=== PATIENT | male | born 1955 | race Hispanic/Latino ===

== ENCOUNTER 2019-01-27 13:01 | Emergency (ER) | payer OTHER ==
[2019-01-27] MEDS ORDERED: NYSTATIN 100MU/GM CREAM 15GM TOP ONE (13:34)
[2019-01-27] MEDS ORDERED: FENTANYL CITR 100 MCG/2 ML ONE (13:36)
[2019-01-27] MEDS ORDERED: NA CHLORIDE 0.9% 1,000 ML ONE (13:37)
[2019-01-27 13:59] LABS: Absolute Lymphocytes (CBC) 1.4 K/uL (0.7-4.9); Basophils % 0.9 % (0-1.3); Hematocrit 44.7 % (39.6-49.0); Lymphocytes % 11.4 % (15.3-44.8); MPV 7.1 fL (7.6-11.3); RBC Red Blood Cell Count 5.63 M/uL (4.33-5.43)
[2019-01-27 14:28] LABS: Bilirubin Direct 0.2 mg/dL (0-0.2); Bilirubin Total 0.6 mg/dL (0.2-1.0); Potassium 4.1 mmol/L (3.5-5.1)
--- NOTE | 2019-01-27 15:22 | RAD REPORT ---
EXAM DESCRIPTION: CT - Abdomen Pelvis W Contrast - 01/27/2019 2:53 pm CLINICAL HISTORY: Abdominal pain COMPARISON: 2017 TECHNIQUE: Computed axial tomography of the abdomen pelvis was obtained. 100 cc Isovue-300 was admin istered intravenously. Oral contrast was not requested which limits evaluation of bowel. All CT scans are performed using dose optimization technique as appropriate and may include automated exposure control or mA/KV adjustment according to patient size. FINDINGS: A cirrhotic liver Borderline splenomegaly Gallstones without gallbladder wall thickening Pancreas, adrenal and kidneys appear unremarkable. There is no evidence of diverticulitis. Normal appendix Small inguinal hernias contain fat Prostate gland is moderately enlarged. Air is present within the bladder. Stranding is present within the adjacent. Mild right basilar atelectasis IMPRESSION: Cholelithiasis without evidence cholecystitis Air within the bladder could be secondary to recent instrumentation or infection. Stranding is presen t within the adjacent fat which be the sequela of inflammation
[2019-01-27 15:28] LABS: Urine Bacteria >50 /HPF (NONE SEEN); Urine Culture Reflex Order REFLEXED
[2019-01-27] MEDS ORDERED: CEFTRIAXONE/SWI 1gm 1 GM/10 ML SYR ONE (15:51)
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
[2019-01-27] MEDS ORDERED: levoFLOXacin 750 MG TAB ONE (15:52)
[2019-01-27 16:44] VITALS: TEMP 98.1
[2019-01-27 16:48] VITALS: BP 133/71; O2SAT 99
== END 2019-01-27 16:15 | disposition home or self-care (01) ==
LOC: ER 13:01
DX: N39.0 Urinary tract infection, site not specified (principal); B35.6 Tinea cruris
CPT/HCPCS: 96361; 87088; 85025; 87086; 80048; 36415; 80076; 81015; 83690; 74177; 51700; 96375; 96374; 99285; Q9967; J3010; J0696; J7030; 87077; 87186

== ENCOUNTER 2019-05-17 01:24 | Inpatient (IN) | payer OTHER ==
--- OUTSIDE RECORDS SUMMARY | 2019-05-17 01:30 | XMS REPORT ---
:1955 [facility] Address [address] [place] [address] [address] [place] [address] Care Team Providers Name Role Phone [employer]HE[employer] Unavailable Unavailable Problems This patient has no known problems. Allergies, Adverse Reactions, Alerts This patient has no known allergies or adverse reactions. Medications This patient has no known medications. Results Test Description Test Time Test Comments Text Results Atomic Results Result Comments BLOOD CULTURE 2016-08-15 18:00:00 Test Item Value Reference Range Comments CULTURE (BEAKER) (test gbgb=1372) No growth in 5 days BLOOD [id number] 12:04:00 Test Item Value Reference Range Comments CULTURE (BEAKER) (test evcd=7643) No growth in 5 days POCT-GLUCOSE [id number] 11:45:00 Test Item Value Reference Range Comments POC-GLUCOSE METER (BEAKER) 97 mg/dL 70-[address] [facility] [address] [facility] (test gcqt=9036) [facility] [address] CBC W/PLT COUNT & AUTO [id number] 06:46:00 Test Item Value Reference Range Comments WHITE BLOOD CELL COUNT (BEAKER) (test yzqm=648) 7.7 K/ L 4.0-10.0 RED BLOOD CELL COUNT (BEAKER) (test cwmz=466) 3.60 M/ L 4.20-5.80 HEMOGLOBIN (BEAKER) (test idht=835) 11.2 GM/DL 13.0-16.8 HEMATOCRIT (BEAKER) (test zlem=800) 33.7 % 40.0-50.0 MEAN CORPUSCULAR VOLUME (BEAKER) (test xjfh=081) 93.5 fL 82.0-98.0 MEAN CORPUSCULAR HEMOGLOBIN (BEAKER) (test 31.0 pg 27.0-33.0 xskw=172) MEAN CORPUSCULAR HEMOGLOBIN CONC (BEAKER) (test 33.1 GM/DL 32.0-36.0 zxhi=478) RED CELL DISTRIBUTION WIDTH (BEAKER) (test 15.1 % 10.3-14.2 cbev=570) PLATELET COUNT (BEAKER) (test bmwj=610) 309 K/CU MM 150-430 MEAN PLATELET VOLUME (BEAKER) (test ihek=196) 6.3 fL 6.5-10.5 NUCLEATED RED BLOOD CELLS (BEAKER) (test 0 /100 WBC 0-0 ziow=504) NEUTROPHILS RELATIVE PERCENT (BEAKER) (test 49 % bwun=919) LYMPHOCYTES RELATIVE PERCENT (BEAKER) (test 33 % yuct=030) MONOCYTES RELATIVE PERCENT (BEAKER) (test 13 % tyxt=081) EOSINOPHILS RELATIVE PERCENT (BEAKER) (test 5 % biaz=658) BASOPHILS RELATIVE PERCENT (BEAKER) (test 1 % ejho=327) NEUTROPHILS ABSOLUTE COUNT (BEAKER) (test 3.76 K/ L 1.80-8.00 xicu=389) LYMPHOCYTES ABSOLUTE COUNT (BEAKER) (test 2.52 K/ L 1.48-4.50 xnzy=494) MONOCYTES ABSOLUTE COUNT (BEAKER) (test 0.98 K/ L 0.00-1.30 aqjv=545) EOSINOPHILS ABSOLUTE COUNT (BEAKER) (test 0.35 K/ L 0.00-0.50 liaa=167) BASOPHILS ABSOLUTE COUNT (BEAKER) (test 0.07 K/ L 0.00-0.20 egys=353) 0.00BASI METABOLIC [id number] 06:27:00 Test Item Value Reference Range Comments SODIUM (BEAKER) (test 137 meq/L 136-145 nchk=882) POTASSIUM (BEAKER) (test 4.2 meq/L 3.5-5.1 Specimen slightly ozmd=004) hemolyzed CHLORIDE (BEAKER) (test 108 meq/L 98-107 easd=932) CO2 (BEAKER) (test 24 meq/L 22-29 kcer=697) BLOOD UREA NITROGEN 10 mg/dL 7-21 (BEAKER) (test xrhe=892) CREATININE (BEAKER) (test 0.55 mg/dL 0.57-1.25 Specimen slightly giyt=935) hemolyzed GLUCOSE RANDOM (BEAKER) 106 mg/dL 70-105 (test qgmz=064) CALCIUM (BEAKER) (test 8.0 mg/dL 8.4-10.2 xreb=753) EGFR (BEAKER) (test 152 mL/min/1.73 sq m ESTIMATED GFR IS NOT ilau=0524) ACCURATE CREATININE CLEARANCE IN PREDICTING GLOMERULAR FILTRATION RATE. ESTIMATED GFR IS NOT APPLICABLE FOR DIALYSIS PATIENTS. POCT-GLUCOSE [id number] 05:53:00 Test Item Value Reference Range Comments POC-GLUCOSE METER (BEAKER) 124 mg/dL 70-110 TESTED AT [address] (test oooz=0441) [place] [id number] POCT-GLUCOSE [id number] 23:56:00 Test Item Value Reference Range Comments POC-GLUCOSE METER (BEAKER) 118 mg/dL 70-110 TESTED AT [address] (test gjjc=1006) [place] [address] POCT-GLUCOSE [id number] 16:36:00 Test Item Value Reference Range Comments POC-GLUCOSE METER (BEAKER) 159 mg/dL 70-110 TESTED AT [address] (test pnzk=9786) [place] [id number] POCT-GLUCOSE [id number] 11:49:00 Test Item Value Reference Range Comments POC-GLUCOSE METER (BEAKER) 141 mg/dL 70-110 TESTED AT [address] (test dqep=9007) [place] [id number] BASIC METABOLIC [id number] 06:11:00 Test Item Value Reference Range Comments SODIUM (BEAKER) (test 137 meq/L 136-145 wdxf=441) POTASSIUM (BEAKER) (test 4.0 meq/L 3.5-5.1 vqcg=824) CHLORIDE (BEAKER) (test 108 meq/L 98-107 gmhf=515) CO2 (BEAKER) (test 22 meq/L 22-29 oipc=119) BLOOD UREA NITROGEN 10 mg/dL 7-21 (BEAKER) (test upti=636) CREATININE (BEAKER) (test 0.52 mg/dL 0.57-1.25 qdzu=437) GLUCOSE RANDOM (BEAKER) 94 mg/dL 70-105 (test nebn=160) CALCIUM (BEAKER) (test 8.0 mg/dL 8.4-10.2 orjx=541) EGFR (BEAKER) (test 162 mL/min/1.73 sq m ESTIMATED GFR IS NOT cywu=4961) ACCURATE CREATININE CLEARANCE IN PREDICTING GLOMERULAR FILTRATION RATE. ESTIMATED GFR IS NOT APPLICABLE FOR DIALYSIS PATIENTS. CBC W/PLT COUNT & AUTO [id number] 06:00:00 Test Item Value Reference Range Comments WHITE BLOOD CELL COUNT (BEAKER) (test rqnl=153) 7.0 K/ L 4.0-10.0 RED BLOOD CELL COUNT (BEAKER) (test qbtl=282) 3.41 M/ L 4.20-5.80 HEMOGLOBIN (BEAKER) (test kipz=460) 10.8 GM/DL 13.0-16.8 HEMATOCRIT (BEAKER) (test ylnd=991) 31.6 % 40.0-50.0 MEAN CORPUSCULAR VOLUME (BEAKER) (test tzrm=392) 92.7 fL 82.0-98.0 MEAN CORPUSCULAR HEMOGLOBIN (BEAKER) (test 31.6 pg 27.0-33.0 bzpq=445) MEAN CORPUSCULAR HEMOGLOBIN CONC (BEAKER) (test 34.1 GM/DL 32.0-36.0 ckjs=015) RED CELL DISTRIBUTION WIDTH (BEAKER) (test 14.5 % 10.3-14.2 uabk=555) PLATELET COUNT (BEAKER) (test lmsx=940) 251 K/CU MM 150-430 MEAN PLATELET VOLUME (BEAKER) (test jhve=867) 6.5 fL 6.5-10.5 NUCLEATED RED BLOOD CELLS (BEAKER) (test 0 /100 WBC 0-0 nowl=984) NEUTROPHILS RELATIVE PERCENT (BEAKER) (test 52 % ebqp=676) LYMPHOCYTES RELATIVE PERCENT (BEAKER) (test 33 % bkjg=149) MONOCYTES RELATIVE PERCENT (BEAKER) (test 12 % qvxs=872) EOSINOPHILS RELATIVE PERCENT (BEAKER) (test 2 % gjcn=739) BASOPHILS RELATIVE PERCENT (BEAKER) (test 1 % cejf=293) NEUTROPHILS ABSOLUTE COUNT (BEAKER) (test 3.63 K/ L 1.80-8.00 ttlv=354) LYMPHOCYTES ABSOLUTE COUNT (BEAKER) (test 2.31 K/ L 1.48-4.50 gqbd=965) MONOCYTES ABSOLUTE COUNT (BEAKER) (test 0.84 K/ L 0.00-1.30 xube=405) EOSINOPHILS ABSOLUTE COUNT (BEAKER) (test 0.14 K/ L 0.00-0.50 wvyh=540) BASOPHILS ABSOLUTE COUNT (BEAKER) (test 0.05 K/ L 0.00-0.20 wxsp=319) 0.00POCT-GLUCOSE [id number] 05:49:00 Test Item Value Reference Range Comments POC-GLUCOSE METER (BEAKER) 101 mg/dL 70-110 TESTED AT [address] (test xnmx=3117) [place] [address] BASIC METABOLIC [id number] 01:36:00 Test Item Value Reference Range Comments SODIUM (BEAKER) (test 133 meq/L 136-145 pnls=293) POTASSIUM (BEAKER) (test 4.2 meq/L 3.5-5.1 hccp=195) CHLORIDE (BEAKER) (test 104 meq/L 98-107 dfwr=925) CO2 (BEAKER) (test 22 meq/L 22-29 jsor=129) BLOOD UREA NITROGEN 11 mg/dL 7-21 (BEAKER) (test hkxy=138) CREATININE (BEAKER) (test 0.57 mg/dL 0.57-1.25 cnfo=465) GLUCOSE RANDOM (BEAKER) 128 mg/dL 70-105 (test wjjb=966) CALCIUM (BEAKER) (test 7.9 mg/dL 8.4-10.2 gdpm=561) EGFR (BEAKER) (test 146 mL/min/1.73 sq m ESTIMATED GFR IS NOT zbda=0353) ACCURATE CREATININE CLEARANCE IN PREDICTING GLOMERULAR FILTRATION RATE. ESTIMATED GFR IS NOT APPLICABLE FOR DIALYSIS PATIENTS. POCT-GLUCOSE [id number] 23:39:00 Test Item Value Reference Range Comments POC-GLUCOSE METER (BEAKER) 151 mg/dL 70-110 TESTED AT [address] (test rltg=6652) [place] [address] VANCOMYCIN LEVEL, [id number] 22:30:00 Test Item Value Reference Range Comments VANCOMYCIN TROUGH (BEAKER) (test opcu=387) 17.5 ug/mL 10.0-20.0 Draw 30 min prior to scheduled dose, HOLD if level > 20 mcg/mL, inform .POCT-GLUCOSE [id number] 21:06:00 Test Item Value Reference Range Comments POC-GLUCOSE METER (BEAKER) 140 mg/dL 70-110 TESTED AT [address] (test xsan=2213) [place] [id number] BASIC METABOLIC [id number] 19:21:00 Test Item Value Reference Range Comments SODIUM (BEAKER) (test 135 meq/L 136-145 qwfw=525) POTASSIUM (BEAKER) (test 4.5 meq/L 3.5-5.1 kspn=607) CHLORIDE (BEAKER) (test 106 meq/L 98-107 snqx=004) CO2 (BEAKER) (test 25 meq/L 22-29 cavf=762) BLOOD UREA NITROGEN 9 mg/dL 7-21 (BEAKER) (test mjak=377) CREATININE (BEAKER) (test 0.55 mg/dL 0.57-1.25 scfd=183) GLUCOSE RANDOM (BEAKER) 150 mg/dL 70-105 (test piym=765) CALCIUM (BEAKER) (test 7.9 mg/dL 8.4-10.2 itec=378) EGFR (BEAKER) (test 152 mL/min/1.73 sq m ESTIMATED GFR IS NOT cuem=1666) ACCURATE CREATININE CLEARANCE IN PREDICTING GLOMERULAR FILTRATION RATE. ESTIMATED GFR IS NOT APPLICABLE FOR DIALYSIS PATIENTS. POCT-GLUCOSE [id number] 17:13:00 Test Item Value Reference Range Comments POC-GLUCOSE METER (BEAKER) 122 mg/dL 70-110 TESTED AT [address] (test gbol=8604) [place] [address] POCT-GLUCOSE [id number] 13:05:00 Test Item Value Reference Range Comments POC-GLUCOSE METER (BEAKER) 108 mg/dL 70-110 TESTED AT [address] (test wtze=0307) [place] [address] [id number] 11:24:00 Test Item Value Reference Range Comments RPR SCREEN (BEAKER) (test lnrc=654) Nonreactive Nonreactive CBC W/PLT COUNT & AUTO [id number] 07:21:00 Test Item Value Reference Range Comments WHITE BLOOD CELL COUNT (BEAKER) (test iche=750) 7.4 K/ L 4.0-10.0 RED BLOOD CELL COUNT (BEAKER) (test rjjl=295) 3.59 M/ L 4.20-5.80 HEMOGLOBIN (BEAKER) (test uvya=571) 10.5 GM/DL 13.0-16.8 HEMATOCRIT (BEAKER) (test ywzt=757) 33.1 % 40.0-50.0 MEAN CORPUSCULAR VOLUME (BEAKER) (test tvju=852) 92.2 fL 82.0-98.0 MEAN CORPUSCULAR HEMOGLOBIN (BEAKER) (test 29.1 pg 27.0-33.0 tgsl=789) MEAN CORPUSCULAR HEMOGLOBIN CONC (BEAKER) (test 31.5 GM/DL 32.0-36.0 akvj=344) RED CELL DISTRIBUTION WIDTH (BEAKER) (test 13.6 % 10.3-14.2 iiaz=020) PLATELET COUNT (BEAKER) (test dblm=479) 219 K/CU MM 150-430 MEAN PLATELET VOLUME (BEAKER) (test ieos=017) 6.6 fL 6.5-10.5 NUCLEATED RED BLOOD CELLS (BEAKER) (test 0 /100 WBC 0-0 iczh=837) NEUTROPHILS RELATIVE PERCENT (BEAKER) (test 63 % bfeg=779) LYMPHOCYTES RELATIVE PERCENT (BEAKER) (test 24 % xevt=354) MONOCYTES RELATIVE PERCENT (BEAKER) (test 12 % fuab=789) EOSINOPHILS RELATIVE PERCENT (BEAKER) (test 1 % lljo=689) BASOPHILS RELATIVE PERCENT (BEAKER) (test 0 % turb=711) NEUTROPHILS ABSOLUTE COUNT (BEAKER) (test 4.64 K/ L 1.80-8.00 lgvh=259) LYMPHOCYTES ABSOLUTE COUNT (BEAKER) (test 1.78 K/ L 1.48-4.50 vyhl=259) MONOCYTES ABSOLUTE COUNT (BEAKER) (test 0.89 K/ L 0.00-1.30 wwbj=360) EOSINOPHILS ABSOLUTE COUNT (BEAKER) (test 0.09 K/ L 0.00-0.50 jbww=332) BASOPHILS ABSOLUTE COUNT (BEAKER) (test 0.03 K/ L 0.00-0.20 tjcd=074) 0.00BASI METABOLIC [id number] 07:06:00 Test Item Value Reference Range Comments SODIUM (BEAKER) (test 136 meq/L 136-145 fczw=708) POTASSIUM (BEAKER) (test 4.1 meq/L 3.5-5.1 stst=531) CHLORIDE (BEAKER) (test 106 meq/L 98-107 yviq=286) CO2 (BEAKER) (test 24 meq/L 22-29 drgx=332) BLOOD UREA NITROGEN 7 mg/dL 7-21 (BEAKER) (test viyq=652) CREATININE (BEAKER) (test 0.56 mg/dL 0.57-1.25 iebl=140) GLUCOSE RANDOM (BEAKER) 104 mg/dL 70-105 (test afch=359) CALCIUM (BEAKER) (test 7.9 mg/dL 8.4-10.2 cnmm=371) EGFR (BEAKER) (test 149 mL/min/1.73 sq m ESTIMATED GFR IS NOT wqxd=7746) ACCURATE CREATININE CLEARANCE IN PREDICTING GLOMERULAR FILTRATION RATE. ESTIMATED GFR IS NOT APPLICABLE FOR DIALYSIS PATIENTS. POCT-GLUCOSE [id number] 05:50:00 Test Item Value Reference Range Comments POC-GLUCOSE METER (BEAKER) 124 mg/dL 70-[address] [facility] [address] [facility] (test warx=8508) [facility] [address] SPUTUM CULTURE + GRAM [id number] 00:49:00 Test Item Value Reference Range Comments CULTURE (BEAKER) (test STAPHYLOCOCCUS AUREUS 4+ Staphylococcus oogd=0129) aureus Clindamycin (test code=10) Erythromycin (test code=4) Linezolid (test code=40) Oxacillin (test code=14) Rifampin (test code=43) Tetracycline (test code=2) Trimethoprim + Sulfamethoxazole (test code=47) Vancomycin (test code=13) GRAM STAIN RESULT 2+ WBCs (BEAKER) (test ipli=5640) GRAM STAIN RESULT 10-15 epithelial cells (BEAKER) (test wfgj=231542) GRAM STAIN RESULT <1+ gram positive rods (BEAKER) (test oppw=840584) GRAM STAIN RESULT 2+ yeast (BEAKER) (test vdxf=563508) GRAM STAIN RESULT 1+ gram positive cocci (BEAKER) (test in pairs zrnz=755512) 4+ Normal respiratory ken[place] presentBASIC METABOLIC [id number] 00:36:00 Test Item Value Reference Range Comments SODIUM (BEAKER) (test 135 meq/L 136-145 sxzu=784) POTASSIUM (BEAKER) (test 4.0 meq/L 3.5-5.1 wtlv=062) CHLORIDE (BEAKER) (test 105 meq/L 98-107 vfwi=777) CO2 (BEAKER) (test 24 meq/L 22-29 iruv=573) BLOOD UREA NITROGEN 7 mg/dL 7-21 (BEAKER) (test mjpq=204) CREATININE (BEAKER) (test 0.58 mg/dL 0.57-1.25 iasj=800) GLUCOSE RANDOM (BEAKER) 112 mg/dL 70-105 (test vllb=738) CALCIUM (BEAKER) (test 7.7 mg/dL 8.4-10.2 qqqm=521) EGFR (BEAKER) (test 143 mL/min/1.73 sq m ESTIMATED GFR IS NOT kwzk=1038) ACCURATE CREATININE CLEARANCE IN PREDICTING GLOMERULAR FILTRATION RATE. ESTIMATED GFR IS NOT APPLICABLE FOR DIALYSIS PATIENTS. POCT-GLUCOSE [id number] 23:29:00 Test Item Value Reference Range Comments POC-GLUCOSE METER (BEAKER) 93 mg/dL 70-110 TESTED AT [address] (test bzpk=6648) [place] [address] BASIC METABOLIC [id number] 18:08:00 Test Item Value Reference Range Comments SODIUM (BEAKER) (test 133 meq/L 136-145 uild=675) POTASSIUM (BEAKER) (test 3.8 meq/L 3.5-5.1 jqhp=560) CHLORIDE (BEAKER) (test 104 meq/L 98-107 kstd=492) CO2 (BEAKER) (test 23 meq/L 22-29 xekk=279) BLOOD UREA NITROGEN 8 mg/dL 7-21 (BEAKER) (test wuwo=560) CREATININE (BEAKER) (test 0.53 mg/dL 0.57-1.25 kkwp=838) GLUCOSE RANDOM (BEAKER) 101 mg/dL 70-105 (test fjrl=960) CALCIUM (BEAKER) (test 7.7 mg/dL 8.4-10.2 ngqc=683) EGFR (BEAKER) (test 159 mL/min/1.73 sq m ESTIMATED GFR IS NOT kvjz=4884) ACCURATE CREATININE CLEARANCE IN PREDICTING GLOMERULAR FILTRATION RATE. ESTIMATED GFR IS NOT APPLICABLE FOR DIALYSIS PATIENTS. POCT-GLUCOSE [id number] 17:45:00 Test Item Value Reference Range Comments POC-GLUCOSE METER (BEAKER) 101 mg/dL 70-110 TESTED AT [address] (test mkro=6473) [place] [address] BASIC METABOLIC [id number] 14:10:00 Test Item Value Reference Range Comments SODIUM (BEAKER) (test 130 meq/L 136-145 ytyr=939) POTASSIUM (BEAKER) (test 3.7 meq/L 3.5-5.1 xngi=720) CHLORIDE (BEAKER) (test 101 meq/L 98-107 otdt=086) CO2 (BEAKER) (test 23 meq/L 22-29 nkzp=287) BLOOD UREA NITROGEN 9 mg/dL 7-21 (BEAKER) (test gpdt=378) CREATININE (BEAKER) (test 0.55 mg/dL 0.57-1.25 fwni=868) GLUCOSE RANDOM (BEAKER) 115 mg/dL 70-105 (test posq=155) CALCIUM (BEAKER) (test 7.7 mg/dL 8.4-10.2 eaby=155) EGFR (BEAKER) (test 152 mL/min/1.73 sq m ESTIMATED GFR IS NOT fnvb=3364) ACCURATE CREATININE CLEARANCE IN PREDICTING GLOMERULAR FILTRATION RATE. ESTIMATED GFR IS NOT APPLICABLE FOR DIALYSIS PATIENTS. POCT-GLUCOSE [id number] 12:16:00 Test Item Value Reference Range Comments POC-GLUCOSE METER (BEAKER) 105 mg/dL 70-[address] [facility] [address] [facility] (test qqyl=2394) [place] [address] URINE [id number] 10:22:00 Test Item Value Reference Range Comments CULTURE (BEAKER) (test gijp=6091) No growth URINE [id number] 09:54:00 Test Item Value Reference Range Comments CULTURE (BEAKER) (test yceo=3227) No growth BASIC METABOLIC [id number] 05:53:00 Test Item Value Reference Range Comments SODIUM (BEAKER) (test 128 meq/L 136-145 yaqz=974) POTASSIUM (BEAKER) (test 3.8 meq/L 3.5-5.1 nogs=182) CHLORIDE (BEAKER) (test 100 meq/L 98-107 sxko=226) CO2 (BEAKER) (test 21 meq/L 22-29 dnha=422) BLOOD UREA NITROGEN 10 mg/dL 7-21 (BEAKER) (test rnxu=077) CREATININE (BEAKER) (test 0.55 mg/dL 0.57-1.25 zfbk=108) GLUCOSE RANDOM (BEAKER) 115 mg/dL 70-105 (test aord=351) CALCIUM (BEAKER) (test 7.9 mg/dL 8.4-10.2 ilcb=985) EGFR (BEAKER) (test 152 mL/min/1.73 sq m ESTIMATED GFR IS NOT cxio=2003) ACCURATE CREATININE CLEARANCE IN PREDICTING GLOMERULAR FILTRATION RATE. ESTIMATED GFR IS NOT APPLICABLE FOR DIALYSIS PATIENTS. CBC W/PLT COUNT & AUTO [id number] 05:36:00 Test Item Value Reference Range Comments WHITE BLOOD CELL COUNT (BEAKER) (test dxmv=580) 8.6 K/ L 4.0-10.0 RED BLOOD CELL COUNT (BEAKER) (test gfic=279) 3.48 M/ L 4.20-5.80 HEMOGLOBIN (BEAKER) (test ripy=486) 10.8 GM/DL 13.0-16.8 HEMATOCRIT (BEAKER) (test vhsg=474) 32.6 % 40.0-50.0 MEAN CORPUSCULAR VOLUME (BEAKER) (test tnmp=709) 93.5 fL 82.0-98.0 MEAN CORPUSCULAR HEMOGLOBIN (BEAKER) (test 30.9 pg 27.0-33.0 nghc=174) MEAN CORPUSCULAR HEMOGLOBIN CONC (BEAKER) (test 33.0 GM/DL 32.0-36.0 moqy=430) RED CELL DISTRIBUTION WIDTH (BEAKER) (test 14.9 % 10.3-14.2 nvev=112) PLATELET COUNT (BEAKER) (test dncd=160) 202 K/CU MM 150-430 MEAN PLATELET VOLUME (BEAKER) (test sjom=458) 6.8 fL 6.5-10.5 NUCLEATED RED BLOOD CELLS (BEAKER) (test 0 /100 WBC 0-0 zyaw=036) NEUTROPHILS RELATIVE PERCENT (BEAKER) (test 60 % mxkn=122) LYMPHOCYTES RELATIVE PERCENT (BEAKER) (test 27 % nfha=074) MONOCYTES RELATIVE PERCENT (BEAKER) (test 12 % imlw=793) EOSINOPHILS RELATIVE PERCENT (BEAKER) (test 1 % kjji=480) BASOPHILS RELATIVE PERCENT (BEAKER) (test 1 % uihp=340) NEUTROPHILS ABSOLUTE COUNT (BEAKER) (test 5.17 K/ L 1.80-8.00 vflo=632) LYMPHOCYTES ABSOLUTE COUNT (BEAKER) (test 2.31 K/ L 1.48-4.50 dpwm=797) MONOCYTES ABSOLUTE COUNT (BEAKER) (test 1.04 K/ L 0.00-1.30 nype=791) EOSINOPHILS ABSOLUTE COUNT (BEAKER) (test 0.04 K/ L 0.00-0.50 ysok=117) BASOPHILS ABSOLUTE COUNT (BEAKER) (test 0.07 K/ L 0.00-0.20 ywjc=323) 0.00VANCOMYCIN LEVEL, [id number] 21:59:00 Test Item Value Reference Range Comments VANCOMYCIN TROUGH (BEAKER) (test hidv=360) 21.6 ug/mL 10.0-20.0 Draw 30 min prior to scheduled dose, HOLD if level > 20 mcg/mL, inform MD.POCT-GLUCOSE [id number] 21:39:00 Test Item Value Reference Range Comments POC-GLUCOSE METER (BEAKER) 113 mg/dL 70-[address] [facility] [address] [place] [address] (test zrxc=9701) [facility] [address] BASIC METABOLIC [id number] 19:04:00 Test Item Value Reference Range Comments SODIUM (BEAKER) (test 128 meq/L 136-145 mkqw=291) POTASSIUM (BEAKER) (test 3.7 meq/L 3.5-5.1 xqre=411) CHLORIDE (BEAKER) (test 99 meq/L 98-107 acub=490) CO2 (BEAKER) (test 22 meq/L 22-29 srdi=293) BLOOD UREA NITROGEN 13 mg/dL 7-21 (BEAKER) (test cyel=002) CREATININE (BEAKER) (test 0.58 mg/dL 0.57-1.25 xjyt=206) GLUCOSE RANDOM (BEAKER) 128 mg/dL 70-105 (test qlul=999) CALCIUM (BEAKER) (test 7.7 mg/dL 8.4-10.2 ruud=596) EGFR (BEAKER) (test 143 mL/min/1.73 sq m ESTIMATED GFR IS NOT eeyp=3735) ACCURATE CREATININE CLEARANCE IN PREDICTING GLOMERULAR FILTRATION RATE. ESTIMATED GFR IS NOT APPLICABLE FOR DIALYSIS PATIENTS. BASIC METABOLIC [id number] 14:34:00 Test Item Value Reference Range Comments SODIUM (BEAKER) (test 132 meq/L 136-145 tfvs=768) POTASSIUM (BEAKER) (test 4.1 meq/L 3.5-5.1 Specimen slightly njzj=988) hemolyzed CHLORIDE (BEAKER) (test 101 meq/L 98-107 dypo=877) CO2 (BEAKER) (test 20 meq/L 22-29 zgpn=372) BLOOD UREA NITROGEN 14 mg/dL 7-21 (BEAKER) (test tazg=480) CREATININE (BEAKER) (test 0.60 mg/dL 0.57-1.25 Specimen slightly qcur=709) hemolyzed GLUCOSE RANDOM (BEAKER) 114 mg/dL 70-105 (test jibt=561) CALCIUM (BEAKER) (test 7.3 mg/dL 8.4-10.2 yrxw=399) EGFR (BEAKER) (test 137 mL/min/1.73 sq m ESTIMATED GFR IS NOT zihk=0521) ACCURATE CREATININE CLEARANCE IN PREDICTING GLOMERULAR FILTRATION RATE. ESTIMATED GFR IS NOT APPLICABLE FOR DIALYSIS PATIENTS. SODIUM, RANDOM [id number] 14:27:00 Test Item Value Reference Range Comments SODIUM URINE (BEAKER) (test udfn=833) 75 meq/L Reference Range: No NormalsHEPATIC FUNCTION [id number] 07:18:00 Test Item Value Reference Range Comments TOTAL PROTEIN (BEAKER) (test tswe=263) 6.5 gm/dL 6.0-8.3 ALBUMIN (BEAKER) (test xcbj=2711) 2.7 g/dL 3.5-5.0 BILIRUBIN TOTAL (BEAKER) (test xktp=495) 0.8 mg/dL 0.2-1.2 BILIRUBIN DIRECT (BEAKER) (test wmhf=846) 0.4 mg/dL 0.1-0.5 ALKALINE PHOSPHATASE (BEAKER) (test lphy=475) 102 U/L 40-150 AST (SGOT) (BEAKER) (test sqrm=823) 53 U/L 5-34 ALT (SGPT) (BEAKER) (test nbgf=308) 25 U/L 6-55 [id number] 07:18:00 Test Item Value Reference Range Comments MAGNESIUM (BEAKER) (test jhuw=326) 1.8 mg/dL 1.6-2.6 [id number] 07:18:00 Test Item Value Reference Range Comments PHOSPHORUS (BEAKER) (test feut=204) 3.0 mg/dL 2.3-4.7 OSMOLALITY, [id number] 05:41:00 Test Item Value Reference Range Comments OSMOLALITY URINE (BEAKER) (test awhw=864) 541 mOsm/kg 40-1400 OSMOLALITY, [id number] 05:40:00 Test Item Value Reference Range Comments OSMOLALITY, SERUM (BEAKER) (test kynq=067) 280 mOsm/kg 275-295 BASIC METABOLIC [id number] 05:02:00 Test Item Value Reference Range Comments SODIUM (BEAKER) (test 129 meq/L 136-145 eizp=520) POTASSIUM (BEAKER) (test 4.0 meq/L 3.5-5.1 vsox=462) CHLORIDE (BEAKER) (test 99 meq/L 98-107 jnuo=015) CO2 (BEAKER) (test 21 meq/L 22-29 rvqh=762) BLOOD UREA NITROGEN 17 mg/dL 7-21 (BEAKER) (test bzou=553) CREATININE (BEAKER) (test 0.66 mg/dL 0.57-1.25 apns=063) GLUCOSE RANDOM (BEAKER) 146 mg/dL 70-105 (test smqo=780) CALCIUM (BEAKER) (test 7.9 mg/dL 8.4-10.2 megs=881) EGFR (BEAKER) (test 123 mL/min/1.73 sq m ESTIMATED GFR IS NOT nsah=1122) ACCURATE CREATININE CLEARANCE IN PREDICTING GLOMERULAR FILTRATION RATE. ESTIMATED GFR IS NOT APPLICABLE FOR DIALYSIS PATIENTS. CBC W/PLT COUNT & AUTO [id number] 04:48:00 Test Item Value Reference Range Comments WHITE BLOOD CELL COUNT (BEAKER) (test eknx=760) 7.9 K/ L 4.0-10.0 RED BLOOD CELL COUNT (BEAKER) (test csja=069) 3.46 M/ L 4.20-5.80 HEMOGLOBIN (BEAKER) (test ewik=122) 10.6 GM/DL 13.0-16.8 HEMATOCRIT (BEAKER) (test bxri=241) 31.7 % 40.0-50.0 MEAN CORPUSCULAR VOLUME (BEAKER) (test vmpl=189) 91.6 fL 82.0-98.0 MEAN CORPUSCULAR HEMOGLOBIN (BEAKER) (test 30.5 pg 27.0-33.0 tmog=978) MEAN CORPUSCULAR HEMOGLOBIN CONC (BEAKER) (test 33.3 GM/DL 32.0-36.0 yzus=738) RED CELL DISTRIBUTION WIDTH (BEAKER) (test 14.5 % 10.3-14.2 tpex=200) PLATELET COUNT (BEAKER) (test nacp=952) 204 K/CU MM 150-430 MEAN PLATELET VOLUME (BEAKER) (test eglp=132) 6.7 fL 6.5-10.5 NUCLEATED RED BLOOD CELLS (BEAKER) (test 0 /100 WBC 0-0 mehk=778) NEUTROPHILS RELATIVE PERCENT (BEAKER) (test 72 % vtru=162) LYMPHOCYTES RELATIVE PERCENT (BEAKER) (test 17 % sfrk=873) MONOCYTES RELATIVE PERCENT (BEAKER) (test 10 % wrbp=029) EOSINOPHILS RELATIVE PERCENT (BEAKER) (test 0 % zhzn=394) BASOPHILS RELATIVE PERCENT (BEAKER) (test 1 % lbai=899) NEUTROPHILS ABSOLUTE COUNT (BEAKER) (test 5.67 K/ L 1.80-8.00 fajh=616) LYMPHOCYTES ABSOLUTE COUNT (BEAKER) (test 1.34 K/ L 1.48-4.50 ryqp=287) MONOCYTES ABSOLUTE COUNT (BEAKER) (test 0.82 K/ L 0.00-1.30 idig=513) EOSINOPHILS ABSOLUTE COUNT (BEAKER) (test 0.01 K/ L 0.00-0.50 kkmy=963) BASOPHILS ABSOLUTE COUNT (BEAKER) (test 0.05 K/ L 0.00-0.20 emsd=842) 0.00SODIUM, RANDOM [id number] 02:48:00 Test Item Value Reference Range Comments SODIUM URINE (BEAKER) (test wmfq=653) 24 meq/L Reference Range: No NormalsBASIC METABOLIC [id number] 01:37:00 Test Item Value Reference Range Comments SODIUM (BEAKER) (test 127 meq/L 136-145 hpci=977) POTASSIUM (BEAKER) (test 4.2 meq/L 3.5-5.1 vrot=063) CHLORIDE (BEAKER) (test 98 meq/L 98-107 zbxr=303) CO2 (BEAKER) (test 20 meq/L 22-29 swos=727) BLOOD UREA NITROGEN 17 mg/dL 7-21 (BEAKER) (test wdfg=421) CREATININE (BEAKER) (test 0.67 mg/dL 0.57-1.25 looq=479) GLUCOSE RANDOM (BEAKER) 144 mg/dL 70-105 (test tsbc=134) CALCIUM (BEAKER) (test 8.1 mg/dL 8.4-10.2 gzyg=881) EGFR (BEAKER) (test 121 mL/min/1.73 sq m ESTIMATED GFR IS NOT xtxp=9018) ACCURATE CREATININE CLEARANCE IN PREDICTING GLOMERULAR FILTRATION RATE. ESTIMATED GFR IS NOT APPLICABLE FOR DIALYSIS PATIENTS. BASIC METABOLIC [id number] 21:54:00 Test Item Value Reference Range Comments SODIUM (BEAKER) (test 121 meq/L 136-145 mlhp=116) POTASSIUM (BEAKER) (test 3.8 meq/L 3.5-5.1 niam=275) CHLORIDE (BEAKER) (test 93 meq/L 98-107 ljvm=710) CO2 (BEAKER) (test 20 meq/L 22-29 rciu=757) BLOOD UREA NITROGEN 17 mg/dL 7-21 (BEAKER) (test cnaa=859) CREATININE (BEAKER) (test 0.65 mg/dL 0.57-1.25 xfbo=894) GLUCOSE RANDOM (BEAKER) 158 mg/dL 70-105 (test snlm=751) CALCIUM (BEAKER) (test 8.1 mg/dL 8.4-10.2 utgk=150) EGFR (BEAKER) (test 125 mL/min/1.73 sq m ESTIMATED GFR IS NOT jahu=4236) ACCURATE CREATININE CLEARANCE IN PREDICTING GLOMERULAR FILTRATION RATE. ESTIMATED GFR IS NOT APPLICABLE FOR DIALYSIS PATIENTS. SODIUM, RANDOM [id number] 17:45:00 Test Item Value Reference Range Comments SODIUM URINE (BEAKER) (test ipcv=806) < meq/L Reference Range: No NormalsOSMOLALITY, [id number] 17:41:00 Test Item Value Reference Range Comments OSMOLALITY URINE (BEAKER) (test uoty=123) 466 mOsm/kg 40-1400 OSMOLALITY, [id number] 17:34:00 Test Item Value Reference Range Comments OSMOLALITY, SERUM (BEAKER) (test jlua=144) 273 mOsm/kg 275-295 BASIC METABOLIC [id number] 17:34:00 Test Item Value Reference Range Comments SODIUM (BEAKER) (test 126 meq/L 136-145 nrkg=509) POTASSIUM (BEAKER) (test 4.2 meq/L 3.5-5.1 efwn=851) CHLORIDE (BEAKER) (test 97 meq/L 98-107 wsga=898) CO2 (BEAKER) (test 20 meq/L 22-29 ijob=086) BLOOD UREA NITROGEN 17 mg/dL 7-21 (BEAKER) (test oqnq=982) CREATININE (BEAKER) (test 0.62 mg/dL 0.57-1.25 awdz=989) GLUCOSE RANDOM (BEAKER) 145 mg/dL 70-105 (test kfin=079) CALCIUM (BEAKER) (test 8.1 mg/dL 8.4-10.2 cdes=216) EGFR (BEAKER) (test 132 mL/min/1.73 sq m ESTIMATED GFR IS NOT ybwi=7919) ACCURATE CREATININE CLEARANCE IN PREDICTING GLOMERULAR FILTRATION RATE. ESTIMATED GFR IS NOT APPLICABLE FOR DIALYSIS PATIENTS. LACTIC ACID, VENOUS, WHOLE [id number] 17:30:00 Test Item Value Reference Range Comments LACTATE BLOOD VENOUS (2) (BEAKER) (test 1.9 mmol/L 0.5-2.2 ooyg=1856) Effective 08/31/2015: Units/Reference Range ChangeNew: 0.5-2.2 mmol/L Previous: 5 -20 mg/dLCan draw with next BMPBLOOD GAS, [id number] 17:18:00 Test Item Value Reference Range Comments PH ARTERIAL (BEAKER) (test mdai=913) 7.52 7.35-7.45 PCO2 ARTERIAL (BEAKER) (test zfcz=356) 30 mmHg 35-45 PO2 ARTERIAL (BEAKER) (test iwwt=599) 87 mmHg 80-90 O2 SATURATION ARTERIAL (BEAKER) (test zgta=441) 97.6 % 96.0-97.0 HCO3 ARTERIAL (BEAKER) (test xxwh=375) 24 mmol/L 21-29 BASE EXCESS ARTERIAL (BEAKER) (test iyod=252) 1.2 mmol/L -2.0-3.0 PATIENT TEMPERATURE (BEAKER) (test uhqh=2306) 36.7 C FIO2 (BEAKER) (test bwcz=4211) 21.0 % INFLUENZA A H1N1 [id number] 14:16:00 Test Item Value Reference Range Comments INFLUENZA A RNA (BEAKER) (test Not Detected Not Detected, Inconclusive slgu=3646) NOVEL H1N1 RNA (BEAKER) (test Not Detected Not Detected, Inconclusive ngyh=5336) These assays were performed by real-time RT-PCR (sub arc operator-PCR) utilizing fluorogenic hydrolysis probe technology for the detection of human Influenza A viruses and the differential detection of novel H1N1 Influenza virus in respiratory specimens. The test is composed of (1) an RNA extraction from patient specimen, and (2) sub arc operator-PCR amplification and detection with human Influenza A and novel Z9T3-[id number] primers and probes. A well-conserved region of the Influenza A matrix gene is targeted in one set of reactions to identify both seasonal Influenza A and novel H1N1 Influenza virus in the specimen. In addition, a specific region of the hemagglutinin gene is targeted to differentiate the novel H1N1 virusfrom the seasonal human influenza. An internal control is used to confirm PCR amplification. Genetic variation and other factors can affect the accuracy of nucleic acid testing; therefore, the resultsshould be interpreted in light of clinical data. This test was developed and its performance characteristics determined by the [facility] Pathology Department, Section of Molecular Pathology. It has not been cleared or approved by the U.S. Food and Drug Administration (FDA). SinceFDA approval is not required for clinical use of the test, validation was done as required by The Clinical Laboratory Amendments of 1988.BASIC METABOLIC [id number] 13 :14:00 Test Item Value Reference Range Comments SODIUM (BEAKER) (test 127 meq/L 136-145 phbs=956) POTASSIUM (BEAKER) (test 4.6 meq/L 3.5-5.1 rykk=365) CHLORIDE (BEAKER) (test 98 meq/L 98-107 cylk=490) CO2 (BEAKER) (test 21 meq/L 22-29 qwxx=908) BLOOD UREA NITROGEN 16 mg/dL 7-21 (BEAKER) (test htfo=707) CREATININE (BEAKER) (test 0.64 mg/dL 0.57-1.25 ftkl=488) GLUCOSE RANDOM (BEAKER) 146 mg/dL 70-105 (test wszw=335) CALCIUM (BEAKER) (test 8.3 mg/dL 8.4-10.2 lrhs=394) EGFR (BEAKER) (test 128 mL/min/1.73 sq m ESTIMATED GFR IS NOT cstf=9994) ACCURATE CREATININE CLEARANCE IN PREDICTING GLOMERULAR FILTRATION RATE. ESTIMATED GFR IS NOT APPLICABLE FOR DIALYSIS PATIENTS. HEPATITIS B [id number] 10:49:00 Test Item Value Reference Range Comments HEPATITIS B CORE TOTAL ANTIBODY (BEAKER) (test Nonreactive Nonreactive jhxi=305) HEPATITIS B SURFACE ANTIBODY (BEAKER) (test < mIU/mL <8.0 lgnd=181) HEPATITIS B SURFACE ANTIGEN (2) (BEAKER) (test Nonreactive Nonreactive vyxy=2898) HEPATITIS A [id number] 10:49:00 Test Item Value Reference Range Comments HEPATITIS A IGM ANTIBODY (BEAKER) (test Nonreactive Nonreactive jbbi=594) HEPATITIS A IGG ANTIBODY (BEAKER) (test Reactive Nonreactive eetu=5884) HEPATITIS C [id number] 10:41:00 Test Item Value Reference Range Comments HEPATITIS C ANTIBODY (BEAKER) (test qvro=499) Nonreactive Nonreactive B-TYPE NATRIURETIC FACTOR (BNP)[id number] 10:20:00 Test Item Value Reference Range Comments B-TYPE NATRIURETIC PEPTIDE (BEAKER) (test 642 pg/mL 0-100 rxyt=292) BASIC METABOLIC [id number] 10:19:00 Test Item Value Reference Range Comments SODIUM (BEAKER) (test 126 meq/L 136-145 ojfw=693) POTASSIUM (BEAKER) (test 4.7 meq/L 3.5-5.1 tlhk=263) CHLORIDE (BEAKER) (test 97 meq/L 98-107 yfaz=626) CO2 (BEAKER) (test 20 meq/L 22-29 bezp=674) BLOOD UREA NITROGEN 16 mg/dL 7-21 (BEAKER) (test cwwk=306) CREATININE (BEAKER) (test 0.63 mg/dL 0.57-1.25 nqky=232) GLUCOSE RANDOM (BEAKER) 149 mg/dL 70-105 (test epzv=322) CALCIUM (BEAKER) (test 8.3 mg/dL 8.4-10.2 cgtk=910) EGFR (BEAKER) (test 130 mL/min/1.73 sq m ESTIMATED GFR IS NOT npcj=3700) ACCURATE CREATININE CLEARANCE IN PREDICTING GLOMERULAR FILTRATION RATE. ESTIMATED GFR IS NOT APPLICABLE FOR DIALYSIS PATIENTS. BASIC METABOLIC [id number] 10:18:00 Test Item Value Reference Range Comments SODIUM (BEAKER) (test 126 meq/L 136-145 uusg=264) POTASSIUM (BEAKER) (test 4.6 meq/L 3.5-5.1 gvur=954) CHLORIDE (BEAKER) (test 97 meq/L 98-107 cdqk=079) CO2 (BEAKER) (test 20 meq/L 22-29 itrg=658) BLOOD UREA NITROGEN 16 mg/dL 7-21 (BEAKER) (test lgop=517) CREATININE (BEAKER) (test 0.63 mg/dL 0.57-1.25 oxst=886) GLUCOSE RANDOM (BEAKER) 149 mg/dL 70-105 (test zycx=451) CALCIUM (BEAKER) (test 8.3 mg/dL 8.4-10.2 zika=024) EGFR (BEAKER) (test 130 mL/min/1.73 sq m ESTIMATED GFR IS NOT uzko=4524) ACCURATE CREATININE CLEARANCE IN PREDICTING GLOMERULAR FILTRATION RATE. ESTIMATED GFR IS NOT APPLICABLE FOR DIALYSIS PATIENTS. STREP PNEUMONIAE [id number] 08:23:00 Test Item Value Reference Range Comments STREP PNEUMONIAE ANTIGEN Presumptive negative for Presumptive negative for (BEAKER) (test pneumococcal pneumonia - pneumococcal pneumonia - gksg=1023) see comment see commen Presumptive negative for pneumococcal pneumonia, suggesting no current or recent pneumococcal infection. Infection due to S. pneumoniae cannot be ruled out since the antigen present in the sample may be below the detection limit of the test.LEGIONELLA ANTIGEN, [id number] 08:23:00 Test Item Value Reference Range Comments L. PNEUMOPHILA SEROGP 1 Negative - see Negative for L. UR AG (BEAKER) (test comment pneumophila serogroup 1 swoa=6525) antigen, suggesting no recent or current infection with this serogroup. Legionellosis cannot be ruled out since other serogroups and species may cause disease. OSMOLALITY, [id number] 08:10:00 Test Item Value Reference Range Comments OSMOLALITY URINE (BEAKER) (test qgib=048) 150 mOsm/kg 40-1400 [id number] 07:23:00 Test Item Value Reference Range Comments THYROID STIMULATING HORMONE (BEAKER) (test 1.71 uIU/mL 0.35-4.94 cyhh=442) VITAMIN [id number] 07:23:00 Test Item Value Reference Range Comments VITAMIN B12 (BEAKER) (test autm=828) 1162 pg/mL 213-816 OSMOLALITY, [id number] 06:33:00 Test Item Value Reference Range Comments OSMOLALITY, SERUM (BEAKER) (test nqfr=638) 286 mOsm/kg 275-295 CBC W/PLT COUNT & AUTO [id number] 06:17:00 Test Item Value Reference Range Comments WHITE BLOOD CELL COUNT (BEAKER) (test dgbs=116) 3.5 K/ L 4.0-10.0 RED BLOOD CELL COUNT (BEAKER) (test yzii=408) 3.88 M/ L 4.20-5.80 HEMOGLOBIN (BEAKER) (test mgck=311) 11.7 GM/DL 13.0-16.8 HEMATOCRIT (BEAKER) (test husa=191) 35.4 % 40.0-50.0 MEAN CORPUSCULAR VOLUME (BEAKER) (test bmvl=072) 91.5 fL 82.0-98.0 MEAN CORPUSCULAR HEMOGLOBIN (BEAKER) (test 30.1 pg 27.0-33.0 muzl=535) MEAN CORPUSCULAR HEMOGLOBIN CONC (BEAKER) (test 32.9 GM/DL 32.0-36.0 qjew=991) RED CELL DISTRIBUTION WIDTH (BEAKER) (test 14.4 % 10.3-14.2 epvh=545) PLATELET COUNT (BEAKER) (test crcm=375) 198 K/CU MM 150-430 MEAN PLATELET VOLUME (BEAKER) (test fsbn=581) 7.0 fL 6.5-10.5 NUCLEATED RED BLOOD CELLS (BEAKER) (test 0 /100 WBC 0-0 sbia=236) NEUTROPHILS RELATIVE PERCENT (BEAKER) (test 72 % ffqx=520) LYMPHOCYTES RELATIVE PERCENT (BEAKER) (test 25 % xpuf=085) MONOCYTES RELATIVE PERCENT (BEAKER) (test 2 % swdz=239) EOSINOPHILS RELATIVE PERCENT (BEAKER) (test 0 % snsd=367) BASOPHILS RELATIVE PERCENT (BEAKER) (test 1 % lzfo=301) NEUTROPHILS ABSOLUTE COUNT (BEAKER) (test 2.50 K/ L 1.80-8.00 krbq=115) LYMPHOCYTES ABSOLUTE COUNT (BEAKER) (test 0.86 K/ L 1.48-4.50 ndem=062) MONOCYTES ABSOLUTE COUNT (BEAKER) (test 0.08 K/ L 0.00-1.30 bmfu=809) EOSINOPHILS ABSOLUTE COUNT (BEAKER) (test 0.01 K/ L 0.00-0.50 ygxu=641) BASOPHILS ABSOLUTE COUNT (BEAKER) (test 0.03 K/ L 0.00-0.20 povm=001) 0.00HIV-1 ANTIGEN WITH HIV-1/2 [id number] 05:50:00 Test Item Value Reference Range Comments HIV-1 ANTIGEN WITH HIV 1\T\2 ANTIBODY (2) Nonreactive Nonreactive (BEAKER) (test vzpk=2374) [id number] 05:50:00 Test Item Value Reference Range Comments CORTISOL, TOTAL (BEAKER) (test bnfc=4768) 3.4 ug/dL 3.7-19.4 SODIUM, RANDOM [id number] 05:42:00 Test Item Value Reference Range Comments SODIUM URINE (BEAKER) (test zhec=543) < meq/L Reference Range: No NormalsBASIC METABOLIC [id number] 05:34:00 Test Item Value Reference Range Comments SODIUM (BEAKER) (test 123 meq/L 136-145 ayxl=454) POTASSIUM (BEAKER) (test 4.7 meq/L 3.5-5.1 pfcs=488) CHLORIDE (BEAKER) (test 95 meq/L 98-107 muls=529) CO2 (BEAKER) (test 19 meq/L 22-29 ohdn=955) BLOOD UREA NITROGEN 17 mg/dL 7-21 (BEAKER) (test kstx=687) CREATININE (BEAKER) (test 0.63 mg/dL 0.57-1.25 tada=008) GLUCOSE RANDOM (BEAKER) 158 mg/dL 70-105 (test rcah=792) CALCIUM (BEAKER) (test 8.4 mg/dL 8.4-10.2 lqrd=555) EGFR (BEAKER) (test 130 mL/min/1.73 sq m ESTIMATED GFR IS NOT dzlm=6941) ACCURATE CREATININE CLEARANCE IN PREDICTING GLOMERULAR FILTRATION RATE. ESTIMATED GFR IS NOT APPLICABLE FOR DIALYSIS PATIENTS. BASIC METABOLIC [id number] 05:29:00 Test Item Value Reference Range Comments SODIUM (BEAKER) (test 124 meq/L 136-145 vqte=558) POTASSIUM (BEAKER) (test 4.7 meq/L 3.5-5.1 hniy=142) CHLORIDE (BEAKER) (test 95 meq/L 98-107 itwl=957) CO2 (BEAKER) (test 19 meq/L 22-29 qrgt=149) BLOOD UREA NITROGEN 17 mg/dL 7-21 (BEAKER) (test gtuo=427) CREATININE (BEAKER) (test 0.62 mg/dL 0.57-1.25 ydcy=173) GLUCOSE RANDOM (BEAKER) 160 mg/dL 70-105 (test jcbw=320) CALCIUM (BEAKER) (test 8.4 mg/dL 8.4-10.2 ysrj=931) EGFR (BEAKER) (test 132 mL/min/1.73 sq m ESTIMATED GFR IS NOT fxas=3679) ACCURATE CREATININE CLEARANCE IN PREDICTING GLOMERULAR FILTRATION RATE. ESTIMATED GFR IS NOT APPLICABLE FOR DIALYSIS PATIENTS. LACTIC ACID, VENOUS, WHOLE [id number] 05:25:00 Test Item Value Reference Range Comments LACTATE BLOOD VENOUS (2) (BEAKER) (test 2.6 mmol/L 0.5-2.2 rtwa=3145) Effective 08/31/2015: Units/Reference Range ChangeNew: 0.5-2.2 mmol/L Previous: 5 -20 mg/dLPROTHROMBIN [id number] 05:25:00 Test Item Value Reference Range Comments PROTIME (BEAKER) (test lujo=105) 17.0 seconds 11.7-14.7 INR (BEAKER) (test wwtb=808) 1.4 <=5.9 RECOMMENDED COUMADIN/WARFARIN INR THERAPY RANGESSTANDARD DOSE: 2.0 - 3.0 Includes: PROPHYLAXIS forvenous thrombosis, systemic embolization; TREATMENT for venous thrombosis and/or pulmonary embolus.HIGH RISK: Target INR is 2.5-3.5 for patients with mechanical heart valves.[id number] 05:23:00 Test Item Value Reference Range Comments AMMONIA (BEAKER) (test quzp=271) 27 mol/L 18-72 BASIC METABOLIC [id number] 02:34:00 Test Item Value Reference Range Comments SODIUM (BEAKER) (test 121 meq/L 136-145 vkcy=060) POTASSIUM (BEAKER) (test 5.0 meq/L 3.5-5.1 ytfo=653) CHLORIDE (BEAKER) (test 94 meq/L 98-107 ysxt=606) CO2 (BEAKER) (test 18 meq/L 22-29 ypai=508) BLOOD UREA NITROGEN 17 mg/dL 7-21 (BEAKER) (test vugj=962) CREATININE (BEAKER) (test 0.64 mg/dL 0.57-1.25 uqdp=413) GLUCOSE RANDOM (BEAKER) 163 mg/dL 70-105 (test rhdm=779) CALCIUM (BEAKER) (test 8.3 mg/dL 8.4-10.2 bpxp=496) EGFR (BEAKER) (test 128 mL/min/1.73 sq m ESTIMATED GFR IS NOT xyge=2961) ACCURATE CREATININE CLEARANCE IN PREDICTING GLOMERULAR FILTRATION RATE. ESTIMATED GFR IS NOT APPLICABLE FOR DIALYSIS PATIENTS. BASIC METABOLIC [id number] 00:17:00 Test Item Value Reference Range Comments SODIUM (BEAKER) (test 120 meq/L 136-145 xrln=615) POTASSIUM (BEAKER) (test 5.4 meq/L 3.5-5.1 Specimen slightly geic=098) hemolyzed CHLORIDE (BEAKER) (test 93 meq/L 98-107 tqwm=726) CO2 (BEAKER) (test 19 meq/L 22-29 wezt=067) BLOOD UREA NITROGEN 18 mg/dL 7-21 (BEAKER) (test wcgl=071) CREATININE (BEAKER) (test 0.63 mg/dL 0.57-1.25 Specimen slightly mvhn=811) hemolyzed GLUCOSE RANDOM (BEAKER) 160 mg/dL 70-105 (test najg=138) CALCIUM (BEAKER) (test 8.2 mg/dL 8.4-10.2 ybsi=730) EGFR (BEAKER) (test 130 mL/min/1.73 sq m ESTIMATED GFR IS NOT rnml=6582) ACCURATE CREATININE CLEARANCE IN PREDICTING GLOMERULAR FILTRATION RATE. ESTIMATED GFR IS NOT APPLICABLE FOR DIALYSIS PATIENTS. RAPID INFLUENZA A&B [id number] 23:44:00 Test Item Value Reference Range Comments RAPID INFLUENZA A AG (BEAKER) (test Negative Negative, Inconclusive citx=1390) RAPID INFLUENZA B AG (BEAKER) (test Negative Negative, Inconclusive zhix=9962) URIC [id number] 21:52:00 Test Item Value Reference Range Comments URIC ACID (BEAKER) (test nvqr=071) 4.1 mg/dL 2.6-7.2 Add onCOMPREHENSIVE METABOLIC [id number] 21:12:00 Test Item Value Reference Range Comments TOTAL PROTEIN (BEAKER) 6.6 gm/dL 6.0-8.3 (test njoh=086) ALBUMIN (BEAKER) (test 2.6 g/dL 3.5-5.0 bpxq=3257) ALKALINE PHOSPHATASE 141 U/L 40-150 (BEAKER) (test nimf=631) BILIRUBIN TOTAL (BEAKER) 0.7 mg/dL 0.2-1.2 (test iaug=596) SODIUM (BEAKER) (test 117 meq/L 136-145 juis=100) POTASSIUM (BEAKER) (test 5.3 meq/L 3.5-5.1 wzib=038) CHLORIDE (BEAKER) (test 91 meq/L 98-107 iyaz=966) CO2 (BEAKER) (test 17 meq/L 22-29 nmxt=470) BLOOD UREA NITROGEN 19 mg/dL 7-21 (BEAKER) (test jbrm=596) CREATININE (BEAKER) (test 0.67 mg/dL 0.57-1.25 gepi=670) GLUCOSE RANDOM (BEAKER) 164 mg/dL 70-105 (test wtyw=518) CALCIUM (BEAKER) (test 8.0 mg/dL 8.4-10.2 lfhz=610) AST (SGOT) (BEAKER) (test 48 U/L 5-34 lgnz=409) ALT (SGPT) (BEAKER) (test 21 U/L 6-55 hnih=440) EGFR (BEAKER) (test 121 mL/min/1.73 sq ESTIMATED GFR IS NOT okch=8646) m ACCURATE CREATININE CLEARANCE IN PREDICTING GLOMERULAR FILTRATION RATE. ESTIMATED GFR IS NOT APPLICABLE FOR DIALYSIS PATIENTS. OSMOLALITY, [id number] 21:10:00 Test Item Value Reference Range Comments OSMOLALITY, SERUM (BEAKER) (test gyku=977) 263 mOsm/kg 275-295 SODIUM, RANDOM [id number] 21:06:00 Test Item Value Reference Range Comments SODIUM URINE (BEAKER) (test mfnr=925) < meq/L Reference Range: No NormalsCHLORIDE, RANDOM [id number] 21:06:00 Test Item Value Reference Range Comments CHLORIDE URINE (BEAKER) (test wtpr=899) < meq/L Reference Range: No NormalsLACTIC ACID, VENOUS, WHOLE [id number] 21:05:00 Test Item Value Reference Range Comments LACTATE BLOOD VENOUS (2) (BEAKER) (test 4.6 mmol/L 0.5-2.2 aipv=7578) Effective 08/31/2015: Units/Reference Range ChangeNew: 0.5-2.2 mmol/L Previous: 5 -20 mg/dLURINALYSIS W/ REFLEX URINE [id number] 21:00:00 Test Item Value Reference Range Comments COLOR (BEAKER) (test tgcq=650) Light Yellow CLARITY (BEAKER) (test pmrg=148) Clear SPECIFIC GRAVITY UA (BEAKER) (test dbbl=356) 1.006 1.001-1.035 PH UA (BEAKER) (test xbjh=473) 5.0 5.0-8.0 PROTEIN UA (BEAKER) (test udjc=671) Negative Negative GLUCOSE UA (BEAKER) (test jzng=495) Negative Negative KETONES UA (BEAKER) (test fgom=494) Negative Negative BILIRUBIN UA (BEAKER) (test wdvu=479) Negative Negative BLOOD UA (BEAKER) (test zide=621) Moderate Negative NITRITE UA (BEAKER) (test rssa=965) Negative Negative LEUKOCYTE ESTERASE UA (BEAKER) (test lxnd=480) Small Negative UROBILINOGEN UA (BEAKER) (test gwmr=984) 0.2 mg/dL 0.2-1.0 RBC UA (BEAKER) (test ibjm=200) 4 /HPF WBC UA (BEAKER) (test buha=218) 4 /HPF BACTERIA (BEAKER) (test ootw=672) Rare MUCUS (BEAKER) (test icru=6774) Rare SQUAMOUS EPITHELIAL (BEAKER) (test euui=794) < /HPF SOURCE(BEAKER) (test finz=6789) OSMOLALITY, [id number] 20:59:00 Test Item Value Reference Range Comments OSMOLALITY URINE (BEAKER) (test xjuk=942) 222 mOsm/kg 40-1400 CBC W/PLT COUNT & AUTO [id number] 20:58:00 Test Item Value Reference Range Comments WHITE BLOOD CELL COUNT (BEAKER) (test ulsw=255) 2.6 K/ L 4.0-10.0 RED BLOOD CELL COUNT (BEAKER) (test qyxr=445) 3.62 M/ L 4.20-5.80 HEMOGLOBIN (BEAKER) (test elei=078) 11.3 GM/DL 13.0-16.8 HEMATOCRIT (BEAKER) (test eeos=477) 33.0 % 40.0-50.0 MEAN CORPUSCULAR VOLUME (BEAKER) (test zioq=869) 91.3 fL 82.0-98.0 MEAN CORPUSCULAR HEMOGLOBIN (BEAKER) (test 31.3 pg 27.0-33.0 tjix=050) MEAN CORPUSCULAR HEMOGLOBIN CONC (BEAKER) (test 34.2 GM/DL 32.0-36.0 ltsc=988) RED CELL DISTRIBUTION WIDTH (BEAKER) (test 14.4 % 10.3-14.2 ukqm=411) PLATELET COUNT (BEAKER) (test fotw=243) 163 K/CU MM 150-430 MEAN PLATELET VOLUME (BEAKER) (test rieb=791) 6.8 fL 6.5-10.5 NUCLEATED RED BLOOD CELLS (BEAKER) (test 0 /100 WBC 0-0 tjxc=756) NEUTROPHILS RELATIVE PERCENT (BEAKER) (test 83 % fdju=661) LYMPHOCYTES RELATIVE PERCENT (BEAKER) (test 14 % mubp=554) MONOCYTES RELATIVE PERCENT (BEAKER) (test 2 % lnvr=555) EOSINOPHILS RELATIVE PERCENT (BEAKER) (test 0 % crgp=710) BASOPHILS RELATIVE PERCENT (BEAKER) (test 0 % qbcm=006) NEUTROPHILS ABSOLUTE COUNT (BEAKER) (test 2.16 K/ L 1.80-8.00 yjsu=267) LYMPHOCYTES ABSOLUTE COUNT (BEAKER) (test 0.36 K/ L 1.48-4.50 lkzj=763) MONOCYTES ABSOLUTE COUNT (BEAKER) (test 0.06 K/ L 0.00-1.30 ekrg=908) EOSINOPHILS ABSOLUTE COUNT (BEAKER) (test 0.00 K/ L 0.00-0.50 tssp=924) BASOPHILS ABSOLUTE COUNT (BEAKER) (test 0.01 K/ L 0.00-0.20 zkds=723) 0.00
[2019-05-17 01:56] LABS: Absolute Lymphocytes (CBC) 1.3 K/uL (0.7-4.9); Basophils % 0.6 % (0-1.3); Hematocrit 44.9 % (39.6-49.0); Lymphocytes % 7.9 % (15.3-44.8); MPV 7.3 fL (7.6-11.3); RBC Red Blood Cell Count 5.63 M/uL (4.33-5.43)
[2019-05-17] MEDS ORDERED: NA CHLORIDE 0.9% 1,000 ML ONE (02:05)
[2019-05-17] MEDS ORDERED: CEFTRIAXONE/SWI 1gm 1 GM/10 ML SYR ONE (02:05)
[2019-05-17] MEDS ORDERED: FAMOTIDINE 20 MG/2 ML VIAL IV ONE (02:05)
[2019-05-17] MEDS ORDERED: FENTANYL CITR 100 MCG/2 ML ONE (02:05)
[2019-05-17] MEDS ORDERED: NA CHLORIDE 0.9% 500 ML ONE (02:05)
[2019-05-17] MEDS ORDERED: ONDANSETRON 4 MG/2 ML VIAL ONE ×2 (02:05→08:45)
[2019-05-17 02:16] LABS: ALT/SGPT 14 U/L (12-78); AST/SGOT 13 U/L (15-37); Albumin 3.6 g/dL (3.4-5.0); Alkaline Phosphatase 115 U/L (45-117); BUN Blood Urea Nitrogen 23 mg/dL (7-18); Bicarbonate 22 mmol/L (21-32); Bilirubin Direct 0.1 mg/dL (0-0.2); Bilirubin Total 0.5 mg/dL (0.2-1.0); Glucose Level 126 mg/dL (74-106); Lipase 84 U/L (73-393); Magnesium 1.7 mg/dL (1.8-2.4); Sodium Level 139 mmol/L (136-145); Troponin (Emerg Dept Use Only) < 0.02 ng/mL (0.0-0.045)
[2019-05-17] MEDS ORDERED: LIDOCAINE VISCOUS 2% SOLN 15 ML UDC ONE (02:27)
[2019-05-17 02:29] LABS: Protime INR 1.11
[2019-05-17 03:10] LABS: Blood Morphology Comment NOT SEEN (NOT SEEN); Platelet Estimate ADEQ
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
[2019-05-17] MEDS ORDERED: MORPHINE 2 MG/ML SYR IV PRN (04:17)
[2019-05-17] MEDS ORDERED: ONDANSETRON 4 MG/2 ML VIAL IV PRN (04:17)
[2019-05-17] MEDS ORDERED: MAGNESIUM SULFATE 1 gm IVPB 1 GM/100 ML BAG IV ONE (04:24)
[2019-05-17] MEDS: NA CHLORIDE 0.9% 1,000 ML IV SCH ×2 (04:31→15:48)
[2019-05-17 05:20] VITALS: BMI 36.2
[2019-05-17 06:19] LABS: Urine Blood 3+ (NEG); Urine Glucose NEGATIVE (NEG); Urine Protein 2+ (NEG); Urine pH 8.5 (5.0-7.0)
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
[2019-05-17] MEDS ORDERED: MORPHINE 2 MG/ML SYR ONE (08:45)
[2019-05-17] MEDS ORDERED: CIPROFLOXACIN 400mg IV 400 MG/200 ML BAG IV ONE (08:45)
--- NOTE | 2019-05-17 08:56 | RAD REPORT ---
EXAM DESCRIPTION: RAD - Chest Single View - 05/17/2019 3:33 am CLINICAL HISTORY: Abdominal pain, abdominal distention COMPARISON: CT abdomen and pelvis May 17 preceding this chest film, portable chest November 2016 TECHNIQUE: AP portable chest image was obtained 0330 hours . FINDINGS: Left lung field is clear. Hazy opacification is present over the right lung base in part d ue to overlying body habitus affects, portable technique and rotation artifact. Lung base images from the CT study show right atelectasis without significant or measurable pleural fluid. Heart size is upper normal. Vasculature within normal limits. No pneumothorax or large pleural effus ion. No acute bony abnormality seen. No acute aortic findings suspected. IMPRESSION: Right base opacification most likely the affects of atelectasis and imaging artifacts. Preceding CT study showed right base atelectasis without pleural effusion. Left lung field is clear. Enlarged mediastinal silhouette due to rotation artifact. No substantial change from 2017 chest film.
[2019-05-17] MEDS: CIPROFLOXACIN 400mg IV 400 MG/200 ML BAG IV SCH ×2 (09:00→21:21)
[2019-05-17 11:30] LABS: BUN Blood Urea Nitrogen 14 mg/dL (7-18); Bicarbonate 28 mmol/L (21-32); Glucose Level 131 mg/dL (74-106); Magnesium 2.1 mg/dL (1.8-2.4); Phosphorus 3.6 mg/dL (2.5-4.9); Potassium 4.4 mmol/L (3.5-5.1); Sodium Level 141 mmol/L (136-145)
--- NOTE | 2019-05-17 12:24 | P.PN ---
Subjective Date of Service: 05/17/19 Primary Care Provider: Urology-Dr. Story Chief Complaint: Leukocytosis; UTI; acute renal insufficiency; proteinuria Subjective: Improving, Doing well Physical Examination - Vital Signs Temperature: 99.9 F Blood Pressure: 159/83 Pulse: 77 Respirations: 15 Pulse Ox (%): 97 - Physical Exam General: Alert, In no apparent distress, Cooperative HEENT: Atraumatic Neck: Supple Respiratory: Clear to auscultation bilaterally, Normal air movement Cardiovascular: Normal pulses, Regular rate/rhythm Gastrointestinal: Normal bowel sounds, Soft and benign, Non-distended Neurological: Normal speech, Normal strength at 5/5 x4 extr, Normal tone, Normal affect - Studies Laboratory Data (last 24 hrs) 05/17/19 02:05: PT 13.1 H, INR 1.11 05/17/19 01:57: Magnesium Cancelled 05/17/19 01:40: Creatinine 1.41 H 05/17/19 01:40: WBC 16.0 H, Hgb 14.9, Hct 44.9, Plt Count 308 05/17/19 01:40: Sodium 139, Potassium 4.0, BUN 23 H, Creatinine 1.41 H, Glucose 126 H, Magnesium 1.7 L, Total Bilirubin 0.5, AST 13 L, ALT 14, Alkaline Phosphatase 115, Lipase 84 Medications List Reviewed: Yes Assessment & Plan Discharge Plan: Home Plan to discharge in: 48 Hours Physician Review Additional Text: Impression: Recurrent UTI complicated with chronic Bell catheter Acute renal injury likely related to above Alcohol abuse with history of alcoholic peripheral neuropathy Anemia of chronic disease Hypertension PEG tube placement in the past Wernicke-Korsakoff syndrome Plan: Recurrent UTI complicated with chronic Bell catheter: Continue IV antibiotic therapy and medications. Will monitor closely. Obtain knee urine culture. Patient sees Urology. He was to have his dialysis catheter replaced due this coming Saturday. Will discuss with urology. Anticipate discharge in the next 24-48 hr pending urine culture. Acute renal injury likely related to above: Continue to monitor closely. Improvement noted. Alcohol abuse with history of alcoholic peripheral neuropathy: Continue with medication. Anemia of chronic disease: Will monitor closely. Hypertension: Continue medication PEG tube placement in the past: Verify home feeds. Wernicke-Korsakoff syndrome: This is chronic. Will continue to address closely. Obtain more information from family. On Keppra. Continue with medication, Thiamine and Folic. Time Spent Managing Pts Care (In Minutes): 55
[2019-05-17] MEDS: METOPROLOL TAR 25 MG TAB PO SCH ×2 (13:00→21:22)
[2019-05-17] MEDS: THIAMINE HCL 100 MG TABLET PO SCH (13:00)
[2019-05-17] MEDS: FOLIC ACID 1 MG TABLET PO SCH (13:00)
--- NOTE | 2019-05-17 13:59 | EKG ---
Test Date: 2019-05-17 Test Time: 02:05:48 Marble Polisher: LEIDY MEASUREMENT RESULTS: Intervals: Rate: 101 ID: [id number] QRSD: 84 QT: 366 QTc: 474 [place]: P: 65 ID: [id number] QRS: 13 T: 57 INTERPRETIVE STATEMENTS: Sinus tachycardia Low voltage QRS Borderline ECG Compared to ECG 08/09/2016 12:30:10 Sinus rhythm no longer present Ventricular premature complex(es) no longer present Myocardial infarct finding no longer present Electronically Signed On 05-17-19 13:58:53 BEHAVIORAL GENETICIST by Marek Borjas
[2019-05-17] MEDS: SERTRALINE HCL 50 MG TAB PO SCH (14:00)
[2019-05-17] MEDS ORDERED: METOPROLOL TAR 25 MG TAB ONE (14:50)
[2019-05-17] MEDS ORDERED: FOLIC ACID 1 MG TABLET ONE (14:50)
[2019-05-17] MEDS ORDERED: THIAMINE HCL 100 MG TABLET ONE (14:50)
[2019-05-17] MEDS: ENOXAPARIN 40 MG/0.4 ML SQ SCH (16:28)
[2019-05-17] MEDS: ACETAMINOPHEN 500 MG TAB PO PRN ×2 (16:45→21:22)
[2019-05-17] MEDS: LEVETIRACETAM 500 MG PO SCH (21:00)
[2019-05-18] MEDS: NA CHLORIDE 0.9% 1,000 ML IV SCH ×4 (00:05→11:31)
[2019-05-18 05:56] LABS: Magnesium 2.1 mg/dL (1.8-2.4); Potassium 4.4 mmol/L (3.5-5.1)
[2019-05-18 06:00] LABS: Absolute Lymphocytes (CBC) 2.2 K/uL (0.7-4.9); Basophils % 0.9 % (0-1.3); Lymphocytes % 21.4 % (15.3-44.8); MPV 7.4 fL (7.6-11.3); RBC Red Blood Cell Count 5.06 M/uL (4.33-5.43)
[2019-05-18] MEDS: LEVETIRACETAM 500 MG PO SCH ×2 (09:00→21:00)
[2019-05-18] MEDS: METOPROLOL TAR 25 MG TAB PO SCH ×2 (09:25→21:02)
[2019-05-18] MEDS: FOLIC ACID 1 MG TABLET PO SCH (09:25)
[2019-05-18] MEDS: SERTRALINE HCL 50 MG TAB PO SCH (09:25)
[2019-05-18] MEDS: CIPROFLOXACIN 400mg IV 400 MG/200 ML BAG IV SCH ×2 (09:26→21:02)
[2019-05-18] MEDS: THIAMINE HCL 100 MG TABLET PO SCH (09:27)
--- NOTE | 2019-05-18 11:10 | P.PN ---
Subjective Date of Service: 05/18/19 Primary Care Provider: Urology-Dr. Story Chief Complaint: Leukocytosis; UTI; acute renal insufficiency; proteinuria Subjective: Improving, Doing well Physical Examination - Vital Signs Temperature: 97.8 F Blood Pressure: 134/91 Pulse: 65 Respirations: 20 Pulse Ox (%): 96 - Physical Exam General: Alert, In no apparent distress, Oriented x3, Cooperative HEENT: Atraumatic Neck: Supple Respiratory: Clear to auscultation bilaterally, Normal air movement Cardiovascular: Normal pulses, Regular rate/rhythm Gastrointestinal: Normal bowel sounds, Soft and benign, Non-distended Musculoskeletal: No erythema, No tenderness, No warmth Integumentary: No tenderness/swelling, No erythema, No warmth, No cyanosis Neurological: Normal speech, Normal strength at 5/5 x4 extr, Normal tone - Studies Medications List Reviewed: Yes Assessment & Plan Discharge Plan: Home Plan to discharge in: 24 Hours Physician Review Additional Text: Impression: Recurrent UTI complicated with chronic Bell catheter Acute renal injury likely related to above Alcohol abuse with history of alcoholic peripheral neuropathy Anemia of chronic disease Hypertension PEG tube placement in the past Wernicke-Korsakoff syndrome Plan: Recurrent UTI complicated with chronic Bell catheter: Continue IV antibiotic therapy and medications. Await urine culture results. Patient does see urology as an outpatient. Anticipate discharge in the next 24 hr pending urine culture with clinical improvement. Will ambulate with physical therapy. Acute renal injury likely related to above: Continue to monitor closely. Improvement noted. Alcohol abuse with history of alcoholic peripheral neuropathy: Continue with medication. Anemia of chronic disease: Will monitor closely. Hypertension: Continue medication PEG tube placement in the past: Verify home feeds. Wernicke-Korsakoff syndrome: This is chronic. Will continue to address closely. Obtain more information from family. On Keppra. Continue with medication, Thiamine and Folic. Time Spent Managing Pts Care (In Minutes): 55
--- NOTE | 2019-05-18 13:55 | RAD REPORT ---
EXAM DESCRIPTION: CT - Stone Protocol - 05/17/2019 3:34 am CLINICAL HISTORY: The patient is 63 years old and is Male; ABD PAIN TECHNIQUE: Axial computed tomography images of the abdomen and pelvis without intravenous contrast. Sagittal and coronal reformatted images were created and reviewed. This CT exam was performed usi ng one or more of the following dose reduction techniques: automated exposure control, adjustment o f the mA and/or kV according to patient size, and/or use of iterative reconstruction technique. COMPARISON: No relevant prior studies available. FINDINGS: LUNG BASES: Right basilar atelectasis is present. ABDOMEN: LIVER: There is a diffuse decrease in hepatic parenchymal density, consistent with fatty infiltr ation. GALLBLADDER AND BILE DUCTS: The gallbladder is filled with gallstones. There is no ductal dilata tion. PANCREAS: Fatty infiltration of the pancreas is present. No ductal dilation. SPLEEN: Unremarkable. ADRENALS: Unremarkable. No mass. KIDNEYS AND URETERS: No obstructing stones. No hydronephrosis. No perinephric fluid. STOMACH AND BOWEL: The stomach is decompressed. The small bowel is relatively normal in caliber. Minimal stool is present throughout the colon. There is no mucosal thickening or evidence of bowel o bstruction. PELVIS: APPENDIX: The appendix is normal in caliber without surrounding inflammation. BLADDER: The bladder is decompressed with a Bell catheter in place. Mild diffuse bladder wall thickening with surrounding inflammatory stranding is present. No stones. REPRODUCTIVE: Unremarkable as visualized. ABDOMEN and PELVIS: INTRAPERITONEAL SPACE: Unremarkable. No free air. No significant fluid collection. BONES/JOINTS: Multilevel degenerative change of the spine is present. SOFT TISSUES: There are small bilateral fat containing inguinal hernias. VASCULATURE: Atherosclerosis of the vasculature is present. The vessels are normal in caliber. No abdominal aortic aneurysm. LYMPH NODES: Unremarkable. No enlarged lymph nodes. IMPRESSION: 1. Bladder wall thickening with surrounding inflammatory stranding. While a degree of the findings may be secondary to incomplete distention, cystitis is within the differential. 2. Cholelithiasis. Electronically signed by: Cynthia Hollingsworth MD 05/17/2019 4:33 AM [employer] Due to temporary technical issues with the PACS/Fluency reporting system, reports are being signed by the in house radiologist as a courtesy to ensure prompt reporting. The interpreting radiologist is f edenilsonly responsible for the content of the report.
[2019-05-18] MEDS: ENOXAPARIN 40 MG/0.4 ML SQ SCH (17:15)
[2019-05-19 02:00] VITALS: O2SAT 97
[2019-05-19 05:15] VITALS: TEMP 97.6
[2019-05-19 06:27] LABS: Absolute Lymphocytes (CBC) 2.5 K/uL (0.7-4.9); Hematocrit 39.9 % (39.6-49.0); Lymphocytes % 26.2 % (15.3-44.8); MPV 7.4 fL (7.6-11.3); RBC Red Blood Cell Count 4.94 M/uL (4.33-5.43)
--- NOTE | 2019-05-19 08:56 | P.DS ---
Admission Date: 05/17/19 Discharge Date: 05/19/19 Primary Care Provider: Urology-Dr. Story Disposition: ROUTINE DISCHARGE Reason for Admission: Leukocytosis; UTI; acute renal insufficiency; proteinuria Consultations: none Procedures: CT Scan: COMPARISON: No relevant prior studies available. FINDINGS: LUNG BASES: Right basilar atelectasis is present. ABDOMEN: LIVER: There is a diffuse decrease in hepatic parenchymal density, consistent with fatty infiltration. GALLBLADDER AND BILE DUCTS: The gallbladder is filled with gallstones. There is no ductal dilatation. PANCREAS: Fatty infiltration of the pancreas is present. No ductal dilation. SPLEEN: Unremarkable. ADRENALS: Unremarkable. No mass. KIDNEYS AND URETERS: No obstructing stones. No hydronephrosis. No perinephric fluid. STOMACH AND BOWEL: The stomach is decompressed. The small bowel is relatively normal in caliber. Minimal stool is present throughout the colon. There is no mucosal thickening or evidence of bowel obstruction. PELVIS: APPENDIX: The appendix is normal in caliber without surrounding inflammation. BLADDER: The bladder is decompressed with a Bell catheter in place. Mild diffuse bladder wall thickening with surrounding inflammatory stranding is present. No stones. REPRODUCTIVE: Unremarkable as visualized. ABDOMEN and PELVIS: INTRAPERITONEAL SPACE: Unremarkable. No free air. No significant fluid collection. BONES/JOINTS: Multilevel degenerative change of the spine is present. SOFT TISSUES: There are small bilateral fat containing inguinal hernias. VASCULATURE: Atherosclerosis of the vasculature is present. The vessels are normal in caliber. No abdominal aortic aneurysm. LYMPH NODES: Unremarkable. No enlarged lymph nodes. IMPRESSION: 1. Bladder wall thickening with surrounding inflammatory stranding. While a degree of the findings may be secondary to incomplete distention, cystitis is within the differential. 2. Cholelithiasis. Medical problem list: Recurrent UTI complicated with chronic Bell catheter, urine culture positive for Proteus Acute renal injury likely related to above Alcohol abuse with history of alcoholic peripheral neuropathy Anemia of chronic disease Hypertension Wernicke-Korsakoff syndrome Brief History of Present Illness: 63-year-old male presented to the emergency room with dysuria and abdominal pain. Patient with history of recurrent infections and chronic Bell catheter. Patient is seen by urology. Patient was admitted for recurrent UTI. Hospital Course: Patient presented with abdominal pain and dysuria. This was related to recurrent UTI complicated with chronic Bell catheter. Patient was started on IV antibiotic therapy with improvement. Urine culture positive for Proteus. At discharge patient has significantly improved. Patient stable for discharge at this time. At discharge patient will continue with chronic Bell catheter. At discharge he will continue with Cefuroxime 250 mg 1 pill twice daily for 7 days. Recommend follow up with urology within the next week to follow up this hospitalization. Patient has an appointment with Urology tomorrow for replacement of chronic Bell catheter. Bell catheter has been changed every month. Patient had acute renal injury likely from dehydration. Patient received IV fluids. This has resolved. Renal function now to baseline. Patient with history of hypertension. Patient takes metoprolol. At discharge blood pressure still slightly elevated. Lisinopril added. At discharge she will continue with metoprolol 25 mg 1 pill twice daily along with new medication lisinopril 5 mg daily. Recommend to maintain blood pressures less 150/80. Further adjustment can be done by his PCP. Patient with history of alcohol abuse, Wernicke-Korsakoff syndrome, and alcoholic peripheral neuropathy. Patient has been sober for several months. He has gained strength and mobility since his last hospitalization. He lives with his sister. At discharge he will continue with his current medications- folic acid 1 mg 1 pill daily, thiamine 100 mg 1 pill daily, and Keppra 500 mg 1 pill twice daily. Further adjustment can be done by neurology as an outpatient. Fall precautions in place. Vital Signs/Physical Exam: Temp Pulse Resp BP Pulse Ox 97.6 F 65 16 168/73 H 94 05/19/19 04:00 05/19/19 04:00 05/19/19 04:00 05/19/19 04:00 05/19/19 04:00 General: Alert, In no apparent distress, Oriented x3, Cooperative HEENT: Atraumatic Neck: Supple Respiratory: Clear to auscultation bilaterally, Normal air movement Cardiovascular: Normal pulses, Regular rate/rhythm Gastrointestinal: Normal bowel sounds, Soft and benign, Non-distended, No tenderness, No masses, No rebound, No guarding Musculoskeletal: No erythema, No tenderness, No warmth Integumentary: No tenderness/swelling, No erythema, No warmth, No cyanosis Neurological: Normal speech, Normal strength at 5/5 x4 extr, Normal tone, Normal affect Laboratory Data at Discharge: WBC 9.6 K/uL (4.3-10.9) 05/19/19 05:41 Hgb 13.6 g/dL (13.6-17.9) 05/19/19 05:41 Hct 39.9 % (39.6-49.0) 05/19/19 05:41 Plt Count 260 K/uL (152-406) 05/19/19 05:41 PT 13.1 SECONDS (9.5-12.5) H 05/17/19 02:05 INR 1.11 05/17/19 02:05 Sodium 140 mmol/L (136-145) 05/19/19 05:41 Potassium 4.0 mmol/L (3.5-5.1) 05/19/19 05:41 BUN 12 mg/dL (7-18) 05/19/19 05:41 Creatinine 0.91 mg/dL (0.55-1.3) 05/19/19 05:41 Glucose 83 mg/dL (74-106) 05/19/19 05:41 Phosphorus 3.6 mg/dL (2.5-4.9) 05/17/19 11:00 Magnesium 2.0 mg/dL (1.8-2.4) 05/19/19 05:41 Total Bilirubin 0.5 mg/dL (0.2-1.0) 05/17/19 01:40 AST 13 U/L (15-37) L 05/17/19 01:40 ALT 14 U/L (12-78) 05/17/19 01:40 Alkaline Phosphatase 115 U/L (45-117) 05/17/19 01:40 Lipase 84 U/L (73-393) 05/17/19 01:40 Home Medications: Levetiracetam [Roweepra Xr] 500 mg PO BID 05/17/19 Metoprolol Tartrate 1 tab PO BID 05/17/19 Sertraline [Zoloft*] 50 mg PO DAILY 05/17/19 Cefuroxime [Ceftin*] 250 mg PO BID #14 tab 05/19/19 Folic Acid 1 mg PO DAILY #90 tablet 05/19/19 Lisinopril [Zestril] 5 mg PO DAILY #30 tablet 05/19/19 Thiamine HCl [Vitamin B-1*] 100 mg PO DAILY #90 tablet 05/19/19 New Medications: Cefuroxime [Ceftin*] 250 mg PO BID #14 tab Folic Acid 1 mg PO DAILY #90 tablet Lisinopril [Zestril] 5 mg PO DAILY #30 tablet Thiamine HCl [Vitamin B-1*] 100 mg PO DAILY #90 tablet Patient Discharge Instructions: 1. Recommend follow up with his PCP in 1 week to follow up this hospitalization. 2. Patient presented with abdominal pain and dysuria. This was related to recurrent UTI complicated with chronic Bell catheter. Patient was started on IV antibiotic therapy with improvement. Urine culture positive for Proteus. At discharge patient has significantly improved. Patient stable for discharge at this time. At discharge patient will continue with chronic Bell catheter. At discharge he will continue with Cefuroxime 250 mg 1 pill twice daily for 7 days. Recommend follow up with urology within the next week to follow up this hospitalization. Patient has an appointment with Urology tomorrow for replacement of chronic Bell catheter. Bell catheter has been changed every month. 3. Patient had acute renal injury likely from dehydration. Patient received IV fluids. This has resolved. Renal function now to baseline. 4. Patient with history of hypertension. Patient takes metoprolol. At discharge blood pressure still slightly elevated. Lisinopril added. At discharge she will continue with metoprolol 25 mg 1 pill twice daily along with new medication lisinopril 5 mg daily. Recommend to maintain blood pressures less 150/80. Further adjustment can be done by his PCP. 5. Patient with history of alcohol abuse, Wernicke- Korsakoff syndrome, and alcoholic peripheral neuropathy. Patient has been sober for several months. He has gained strength and mobility since his last hospitalization. He lives with his sister. At discharge he will continue with his current medications-folic acid 1 mg 1 pill daily, thiamine 100 mg 1 pill daily, and Keppra 500 mg 1 pill twice daily. Further adjustment can be done by neurology as an outpatient. Fall precautions in place. Diet: AHA Activity: Ad danae Time spent managing pt's care (in minutes): 55
[2019-05-19] MEDS: LEVETIRACETAM 500 MG PO SCH (09:00)
[2019-05-19] MEDS ORDERED: CEFUROXIME 250 MG TAB PO SCH (09:00)
[2019-05-19] MEDS: SERTRALINE HCL 50 MG TAB PO SCH (09:24)
[2019-05-19] MEDS: THIAMINE HCL 100 MG TABLET PO SCH (09:24)
[2019-05-19] MEDS: METOPROLOL TAR 25 MG TAB PO SCH (09:24)
[2019-05-19] MEDS: NA CHLORIDE 0.9% 1,000 ML IV SCH (09:24)
[2019-05-19 09:25] VITALS: BP 132/72
[2019-05-19] MEDS: FOLIC ACID 1 MG TABLET PO SCH (09:25)
[2019-05-19] MEDS ORDERED: CEFUROXIME 250 MG TAB PO ONE (12:00)
== END 2019-05-19 13:14 | disposition home or self-care (01) | DRG 690 ==
LOC: ER 01:24 → ERHOLD 04:17 → 2ND 15:00
PROVIDERS: ADMIT Family Medicine; ATTEND Hospitalist
DX: N39.0 Urinary tract infection, site not specified (principal); N17.9 Acute kidney failure, unspecified; B96.4 Proteus (mirabilis) (morganii) as the cause of diseases classified elsewhere; I10 Essential (primary) hypertension; F10.10 Alcohol abuse, uncomplicated; D64.9 Anemia, unspecified; F04 Amnestic disorder due to known physiological condition; E86.0 Dehydration; Z96.0 Presence of urogenital implants; Z93.1 Gastrostomy status; E66.9 Obesity, unspecified; Z68.36 Body mass index [BMI] 36.0-36.9, adult
CPT/HCPCS: 36415; 71045; 74176; 76377; 80048; 80076; 81003; 83690; 83735; 83880; 84100; 84484; 85025; 85610; 87077; 87086; 87088; 87186; 93005; 96365; 96367; 96375; 97112; 97116; 97161; 97530; 99285; J0696; J0744; J1650; J2270; J2405; J3010; J3475; J7030; J7040

== ENCOUNTER 2020-12-13 15:46 | Emergency (ER) | payer OTHER ==
--- OUTSIDE RECORDS SUMMARY | 2020-12-13 15:51 | XMS REPORT | Continuity of Care Document ---
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 Comments RPR SCREEN (BEAKER) (test code = Nonreactive Nonreactive 420) CBC W/PLT COUNT & AUTO [id number] 07:21:00 Test Item Value Reference Range Interpretation Comments WHITE BLOOD CELL COUNT (BEAKER) 7.4 K/ L 4.0-10.0 (test code = 775) RED BLOOD CELL COUNT (BEAKER) 3.59 M/ L 4.20-5.80 L (test code = 761) HEMOGLOBIN (BEAKER) (test code = 10.5 GM/DL 13.0-16.8 L 410) HEMATOCRIT (BEAKER) (test code = 33.1 % 40.0-50.0 L 411) MEAN CORPUSCULAR VOLUME (BEAKER) 92.2 fL 82.0-98.0 (test code = 753) MEAN CORPUSCULAR HEMOGLOBIN 29.1 pg 27.0-33.0 (BEAKER) (test code = 751) MEAN CORPUSCULAR HEMOGLOBIN CONC 31.5 GM/DL 32.0-36.0 L (BEAKER) (test code = 752) RED CELL DISTRIBUTION WIDTH 13.6 % 10.3-14.2 (BEAKER) (test code = 412) PLATELET COUNT (BEAKER) (test 219 K/CU MM 150-430 code = 756) MEAN PLATELET VOLUME (BEAKER) 6.6 fL 6.5-10.5 (test code = 754) NUCLEATED RED BLOOD CELLS 0 /100 WBC 0-0 (BEAKER) (test code = 413) NEUTROPHILS RELATIVE PERCENT 63 % (BEAKER) (test code = 429) LYMPHOCYTES RELATIVE PERCENT 24 % (BEAKER) (test code = 430) MONOCYTES RELATIVE PERCENT 12 % (BEAKER) (test code = 431) EOSINOPHILS RELATIVE PERCENT 1 % (BEAKER) (test code = 432) BASOPHILS RELATIVE PERCENT 0 % (BEAKER) (test code = 437) NEUTROPHILS ABSOLUTE COUNT 4.64 K/ L 1.80-8.00 (BEAKER) (test code = 670) LYMPHOCYTES ABSOLUTE COUNT 1.78 K/ L 1.48-4.50 (BEAKER) (test code = 414) MONOCYTES ABSOLUTE COUNT (BEAKER) 0.89 K/ L 0.00-1.30 (test code = 415) EOSINOPHILS ABSOLUTE COUNT 0.09 K/ L 0.00-0.50 (BEAKER) (test code = 416) BASOPHILS ABSOLUTE COUNT (BEAKER) 0.03 K/ L 0.00-0.20 (test code = 417) 0.00BASIC METABOLIC [id number] 07:06:00 Test Item Value Reference Range Interpretation Comments SODIUM (BEAKER) 136 meq/L 136-145 (test code = 381) POTASSIUM (BEAKER) 4.1 meq/L 3.5-5.1 (test code = 379) CHLORIDE (BEAKER) 106 meq/L 98-107 (test code = 382) CO2 (BEAKER) (test 24 meq/L 22-29 code = 355) BLOOD UREA NITROGEN 7 mg/dL 7-21 (BEAKER) (test code = 354) CREATININE (BEAKER) 0.56 mg/dL 0.57-1.25 L (test code = 358) GLUCOSE RANDOM 104 mg/dL 70-105 (BEAKER) (test code = 652) CALCIUM (BEAKER) 7.9 mg/dL 8.4-10.2 L (test code = 697) EGFR (BEAKER) (test 149 mL/min/1.73 ESTIM ATED GFR IS code = 1092) sq m NOT ACCURATE CREATININE CLEARANCE IN PREDICTING GLOMERULAR FILTRATION RATE . ESTIMATED GFR I S NOT APPLICABLE FOR DIALYSIS PATIEN TS. POCT-GLUCOSE [id number] 05:50:00 Test Item Value Reference Range Interpretation Comments POC-GLUCOSE METER 124 mg/dL 70-[address] [facility] [address] (BEAKER) (test code = [place] 15[address]) [address] SPUTUM CULTURE + GRAM [id number] 00:49:00 Test Item Value Reference Interpretation Comments Range CULTURE (BEAKER) STAPHYLOCOCCUS A 4+ Staphy lococcus (test code = 1095) AUREUS aureus Clindamycin (test S code = 10) Erythromycin (test S code = 4) Linezolid (test code S = 40) Oxacillin (test code S = 14) Rifampin (test code = S 43) Tetracycline (test S code = 2) Trimethoprim + S Sulfamethoxazole (test code = 47) Vancomycin (test code S = 13) GRAM STAIN RESULT 2+ WBCs (BEAKER) (test code = 1123) GRAM STAIN RESULT 10-15 epithelial (BEAKER) (test code = cells 689427) GRAM STAIN RESULT <1+ gram positive (BEAKER) (test code = rods 650777) GRAM STAIN RESULT 2+ yeast (BEAKER) (test code = 924806) GRAM STAIN RESULT 1+ gram positive (BEAKER) (test code = cocci in pairs 368577) 4+ Normal respiratory [place] presentBASIC METABOLIC [id number] 00:36:00 Test Item Value Reference Range Interpretation Comments SODIUM (BEAKER) 135 meq/L 136-145 L (test code = 381) POTASSIUM (BEAKER) 4.0 meq/L 3.5-5.1 (test code = 379) CHLORIDE (BEAKER) 105 meq/L 98-107 (test code = 382) CO2 (BEAKER) (test 24 meq/L 22-29 code = 355) BLOOD UREA NITROGEN 7 mg/dL 7-21 (BEAKER) (test code = 354) CREATININE (BEAKER) 0.58 mg/dL 0.57-1.25 (test code = 358) GLUCOSE RANDOM 112 mg/dL 70-105 H (BEAKER) (test code = 652) CALCIUM (BEAKER) 7.7 mg/dL 8.4-10.2 L (test code = 697) EGFR (BEAKER) (test 143 mL/min/1.73 ESTIM ATED GFR IS code = 1092) sq m NOT ACCURATE CREATININE CLEARANCE IN PREDICTING GLOMERULAR FILTRATION RATE . ESTIMATED GFR I S NOT APPLICABLE FOR DIALYSIS PATIEN TS. POCT-GLUCOSE [id number] 23:29:00 Test Item Value Reference Range Interpretation Comments POC-GLUCOSE METER 93 mg/dL 70-[address] [facility] [address] (BEAKER) (test code = [place] [address]) BASIC METABOLIC [id number] 18:08:00 Test Item Value Reference Range Interpretation Comments SODIUM (BEAKER) 133 meq/L 136-145 L (test code = 381) POTASSIUM (BEAKER) 3.8 meq/L 3.5-5.1 (test code = 379) CHLORIDE (BEAKER) 104 meq/L 98-107 (test code = 382) CO2 (BEAKER) (test 23 meq/L 22-29 code = 355) BLOOD UREA NITROGEN 8 mg/dL 7-21 (BEAKER) (test code = 354) CREATININE (BEAKER) 0.53 mg/dL 0.57-1.25 L (test code = 358) GLUCOSE RANDOM 101 mg/dL 70-105 (BEAKER) (test code = 652) CALCIUM (BEAKER) 7.7 mg/dL 8.4-10.2 L (test code = 697) EGFR (BEAKER) (test 159 mL/min/1.73 ESTIM ATED GFR IS code = 1092) sq m NOT ACCURATE CREATININE CLEARANCE IN PREDICTING GLOMERULAR FILTRATION RATE . ESTIMATED GFR I S NOT APPLICABLE FOR DIALYSIS PATIEN TS. POCT-GLUCOSE [id number] 17:45:00 Test Item Value Reference Range Interpretation Comments POC-GLUCOSE METER 101 mg/dL 70-[address] [facility] 67[address] (BEAKER) (test [facility] = [facility] [address] BASIC METABOLIC [id number] 14:10:00 Test Item Value Reference Range Interpretation Comments SODIUM (BEAKER) 130 meq/L 136-145 L (test code = 381) POTASSIUM (BEAKER) 3.7 meq/L 3.5-5.1 (test code = 379) CHLORIDE (BEAKER) 101 meq/L 98-107 (test code = 382) CO2 (BEAKER) (test 23 meq/L 22-29 code = 355) BLOOD UREA NITROGEN 9 mg/dL 7-21 (BEAKER) (test code = 354) CREATININE (BEAKER) 0.55 mg/dL 0.57-1.25 L (test code = 358) GLUCOSE RANDOM 115 mg/dL 70-105 H (BEAKER) (test code = 652) CALCIUM (BEAKER) 7.7 mg/dL 8.4-10.2 L (test code = 697) EGFR (BEAKER) (test 152 mL/min/1.73 ESTIM ATED GFR IS code = 1092) sq m NOT ACCURATE CREATININE CLEARANCE IN PREDICTING GLOMERULAR FILTRATION RATE . ESTIMATED GFR I S NOT APPLICABLE FOR DIALYSIS PATIEN TS. POCT-GLUCOSE [id number] 12:16:00 Test Item Value Reference Range Interpretation Comments POC-GLUCOSE METER 105 mg/dL 70-[address] [facility] 67[address] (BEAKER) (test code = [place] 1538) [address] URINE [id number] 10:22:00 Test Item Value Reference Range Interpretation Comments CULTURE (BEAKER) (test code = 1095) No growth URINE [id number] 09:54:00 Test Item Value Reference Range Interpretation Comments CULTURE (BEAKER) (test code = 1095) No growth BASIC METABOLIC [id number] 05:53:00 Test Item Value Reference Range Interpretation Comments SODIUM (BEAKER) 128 meq/L 136-145 L (test code = 381) POTASSIUM (BEAKER) 3.8 meq/L 3.5-5.1 (test code = 379) CHLORIDE (BEAKER) 100 meq/L 98-107 (test code = 382) CO2 (BEAKER) (test 21 meq/L 22-29 L code = 355) BLOOD UREA NITROGEN 10 mg/dL 7-21 (BEAKER) (test code = 354) CREATININE (BEAKER) 0.55 mg/dL 0.57-1.25 L (test code = 358) GLUCOSE RANDOM 115 mg/dL 70-105 H (BEAKER) (test code = 652) CALCIUM (BEAKER) 7.9 mg/dL 8.4-10.2 L (test code = 697) EGFR (BEAKER) (test 152 mL/min/1.73 ESTIM ATED GFR IS code = 1092) sq m NOT ACCURATE CREATININE CLEARANCE IN PREDICTING GLOMERULAR FILTRATION RATE . ESTIMATED GFR I S NOT APPLICABLE FOR DIALYSIS PATIEN TS. CBC W/PLT COUNT & AUTO [id number] 05:36:00 Test Item Value Reference Range Interpretation Comments WHITE BLOOD CELL COUNT (BEAKER) 8.6 K/ L 4.0-10.0 (test code = 775) RED BLOOD CELL COUNT (BEAKER) 3.48 M/ L 4.20-5.80 L (test code = 761) HEMOGLOBIN (BEAKER) (test code = 10.8 GM/DL 13.0-16.8 L 410) HEMATOCRIT (BEAKER) (test code = 32.6 % 40.0-50.0 L 411) MEAN CORPUSCULAR VOLUME (BEAKER) 93.5 fL 82.0-98.0 (test code = 753) MEAN CORPUSCULAR HEMOGLOBIN 30.9 pg 27.0-33.0 (BEAKER) (test code = 751) MEAN CORPUSCULAR HEMOGLOBIN CONC 33.0 GM/DL 32.0-36.0 (BEAKER) (test code = 752) RED CELL DISTRIBUTION WIDTH 14.9 % 10.3-14.2 H (BEAKER) (test code = 412) PLATELET COUNT (BEAKER) (test 202 K/CU MM 150-430 code = 756) MEAN PLATELET VOLUME (BEAKER) 6.8 fL 6.5-10.5 (test code = 754) NUCLEATED RED BLOOD CELLS 0 /100 WBC 0-0 (BEAKER) (test code = 413) NEUTROPHILS RELATIVE PERCENT 60 % (BEAKER) (test code = 429) LYMPHOCYTES RELATIVE PERCENT 27 % (BEAKER) (test code = 430) MONOCYTES RELATIVE PERCENT 12 % (BEAKER) (test code = 431) EOSINOPHILS RELATIVE PERCENT 1 % (BEAKER) (test code = 432) BASOPHILS RELATIVE PERCENT 1 % (BEAKER) (test code = 437) NEUTROPHILS ABSOLUTE COUNT 5.17 K/ L 1.80-8.00 (BEAKER) (test code = 670) LYMPHOCYTES ABSOLUTE COUNT 2.31 K/ L 1.48-4.50 (BEAKER) (test code = 414) MONOCYTES ABSOLUTE COUNT (BEAKER) 1.04 K/ L 0.00-1.30 (test code = 415) EOSINOPHILS ABSOLUTE COUNT 0.04 K/ L 0.00-0.50 (BEAKER) (test code = 416) BASOPHILS ABSOLUTE COUNT (BEAKER) 0.07 K/ L 0.00-0.20 (test code = 417) 0.00VANCOMYCIN LEVEL, [id number] 21:59:00 Test Item Value Reference Range Interpretation Comments VANCOMYCIN TROUGH (BEAKER) (test 21.6 ug/mL 10.0-20.0 H code = 522) Draw 30 min prior to scheduled dose, HOLD if level > 20 mcg/mL, inform . POCT-GLUCOSE [id number] 21:39:00 Test Item Value Reference Range Interpretation Comments POC-GLUCOSE METER 113 mg/dL 70-[address] [facility] 67[address] (BEAKER) (test code = [place] 1538) [address] BASIC METABOLIC [id number] 19:04:00 Test Item Value Reference Range Interpretation Comments SODIUM (BEAKER) 128 meq/L 136-145 L (test code = 381) POTASSIUM (BEAKER) 3.7 meq/L 3.5-5.1 (test code = 379) CHLORIDE (BEAKER) 99 meq/L 98-107 (test code = 382) CO2 (BEAKER) (test 22 meq/L 22-29 code = 355) BLOOD UREA NITROGEN 13 mg/dL 7-21 (BEAKER) (test code = 354) CREATININE (BEAKER) 0.58 mg/dL 0.57-1.25 (test code = 358) GLUCOSE RANDOM 128 mg/dL 70-105 H (BEAKER) (test code = 652) CALCIUM (BEAKER) 7.7 mg/dL 8.4-10.2 L (test code = 697) EGFR (BEAKER) (test 143 mL/min/1.73 ESTIM ATED GFR IS code = 1092) sq m NOT ACCURATE CREATININE CLEARANCE IN PREDICTING GLOMERULAR FILTRATION RATE . ESTIMATED GFR I S NOT APPLICABLE FOR DIALYSIS PATIEN TS. BASIC METABOLIC [id number] 14:34:00 Test Item Value Reference Range Interpretation Comments SODIUM (BEAKER) 132 meq/L 136-145 L (test code = 381) POTASSIUM (BEAKER) 4.1 meq/L 3.5-5.1 Specimen slightly (test code = 379) hemolyzed CHLORIDE (BEAKER) 101 meq/L 98-107 (test code = 382) CO2 (BEAKER) (test 20 meq/L 22-29 L code = 355) BLOOD UREA NITROGEN 14 mg/dL 7-21 (BEAKER) (test code = 354) CREATININE (BEAKER) 0.60 mg/dL 0.57-1.25 Specimen slightly (test code = 358) hemolyzed GLUCOSE RANDOM 114 mg/dL 70-105 H (BEAKER) (test code = 652) CALCIUM (BEAKER) 7.3 mg/dL 8.4-10.2 L (test code = 697) EGFR (BEAKER) (test 137 mL/min/1.73 ESTIM ATED GFR IS code = 1092) sq m NOT ACCURATE CREATININE CLEARANCE IN PREDICTING GLOMERULAR FILTRATION RATE . ESTIMATED GFR I S NOT APPLICABLE FOR DIALYSIS PATIEN TS. SODIUM, RANDOM [id number] 14:27:00 Test Item Value Reference Range Interpretation Comments SODIUM URINE (BEAKER) (test code = 75 meq/L 243) Reference Range: No NormalsHEPATIC FUNCTION [id number] 07:18:00 Test Item Value Reference Range Interpretation Comments TOTAL PROTEIN (BEAKER) (test code = 6.5 gm/dL 6.0-8.3 770) ALBUMIN (BEAKER) (test code = 1145) 2.7 g/dL 3.5-5.0 L BILIRUBIN TOTAL (BEAKER) (test code 0.8 mg/dL 0.2-1.2 = 377) BILIRUBIN DIRECT (BEAKER) (test 0.4 mg/dL 0.1-0.5 code = 706) ALKALINE PHOSPHATASE (BEAKER) (test 102 U/L 40-150 code = 346) AST (SGOT) (BEAKER) (test code = 53 U/L 5-34 H 353) ALT (SGPT) (BEAKER) (test code = 25 U/L 6-55 347) [id number] 07:18:00 Test Item Value Reference Range Interpretation Comments MAGNESIUM (BEAKER) (test code = 1.8 mg/dL 1.6-2.6 627) [id number] 07:18:00 Test Item Value Reference Range Interpretation Comments PHOSPHORUS (BEAKER) (test code = 3.0 mg/dL 2.3-4.7 604) OSMOLALITY, [id number] 05:41:00 Test Item Value Reference Range Interpretation Comments OSMOLALITY URINE (BEAKER) (test 541 mOsm/kg 40-1400 code = 614) OSMOLALITY, [id number] 05:40:00 Test Item Value Reference Range Interpretation Comments OSMOLALITY, SERUM (BEAKER) (test 280 mOsm/kg 275-295 code = 615) BASIC METABOLIC [id number] 05:02:00 Test Item Value Reference Range Interpretation Comments SODIUM (BEAKER) 129 meq/L 136-145 L (test code = 381) POTASSIUM (BEAKER) 4.0 meq/L 3.5-5.1 (test code = 379) CHLORIDE (BEAKER) 99 meq/L 98-107 (test code = 382) CO2 (BEAKER) (test 21 meq/L 22-29 L code = 355) BLOOD UREA NITROGEN 17 mg/dL 7-21 (BEAKER) (test code = 354) CREATININE (BEAKER) 0.66 mg/dL 0.57-1.25 (test code = 358) GLUCOSE RANDOM 146 mg/dL 70-105 H (BEAKER) (test code = 652) CALCIUM (BEAKER) 7.9 mg/dL 8.4-10.2 L (test code = 697) EGFR (BEAKER) (test 123 mL/min/1.73 ESTIM ATED GFR IS code = 1092) sq m NOT ACCURATE CREATININE CLEARANCE IN PREDICTING GLOMERULAR FILTRATION RATE . ESTIMATED GFR I S NOT APPLICABLE FOR DIALYSIS PATIEN TS. CBC W/PLT COUNT & AUTO [id number] 04:48:00 Test Item Value Reference Range Interpretation Comments WHITE BLOOD CELL COUNT (BEAKER) 7.9 K/ L 4.0-10.0 (test code = 775) RED BLOOD CELL COUNT (BEAKER) 3.46 M/ L 4.20-5.80 L (test code = 761) HEMOGLOBIN (BEAKER) (test code = 10.6 GM/DL 13.0-16.8 L 410) HEMATOCRIT (BEAKER) (test code = 31.7 % 40.0-50.0 L 411) MEAN CORPUSCULAR VOLUME (BEAKER) 91.6 fL 82.0-98.0 (test code = 753) MEAN CORPUSCULAR HEMOGLOBIN 30.5 pg 27.0-33.0 (BEAKER) (test code = 751) MEAN CORPUSCULAR HEMOGLOBIN CONC 33.3 GM/DL 32.0-36.0 (BEAKER) (test code = 752) RED CELL DISTRIBUTION WIDTH 14.5 % 10.3-14.2 H (BEAKER) (test code = 412) PLATELET COUNT (BEAKER) (test 204 K/CU MM 150-430 code = 756) MEAN PLATELET VOLUME (BEAKER) 6.7 fL 6.5-10.5 (test code = 754) NUCLEATED RED BLOOD CELLS 0 /100 WBC 0-0 (BEAKER) (test code = 413) NEUTROPHILS RELATIVE PERCENT 72 % (BEAKER) (test code = 429) LYMPHOCYTES RELATIVE PERCENT 17 % (BEAKER) (test code = 430) MONOCYTES RELATIVE PERCENT 10 % (BEAKER) (test code = 431) EOSINOPHILS RELATIVE PERCENT 0 % (BEAKER) (test code = 432) BASOPHILS RELATIVE PERCENT 1 % (BEAKER) (test code = 437) NEUTROPHILS ABSOLUTE COUNT 5.67 K/ L 1.80-8.00 (BEAKER) (test code = 670) LYMPHOCYTES ABSOLUTE COUNT 1.34 K/ L 1.48-4.50 L (BEAKER) (test code = 414) MONOCYTES ABSOLUTE COUNT (BEAKER) 0.82 K/ L 0.00-1.30 (test code = 415) EOSINOPHILS ABSOLUTE COUNT 0.01 K/ L 0.00-0.50 (BEAKER) (test code = 416) BASOPHILS ABSOLUTE COUNT (BEAKER) 0.05 K/ L 0.00-0.20 (test code = 417) 0.00SODIUM, RANDOM [id number] 02:48:00 Test Item Value Reference Range Interpretation Comments SODIUM URINE (BEAKER) (test code = 24 meq/L 243) Reference Range: No NormalsBASIC METABOLIC [id number] 01:37:00 Test Item Value Reference Range Interpretation Comments SODIUM (BEAKER) 127 meq/L 136-145 L (test code = 381) POTASSIUM (BEAKER) 4.2 meq/L 3.5-5.1 (test code = 379) CHLORIDE (BEAKER) 98 meq/L 98-107 (test code = 382) CO2 (BEAKER) (test 20 meq/L 22-29 L code = 355) BLOOD UREA NITROGEN 17 mg/dL 7-21 (BEAKER) (test code = 354) CREATININE (BEAKER) 0.67 mg/dL 0.57-1.25 (test code = 358) GLUCOSE RANDOM 144 mg/dL 70-105 H (BEAKER) (test code = 652) CALCIUM (BEAKER) 8.1 mg/dL 8.4-10.2 L (test code = 697) EGFR (BEAKER) (test 121 mL/min/1.73 ESTIM ATED GFR IS code = 1092) sq m NOT ACCURATE CREATININE CLEARANCE IN PREDICTING GLOMERULAR FILTRATION RATE . ESTIMATED GFR I S NOT APPLICABLE FOR DIALYSIS PATIEN TS. BASIC METABOLIC [id number] 21:54:00 Test Item Value Reference Range Interpretation Comments SODIUM (BEAKER) 121 meq/L 136-145 L (test code = 381) POTASSIUM (BEAKER) 3.8 meq/L 3.5-5.1 (test code = 379) CHLORIDE (BEAKER) 93 meq/L 98-107 L (test code = 382) CO2 (BEAKER) (test 20 meq/L 22-29 L code = 355) BLOOD UREA NITROGEN 17 mg/dL 7-21 (BEAKER) (test code = 354) CREATININE (BEAKER) 0.65 mg/dL 0.57-1.25 (test code = 358) GLUCOSE RANDOM 158 mg/dL 70-105 H (BEAKER) (test code = 652) CALCIUM (BEAKER) 8.1 mg/dL 8.4-10.2 L (test code = 697) EGFR (BEAKER) (test 125 mL/min/1.73 ESTIM ATED GFR IS code = 1092) sq m NOT ACCURATE CREATININE CLEARANCE IN PREDICTING GLOMERULAR FILTRATION RATE . ESTIMATED GFR I S NOT APPLICABLE FOR DIALYSIS PATIEN TS. SODIUM, RANDOM [id number] 17:45:00 Test Item Value Reference Range Interpretation Comments SODIUM URINE (BEAKER) (test code = < meq/L 243) Reference Range: No NormalsOSMOLALITY, [id number] 17:41:00 Test Item Value Reference Range Interpretation Comments OSMOLALITY URINE (BEAKER) (test 466 mOsm/kg 40-1400 code = 614) OSMOLALITY, [id number] 17:34:00 Test Item Value Reference Range Interpretation Comments OSMOLALITY, SERUM (BEAKER) (test 273 mOsm/kg 275-295 L code = 615) BASIC METABOLIC [id number] 17:34:00 Test Item Value Reference Range Interpretation Comments SODIUM (BEAKER) 126 meq/L 136-145 L (test code = 381) POTASSIUM (BEAKER) 4.2 meq/L 3.5-5.1 (test code = 379) CHLORIDE (BEAKER) 97 meq/L 98-107 L (test code = 382) CO2 (BEAKER) (test 20 meq/L 22-29 L code = 355) BLOOD UREA NITROGEN 17 mg/dL 7-21 (BEAKER) (test code = 354) CREATININE (BEAKER) 0.62 mg/dL 0.57-1.25 (test code = 358) GLUCOSE RANDOM 145 mg/dL 70-105 H (BEAKER) (test code = 652) CALCIUM (BEAKER) 8.1 mg/dL 8.4-10.2 L (test code = 697) EGFR (BEAKER) (test 132 mL/min/1.73 ESTIM ATED GFR IS code = 1092) sq m NOT ACCURATE CREATININE CLEARANCE IN PREDICTING GLOMERULAR FILTRATION RATE . ESTIMATED GFR I S NOT APPLICABLE FOR DIALYSIS PATIEN TS. LACTIC ACID, VENOUS, WHOLE [id number] 17:30:00 Test Item Value Reference Range Interpretation Comments LACTATE BLOOD VENOUS (2) (BEAKER) 1.9 mmol/L 0.5-2.2 (test code = 2872) Effective 08/31/2015: Units/Reference Range ChangeNew: 0.5-2.2 mmol/L Previous: 5-20 mg/dLCan draw with next BMPBLOOD GAS, [id number] 17:18:00 Test Item Value Reference Range Interpretation Comments PH ARTERIAL (BEAKER) (test code = 7.52 7.35-7.45 H 383) PCO2 ARTERIAL (BEAKER) (test code 30 mmHg 35-45 L = 384) PO2 ARTERIAL (BEAKER) (test code = 87 mmHg 80-90 385) O2 SATURATION ARTERIAL (BEAKER) 97.6 % 96.0-97.0 H (test code = 386) HCO3 ARTERIAL (BEAKER) (test code 24 mmol/L 21-29 = 388) BASE EXCESS ARTERIAL (BEAKER) 1.2 mmol/L -2.0-3.0 (test code = 387) PATIENT TEMPERATURE (BEAKER) (test 36.7 C code = 1818) FIO2 (BEAKER) (test code = 1819) 21.0 % INFLUENZA A H1N1 [id number] 14:16:00 Test Item Value Reference Range Interpretation Comments INFLUENZA A RNA Not Detected Not Detected, (BEAKER) (test code = Inconclusive 1545) NOVEL H1N1 RNA (BEAKER) Not Detected Not Detected, (test code = 1546) Inconclusive These assays were performed by real-time RT-PCR (weather forcaster-PCR) utilizing fluorogenic hydrolysis probe technology for the detection of human Influenza A viruses and the differential detection of novel H1N1 Influenza virus in respiratory specimens. The test is composed of (1) an RNA extraction from patient specimen, and (2) weather forcaster-PCR amplification and detection with human Influenza A and novel [id number] primers and probes. A well-conserved region of [...] This test was developed and its performance characte ristics determined by the [facility] Department, Section of Molecular Pathology. It has not been cleared or approved by the U.S. Food and Drug Administration (FDA). SinceFDA approval is not required for clinical use of the test, validation was done as required by The [employer] Amendments of 1988.BASIC METABOLIC [id number] 13:14:00 Test Item Value Reference Range Interpretation Comments SODIUM (BEAKER) 127 meq/L 136-145 L (test code = 381) POTASSIUM (BEAKER) 4.6 meq/L 3.5-5.1 (test code = 379) CHLORIDE (BEAKER) 98 meq/L 98-107 (test code = 382) CO2 (BEAKER) (test 21 meq/L 22-29 L code = 355) BLOOD UREA NITROGEN 16 mg/dL 7-21 (BEAKER) (test code = 354) CREATININE (BEAKER) 0.64 mg/dL 0.57-1.25 (test code = 358) GLUCOSE RANDOM 146 mg/dL 70-105 H (BEAKER) (test code = 652) CALCIUM (BEAKER) 8.3 mg/dL 8.4-10.2 L (test code = 697) EGFR (BEAKER) (test 128 mL/min/1.73 ESTIM ATED GFR IS code = 1092) sq m NOT ACCURATE CREATININE CLEARANCE IN PREDICTING GLOMERULAR FILTRATION RATE . ESTIMATED GFR I S NOT APPLICABLE FOR DIALYSIS ZHANE TS. HEPATITIS B [id number] 10:49:00 Test Item Value Reference Range Interpretation Comments HEPATITIS B CORE TOTAL ANTIBODY Nonreactive Nonreactive (BEAKER) (test code = 497) HEPATITIS B SURFACE ANTIBODY < mIU/mL <8.0 (BEAKER) (test code = 647) HEPATITIS B SURFACE ANTIGEN (2) Nonreactive Nonreactive (BEAKER) (test code = 2585) HEPATITIS A [id number] 10:49:00 Test Item Value Reference Range Interpretation Comments HEPATITIS A IGM ANTIBODY (BEAKER) Nonreactive Nonreactive (test code = 498) HEPATITIS A IGG ANTIBODY (BEAKER) Reactive Nonreactive A (test code = 2797) HEPATITIS C [id number] 10:41:00 Test Item Value Reference Range Interpretation Comments HEPATITIS C ANTIBODY (BEAKER) Nonreactive Nonreactive (test code = 367) B-TYPE NATRIURETIC FACTOR (BNP)[id number] 10:20:00 Test Item Value Reference Range Interpretation Comments B-TYPE NATRIURETIC PEPTIDE (BEAKER) 642 pg/mL 0-100 H (test code = 700) BASIC METABOLIC [id number] 10:19:00 Test Item Value Reference Range Interpretation Comments SODIUM (BEAKER) 126 meq/L 136-145 L (test code = 381) POTASSIUM (BEAKER) 4.7 meq/L 3.5-5.1 (test code = 379) CHLORIDE (BEAKER) 97 meq/L 98-107 L (test code = 382) CO2 (BEAKER) (test 20 meq/L 22-29 L code = 355) BLOOD UREA NITROGEN 16 mg/dL 7-21 (BEAKER) (test code = 354) CREATININE (BEAKER) 0.63 mg/dL 0.57-1.25 (test code = 358) GLUCOSE RANDOM 149 mg/dL 70-105 H (BEAKER) (test code = 652) CALCIUM (BEAKER) 8.3 mg/dL 8.4-10.2 L (test code = 697) EGFR (BEAKER) (test 130 mL/min/1.73 ESTIM ATED GFR IS code = 1092) sq m NOT ACCURATE CREATININE CLEARANCE IN PREDICTING GLOMERULAR FILTRATION RATE . ESTIMATED GFR I S NOT APPLICABLE FOR DIALYSIS PATIEN TS. BASIC METABOLIC [id number] 10:18:00 Test Item Value Reference Range Interpretation Comments SODIUM (BEAKER) 126 meq/L 136-145 L (test code = 381) POTASSIUM (BEAKER) 4.6 meq/L 3.5-5.1 (test code = 379) CHLORIDE (BEAKER) 97 meq/L 98-107 L (test code = 382) CO2 (BEAKER) (test 20 meq/L 22-29 L code = 355) BLOOD UREA NITROGEN 16 mg/dL 7-21 (BEAKER) (test code = 354) CREATININE (BEAKER) 0.63 mg/dL 0.57-1.25 (test code = 358) GLUCOSE RANDOM 149 mg/dL 70-105 H (BEAKER) (test code = 652) CALCIUM (BEAKER) 8.3 mg/dL 8.4-10.2 L (test code = 697) EGFR (BEAKER) (test 130 mL/min/1.73 ESTIM ATED GFR IS code = 1092) sq m NOT ACCURATE CREATININE CLEARANCE IN PREDICTING GLOMERULAR FILTRATION RATE . ESTIMATED GFR I S NOT APPLICABLE FOR DIALYSIS PATIEN TS. STREP PNEUMONIAE [id number] 08:23:00 Test Item Value Reference Range Interpretation Comments STREP PNEUMONIAE Presumptive negative Presumptive negative ANTIGEN (BEAKER) for pneumococcal for pneumococcal (test code = 1615) pneumonia - see pneumonia - see comment commen Presumptive negative for pneumococcal pneumonia, suggesting no current or recent pneumococcal infection. Infection due to S. pneumoniae cannot be ruled out since the antigen present in the sample may be below the detection limit of the test.LEGIONELLA ANTIGEN, [id number] 08:23:00 Test Item Value Reference Range Interpretation Comments L. PNEUMOPHILA Negative - see Negative fo r L. SEROGP 1 UR AG comment pneumophila (BEAKER) (test code serogrou p 1 antigen, = 1156) suggesting no r ecent or current infe ction with this serog roup. Legionellosis c annot be ruled out si nce other serogroup s and species may cau se disease. OSMOLALITY, [id number] 08:10:00 Test Item Value Reference Range Interpretation Comments OSMOLALITY URINE (BEAKER) (test 150 mOsm/kg 40-1400 code = 614) [id number] 07:23:00 Test Item Value Reference Range Interpretation Comments THYROID STIMULATING HORMONE 1.71 uIU/mL 0.35-4.94 (BEAKER) (test code = 772) VITAMIN [id number] 07:23:00 Test Item Value Reference Range Interpretation Comments VITAMIN B12 (BEAKER) (test code = 1162 pg/mL 213-816 H 774) OSMOLALITY, [id number] 06:33:00 Test Item Value Reference Range Interpretation Comments OSMOLALITY, SERUM (BEAKER) (test 286 mOsm/kg 275-295 code = 615) CBC W/PLT COUNT & AUTO [id number] 06:17:00 Test Item Value Reference Range Interpretation Comments WHITE BLOOD CELL COUNT (BEAKER) 3.5 K/ L 4.0-10.0 L (test code = 775) RED BLOOD CELL COUNT (BEAKER) 3.88 M/ L 4.20-5.80 L (test code = 761) HEMOGLOBIN (BEAKER) (test code = 11.7 GM/DL 13.0-16.8 L 410) HEMATOCRIT (BEAKER) (test code = 35.4 % 40.0-50.0 L 411) MEAN CORPUSCULAR VOLUME (BEAKER) 91.5 fL 82.0-98.0 (test code = 753) MEAN CORPUSCULAR HEMOGLOBIN 30.1 pg 27.0-33.0 (BEAKER) (test code = 751) MEAN CORPUSCULAR HEMOGLOBIN CONC 32.9 GM/DL 32.0-36.0 (BEAKER) (test code = 752) RED CELL DISTRIBUTION WIDTH 14.4 % 10.3-14.2 H (BEAKER) (test code = 412) PLATELET COUNT (BEAKER) (test 198 K/CU MM 150-430 code = 756) MEAN PLATELET VOLUME (BEAKER) 7.0 fL 6.5-10.5 (test code = 754) NUCLEATED RED BLOOD CELLS 0 /100 WBC 0-0 (BEAKER) (test code = 413) NEUTROPHILS RELATIVE PERCENT 72 % (BEAKER) (test code = 429) LYMPHOCYTES RELATIVE PERCENT 25 % (BEAKER) (test code = 430) MONOCYTES RELATIVE PERCENT 2 % (BEAKER) (test code = 431) EOSINOPHILS RELATIVE PERCENT 0 % (BEAKER) (test code = 432) BASOPHILS RELATIVE PERCENT 1 % (BEAKER) (test code = 437) NEUTROPHILS ABSOLUTE COUNT 2.50 K/ L 1.80-8.00 (BEAKER) (test code = 670) LYMPHOCYTES ABSOLUTE COUNT 0.86 K/ L 1.48-4.50 L (BEAKER) (test code = 414) MONOCYTES ABSOLUTE COUNT (BEAKER) 0.08 K/ L 0.00-1.30 (test code = 415) EOSINOPHILS ABSOLUTE COUNT 0.01 K/ L 0.00-0.50 (BEAKER) (test code = 416) BASOPHILS ABSOLUTE COUNT (BEAKER) 0.03 K/ L 0.00-0.20 (test code = 417) 0.00HIV-1 ANTIGEN WITH HIV-1/2 [id number] 05:50:00 Test Item Value Reference Range Interpretation Comments HIV-1 ANTIGEN WITH HIV 1\\T\\2 Nonreactive Nonreactive ANTIBODY (2) (BEAKER) (test code = 2586) [id number] 05:50:00 Test Item Value Reference Range Interpretation Comments CORTISOL, TOTAL (BEAKER) (test code 3.4 ug/dL 3.7-19.4 L = 2755) SODIUM, RANDOM [id number] 05:42:00 Test Item Value Reference Range Interpretation Comments SODIUM URINE (BEAKER) (test code = < meq/L 243) Reference Range: No NormalsBASIC METABOLIC [id number] 05:34:00 Test Item Value Reference Range Interpretation Comments SODIUM (BEAKER) 123 meq/L 136-145 L (test code = 381) POTASSIUM (BEAKER) 4.7 meq/L 3.5-5.1 (test code = 379) CHLORIDE (BEAKER) 95 meq/L 98-107 L (test code = 382) CO2 (BEAKER) (test 19 meq/L 22-29 L code = 355) BLOOD UREA NITROGEN 17 mg/dL 7-21 (BEAKER) (test code = 354) CREATININE (BEAKER) 0.63 mg/dL 0.57-1.25 (test code = 358) GLUCOSE RANDOM 158 mg/dL 70-105 H (BEAKER) (test code = 652) CALCIUM (BEAKER) 8.4 mg/dL 8.4-10.2 (test code = 697) EGFR (BEAKER) (test 130 mL/min/1.73 ESTIM ATED GFR IS code = 1092) sq m NOT ACCURATE CREATININE CLEARANCE IN PREDICTING GLOMERULAR FILTRATION RATE . ESTIMATED GFR I S NOT APPLICABLE FOR DIALYSIS PATIEN TS. BASIC METABOLIC [id number] 05:29:00 Test Item Value Reference Range Interpretation Comments SODIUM (BEAKER) 124 meq/L 136-145 L (test code = 381) POTASSIUM (BEAKER) 4.7 meq/L 3.5-5.1 (test code = 379) CHLORIDE (BEAKER) 95 meq/L 98-107 L (test code = 382) CO2 (BEAKER) (test 19 meq/L 22-29 L code = 355) BLOOD UREA NITROGEN 17 mg/dL 7-21 (BEAKER) (test code = 354) CREATININE (BEAKER) 0.62 mg/dL 0.57-1.25 (test code = 358) GLUCOSE RANDOM 160 mg/dL 70-105 H (BEAKER) (test code = 652) CALCIUM (BEAKER) 8.4 mg/dL 8.4-10.2 (test code = 697) EGFR (BEAKER) (test 132 mL/min/1.73 ESTIM ATED GFR IS code = 1092) sq m NOT ACCURATE CREATININE CLEARANCE IN PREDICTING GLOMERULAR FILTRATION RATE . ESTIMATED GFR I S NOT APPLICABLE FOR DIALYSIS PATIEN TS. LACTIC ACID, VENOUS, WHOLE [id number] 05:25:00 Test Item Value Reference Range Interpretation Comments LACTATE BLOOD VENOUS (2) (BEAKER) 2.6 mmol/L 0.5-2.2 H (test code = 2872) Effective 08/31/2015: Units/Reference Range ChangeNew: 0.5-2.2 mmol/L Previous: 5-20 mg/dLPROTHROMBIN [id number] 05:25:00 Test Item Value Reference Range Interpretation Comments PROTIME (BEAKER) (test code = 17.0 seconds 11.7-14.7 H 759) INR (BEAKER) (test code = 370) 1.4 <=5.9 RECOMMENDED COUMADIN/WARFARIN INR THERAPY RANGESSTANDARD DOSE: 2.0 - 3.0 Includes: PROPHYLAXIS forvenous thrombosis, systemic embolization; TREATMENT for venous thrombosis and/or pulmonary embolus.HIGH RISK: Target INR is 2.5-3.5 for patients with mechanical heart valves.[id number] 05:23:00 Test Item Value Reference Range Interpretation Comments AMMONIA (BEAKER) (test code = 348) 27 mol/L 18-72 BASIC METABOLIC [id number] 02:34:00 Test Item Value Reference Range Interpretation Comments SODIUM (BEAKER) 121 meq/L 136-145 L (test code = 381) POTASSIUM (BEAKER) 5.0 meq/L 3.5-5.1 (test code = 379) CHLORIDE (BEAKER) 94 meq/L 98-107 L (test code = 382) CO2 (BEAKER) (test 18 meq/L 22-29 L code = 355) BLOOD UREA NITROGEN 17 mg/dL 7-21 (BEAKER) (test code = 354) CREATININE (BEAKER) 0.64 mg/dL 0.57-1.25 (test code = 358) GLUCOSE RANDOM 163 mg/dL 70-105 H (BEAKER) (test code = 652) CALCIUM (BEAKER) 8.3 mg/dL 8.4-10.2 L (test code = 697) EGFR (BEAKER) (test 128 mL/min/1.73 ESTIM ATED GFR IS code = 1092) sq m NOT ACCURATE CREATININE CLEARANCE IN PREDICTING GLOMERULAR FILTRATION RATE . ESTIMATED GFR I S NOT APPLICABLE FOR DIALYSIS PATIEN TS. BASIC METABOLIC [id number] 00:17:00 Test Item Value Reference Range Interpretation Comments SODIUM (BEAKER) 120 meq/L 136-145 LL (test code = 381) POTASSIUM (BEAKER) 5.4 meq/L 3.5-5.1 H Specimen slightly (test code = 379) hemolyzed CHLORIDE (BEAKER) 93 meq/L 98-107 L (test code = 382) CO2 (BEAKER) (test 19 meq/L 22-29 L code = 355) BLOOD UREA NITROGEN 18 mg/dL 7-21 (BEAKER) (test code = 354) CREATININE (BEAKER) 0.63 mg/dL 0.57-1.25 Specimen slightly (test code = 358) hemolyzed GLUCOSE RANDOM 160 mg/dL 70-105 H (BEAKER) (test code = 652) CALCIUM (BEAKER) 8.2 mg/dL 8.4-10.2 L (test code = 697) EGFR (BEAKER) (test 130 mL/min/1.73 ESTIM ATED GFR IS code = 1092) sq m NOT ACCURATE CREATININE CLEARANCE IN PREDICTING GLOMERULAR FILTRATION RATE . ESTIMATED GFR I S NOT APPLICABLE FOR DIALYSIS PATIEN TS. RAPID INFLUENZA A&B [id number] 23:44:00 Test Item Value Reference Range Interpretation Comments RAPID INFLUENZA A AG (BEAKER) Negative Negative, Inconclusive (test code = 1622) RAPID INFLUENZA B AG (BEAKER) Negative Negative, Inconclusive (test code = 1623) URIC [id number] 21:52:00 Test Item Value Reference Range Interpretation Comments URIC ACID (BEAKER) (test code = 4.1 mg/dL 2.6-7.2 773) Add onCOMPREHENSIVE METABOLIC [id number] 21:12:00 Test Item Value Reference Range Interpretation Comments TOTAL PROTEIN 6.6 gm/dL 6.0-8.3 (BEAKER) (test code = 770) ALBUMIN (BEAKER) 2.6 g/dL 3.5-5.0 L (test code = 1145) ALKALINE PHOSPHATASE 141 U/L 40-150 (BEAKER) (test code = 346) BILIRUBIN TOTAL 0.7 mg/dL 0.2-1.2 (BEAKER) (test code = 377) SODIUM (BEAKER) (test 117 meq/L 136-145 LL code = 381) POTASSIUM (BEAKER) 5.3 meq/L 3.5-5.1 H (test code = 379) CHLORIDE (BEAKER) 91 meq/L 98-107 L (test code = 382) CO2 (BEAKER) (test 17 meq/L 22-29 L code = 355) BLOOD UREA NITROGEN 19 mg/dL 7-21 (BEAKER) (test code = 354) CREATININE (BEAKER) 0.67 mg/dL 0.57-1.25 (test code = 358) GLUCOSE RANDOM 164 mg/dL 70-105 H (BEAKER) (test code = 652) CALCIUM (BEAKER) 8.0 mg/dL 8.4-10.2 L (test code = 697) AST (SGOT) (BEAKER) 48 U/L 5-34 H (test code = 353) ALT (SGPT) (BEAKER) 21 U/L 6-55 (test code = 347) EGFR (BEAKER) (test 121 ESTIMATE D GFR IS code = 1092) mL/min/1.73 sq NOT ACCURA TE m CREATININE CLEARANCE IN PREDICTING GLOMERULAR FILTRATION RATE . ESTIMATED GFR I S NOT APPLICABLE FOR DIALYSIS PATIEN TS. OSMOLALITY, [id number] 21:10:00 Test Item Value Reference Range Interpretation Comments OSMOLALITY, SERUM (BEAKER) (test 263 mOsm/kg 275-295 L code = 615) SODIUM, RANDOM [id number] 21:06:00 Test Item Value Reference Range Interpretation Comments SODIUM URINE (BEAKER) (test code = < meq/L 243) Reference Range: No NormalsCHLORIDE, RANDOM [id number] 21:06:00 Test Item Value Reference Range Interpretation Comments CHLORIDE URINE (BEAKER) (test code = < meq/L 682) Reference Range: No NormalsLACTIC ACID, VENOUS, WHOLE [id number] 21:05:00 Test Item Value Reference Range Interpretation Comments LACTATE BLOOD VENOUS (2) (BEAKER) 4.6 mmol/L 0.5-2.2 H (test code = 2872) Effective 08/31/2015: Units/Reference Range ChangeNew: 0.5-2.2 mmol/L Previous: 5-20 mg/dLURINALYSIS W/ REFLEX URINE [id number] 21:00:00 Test Item Value Reference Range Interpretation Comments COLOR (BEAKER) (test code = 470) Light Yellow CLARITY (BEAKER) (test code = Clear 469) SPECIFIC GRAVITY UA (BEAKER) 1.006 1.001-1.035 (test code = 468) PH UA (BEAKER) (test code = 467) 5.0 5.0-8.0 PROTEIN UA (BEAKER) (test code = Negative Negative 464) GLUCOSE UA (BEAKER) (test code = Negative Negative 365) KETONES UA (BEAKER) (test code = Negative Negative 371) BILIRUBIN UA (BEAKER) (test code Negative Negative = 462) BLOOD UA (BEAKER) (test code = Moderate Negative A 461) NITRITE UA (BEAKER) (test code = Negative Negative 465) LEUKOCYTE ESTERASE UA (BEAKER) Small Negative A (test code = 466) UROBILINOGEN UA (BEAKER) (test 0.2 mg/dL 0.2-1.0 code = 463) RBC UA (BEAKER) (test code = 4 /HPF 519) WBC UA (BEAKER) (test code = 4 /HPF 520) BACTERIA (BEAKER) (test code = Rare 517) MUCUS (BEAKER) (test code = Rare 1574) SQUAMOUS EPITHELIAL (BEAKER) < /HPF (test code = 516) SOURCE(BEAKER) (test code = 2795) OSMOLALITY, [id number] 20:59:00 Test Item Value Reference Range Interpretation Comments OSMOLALITY URINE (BEAKER) (test 222 mOsm/kg 40-1400 code = 614) CBC W/PLT COUNT & AUTO [id number] 20:58:00 Test Item Value Reference Range Interpretation Comments WHITE BLOOD CELL COUNT (BEAKER) 2.6 K/ L 4.0-10.0 L (test code = 775) RED BLOOD CELL COUNT (BEAKER) 3.62 M/ L 4.20-5.80 L (test code = 761) HEMOGLOBIN (BEAKER) (test code = 11.3 GM/DL 13.0-16.8 L 410) HEMATOCRIT (BEAKER) (test code = 33.0 % 40.0-50.0 L 411) MEAN CORPUSCULAR VOLUME (BEAKER) 91.3 fL 82.0-98.0 (test code = 753) MEAN CORPUSCULAR HEMOGLOBIN 31.3 pg 27.0-33.0 (BEAKER) (test code = 751) MEAN CORPUSCULAR HEMOGLOBIN CONC 34.2 GM/DL 32.0-36.0 (BEAKER) (test code = 752) RED CELL DISTRIBUTION WIDTH 14.4 % 10.3-14.2 H (BEAKER) (test code = 412) PLATELET COUNT (BEAKER) (test 163 K/CU MM 150-430 code = 756) MEAN PLATELET VOLUME (BEAKER) 6.8 fL 6.5-10.5 (test code = 754) NUCLEATED RED BLOOD CELLS 0 /100 WBC 0-0 (BEAKER) (test code = 413) NEUTROPHILS RELATIVE PERCENT 83 % (BEAKER) (test code = 429) LYMPHOCYTES RELATIVE PERCENT 14 % (BEAKER) (test code = 430) MONOCYTES RELATIVE PERCENT 2 % (BEAKER) (test code = 431) EOSINOPHILS RELATIVE PERCENT 0 % (BEAKER) (test code = 432) BASOPHILS RELATIVE PERCENT 0 % (BEAKER) (test code = 437) NEUTROPHILS ABSOLUTE COUNT 2.16 K/ L 1.80-8.00 (BEAKER) (test code = 670) LYMPHOCYTES ABSOLUTE COUNT 0.36 K/ L 1.48-4.50 L (BEAKER) (test code = 414) MONOCYTES ABSOLUTE COUNT (BEAKER) 0.06 K/ L 0.00-1.30 (test code = 415) EOSINOPHILS ABSOLUTE COUNT 0.00 K/ L 0.00-0.50 (BEAKER) (test code = 416) BASOPHILS ABSOLUTE COUNT (BEAKER) 0.01 K/ L 0.00-0.20 (test code = 417) 0.00CHEM [id number] 09:10:002.3[facility]annCHEM [id number] 09:10:001.5[facility] YqqcltnCIHVAAWCOFXN4937-81-11 09:10:0011.0[facility] VNFODVKVDQZR3633-15-85 09:10:0081[facility] IkuqqqpHMLZHVGKHLPK9368-15-90 09:10:00 138[facility] LekwoghROLOWDAGKWVT9863-21-75 09:10:0016[facility]annELECTROLYTES 2015-03-05 09:10:004.0[facility] UcbycnsMPSYNRUIKVRP8133-77-63 09:10:0025[facility] VbwvtihCQUVDFZOKQMK5091-26-00 09:10:22655Ujlgpxua AxzxbfoRXKHWSRPKRCK8354-69-06 09:10:008.8[facility] PbovingXMPWEQWJISCN1045-97-45 09:10:0085[facility] FAGHUFBNVRNN3056-49-67 09:10:000.98[facility] ItyyqtwNZBOLGHYIQ9249-50-97 09:10:00 0.1[facility] TftbsuoLMCZQYLRCD0259-01-18 09:10:000.8[facility]annHEMATOLOGY 2015-03-05 09:10:000.0[facility] FktokfrGCYOMGUWEN4778-26-76 09:10:001+ *ABN*(03/05/15 3:10 AM)[facility] TtkjvnqUCRCVCYLSR3631-23-39 09:10:001.6[facility] NfhirxiWQSITIQDML2926-31-86 09:10:000.5[facility] EfxoowhDFUREHQIAW2349-74-64 09:10:0010.9[facility] TrtdruwRLNBDBUYWD5579-49-08 09:10:002.2[facility] [place] RQIOKKUAYP8183-97-40 09:10:004.5[facility] RdjelluDVUSHMKMMJ5546-11-44 09:10:00 58.5[facility] ThgmkndEIHQJCCJRU2052-22-95 09:10:0028.5[facility]annHEMATOLOGY 2015-03-05 09:10:0015.9[facility] PopmovySFWNYQIUDV8533-45-93 09:10:005.05[facility] AvtbopfKTPHCUBGDR9728-96-75 09:10:007.6[facility] ZsducrjQFXMGVMNXD0773-08-91 09:10:0048.6[facility] PuexmxgVRWQNGOTUL0422-04-07 09:10:0032.7[facility] VGZKWJZSOV3104-02-39 09:10:00 Test Item Value Reference Range Interpretation Comments MCH (test code = MCH) 31.5 pg 27.0-31.0 [facility] ZklfpwtDGDIYJAFUF2335-19-00 09:10:0096.3[facility]annHEMATOLOGY 2015-03-05 09:10:0015.9[facility] IaskelwRMKLDMSYGW4918-01-28 09:10:72730Hmscmnki EtcgatoPMCFLOTRQT6282-90-42 09:10:007.2[facility]annDRUG XPDCBQ0797-26-09 04:25:00Negative *NA*(03/04/15 10:25 PM)[facility]annDR[facility] EUZVOV0965-69-14 04:25:00Positive *ABN*(03/04/15 10:25 PM)[facility]annDR[facility] SROAXH3475-38-25 04:25:00See Note (03/04/15 10:25 PM)[facility]annDR[facility] MSEGXS7354-29-04 04:25:00Negative *NA*(03/04/15 10:25 PM)[facility]DR[facility] QGUMYD8458-31-16 04:25:00Negative *NA*(03/04/15 10:25 PM)[facility] JCENPJ0791-04-36 04:25:00Negative *NA*(03/04/15 10:25 PM)[facility]DR[facility] XCSMLU4610-80-24 04:25:00Negative *NA*(03/04/15 10:25 PM)[facility]annDR[facility] GDLIHD0714-72-88 04:25:00Negative *NA*(03/04/15 10:25 PM)[facility] [id number] 04:25:00 Test Item Value Reference Range Interpretation Comments UA Spec Grav (test code = UA Spec 1.015 1 Grav) [facility] [id number] 04:25:00 Test Item Value Reference Range Interpretation Comments UA pH (test code = UA pH) 5.0 1 5.0-8.0 [facility] [id number] 04:25:00Clear (03/04/15 10:25 PM) [facility] WTRKI8301-43-21 04:25:00Negative (03/04/15 10:25 PM) [facility] CSNOQ2415-31-63 04:25:00Negative *NA*(03/04/15 10:25 PM)[facility] ZFMHS1872-50-86 04:25:00Trace *ABN*(03/04/15 10:25 PM)[facility] GTPDL0346-09-11 04:25:00Yellow *NA*(03/04/15 10:25 PM)[facility] SRXRX6402-29-31 04:25:002[facility] MRMXJ3616-60-52 04:25:001[facility] VRLXW9938-62-02 04:25:00Small *ABN*(03/04/15 10:25 PM)[facility] WCNNH8944-59-92 04:25:000.2 [facility] XNBOK1287-65-53 04:25:00Negative (03/04/15 10:25 PM) [facility] LOZKS3410-79-07 04:25:00Negative (03/04/15 10:25 PM) [facility] DNSUY2402-77-21 04:25:00Negative (03/04/15 10:25 PM) [facility]annCARDIAC BRHJGDN7729-17-92 04:11:00<0.02[facility] [place] CARDIAC WLANHYH6945-36-18 04:11:0034[facility]annCARDIAC FFORHQA2778-83-44 23:11:0031[facility]annCARDIAC REETKBV0543-36-01 23:11:00<0.02[facility]annCARDIAC NILULNI9791-97-39 16:03:00<0.02[facility]annCARDIAC ENZYMES 2015-03-04 16:03:00<0.5[facility]annCARDIAC LLUZINU9938-10-73 16:03:0049 [facility]annCARDIAC FYYZQOZ1067-62-20 16:03:00<1.0[facility]annCHEM CSPOF0963-45-69 16:03:0081[facility]annCHEM YDKTH6253-35-02 16:03:0094 [facility]annCHEM FBIUS0452-20-81 16:03:0012.8[facility]annCHEM PANEL 2015-03-04 16:03:0012[facility]annCHEM PDFDQ0597-55-14 16:03:001.02[facility]annCHEM LROVA6347-34-37 16:03:0025[facility]annCHEM KCFYV5416-74-48 16:03:36863Tvenqzrz HermannCHEM WDMNQ7575-93-42 16:03:009.5[facility]annCHEM CIYQV5550-26-07 16:03:70877Ydhkqekq HermannCHEM USCYR5121-66-97 16:03:004.8 [facility] OmirplbEWKRXSGKAB2448-52-46 16:03:000.92[facility]annHEMATOLOGY 2015-03-04 16:03:00 Test Item Value Reference Range Interpretation Comments PT (test code = PT) 12.7 s 12.0-14.7 [facility] ZsvxjxvMYYOKVOQVP8895-26-20 16:03:00 Test Item Value Reference Range Interpretation Comments PTT (test code = PTT) 29.9 s 22.9-35.8 [facility] VmoxxdoKTJRTUMGKL9718-79-88 16:03:0095.1[facility]annHEMATOLOGY 2015-03-04 16:03:0015.9[facility] UipsxrtNJYVXFPCZY3137-68-65 16:03:00 Test Item Value Reference Range Interpretation Comments MCH (test code = MCH) 31.8 pg 27.0-31.0 [facility] YmtmkcbKRPOLWQOYP7606-14-19 16:03:30529Djrshxro HermannHEMATOLOGY 2015-03-04 16:03:006.9[facility] ZkvisdvIJOGCRXLUO4452-87-36 16:03:0033.5[facility] PwcrcchZJUKHJVLDL7248-73-24 16:03:0050.8[facility] MbrlnovUYONVHIDJR6189-04-65 16:03:0017.0[facility] IzdrjpxRSJGEGHWER2783-24-93 16:03:005.34[facility] WGBQDXYCAF4154-63-08 16:03:0012.0[facility] LfaslipFULKZCIYRW8694-99-19 16:03:00 18.4[facility] GjvrrqgNTWTUWXTRU6517-57-85 16:03:001+ *ABN*(03/04/15 10:03 AM) [facility] DbzwqglWHKXOIFNWX6189-70-36 16:03:000.9[facility]annHEMATOLOGY 2015-03-04 16:03:002.2[facility] KyymcllFMTHFQAOCM5118-08-20 16:03:000.1[facility] AqywnnhQZGDDXOIDY7341-84-38 16:03:000.5[facility] AruumbsPHZTTLDRYC2408-10-66 16:03:007.8[facility] TtrspojMDWVHZIZMU0437-77-66 16:03:008.8[facility] GWKVYPCLWP3917-56-63 16:03:000.4[facility] VrvqbsnKHXOZPUBEY8130-03-61 16:03:00 Normal (03/04/15 10:03 AM)[facility] PgtqeahHBHHODSKKR0697-51-99 16:03:0072.9 [facility] YkgizqbEJORVNTFNM9992-97-46 16:03:00Normal (03/04/15 10:03 AM)[facility] DjpcbmaBLXQXT3900-86-39 16:00:0031[facility] VwylpzzMCODKB0312-21-15 16:00:003.86 [facility] CqkujieERLYHT7497-87-04 16:00:54691Zmopkezy BcynxomONQMRS1193-30-27 16:00:94814Oumcfahw JltwtldFHDFIO8489-14-22 16:00:25538Slggmrlu HermannLIPIDS 2015-03-04 16:00:0063[facility] HermannSPECIAL CGXBKCSMV9129-78-45 16:00:005.6 [facility] HermannTHYROID WLYVW5646-28-94 16:00:001.840[facility] [place]
[2020-12-13] MEDS ORDERED: LIDOCAINE VISCOUS 2% SOLN 15 ML UDC ONE ×2 (16:51→18:01)
[2020-12-13 17:59] LABS: Absolute Lymphocytes (CBC) 2.2 K/uL (0.7-4.9); Basophils % 0.9 % (0-1.3); Hematocrit 43.8 % (39.6-49.0); MPV 7.1 fL (7.6-11.3); RBC Red Blood Cell Count 5.29 M/uL (4.33-5.43)
[2020-12-13 18:16] LABS: Albumin 3.3 g/dL (3.4-5.0); Bilirubin Direct 0.1 mg/dL (0-0.2); Bilirubin Total 0.4 mg/dL (0.2-1.0); Potassium 4.4 mmol/L (3.5-5.1); Protein, Total 7.5 g/dL (6.4-8.2)
[2020-12-13] MEDS ORDERED: HYDROMORPHONE HCL 1 MG/ML INJ ONE (18:38)
[2020-12-13] MEDS ORDERED: ONDANSETRON 4 MG/2 ML VIAL ONE (18:38)
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
[2020-12-13] MEDS ORDERED: CEFTRIAXONE/SWI 1gm 1 GM/10 ML SYR ONE (21:28)
[2020-12-13 22:23] VITALS: TEMP 97.9
[2020-12-13 22:27] VITALS: BP 178/50; O2SAT 95
[2020-12-13 22:55] LABS: Urine Appearance CLOUDY (Clear); Urine Bilirubin NEGATIVE (Negative); Urine Blood 3+ (Negative); Urine Color RED (Yellow); Urine Glucose NEGATIVE (Negative); Urine Microscopic Reflex ORDER UMIC; Urine Protein 1+ (Negative); Urine Urobilinogen 0.2 mg/dL (0.2-1.0)
[2020-12-13 23:36] LABS: Urine Bacteria <20 /HPF (NONE SEEN); Urine RBC >50 /HPF (NONE SEEN); Urine Urothelial Cells <5 /HPF (NONE SEEN)
[2020-12-14] MEDS ORDERED: LIDOCAINE JELLY 2% 5 ML SYRINGE TOP ONE (00:29)
--- NOTE | 2020-12-14 01:31 | CON ---
Reason For Consultation: Inability to place or to replace a chronic indwelling Bell catheter. History Of Present Illness: Mr. Barker presented to the emergency department after the nurses at his facility who routinely changes catheter were unable to successfully exchange his catheter today. As a result, they brought him to the Emergency Department, where multiple attempts were made to plac e a catheter without success and such, Urology consultation was obtained. I spoke to the patient who was generally a poor historian and that he was unable to provide any significant description as to w hat his medical history was in terms of why he was unable to void. He suggested potentially having h ad a stroke or TIA in the past, which may be contributory. He also notes that he walks using a walke r, but has had issues with falling. The remainder of his medical history was elusive at this time. Physical Examination: The patient was lying supine on a procedure table in no acute distress, but there was wet fluid around his genitalia where he was experiencing ov erflow incontinence. The phallus was markedly retracted into his infrapubic fat pad due to his morbi d obesity. I initially attempted to place a urethral Bell catheter as follows. Attempted placement of an 18-Cymraes coude-tipped urethral Bell catheter procedure note: I prepped his genitalia and draped in standard fashion using Betadine and applied a lidocaine Uro-Jet for local anesthesia. I then attempted to pass an 18-Cymraes coude tip Bell catheter when I met a p oint of dense resistance in the mid proximal urethra/perineal urethral region. Because the feel of t he obstruction was consistent with that of stricture disease, I then proceeded to request the cystosc ope to attempt flexible cystoscopy and catheter placement over a wire. Unfortunately, the cystoscope was not immediately available; so I attempted placement of filiforms ca theters with followers. While this was successful initially passing through the dense point of stric ture felt, the follower would not pass all the way into his bladder as the filiforms coiled in the pr oximal urethra beyond the initial stricture that was dilated. As a result, I proceeded to flexible c ystoscopy now that the flexible cystoscope became available. Flexible cystoscopy and urethral dilation with placement of a Whiteside-tip Bell catheter over a wire. With his genitalia already prepped and draped, I have provided another lidocaine Uro-Jet for local an esthesia and then utilized the 16-Cymraes flexible cystoscope in normal saline irrigation to traverse the urethra to the point of obstruction where the cystoscope would pass no further. There was eviden ce of patency of the lumen beyond the point of obstruction of the cystoscope, likely down to around 1 4-Cymraes. Thus, I passed a wire via the cystoscope putatively in his bladder and over the wire, used a set of sequential dilators to dilate the urethra to 24-Cymraes. I then performed cystoscopy over t he wire and was able to successfully into the bladder. I then replaced the wire and coiled it within the bladder before passing a 16-Cymraes Councill-tip catheter into his bladder with ease. There was return of mostly clear but somewhat blood-tinged urine. The balloon was inflated with 10 cc of steri le water and connected to a StatLock. There was some bleeding from the meatus from all of the dilati on and gauze was placed around it after irrigating the area and cleaning him up. The catheter was th en connected to gravity drainage via floor bag, and the procedure was completed. Assessment And Recommendations: This is a -xucw-dew gentleman with uncertain past medical history, possible cerebrovascular accident, with resultant urinary retention requiring a chronic indw elling catheter that had been managed by Dr. Story over the course of years with prior management of what sounds like stricture disease. I recommend Bactrim antimicrobial prophylaxis while urine culture is in process. The Bactrim should be given in the emergency department and then the patient may be discharged with an additional 3 days of a course until we have the results of the culture. Subsequently, the patient needs to be seen in followup in Urology Clinic within 30 days prior to the next catheter exchange, which should not be p erformed by nurses at the outside facility as they will result in issues again and need for emergency department visit. He likely will require a cystoscopy and DVIU. Please note, over 1 hour was spent in this consultation in the emergency department due to the procedural manipulation required in marin tion to the assessment. ADAN/MODL Voice ID: [id number] Report ID: [id number]
== END 2020-12-13 22:13 | disposition home or self-care (01) ==
LOC: ER 15:46
DX: R31.9 Hematuria, unspecified (principal); E66.9 Obesity, unspecified
CPT/HCPCS: 96365; 87088; 85025; 87086; 80048; 36415; 80076; 87077; 87186; 96375; 99284; J1170; J0696; J2405; 81003; 81015

== ENCOUNTER 2021-03-14 08:59 | Day surgery (SDC) | payer OTHER ==
[2021-03-10 15:23] LABS: Absolute Lymphocytes (CBC) 2.5 K/uL (0.7-4.9); Basophils % 1.1 % (0-1.3); Hematocrit 43.3 % (39.6-49.0); Lymphocytes % 22.1 % (15.3-44.8); MPV 7.1 fL (7.6-11.3); RBC Red Blood Cell Count 5.53 M/uL (4.33-5.43)
[2021-03-10 15:28] LABS: Protime INR 1.07
[2021-03-10 15:36] LABS: Potassium 4.1 mmol/L (3.5-5.1)
--- NOTE | 2021-03-10 15:42 | RAD REPORT ---
EXAM DESCRIPTION: RAD - Chest Pa And Lat (2 Views) - 03/10/2021 3:29 pm CLINICAL HISTORY: pre COMPARISON: Chest Pa And Lat (2 Views) dated 12/15/2019; Chest Single View dated 05/17/2019; Chest Sin gle View dated 12/02/2016; Chest Single View dated 12/01/2016 FINDINGS: Lines: None. Lungs: Irregular opacity overlying the right lower may be pleural based on the lateral view. The left lung is clear. Pleural: No significant pleural effusions or pneumothorax. Cardiac: The heart size is within normal limits. Bones: No acute fractures. Plate and screw fixation of the left proximal humerus. Other: IMPRESSION: Irregular right lower lobe opacity which is not well characterized. Consider CT for furt her characterization. Alternatively, could consider 6 week follow-up chest radiograph . This is unlik deena an acute process.
[2021-03-14] MEDS: Ringers Lactate 1,000 ML IV ONE ×2 (09:45→11:06)
[2021-03-14] MEDS ORDERED: Gentamicin Inj 280 MG in NA CHLORIDE 0.9% 100 ML IVPB ONE (10:00)
[2021-03-14] MEDS ORDERED: AMPICILLIN SODIUM 2 GM in NA CHLORIDE 0.9% 100 ML IVPB ONE (10:00)
[2021-03-14] MEDS ORDERED: LIDOCAINE 1% MPF 5 ML VIAL ONE (10:55)
[2021-03-14] MEDS ORDERED: MIDAZOLAM HCL 2 MG/2 ML INJ ONE (10:55)
[2021-03-14] MEDS ORDERED: FENTANYL CITR 100 MCG/2 ML ONE (10:55)
[2021-03-14] MEDS ORDERED: propofoL 200 MG/20 ML VIAL IV ONE ×3 (10:56→12:03)
[2021-03-14] MEDS ORDERED: TRIAMCINOLONE ACETON 40 MG/ML VIAL ONE (11:18)
[2021-03-14] MEDS ORDERED: TRIAMCINOLONE ACETON 40 MG/ML VIAL IM ONE (12:00)
[2021-03-14] MEDS ORDERED: ONDANSETRON 4 MG/2 ML VIAL ONE (12:03)
[2021-03-14] MEDS ORDERED: KETOROLAC 30 MG/ML INJ ONE (12:26)
[2021-03-14] MEDS: MORPHINE 4 MG/ML SYR ONE ×4 (12:33→13:00)
[2021-03-14] MEDS: LABETALOL 20 MG/4ML SYRINGE IV ONE ×2 (12:57→13:10)
[2021-03-14] MEDS ORDERED: MORPHINE 4 MG/ML SYR ONE (13:06)
[2021-03-14] MEDS ORDERED: PHENAZOPYRIDINE 100MG TAB PO ONE ×2 (13:22→14:23)
[2021-03-14] MEDS ORDERED: CODEINE 30MG/APAP 300MG TAB PO PRN (13:22)
[2021-03-14] MEDS ORDERED: CODEINE 30MG/APAP 300MG TAB ONE (14:23)
--- NOTE | 2021-03-14 17:01 | OP ---
Date of Procedure: 03/14/2021 Surgeon: MATILDE PORTER Preoperative Diagnoses: 1. Urethral stricture disease, recurrent. 2. Traumatic hypospadias. 3. Neurogenic bladder. Postoperative Diagnoses: 1. Urethral stricture disease, recurrent. 2. Traumatic hypospadias. 3. Neurogenic bladder. Principle Procedures: 1. Direct vision internal urethrotomy. 2. Injection of intralesional Kenalog 80 mg. 3. Placement of a suprapubic catheter. 4. Complex placement of a urethral Bell catheter over a wire. Indication For Procedure: Mr. Barker initially presented via the emergency department with a urethral Bell catheter that had become dislodged. They were unable to replace the catheter and due to significant urethral stricture disease, placement of a catheter blindly also was prohibitive. As a result, I had to perform cystoscopic dilation of his urethra over a wire in order to place a catheter over a wire into his bladder. 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 Story. Given his recurrent urethral stricture disease, which Dr. Story had managed on at least a couple of prior occasions, and he developed subcoronal traumatic hypospadias along with the inability to void without the catheter, my recommendation was an operative suprapubic catheter placement in addition to DVIU in an effort to open the urethra and stabilize it in the open configuration for subsequent repeat urodynamic testing to assess for any recovery of voiding function though unlikely. Procedure In Detail: The patient was consented in the preoperative holding area before being transferred to the operative suite where general anesthesia was induced. He was given ampicillin 2 g and gentamicin 280 mg IV antimicrobial prophylaxis and pneumo boots were provided for DVT prophylaxis. He had been prescribed ciprofloxacin oral prophylaxis to start several days prior to the procedure given the catheter culture taken a few weeks earlier. He was then placed in the lithotomy position, padded and secured to the table appropriately and the suprapubic region was shaved. His genitalia were washed using Hibiclens and then prepped using Betadine including the suprapubic region up to the infraumbilical region. The case was then begun using a 22-Indian rigid cystoscope to traverse the urethra, but it was unable to pass beyond a point within the mid pendulous urethra due to the presence of a stricture that was likely about 18-Indian in diameter. As a result, I switched and placed the direct vision internal urethrotome into his urethra using the obturator and then used the 0-degree lens along with a cold knife to come along and incise the stricture at the 5 and 7 o'clock position. Once I was able to pass this, I then encountered another region of stricture more proximally within the urethra distal to the bulb. This was similarly incised at the 5 and 7 o'clock position until bleeding vessels were encountered. I then proceeded beyond that and encountered 1 additional area of stricture just within the bulb proper. I similarly incised this at 5 and 7 o'clock and then I was able to navigate beyond the sphincter via the prostatic urethra and into the bladder. The bladder was then surveyed in its entirety and there were no concerning mucosal lesions, foreign bodies or stones throughout. The bladder was relatively teardrop in appearance consistent with its neurogenic state. There was some small area of catheter trauma posterolaterally, but it was benign appearing. As a result, I then filled his bladder and distended it to at least 20 cm of water pressure before placing the patient in the steep Trendelenburg position. I then identified a point in the suprapubic region consistent with his abdominal crease and made an incision approximately 1 cm in length. I then passed the 14-Indian suprapubic catheter via the incision and through the subcutaneous tissues and into the bladder using the cystoscope and direct vision to guide the needle entry into the bladder. Once within the bladder, I performed a coil using the [place]-Loop technology associated with the suprapubic catheter and the catheter did drain appropriately. I then backed the cystoscope into the urethra proper and utilized an endoscopic injector needle along with 80 mg of Kenalog diluted in a total of 6 cc of saline, and I injected each area of incised urethra with the Kenalog mixture. Once this was completed, I then attempted to pass a 20- Indian urethral Bell catheter into his bladder, but it coiled within a false passage within the prostatic urethra to the right. As a result, I replaced the cystoscope and placed a Bentson guidewire into his bladder placing a Lawrence tip 20-Indian catheter over the Bentson guidewire into the bladder with ease. A 20 cc of sterile water was placed in the balloon, and the catheter was placed to bag drainage. The suprapubic catheter was similarly placed to leg bag drainage. I then irrigated the Bell catheter and the urine did immediately propagate out the suprapubic catheter with ease indicating continuity of the drainage. We then took the patient out of the lithotomy position, transferred him to a stretcher after he was awakened from general anesthesia, and then transferred him to the recovery room in good condition. Complications: None. Discharge Disposition: He should continue the ciprofloxacin antimicrobial prophylaxis started preoperatively until completion of the course of about 10 days of therapy. We will then plan removal of the urethral Bell catheter in 7- 10 days and give him a dose of ciprofloxacin antimicrobial prophylaxis at the time of that catheter removal. Subsequently, the suprapubic catheter would be planned for exchange and up-sizing 6 weeks from the date of surgery or between 6-8 weeks from the date of surgery. ADAN/MING Voice ID: [id number] Report ID: [id number]
[2021-03-14 17:26] VITALS: TEMP 97.6; O2SAT 98
[2021-03-14 17:51] VITALS: BP 165/71
== END 2021-03-14 16:00 | disposition home or self-care (01) ==
LOC: OR 08:59
PROVIDERS: ATTEND Urology
PROC: 0T9B30Z Drainage of Bladder with Drainage Device, Percutaneous Approach (ICD-10-PCS; 2021-03-14)
PROC: 0T9B70Z Drainage of Bladder with Drainage Device, Via Natural or Artificial Opening (ICD-10-PCS; 2021-03-14)
PROC: 0T7D8ZZ Dilation of Urethra, Via Natural or Artificial Opening Endoscopic (ICD-10-PCS; principal; 2021-03-14 11:00)
PROC: 3E0K83Z Introduction of Anti-inflammatory into Genitourinary Tract, Via Natural or Artificial Opening Endoscopic (ICD-10-PCS; 2021-03-14 11:00)
DX: N35.919 Unspecified urethral stricture, male, unspecified site (principal); R33.9 Retention of urine, unspecified; Q54.8 Other hypospadias; N31.9 Neuromuscular dysfunction of bladder, unspecified; Z20.822 Contact with and (suspected) exposure to COVID-19
CPT/HCPCS: 52276; 51102; 51702; 87088; 85025; 87086; 80048; 36415; 85610; 87077; 87186; 71046; 52283; U0003; J2704 ×2; J3301; J1580; J2250; J3010; J7120; J2405; J0290

== ENCOUNTER 2021-06-08 12:16 | Observation (INO) | payer OTHER ==
--- OUTSIDE RECORDS SUMMARY | 2021-06-08 12:21 | XMS REPORT | Continuity of Care Document ---
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 mg/dL 70-[address] [facility] 6720 (BEAKER) (test code = [place] 1538) [address] BASIC METABOLIC [id number] 06:11:00 Test Item Value Reference Range Interpretation [...] PATIEN TS. CBC W/PLT COUNT & AUTO [id number] 06:00:00 Test Item Value Reference Range Interpretation [...] L 0.00-0.20 (test code = 417) 0.00POCT-GLUCOSE [id number] 05:49:00 Test Item Value Reference Range Interpretation Comments POC-GLUCOSE METER 101 mg/dL 70-[address] [facility] 6720 (BEAKER) (test code = [place] 1538) [address] BASIC METABOLIC [id number] 01:36:00 Test Item Value Reference Range Interpretation [...] NOT APPLICABLE FOR DIALYSIS PATIEN TS. POCT-GLUCOSE [id number] 23:39:00 Test Item Value Reference Range Interpretation Comments POC-GLUCOSE METER 151 mg/dL 70-[address] [facility] 6720 ([facility]) (test code = [facility] [place] [facility] 1538) [address] VANCOMYCIN LEVEL, [id number] 22:30:00 Test Item Value Reference Range Interpretation Comments VANCOMYCIN TROUGH (BEAKER) (test 17.5 ug/mL 10.0-20.0 code = 522) Draw 30 min prior to scheduled dose, HOLD if level > 20 mcg/mL, inform MD. POCT-GLUCOSE [id number] 21:06:00 Test Item Value Reference Range Interpretation Comments POC-GLUCOSE METER 140 mg/dL 70-[address] [facility] 6720 ([facility]) (test code = [facility] 1538) [address] BASIC METABOLIC [id number] 19:21:00 Test Item Value Reference Range Interpretation [...] NOT APPLICABLE FOR DIALYSIS PATIEN TS. POCT-GLUCOSE [id number] 17:13:00 Test Item Value Reference Range Interpretation Comments POC-GLUCOSE METER 122 mg/dL 70-[address] [facility] 67 ([facility]) (test code = [place] 1538) [address] POCT-GLUCOSE [id number] 13:05:00 Test Item Value Reference Range Interpretation Comments POC-GLUCOSE METER 108 mg/dL 70-[address] [facility] 6720 ([facility]) (test code = [place] 1538) [address] [id number] 11:24:00 Test Item Value Reference Range Interpretation Comments RPR SCREEN (BEAKER) (test code = Nonreactive Nonreactive 420) CBC W/PLT COUNT & AUTO [id number] 07:21:00 Test Item Value Reference Range Interpretation [...] 0.00-0.20 (test code = 417) 0.00BASIC METABOLIC [id number] 07:06:00 Test Item Value Reference Range Interpretation [...] NOT APPLICABLE FOR DIALYSIS PATIEN TS. POCT-GLUCOSE [id number] 05:50:00 Test Item Value Reference Range Interpretation Comments POC-GLUCOSE METER 124 mg/dL 70-[address] [facility] 6720 (BEAKER) (test code = [place] 1538) [address] SPUTUM CULTURE + GRAM [id number] 00:49:00 Test Item Value Reference Interpretation Comments [...] 10-15 epithelial (BEAKER) (test code = cells 762751) GRAM STAIN RESULT <1+ gram positive (BEAKER) (test code = rods 371560) GRAM STAIN RESULT 2+ yeast (BEAKER) (test code = 862800) GRAM STAIN RESULT 1+ gram positive (BEAKER) (test code = cocci in pairs 917340) 4+ Normal respiratory ken[place] presentBASIC METABOLIC [id number] 00:36:00 Test Item Value Reference Range Interpretation [...] NOT APPLICABLE FOR DIALYSIS PATIEN TS. POCT-GLUCOSE [id number] 23:29:00 Test Item Value Reference Range Interpretation Comments POC-GLUCOSE METER 93 mg/dL 70-[address] [facility] 6720 (BEAKER) (test code = [place] [facility] [address] 1538) BASIC METABOLIC [id number] 18:08:00 Test Item Value Reference Range Interpretation [...] NOT APPLICABLE FOR DIALYSIS PATIEN TS. POCT-GLUCOSE [id number] 17:45:00 Test Item Value Reference Range Interpretation Comments POC-GLUCOSE METER 101 mg/dL 70-[address] [facility] 6720 (BEAKER) (test code = [place] [facility] 1538) [address] BASIC METABOLIC [id number] 14:10:00 Test Item Value Reference Range Interpretation [...] NOT APPLICABLE FOR DIALYSIS PATIEN TS. POCT-GLUCOSE [id number] 12:16:00 Test Item Value Reference Range Interpretation Comments POC-GLUCOSE METER 105 mg/dL 70-[address] [facility] 6720 (BEAKER) (test code = [place] 1538) [address] URINE [id number] 10:22:00 Test Item Value Reference Range Interpretation Comments CULTURE (BEAKER) (test code = 1095) No growth URINE [id number] 09:54:00 Test Item Value Reference Range Interpretation Comments CULTURE (BEAKER) (test code = 1095) No growth BASIC METABOLIC [id number] 05:53:00 Test Item Value Reference Range Interpretation [...] PATIEN TS. CBC W/PLT COUNT & AUTO [id number] 05:36:00 Test Item Value Reference Range Interpretation [...] 0.00-0.20 (test code = 417) 0.00VANCOMYCIN LEVEL, [id number] 21:59:00 Test Item Value Reference Range Interpretation Comments VANCOMYCIN TROUGH (BEAKER) (test 21.6 ug/mL 10.0-20.0 H code = 522) Draw 30 min prior to scheduled dose, HOLD if level > 20 mcg/mL, aashish PETERSON POCT-GLUCOSE [id number] 21:39:00 Test Item Value Reference Range Interpretation Comments POC-GLUCOSE METER 113 mg/dL 70-[address] [facility] 6720 (BEAKER) (test code = [place] 1533) [address] BASIC METABOLIC [id number] 19:04:00 Test Item Value Reference Range Interpretation [...] APPLICABLE FOR DIALYSIS PATIEN TS. BASIC METABOLIC [id number] 14:34:00 Test Item Value Reference Range Interpretation [...] APPLICABLE FOR DIALYSIS PATIEN TS. SODIUM, RANDOM [id number] 14:27:00 Test Item Value Reference Range Interpretation Comments SODIUM URINE (BEAKER) (test code = 75 meq/L 243) Reference Range: No NormalsHEPATIC FUNCTION [id number] 07:18:00 Test Item Value Reference Range Interpretation [...] (test code = 25 U/L 6-55 347) [id number] 07:18:00 Test Item Value Reference Range Interpretation Comments MAGNESIUM (BEAKER) (test code = 1.8 mg/dL 1.6-2.6 627) [id number] 07:18:00 Test Item Value Reference Range Interpretation Comments PHOSPHORUS (BEAKER) (test code = 3.0 mg/dL 2.3-4.7 604) OSMOLALITY, [id number] 05:41:00 Test Item Value Reference Range Interpretation Comments OSMOLALITY URINE (BEAKER) (test 541 mOsm/kg 40-1400 code = 614) OSMOLALITY, [id number] 05:40:00 Test Item Value Reference Range Interpretation Comments OSMOLALITY, SERUM (BEAKER) (test 280 mOsm/kg 275-295 code = 615) BASIC METABOLIC [id number] 05:02:00 Test Item Value Reference Range Interpretation [...] PATIEN TS. CBC W/PLT COUNT & AUTO [id number] 04:48:00 Test Item Value Reference Range Interpretation [...] 0.00-0.20 (test code = 417) 0.00SODIUM, RANDOM [id number] 02:48:00 Test Item Value Reference Range Interpretation Comments SODIUM URINE (BEAKER) (test code = 24 meq/L 243) Reference Range: No NormalsBASIC METABOLIC [id number] 01:37:00 Test Item Value Reference Range Interpretation [...] APPLICABLE FOR DIALYSIS PATIEN TS. BASIC METABOLIC [id number] 21:54:00 Test Item Value Reference Range Interpretation [...] GFR I S NOT APPLICABLE FOR DIALYSIS PATISHERITA TS. SODIUM, RANDOM [id number] 17:45:00 Test Item Value Reference Range Interpretation Comments SODIUM URINE (BEAKER) (test code = < meq/L 243) Reference Range: No NormalsOSMOLALITY, [id number] 17:41:00 Test Item Value Reference Range Interpretation Comments OSMOLALITY URINE (BEAKER) (test 466 mOsm/kg 40-1400 code = 614) OSMOLALITY, [id number] 17:34:00 Test Item Value Reference Range Interpretation Comments OSMOLALITY, SERUM (BEAKER) (test 273 mOsm/kg 275-295 L code = 615) BASIC METABOLIC [id number] 17:34:00 Test Item Value Reference Range Interpretation [...] DIALYSIS PATIEN TS. LACTIC ACID, VENOUS, WHOLE [id number] 17:30:00 Test Item Value Reference Range Interpretation Comments LACTATE BLOOD VENOUS (2) (BEAKER) 1.9 mmol/L 0.5-2.2 (test code = 2872) Effective 08/31/2015: Units/Reference Range ChangeNew: 0.5-2.2 mmol/L Previous: 5-20 mg/dLCan draw with next BMPBLOOD GAS, [id number] 17:18:00 Test Item Value Reference Range Interpretation [...] = 1819) 21.0 % INFLUENZA A H1N1 [id number] 14:16:00 Test Item Value Reference Range Interpretation Comments INFLUENZA A RNA Not Detected Not Detected, (BEAKER) (test code = Inconclusive 1545) NOVEL H1N1 RNA (BEAKER) Not Detected Not Detected, (test code = 1546) Inconclusive These assays were performed by real-time RT-PCR (history instructor-PCR) utilizing fluorogenic hydrolysis probe technology for the detection of human Influenza A viruses and the differential detection of novel H1N1 Influenza virus in respiratory specimens. The test is composed of (1) an RNA extraction from patient specimen, and (2) history instructor-PCR amplification and detection with human Influenza A and novel C3H5-ausxmapl primers and probes. A well-conserved region of [...] its performance characte ristics determined by the [facility] Department, Section of Molecular Pathology. It has not been cleared or approved by the U.S. Food and Drug Administration (FDA). SinceFDA approval is not required for clinical use of the test, validation was done as required by The Clinical Laboratory Amendments of 1988.BASIC METABOLIC [id number] 13:14:00 Test Item Value Reference Range Interpretation [...] S NOT APPLICABLE FOR DIALYSIS PATIEN TS. HEPATITIS B [id number] 10:49:00 Test Item Value Reference Range Interpretation Comments HEPATITIS B CORE TOTAL ANTIBODY Nonreactive Nonreactive (BEAKER) (test code = 497) HEPATITIS B SURFACE ANTIBODY < mIU/mL <8.0 (BEAKER) (test code = 647) HEPATITIS B SURFACE ANTIGEN (2) Nonreactive Nonreactive (BEAKER) (test code = 2585) HEPATITIS A [id number] 10:49:00 Test Item Value Reference Range Interpretation Comments HEPATITIS A IGM ANTIBODY (BEAKER) Nonreactive Nonreactive (test code = 498) HEPATITIS A IGG ANTIBODY (BEAKER) Reactive Nonreactive A (test code = 2797) HEPATITIS C [id number] 10:41:00 Test Item Value Reference Range Interpretation Comments HEPATITIS C ANTIBODY (BEAKER) Nonreactive Nonreactive (test code = 367) B-TYPE NATRIURETIC FACTOR (BNP)2016-08-10 10:20:00 Test Item Value Reference Range Interpretation Comments B-TYPE NATRIURETIC PEPTIDE (BEAKER) 642 pg/mL 0-100 H (test code = 700) BASIC METABOLIC [id number] 10:19:00 Test Item Value Reference Range Interpretation [...] APPLICABLE FOR DIALYSIS PATIEN TS. BASIC METABOLIC [id number] 10:18:00 Test Item Value Reference Range Interpretation [...] APPLICABLE FOR DIALYSIS PATIEN TS. STREP PNEUMONIAE [id number] 08:23:00 Test Item Value Reference Range Interpretation [...] be below the detection limit of the test. LEGIONELLA ANTIGEN, [id number] 08:23:00 Test Item Value Reference Range Interpretation Comments L. PNEUMOPHILA Negative - see Negative fo r L. SEROGP 1 UR AG comment pneumophila (BEAKER) (test code serogrou p 1 antigen, = 1156) suggesting no r ecent or current infe ction with this serog roup. Legionellosis c annot be ruled out si nce other serogroup s and species may cau se disease. OSMOLALITY, [id number] 08:10:00 Test Item Value Reference Range Interpretation Comments OSMOLALITY URINE (BEAKER) (test 150 mOsm/kg 40-1400 code = 614) [id number] 07:23:00 Test Item Value Reference Range Interpretation Comments THYROID STIMULATING HORMONE 1.71 uIU/mL 0.35-4.94 (BEAKER) (test code = 772) VITAMIN [id number] 07:23:00 Test Item Value Reference Range Interpretation Comments VITAMIN B12 (BEAKER) (test code = 1162 pg/mL 213-816 H 774) OSMOLALITY, [id number] 06:33:00 Test Item Value Reference Range Interpretation Comments OSMOLALITY, SERUM (BEAKER) (test 286 mOsm/kg 275-295 code = 615) CBC W/PLT COUNT & AUTO [id number] 06:17:00 Test Item Value Reference Range Interpretation [...] code = 417) 0.00HIV-1 ANTIGEN WITH HIV-1/2 [id number] 05:50:00 Test Item Value Reference Range Interpretation Comments HIV-1 ANTIGEN WITH HIV 1\\T\\2 Nonreactive Nonreactive ANTIBODY (2) (BEAKER) (test code = 2586) [id number] 05:50:00 Test Item Value Reference Range Interpretation Comments CORTISOL, TOTAL (BEAKER) (test code 3.4 ug/dL 3.7-19.4 L = 2755) SODIUM, RANDOM [id number] 05:42:00 Test Item Value Reference Range Interpretation Comments SODIUM URINE (BEAKER) (test code = < meq/L 243) Reference Range: No NormalsBASIC METABOLIC [id number] 05:34:00 Test Item Value Reference Range Interpretation [...] APPLICABLE FOR DIALYSIS PATIEN TS. BASIC METABOLIC [id number] 05:29:00 Test Item Value Reference Range Interpretation [...] DIALYSIS PATIEN TS. LACTIC ACID, VENOUS, WHOLE [id number] 05:25:00 Test Item Value Reference Range Interpretation Comments LACTATE BLOOD VENOUS (2) (BEAKER) 2.6 mmol/L 0.5-2.2 H (test code = 2872) Effective 08/31/2015: Units/Reference Range ChangeNew: 0.5-2.2 mmol/L Previous: 5-20 mg/dLPROTHROMBIN TIME/[id number] 05:25:00 Test Item Value Reference Range Interpretation Comments PROTIME (BEAKER) (test code = 17.0 seconds 11.7-14.7 H 759) INR (BEAKER) (test code = 370) 1.4 <=5.9 RECOMMENDED COUMADIN/WARFARIN INR THERAPY RANGESSTANDARD DOSE: 2.0 - 3.0 Includes: PROPHYLAXIS forvenous thrombosis, systemic embolization; TREATMENT for venous thrombosis and/or pulmonary embolus.HIGH RISK: Target INR is 2.5-3.5 for patients with mechanical heart valves.[id number] 05:23:00 Test Item Value Reference Range Interpretation Comments AMMONIA (BEAKER) (test code = 348) 27 mol/L 18-72 BASIC METABOLIC [id number] 02:34:00 Test Item Value Reference Range Interpretation [...] APPLICABLE FOR DIALYSIS PATIEN TS. BASIC METABOLIC [id number] 00:17:00 Test Item Value Reference Range Interpretation [...] FOR DIALYSIS PATIEN TS. RAPID INFLUENZA A&B [id number] 23:44:00 Test Item Value Reference Range Interpretation Comments RAPID INFLUENZA A AG (BEAKER) Negative Negative, Inconclusive (test code = 1622) RAPID INFLUENZA B AG (BEAKER) Negative Negative, Inconclusive (test code = 1623) URIC [id number] 21:52:00 Test Item Value Reference Range Interpretation Comments URIC ACID (BEAKER) (test code = 4.1 mg/dL 2.6-7.2 773) Add onCOMPREHENSIVE METABOLIC [id number] 21:12:00 Test Item Value Reference Range Interpretation [...] NOT APPLICABLE FOR DIALYSIS PATIEN TS. OSMOLALITY, [id number] 21:10:00 Test Item Value Reference Range Interpretation Comments OSMOLALITY, SERUM (BEAKER) (test 263 mOsm/kg 275-295 L code = 615) SODIUM, RANDOM [id number] 21:06:00 Test Item Value Reference Range Interpretation Comments SODIUM URINE (BEAKER) (test code = < meq/L 243) Reference Range: No NormalsCHLORIDE, RANDOM [id number] 21:06:00 Test Item Value Reference Range Interpretation Comments CHLORIDE URINE (BEAKER) (test code = < meq/L 682) Reference Range: No NormalsLACTIC ACID, VENOUS, WHOLE [id number] 21:05:00 Test Item Value Reference Range Interpretation Comments LACTATE BLOOD VENOUS (2) (BEAKER) 4.6 mmol/L 0.5-2.2 H (test code = 2872) Effective 08/31/2015: Units/Reference Range ChangeNew: 0.5-2.2 mmol/L Previous: 5-20 mg/dLURINALYSIS W/ REFLEX URINE [id number] 21:00:00 Test Item Value Reference Range Interpretation [...] code = 516) SOURCE(BEAKER) (test code = 9867) OSMOLALITY, [id number] 20:59:00 Test Item Value Reference Range Interpretation Comments OSMOLALITY URINE (BEAKER) (test 222 mOsm/kg 40-1400 code = 614) CBC W/PLT COUNT & AUTO [id number] 20:58:00 Test Item Value Reference Range Interpretation [...] K/ L 0.00-0.20 (test code = 417) [id number] 09:10:00 Test Item Value Reference Range Interpretation Comments MPV (test code = MPV) 7.2 7.4-10.4 [facility] [id number] 09:10:00 Test Item Value Reference Range Interpretation Comments Phosphorus (test code = Phosphorus) 2.3 2.5-4.5 [facility] [id number] 09:10:00 Test Item Value Reference Range Interpretation Comments Magnesium Lvl (test code = Magnesium 1.5 1.8-2.4 Lvl) [facility] Ho[id number] 09:10:00 Test Item Value Reference Range Interpretation Comments AGAP (test code = AGAP) 11.0 10.0-20.0 [facility] Hos[id number] 09:10:00 Test Item Value Reference Range Interpretation Comments Glucose Lvl (test code = Glucose Lvl) 81 70-99 [facility] HospitalIbsnimkGQTWKWASSAVV2626-69-69 09:10:00 Test Item Value Reference Range Interpretation Comments Sodium Lvl (test code = Sodium Lvl) 138 135-145 [facility] HospitalMooxhgnRUGTTMXRTJVO2242-53-45 09:10:00 Test Item Value Reference Range Interpretation Comments BUN (test code = BUN) 16 7-22 [facility] HospitalFqblijgTFSYOIKEGVRX4367-49-29 09:10:00 Test Item Value Reference Range Interpretation Comments Potassium Lvl (test code = Potassium 4.0 3.5-5.1 Lvl) [facility] HospitalWbzgfcbSHMHQMVUQVAY2937-06-29 09:10:00 Test Item Value Reference Range Interpretation Comments CO2 (test code = CO2) 25 24-32 [facility] Ho[id number] 09:10:00 Test Item Value Reference Range Interpretation Comments Chloride Lvl (test code = Chloride Lvl) 106 95-109 [facility] Hospi[id number] 09:10:00 Test Item Value Reference Range Interpretation Comments Calcium Lvl (test code = Calcium Lvl) 8.8 8.5-10.5 [facility] HospitalMvhjzryEUWMYZNURQWB0996-11-97 09:10:00 Test Item Value Reference Range Interpretation Comments eGFR (test code = eGFR) 85 [facility] HospitalTysupujFKDJEIGNWBDB7629-65-48 09:10:00 Test Item Value Reference Range Interpretation Comments Creatinine Lvl (test code = Creatinine 0.98 0.50-1.40 Lvl) [id number] 09:10:00 Test Item Value Reference Range Interpretation Comments Eosinophils # (test code 0.1 See_Comment [A utomated message] The = Eosinophils #) system whic h generated this result tra nsmitted reference range : <=0.5. The reference r mic was not used to int erpret this result as normal/abnormal . [facility] Hospit[id number] 09:10:00 Test Item Value Reference Range Interpretation Comments Monocytes # (test code 0.8 See_Comment [Aut omated message] The = Monocytes #) system which generated this result tra nsmitted reference range : <=0.8. The reference r mic was not used to int erpret this result as normal/abnormal . [facility] HospitalCidvjrxVTSJGQUOBL4388-11-88 09:10:00 Test Item Value Reference Range Interpretation Comments Basophils # (test code 0.0 See_Comment [Aut omated message] The = Basophils #) system which generated this result tra nsmitted reference range : <=0.2. The reference r mic was not used to int erpret this result as normal/abnormal . [facility] H[id number] 09:10:00 Test Item Value Reference Range Interpretation Comments Macrocyte (test code = 1+ *ABN*(03/05/15 Macrocyte) 3:10 AM) [facility] H[id number] 09:10:00 Test Item Value Reference Range Interpretation Comments Eosinophils (test code = 1.6 See_Comment [A utomated message] The Eosinophils) system which ge nerated this result tra nsmitted reference range : <=4.0. The reference r mic was not used to int erpret this result as normal/abnormal . [facility] HospitalJmgdmlqTNNMELLVQG5737-53-22 09:10:00 Test Item Value Reference Range Interpretation Comments Basophils (test code = 0.5 See_Comment [Aut omated message] The Basophils) system which ge nerated this result tra nsmitted reference range : <=1.0. The reference r mic was not used to int erpret this result as normal/abnormal . [facility] HospitalKnzsqgmJQGOZJOJFV0310-82-97 09:10:00 Test Item Value Reference Range Interpretation Comments Monocytes (test code = Monocytes) 10.9 2.0-12.0 [facility] HospitalIzvkaezVEHBLXRSRY7226-85-85 09:10:00 Test Item Value Reference Range Interpretation Comments Lymphocytes # (test code = Lymphocytes 2.2 1.0-5.5 #) [facility] HospitalWqbnhiyHOFDWTNJDS8085-97-76 09:10:00 Test Item Value Reference Range Interpretation Comments Segs-Bands # (test code = Segs-Bands #) 4.5 1.5-8.1 [facility] HospitalUtwufgwUZBCXUYPKA5121-37-28 09:10:00 Test Item Value Reference Range Interpretation Comments Segs (test code = Segs) 58.5 45.0-75.0 [facility] HospitalHxmasgdVRQPYNJVML3401-90-04 09:10:00 Test Item Value Reference Range Interpretation Comments Lymphocytes (test code = Lymphocytes) 28.5 20.0-40.0 [facility] HospitalAxpwzmoLXRUGATQLU6398-60-49 09:10:00 Test Item Value Reference Range Interpretation Comments Hgb (test code = Hgb) 15.9 14.0-18.0 [facility] HospitalRxvjrynCQRPBKCTPT4958-07-65 09:10:00 Test Item Value Reference Range Interpretation Comments RBC (test code = RBC) 5.05 4.70-6.10 [facility] HospitalKxqhghtLYCLXQUKXW9479-07-92 09:10:00 Test Item Value Reference Range Interpretation Comments WBC (test code = WBC) 7.6 3.7-10.4 [facility] HospitalUwzewxzUYGOQDTGTO2137-28-83 09:10:00 Test Item Value Reference Range Interpretation Comments Hct (test code = Hct) 48.6 42.0-54.0 [facility] HospitalBlwkcboUWTUDPXTJI2963-93-62 09:10:00 Test Item Value Reference Range Interpretation Comments MCHC (test code = MCHC) 32.7 32.0-36.0 [facility] HospitalAevftkgVQYNAJNNJT9497-98-71 09:10:00 Test Item Value Reference Range Interpretation Comments MCH (test code = MCH) 31.5 pg 27.0-31.0 [facility] HospitalBntduyyMAUKLLEGHO6457-02-92 09:10:00 Test Item Value Reference Range Interpretation Comments MCV (test code = MCV) 96.3 80.0-94.0 [id number] 09:10:00 Test Item Value Reference Range Interpretation Comments RDW (test code = RDW) 15.9 11.5-14.5 [facility] [id number] 09:10:00 Test Item Value Reference Range Interpretation Comments Platelet (test code = Platelet) 293 133-450 [facility] [id number] 04:25:00 Test Item Value Reference Range Interpretation Comments U Phencyc Scr (test Negative *NA*(03/04/15 code = U Phencyc Scr) 10:25 PM) [facility] [id number] 04:25:00 Test Item Value Reference Range Interpretation Comments U Opiate Scr (test Positive *ABN*(03/04/15 code = U Opiate Scr) 10:25 PM) [facility] [id number] 04:25:00 Test Item Value Reference Range Interpretation Comments UDS Note (test code = See Note (03/04/15 10:25 UDS Note) PM) [facility] [id number] 04:25:00 Test Item Value Reference Range Interpretation Comments U Cannab Scr (test Negative *NA*(03/04/15 code = U Cannab Scr) 10:25 PM) [facility] [id number] 04:25:00 Test Item Value Reference Range Interpretation Comments U Cocaine Scr (test Negative *NA*(03/04/15 code = U Cocaine Scr) 10:25 PM) [facility] [id number] 04:25:00 Test Item Value Reference Range Interpretation Comments U Amph Scr (test code Negative *NA*(03/04/15 = U Amph Scr) 10:25 PM) [facility] [id number] 04:25:00 Test Item Value Reference Range Interpretation Comments U Denisse Scr (test code Negative *NA*(03/04/15 = U Denisse Scr) 10:25 PM) [facility] [id number] 04:25:00 Test Item Value Reference Range Interpretation Comments U Benzodia Scr (test Negative *NA*(03/04/15 code = U Benzodia Scr) 10:25 PM) [facility] AND [id number] 04:25:00 Test Item Value Reference Range Interpretation Comments UA Spec Grav (test code = UA Spec 1.015 1 Grav) [facility] AND [id number] 04:25:00 Test Item Value Reference Range Interpretation Comments UA pH (test code = UA pH) 5.0 1 5.0-8.0 [facility] AND [id number] 04:25:00 Test Item Value Reference Range Interpretation Comments UA Turbidity (test code = Clear (03/04/15 10:25 UA Turbidity) PM) [facility] AND [id number] 04:25:00 Test Item Value Reference Range Interpretation Comments UA Glucose (test code Negative (03/04/15 10:25 = UA Glucose) PM) [facility] AND [id number] 04:25:00 Test Item Value Reference Range Interpretation Comments UA Ketones (test code Negative *NA*(03/04/15 = UA Ketones) 10:25 PM) [facility] AND [id number] 04:25:00 Test Item Value Reference Range Interpretation Comments UA Protein (test code = Trace *ABN*(03/04/15 UA Protein) 10:25 PM) [facility] AND [id number] 04:25:00 Test Item Value Reference Range Interpretation Comments UA Color (test code = Yellow *NA*(03/04/15 UA Color) 10:25 PM) [facility] AND [id number] 04:25:00 Test Item Value Reference Range Interpretation Comments UA RBC (test code = 2 See_Comment [Automa candy message] The UA RBC) system which ge nerated this result transmit candy reference range : <=2. The reference range was not used to interpr et this result as ines l/abnormal. [facility] AND [id number] 04:25:00 Test Item Value Reference Range Interpretation Comments UA Mucus (test code = UA Mucus) Few /LPF [facility] AND [id number] 04:25:00 Test Item Value Reference Range Interpretation Comments UA WBC (test code = 1 See_Comment [Automa candy message] The UA WBC) system which ge nerated this result transmit candy reference range : <=5. The reference range was not used to interpr et this result as ines l/abnormal. [facility] [id number] 04:25:00 Test Item Value Reference Range Interpretation Comments UA Sq Epi (test code = UA Sq Epi) Few /LPF [facility] [id number] 04:25:00 Test Item Value Reference Range Interpretation Comments UA Bili (test code = Small *ABN*(03/04/15 UA Bili) 10:25 PM) [facility] [id number] 04:25:00 Test Item Value Reference Range Interpretation Comments UA Urobilinogen (test code = UA 0.2 0.1-1.0 Urobilinogen) [facility] [id number] 04:25:00 Test Item Value Reference Range Interpretation Comments UA Blood (test code = Negative (03/04/15 10:25 UA Blood) PM) [facility] [id number] 04:25:00 Test Item Value Reference Range Interpretation Comments UA Nitrite (test code Negative (03/04/15 10:25 = UA Nitrite) PM) [facility] [id number] 04:25:00 Test Item Value Reference Range Interpretation Comments UA Leuk Est (test Negative (03/04/15 10:25 code = UA Leuk Est) PM) [facility] [id number] 04:11:00 Test Item Value Reference Range Interpretation Comments Troponin-I (test code no gt See_Comment [Auto mated message] The = Troponin-I) system which g enerated this result transmit candy reference range : <=0.40. The reference r mic was not used to interpr et this result as ines l/abnormal. [facility] [id number] 04:11:00 Test Item Value Reference Range Interpretation Comments Total CK (test code = Total CK) 34 191 [facility] [id number] 23:11:00 Test Item Value Reference Range Interpretation Comments Total CK (test code = Total CK) 31 191 [facility] [id number] 23:11:00 Test Item Value Reference Range Interpretation Comments Troponin-I (test code no gt See_Comment [Auto mated message] The = Troponin-I) system which g enerated this result transmit candy reference range : <=0.40. The reference r mic was not used to interpr et this result as ines l/abnormal. [facility] 16:03:00 Test Item Value Reference Range Interpretation Comments Troponin-I (test code no gt See_Comment [Auto mated message] The = Troponin-I) system which g enerated this result transmit candy reference range : <=0.40. The reference r mic was not used to interpr et this result as ines l/abnormal. [facility][x+1] [id number] 16:03:00 Test Item Value Reference Range Interpretation Comments CK MB (test code = CK MB) no gt 0.5-3.6 [facility] HospitalSynderoDEAC[facility] [id number] 16:03:00 Test Item Value Reference Range Interpretation Comments Total CK (test code = Total CK) 49 12-191 [facility] HospitalViralNinjas [id number] 16:03:00 Test Item Value Reference Range Interpretation Comments CK MB Index (test no gt See_Comment [Automate d message] The code = CK MB Index) system w [facility] generated this result transmit candy reference range : <=2.5. The reference range was not used to interpr et this result as ines l/abnormal. [facility]id[facility] [id number] 16:03:00 Test Item Value Reference Range Interpretation Comments eGFR (test code = eGFR) 81 [facility] [id number] 16:03:00 Test Item Value Reference Range Interpretation Comments Glucose Lvl (test code = Glucose Lvl) 94 70-99 [facility] [id number] 16:03:00 Test Item Value Reference Range Interpretation Comments AGAP (test code = AGAP) 12.8 10.0-20.0 [facility] [id number] 16:03:00 Test Item Value Reference Range Interpretation Comments BUN (test code = BUN) 12 7-22 [facility] [id number] 16:03:00 Test Item Value Reference Range Interpretation Comments Creatinine Lvl (test code = Creatinine 1.02 0.50-1.40 Lvl) [facility] [id number] 16:03:00 Test Item Value Reference Range Interpretation Comments CO2 (test code = CO2) 25 24-32 [facility]2015-11-06 16:03:00 Test Item Value Reference Range Interpretation Comments Chloride Lvl (test code = Chloride Lvl) 105 95-109 [facility]2015-11-06 16:03:00 Test Item Value Reference Range Interpretation Comments Calcium Lvl (test code = Calcium Lvl) 9.5 8.5-10.5 [facility]2015-11-06 16:03:00 Test Item Value Reference Range Interpretation Comments Sodium Lvl (test code = Sodium Lvl) 138 135-145 [facility]2015-11-06 16:03:00 Test Item Value Reference Range Interpretation Comments Potassium Lvl (test code = Potassium 4.8 3.5-5.1 Lvl) [id number] 16:03:00 Test Item Value Reference Range Interpretation Comments INR (test code = INR) 0.92 0.85-1.17 [facility] [id number] 16:03:00 Test Item Value Reference Range Interpretation Comments PT (test code = PT) 12.7 s 12.0-14.7 [facility] [id number] 16:03:00 Test Item Value Reference Range Interpretation Comments PTT (test code = PTT) 29.9 s 22.9-35.8 [facility] H[id number] 16:03:00 Test Item Value Reference Range Interpretation Comments MCV (test code = MCV) 95.1 80.0-94.0 [facility] [id number] 16:03:00 Test Item Value Reference Range Interpretation Comments RDW (test code = RDW) 15.9 11.5-14.5 [facility] H[id number] 16:03:00 Test Item Value Reference Range Interpretation Comments MCH (test code = MCH) 31.8 pg 27.0-31.0 [facility] Hos[id number] 16:03:00 Test Item Value Reference Range Interpretation Comments Platelet (test code = Platelet) 326 133-450 [facility] [id number] 16:03:00 Test Item Value Reference Range Interpretation Comments MPV (test code = MPV) 6.9 7.4-10.4 [facility] H[id number] 16:03:00 Test Item Value Reference Range Interpretation Comments MCHC (test code = MCHC) 33.5 32.0-36.0 [facility] H[id number] 16:03:00 Test Item Value Reference Range Interpretation Comments Hct (test code = Hct) 50.8 42.0-54.0 [facility] [id number] 16:03:00 Test Item Value Reference Range Interpretation Comments Hgb (test code = Hgb) 17.0 14.0-18.0 [facility] H[id number] 16:03:00 Test Item Value Reference Range Interpretation Comments RBC (test code = RBC) 5.34 4.70-6.10 [facility] H[id number] 16:03:00 Test Item Value Reference Range Interpretation Comments WBC (test code = WBC) 12.0 3.7-10.4 [facility] [id number] 16:03:00 Test Item Value Reference Range Interpretation Comments Lymphocytes (test code = Lymphocytes) 18.4 20.0-40.0 [facility] H[id number] 16:03:00 Test Item Value Reference Range Interpretation Comments Macrocyte (test code = 1+ *ABN*(03/04/15 Macrocyte) 10:03 AM) [facility] H[id number] 16:03:00 Test Item Value Reference Range Interpretation Comments Monocytes # (test code 0.9 See_Comment [Aut omated message] The = Monocytes #) system which generated this result tra nsmitted reference range : <=0.8. The reference r mic was not used to int erpret this result as normal/abnormal . [facility] HospitalJitnrxmLVULDFEPIL6596-72-79 16:03:00 Test Item Value Reference Range Interpretation Comments Lymphocytes # (test code = Lymphocytes 2.2 1.0-5.5 #) [facility] H[id number] 16:03:00 Test Item Value Reference Range Interpretation Comments Eosinophils # (test code 0.1 See_Comment [A utomated message] The = Eosinophils #) system whic h generated this result tra nsmitted reference range : <=0.5. The reference r mic was not used to int erpret this result as normal/abnormal . [facility] H[id number] 16:03:00 Test Item Value Reference Range Interpretation Comments Eosinophils (test code = 0.5 See_Comment [A utomated message] The Eosinophils) system which ge nerated this result tra nsmitted reference range : <=4.0. The reference r mic was not used to int erpret this result as normal/abnormal . [facility] Ho[id number] 16:03:00 Test Item Value Reference Range Interpretation Comments Monocytes (test code = Monocytes) 7.8 2.0-12.0 [facility] H[id number] 16:03:00 Test Item Value Reference Range Interpretation Comments Segs-Bands # (test code = Segs-Bands #) 8.8 1.5-8.1 [facility] H[id number] 16:03:00 Test Item Value Reference Range Interpretation Comments Basophils (test code = 0.4 See_Comment [Aut omated message] The Basophils) system which ge nerated this result tra nsmitted reference range : <=1.0. The reference r mic was not used to int erpret this result as normal/abnormal . [facility] H[id number] 16:03:00 Test Item Value Reference Range Interpretation Comments RBC Morph (test code = Normal (03/04/15 10:03 RBC Morph) AM) [facility] H[id number] 16:03:00 Test Item Value Reference Range Interpretation Comments Segs (test code = Segs) 72.9 45.0-75.0 [facility] HospitalQbobgexJPRSECBUWN1292-58-41 16:03:00 Test Item Value Reference Range Interpretation Comments Plt Morph (test code = Normal (03/04/15 10:03 Plt Morph) AM) [facility] [id number] 16:00:00 Test Item Value Reference Range Interpretation Comments VLDL (test code = VLDL) 31 [facility] CenterKlmvhbxEUQJMV0939-62-00 16:00:00 Test Item Value Reference Range Interpretation Comments CHD Risk (test code = CHD Risk) 3.86 4.00-7.30 [facility] CenterMklcprpYGWEFM5495-48-91 16:00:00 Test Item Value Reference Range Interpretation Comments LDL (Calculated) (test code = LDL 149 (Calculated)) [place] [id number] 16:00:00 Test Item Value Reference Range Interpretation Comments Trig (test code = Trig) 155 [facility] HospitalTihkqsdAVRKBO0706-28-68 16:00:00 Test Item Value Reference Range Interpretation Comments Chol (test code = Chol) 243 [facility] HospitalEmqtkykOSMLMK9079-06-38 16:00:00 Test Item Value Reference Range Interpretation Comments HDL (test code = HDL) 63 [facility] [id number] 16:00:00 Test Item Value Reference Range Interpretation Comments Hgb A1C (test code = Hgb A1C) 5.6 [facility] HospitalTHYROID [id number] 16:00:00 Test Item Value Reference Range Interpretation Comments TSH (test code = TSH) 1.840 0.360-3.740 [facility]
[2021-06-08] MEDS ORDERED: ONDANSETRON 4 MG/2 ML VIAL ONE (13:16)
[2021-06-08] MEDS ORDERED: MORPHINE 4 MG/ML SYR ONE ×2 (13:16→14:03)
[2021-06-08 13:52] LABS: Hematocrit 44.6 % (39.6-49.0); RBC Red Blood Cell Count 5.61 M/uL (4.33-5.43)
[2021-06-08 13:53] LABS: Absolute Lymphocytes (CBC) 1.9 K/uL (0.7-4.9); Lymphocytes % 9.9 % (15.3-44.8); MPV 7.6 fL (7.6-11.3)
--- NOTE | 2021-06-08 13:57 | RAD REPORT ---
EXAM DESCRIPTION: RAD - Chest Single View - 06/08/2021 1:49 pm CLINICAL HISTORY: ABDOMINAL DISTENTION COMPARISON: Chest Pa And Lat (2 Views) dated 03/10/2021; Chest Pa And Lat (2 Views) dated 12/15/2019; Chest Single View dated 05/17/2019; Chest Single View dated 12/02/2016 FINDINGS: Lines: None. Lungs: Re- demonstrated irregular right lower lobe opacity. The left lung is clear. Pleural: No significant pleural effusions or pneumothorax. Cardiac: Mild cardiomegaly. Bones: No acute fractures. Plate screw fixation of the left humerus. Other: IMPRESSION: No acute cardiopulmonary disease. Irregular right lower basilar opacity remains indeterm inate. Chest CT should be considered for further characterization.
[2021-06-08 13:59] LABS: Albumin 3.4 g/dL (3.4-5.0); Bilirubin Direct 0.2 mg/dL (0-0.2); Bilirubin Total 0.8 mg/dL (0.2-1.0); Protein, Total 8.3 g/dL (6.4-8.2)
[2021-06-08] MEDS ORDERED: HYDROMORPHONE HCL 1 MG/ML INJ ONE (14:13)
--- NOTE | 2021-06-08 14:34 | RAD REPORT ---
EXAM DESCRIPTION: CTChest Abd Pelvis Wo Con - 06/08/2021 2:24 pm CLINICAL HISTORY: ABDOMINAL DISTENTION COMPARISON: No comparisons TECHNIQUE: CT of the chest, abdomen, and pelvis was performed. All CT scans are performed using dose optimization technique as appropriate and may include automated exposure control or mA/KV adjustment according to patient size. FINDINGS: Thorax: Chest Wall: No abnormal mass Lungs: Right lower lobe subpleural thickening consistent with scarring/round atelectasis. No suspicio us pulmonary nodules are identified. No acute process. Pleura: No effusions or pneumothorax. María/Mediastinum: No lymphadenopathy. Aorta/Pulmonary Arteries: Unremarkable Heart: Normal size. Multivessel coronary artery disease. Abdomen/Pelvis: Liver: Cirrhotic liver morphology. Biliary: Cholelithiasis. Stomach: No significant focal abnormality. Duodenum: No significant focal abnormality. Pancreas: No significant abnormality. Spleen: No significant abnormality. Adrenal: No suspicious lesions. Kidney/ureter: Mild hydronephrosis likely secondary to bladder distention. No renal calculi. Retroperitoneum: No retroperitoneal adenopathy. Vascular: No aneurysm. Atherosclerosis. Bowel: No significant focal abnormality. Peritoneum: No ascites or free air. Fat containing inguinal hernias. Bladder: Distended bladder with suprapubic catheter. Reproductive: Prostatomegaly. Suprapubic catheter is deployed within the prostatic urethra. Bones: No acute fracture. Hardware in the left proximal humerus. Other: n/a IMPRESSION: 1. Suprapubic catheter with balloon deployed within the prostatic urethra. Recommend rep ositioning. 2. No acute findings within the chest. Scarring/round atelectasis in the right lower lobe. No follow- up is required.
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
[2021-06-08] MEDS ORDERED: NA CHLORIDE 0.9% 100 ML IV ONE ×2 (16:11→17:50)
[2021-06-08] MEDS ORDERED: HYDRALAZINE HCL 20 MG/ML VIAL ONE ×2 (16:11→17:40)
[2021-06-08] MEDS ORDERED: CEFTRIAXONE 1000 MG/VIAL ONE (16:11)
[2021-06-08] MEDS ORDERED: NA CHLORIDE 0.9% 1,000 ML ONE (16:11)
[2021-06-08] MEDS ORDERED: ONDANSETRON 4 MG/2 ML VIAL IV PRN (16:15)
[2021-06-08] MEDS ORDERED: MORPHINE 2 MG/ML SYR IV PRN (16:15)
[2021-06-08] MEDS ORDERED: ACETAMINOPHEN 500 MG TAB PO PRN (16:15)
[2021-06-08] MEDS: CEFEPIME 2 GM in NA CHLORIDE 0.9% 100 ML IV SCH (17:00)
[2021-06-08 17:37] LABS: Urine Bacteria 20-50 /HPF (NONE SEEN); Urine Mucus 2+ /HPF (NONE SEEN)
[2021-06-08] MEDS ORDERED: CEFEPIME 1 GM/VIAL ONE (17:50)
[2021-06-08 19:23] VITALS: O2SAT 96
[2021-06-08 20:01] VITALS: BMI 36.9
[2021-06-08] MEDS: NA CHLORIDE 0.9% 1,000 ML IV SCH (21:16)
[2021-06-09] MEDS: NA CHLORIDE 0.9% 1,000 ML IV SCH (05:34)
[2021-06-09 06:27] LABS: Absolute Lymphocytes (CBC) 2.5 K/uL (0.7-4.9); Hematocrit 39.4 % (39.6-49.0); Lymphocytes % 19.7 % (15.3-44.8); MPV 7.7 fL (7.6-11.3); RBC Red Blood Cell Count 4.93 M/uL (4.33-5.43)
[2021-06-09 06:46] LABS: Albumin 2.6 g/dL (3.4-5.0); Bilirubin Total 0.5 mg/dL (0.2-1.0); Protein, Total 6.5 g/dL (6.4-8.2)
[2021-06-09] MEDS: CEFEPIME 2 GM in NA CHLORIDE 0.9% 100 ML IV SCH (08:58)
[2021-06-09 12:33] VITALS: TEMP 97.3
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
[2021-06-09 17:12] VITALS: BP 168/78
--- NOTE | 2021-06-12 06:00 | P.DS ---
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 Patient had suprapubic catheter placed. Imaging studies revealed that the suprapubic catheter was in the prostatic urethra. This was pulled back by emergency room physician. Urine output increased. Patient will be admitted for further treatment. Continue with antibiotics and IV fluids. Hospital Course: Patient is clinically doing well. Patient clinical symptoms continued to improve. Patient is voiding and pain is resolved. Patient follow with Urology in 1 week. Vital Signs/Physical Exam: Temp Pulse Resp BP Pulse Ox 97.3 F 101 H 18 168/78 H 98 06/09/21 16:00 06/09/21 16:00 06/09/21 16:00 06/09/21 16:00 06/09/21 16:00 General: Alert, In no apparent distress, Oriented x3 Laboratory Data at Discharge: WBC 12.50 K/uL (4.3-10.9) H D 06/09/21 06:01 Hgb 12.6 g/dL (13.6-17.9) L 06/09/21 06:01 Hct 39.4 % (39.6-49.0) L 06/09/21 06:01 Plt Count 290 K/uL (152-406) 06/09/21 06:01 Sodium 140 mmol/L (136-145) 06/09/21 06:01 Potassium 4.0 mmol/L (3.5-5.1) 06/09/21 06:01 BUN 27 mg/dL (7-18) H 06/09/21 06:01 Creatinine 1.70 mg/dL (0.55-1.3) H 06/09/21 06:01 Glucose 85 mg/dL (74-106) 06/09/21 06:01 Total Bilirubin 0.5 mg/dL (0.2-1.0) 06/09/21 06:01 AST 22 U/L (15-37) 06/09/21 06:01 ALT 12 U/L (12-78) 06/09/21 06:01 Alkaline Phosphatase 85 U/L (45-117) 06/09/21 06:01 Lipase 20 U/L (73-393) L 06/08/21 13:24 Home Medications: Metoprolol Tartrate 1 tab PO BID 05/17/19 Sertraline [Zoloft*] 50 mg PO DAILY 05/17/19 Thiamine HCl [Vitamin B-1*] 100 mg PO DAILY #90 tablet 05/19/19 levETIRAcetam [Keppra*] 500 mg PO BID 05/19/19 Aspirin [Aspirin EC 81 MG] 81 mg PO DAILY 03/10/21 Atorvastatin Calcium [Lipitor*] 20 mg PO BEDTIME 03/10/21 Clopidogrel Bisulfate [Plavix*] 75 mg PO DAILY 03/10/21 Cyanocobalamin [Vitamin B-12*] 1,000 mcg PO DAILY 03/10/21 Multivit-Min/FA/Lycopen/Lutein [Centrum Silver Tablet] 1 each PO DAILY 03/10/21 Cefdinir [Omnicef] 300 mg PO BID #14 capsule 06/09/21 New Medications: Cefdinir [Omnicef] 300 mg PO BID #14 capsule Physician Discharge Instructions: -DC IV and DC home -Follow-up with PCP in 1 to 2 weeks -Follow-up with Urology in 1 to 2 weeks -Please call Dr. Cunningham at [phone] if any questions regarding hospital stay -Please call nursing station at [phone] if any nursing or medication questions -Return to the emergency room if symptoms worsen Diet: Renal Activity: Fall precautions Followup: Burton Barnes DO [Primary Care Provider] - (Call to schedule appointment) Time spent managing pt's care (in minutes): 35
[2021-06-13 10:14] LABS: Urine Blood 3+ (Negative); Urine Glucose Negative (Negative); Urine Protein 2+ (Negative); Urine Specific Gravity 1.025 (1.005-1.030)
== END 2021-06-09 16:21 | disposition home or self-care (01) ==
LOC: ER 12:16 → ERHOLD 16:15 → 2ND 18:28
PROVIDERS: ADMIT Hospitalist; ATTEND Hospitalist
DX: T83.098A Other mechanical complication of other urinary catheter, initial encounter (principal); F04 Amnestic disorder due to known physiological condition; I10 Essential (primary) hypertension; Z95.5 Presence of coronary angioplasty implant and graft; R33.9 Retention of urine, unspecified; Z20.822 Contact with and (suspected) exposure to COVID-19
CPT/HCPCS: 36415; 71045; 71250; 74176; 80048; 80053; 80076; 81003; 81015; 83605; 83690; 84145; 85025; 87040; 87086; 87088; 96365; 96375; 99285; G0378; J0360; J0692; J1170; J2405; J7030; U0003

== ENCOUNTER 2021-09-17 22:27 | Inpatient (IN) | payer OTHER ==
--- OUTSIDE RECORDS SUMMARY | 2021-09-17 22:33 | XMS REPORT | Continuity of Care Document ---
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 06:00:00 Test Item Value Reference Range Interpretation [...] L 0.00-0.20 (test code = 417) 0.00POCT-GLUCOSE [id number] 05:49:00 Test Item Value Reference Range Interpretation Comments POC-GLUCOSE METER 101 mg/dL 70-110 TESTED AT [facility] 6720 (BEAKER) (test code = [facility] 1538) [address] BASIC METABOLIC [id number] 01:36:00 Test Item Value Reference Range Interpretation [...] NOT APPLICABLE FOR DIALYSIS PATIEN TS. POCT-GLUCOSE [id number] 23:39:00 Test Item Value Reference Range Interpretation Comments POC-GLUCOSE METER 151 mg/dL 70-110 H TESTED AT [place] [address] ([facility]) (test code = [facility] 1538) [address] VANCOMYCIN LEVEL, [id number] 22:30:00 Test Item Value Reference Range Interpretation Comments VANCOMYCIN TROUGH (BEAKER) (test 17.5 ug/mL 10.0-20.0 code = 522) Draw 30 min prior to scheduled dose, HOLD if level > 20 mcg/mL, inform MD. POCT-GLUCOSE [id number] 21:06:00 Test Item Value Reference Range Interpretation Comments POC-GLUCOSE METER 140 mg/dL 70-110 H TESTED AT [place] [address] ([facility]) (test code = [facility] 1538) [address] BASIC METABOLIC [id number] 19:21:00 Test Item Value Reference Range Interpretation [...] NOT APPLICABLE FOR DIALYSIS PATIEN TS. POCT-GLUCOSE [id number] 17:13:00 Test Item Value Reference Range Interpretation Comments POC-GLUCOSE METER 122 mg/dL 70-110 H TESTED AT [place] [address] ([facility]) (test code = [facility] 1538) [address] POCT-GLUCOSE [id number] 13:05:00 Test Item Value Reference Range Interpretation Comments POC-GLUCOSE METER 108 mg/dL 70-110 TESTED AT [facility] 67[address] (BEAKER) (test code = [place] 1538) [address] [id number] 11:24:00 Test Item Value Reference Range Interpretation Comments RPR SCREEN (BEAKER) (test code = Nonreactive Nonreactive 420) CBC W/PLT COUNT & AUTO [id number] 07:21:00 Test Item Value Reference Range Interpretation [...] 0.00-0.20 (test code = 417) 0.00BASIC METABOLIC [id number] 07:06:00 Test Item Value Reference Range Interpretation [...] NOT APPLICABLE FOR DIALYSIS PATIEN TS. POCT-GLUCOSE [id number] 05:50:00 Test Item Value Reference Range Interpretation Comments POC-GLUCOSE METER 124 mg/dL 70-110 H TESTED AT [facility] 67[address] ([facility]) (test code = [place] 1538) [address] SPUTUM CULTURE + GRAM [id number] 00:49:00 Test Item Value Reference Interpretation Comments [...] 10-15 epithelial (BEAKER) (test code = cells 487711) GRAM STAIN RESULT <1+ gram positive (BEAKER) (test code = rods 976644) GRAM STAIN RESULT 2+ yeast (BEAKER) (test code = 485130) GRAM STAIN RESULT 1+ gram positive (BEAKER) (test code = cocci in pairs 249436) 4+ Normal respiratory ken[place] presentBASIC METABOLIC [id number] 00:36:00 Test Item Value Reference Range Interpretation [...] NOT APPLICABLE FOR DIALYSIS PATIEN TS. POCT-GLUCOSE [id number] 23:29:00 Test Item Value Reference Range Interpretation Comments POC-GLUCOSE METER 93 mg/dL 70-110 TESTED AT [facility] 67[address] (BEAKER) (test code = [place] [address] 1538) BASIC METABOLIC [id number] 18:08:00 Test Item Value Reference Range Interpretation [...] NOT APPLICABLE FOR DIALYSIS PATIEN TS. POCT-GLUCOSE [id number] 17:45:00 Test Item Value Reference Range Interpretation Comments POC-GLUCOSE METER 101 mg/dL 70-110 TESTED AT [facility] 6720 (BEAKER) (test code = [place] [facility] 1538) [address] BASIC METABOLIC [id number] 14:10:00 Test Item Value Reference Range Interpretation [...] NOT APPLICABLE FOR DIALYSIS PATIEN TS. POCT-GLUCOSE [id number] 12:16:00 Test Item Value Reference Range Interpretation Comments POC-GLUCOSE METER 105 mg/dL 70-110 TESTED AT [facility] [address] (BEAKER) (test code = [place] 1538) [address] URINE [id number] 10:22:00 Test Item Value Reference Range Interpretation Comments CULTURE (BEAKER) (test code = 1095) No growth URINE [id number] 09:54:00 Test Item Value Reference Range Interpretation Comments CULTURE (BEAKER) (test code = 1095) No growth BASIC METABOLIC [id number] 05:53:00 Test Item Value Reference Range Interpretation [...] PATIEN TS. CBC W/PLT COUNT & AUTO [id number] 05:36:00 Test Item Value Reference Range Interpretation [...] 0.00-0.20 (test code = 417) 0.00VANCOMYCIN LEVEL, [id number] 21:59:00 Test Item Value Reference Range Interpretation Comments VANCOMYCIN TROUGH (BEAKER) (test 21.6 ug/mL 10.0-20.0 H code = 522) Draw 30 min prior to scheduled dose, HOLD if level > 20 mcg/mL, inform . POCT-GLUCOSE [id number] 21:39:00 Test Item Value Reference Range Interpretation Comments POC-GLUCOSE METER 113 mg/dL 70-110 H TESTED AT [facility] 67[address] (BEAKER) (test code = [place] 1538) [address] BASIC METABOLIC [id number] 19:04:00 Test Item Value Reference Range Interpretation [...] APPLICABLE FOR DIALYSIS PATIEN TS. BASIC METABOLIC [id number] 14:34:00 Test Item Value Reference Range Interpretation [...] APPLICABLE FOR DIALYSIS PATIEN TS. SODIUM, RANDOM [id number] 14:27:00 Test Item Value Reference Range Interpretation Comments SODIUM URINE (BEAKER) (test code = 75 meq/L 243) Reference Range: No NormalsHEPATIC FUNCTION [id number] 07:18:00 Test Item Value Reference Range Interpretation [...] (test code = 25 U/L 6-55 347) [id number] 07:18:00 Test Item Value Reference Range Interpretation Comments MAGNESIUM (BEAKER) (test code = 1.8 mg/dL 1.6-2.6 627) [id number] 07:18:00 Test Item Value Reference Range Interpretation Comments PHOSPHORUS (BEAKER) (test code = 3.0 mg/dL 2.3-4.7 604) OSMOLALITY, [id number] 05:41:00 Test Item Value Reference Range Interpretation Comments OSMOLALITY URINE (BEAKER) (test 541 mOsm/kg 40-1400 code = 614) OSMOLALITY, [id number] 05:40:00 Test Item Value Reference Range Interpretation Comments OSMOLALITY, SERUM (BEAKER) (test 280 mOsm/kg 275-295 code = 615) BASIC METABOLIC [id number] 05:02:00 Test Item Value Reference Range Interpretation [...] PATIEN TS. CBC W/PLT COUNT & AUTO [id number] 04:48:00 Test Item Value Reference Range Interpretation [...] 0.00-0.20 (test code = 417) 0.00SODIUM, RANDOM [id number] 02:48:00 Test Item Value Reference Range Interpretation Comments SODIUM URINE (BEAKER) (test code = 24 meq/L 243) Reference Range: No NormalsBASIC METABOLIC [id number] 01:37:00 Test Item Value Reference Range Interpretation [...] APPLICABLE FOR DIALYSIS PATIEN TS. BASIC METABOLIC [id number] 21:54:00 Test Item Value Reference Range Interpretation [...] APPLICABLE FOR DIALYSIS PATIEN TS. SODIUM, RANDOM [id number] 17:45:00 Test Item Value Reference Range Interpretation Comments SODIUM URINE (BEAKER) (test code = < meq/L 243) Reference Range: No NormalsOSMOLALITY, [id number] 17:41:00 Test Item Value Reference Range Interpretation Comments OSMOLALITY URINE (BEAKER) (test 466 mOsm/kg 40-1400 code = 614) OSMOLALITY, [id number] 17:34:00 Test Item Value Reference Range Interpretation Comments OSMOLALITY, SERUM (BEAKER) (test 273 mOsm/kg 275-295 L code = 615) BASIC METABOLIC [id number] 17:34:00 Test Item Value Reference Range Interpretation [...] DIALYSIS PATIEN TS. LACTIC ACID, VENOUS, WHOLE [id number] 17:30:00 Test Item Value Reference Range Interpretation Comments LACTATE BLOOD VENOUS (2) (BEAKER) 1.9 mmol/L 0.5-2.2 (test code = 2872) Effective 08/31/2015: Units/Reference Range ChangeNew: 0.5-2.2 mmol/L Previous: 5-20 mg/dLCan draw with next BMPBLOOD GAS, [id number] 17:18:00 Test Item Value Reference Range Interpretation [...] = 1819) 21.0 % INFLUENZA A H1N1 [id number] 14:16:00 Test Item Value Reference Range Interpretation Comments INFLUENZA A RNA Not Detected Not Detected, (BEAKER) (test code = Inconclusive 1545) NOVEL H1N1 RNA (BEAKER) Not Detected Not Detected, (test code = 1546) Inconclusive These assays were performed by real-time RT-PCR (mop worker-PCR) utilizing fluorogenic hydrolysis probe technology for the detection of human Influenza A viruses and the differential detection of novel H1N1 Influenza virus in respiratory specimens. The test is composed of (1) an RNA extraction from patient specimen, and (2) mop worker-PCR amplification and detection with human Influenza A and novel S4J0-tktiyask primers and probes. A well-conserved region of [...] its performance characte ristics determined by the [facility] Pathology Department, Section of Molecular Pathology. It has not been cleared or approved by the U.S. Food and Drug Administration (FDA). SinceFDA approval is not required for clinical use of the test, validation was done as required by The Clinical Laboratory Amendments of 1988.BASIC METABOLIC [id number] 13:14:00 Test Item Value Reference Range Interpretation [...] APPLICABLE FOR DIALYSIS PATIEN TS. HEPATITIS B [id number] 10:49:00 Test Item Value Reference Range Interpretation Comments HEPATITIS B CORE TOTAL ANTIBODY Nonreactive Nonreactive (BEAKER) (test code = 497) HEPATITIS B SURFACE ANTIBODY < mIU/mL <8.0 (BEAKER) (test code = 647) HEPATITIS B SURFACE ANTIGEN (2) Nonreactive Nonreactive (BEAKER) (test code = 2585) HEPATITIS A [id number] 10:49:00 Test Item Value Reference Range Interpretation Comments HEPATITIS A IGM ANTIBODY (BEAKER) Nonreactive Nonreactive (test code = 498) HEPATITIS A IGG ANTIBODY (BEAKER) Reactive Nonreactive A (test code = 2797) HEPATITIS C [id number] 10:41:00 Test Item Value Reference Range Interpretation Comments HEPATITIS C ANTIBODY (BEAKER) Nonreactive Nonreactive (test code = 367) B-TYPE NATRIURETIC FACTOR (BNP)2016-08-10 10:20:00 Test Item Value Reference Range Interpretation Comments B-TYPE NATRIURETIC PEPTIDE (BEAKER) 642 pg/mL 0-100 H (test code = 700) BASIC METABOLIC [id number] 10:19:00 Test Item Value Reference Range Interpretation [...] APPLICABLE FOR DIALYSIS PATIEN TS. BASIC METABOLIC [id number] 10:18:00 Test Item Value Reference Range Interpretation [...] APPLICABLE FOR DIALYSIS PATIEN TS. STREP PNEUMONIAE [id number] 08:23:00 Test Item Value Reference Range Interpretation [...] detection limit of the test. LEGIONELLA ANTIGEN, [id number] 08:23:00 Test Item Value Reference Range Interpretation Comments L. PNEUMOPHILA Negative - see Negative fo r L. SEROGP 1 UR AG comment pneumophila (BEAKER) (test code serogrou p 1 antigen, = 1156) suggesting no r ecent or current infe ction with this serog roup. Legionellosis c annot be ruled out si nce other serogroup s and species may cau se disease. OSMOLALITY, [id number] 08:10:00 Test Item Value Reference Range Interpretation Comments OSMOLALITY URINE (BEAKER) (test 150 mOsm/kg 40-1400 code = 614) [id number] 07:23:00 Test Item Value Reference Range Interpretation Comments THYROID STIMULATING HORMONE 1.71 uIU/mL 0.35-4.94 (BEAKER) (test code = 772) VITAMIN [id number] 07:23:00 Test Item Value Reference Range Interpretation Comments VITAMIN B12 (BEAKER) (test code = 1162 pg/mL 213-816 H 774) OSMOLALITY, [id number] 06:33:00 Test Item Value Reference Range Interpretation Comments OSMOLALITY, SERUM (BEAKER) (test 286 mOsm/kg 275-295 code = 615) CBC W/PLT COUNT & AUTO [id number] 06:17:00 Test Item Value Reference Range Interpretation [...] code = 417) 0.00HIV-1 ANTIGEN WITH HIV-1/2 [id number] 05:50:00 Test Item Value Reference Range Interpretation Comments HIV-1 ANTIGEN WITH HIV 1\\T\\2 Nonreactive Nonreactive ANTIBODY (2) (BEAKER) (test code = 2586) [id number] 05:50:00 Test Item Value Reference Range Interpretation Comments CORTISOL, TOTAL (BEAKER) (test code 3.4 ug/dL 3.7-19.4 L = 2755) SODIUM, RANDOM [id number] 05:42:00 Test Item Value Reference Range Interpretation Comments SODIUM URINE (BEAKER) (test code = < meq/L 243) Reference Range: No NormalsBASIC METABOLIC [id number] 05:34:00 Test Item Value Reference Range Interpretation [...] APPLICABLE FOR DIALYSIS PATIEN TS. BASIC METABOLIC [id number] 05:29:00 Test Item Value Reference Range Interpretation [...] DIALYSIS PATIEN TS. LACTIC ACID, VENOUS, WHOLE [id number] 05:25:00 Test Item Value Reference Range Interpretation Comments LACTATE BLOOD VENOUS (2) (BEAKER) 2.6 mmol/L 0.5-2.2 H (test code = 2872) Effective 08/31/2015: Units/Reference Range ChangeNew: 0.5-2.2 mmol/L Previous: 5-20 mg/dLPROTHROMBIN TIME/[id number] 05:25:00 Test Item Value Reference Range Interpretation Comments PROTIME (BEAKER) (test code = 17.0 seconds 11.7-14.7 H 759) INR (BEAKER) (test code = 370) 1.4 <=5.9 RECOMMENDED COUMADIN/WARFARIN INR THERAPY RANGESSTANDARD DOSE: 2.0 - 3.0 Includes: PROPHYLAXIS forvenous thrombosis, systemic embolization; TREATMENT for venous thrombosis and/or pulmonary embolus.HIGH RISK: Target INR is 2.5-3.5 for patients with mechanical heart valves.[id number] 05:23:00 Test Item Value Reference Range Interpretation Comments AMMONIA (BEAKER) (test code = 348) 27 mol/L 18-72 BASIC METABOLIC [id number] 02:34:00 Test Item Value Reference Range Interpretation [...] APPLICABLE FOR DIALYSIS PATIEN TS. BASIC METABOLIC [id number] 00:17:00 Test Item Value Reference Range Interpretation [...] FOR DIALYSIS PATIEN TS. RAPID INFLUENZA A&B [id number] 23:44:00 Test Item Value Reference Range Interpretation Comments RAPID INFLUENZA A AG (BEAKER) Negative Negative, Inconclusive (test code = 1622) RAPID INFLUENZA B AG (BEAKER) Negative Negative, Inconclusive (test code = 1623) URIC [id number] 21:52:00 Test Item Value Reference Range Interpretation Comments URIC ACID (BEAKER) (test code = 4.1 mg/dL 2.6-7.2 773) Add onCOMPREHENSIVE METABOLIC [id number] 21:12:00 Test Item Value Reference Range Interpretation [...] NOT APPLICABLE FOR DIALYSIS PATIEN TS. OSMOLALITY, [id number] 21:10:00 Test Item Value Reference Range Interpretation Comments OSMOLALITY, SERUM (BEAKER) (test 263 mOsm/kg 275-295 L code = 615) SODIUM, RANDOM [id number] 21:06:00 Test Item Value Reference Range Interpretation Comments SODIUM URINE (BEAKER) (test code = < meq/L 243) Reference Range: No NormalsCHLORIDE, RANDOM [id number] 21:06:00 Test Item Value Reference Range Interpretation Comments CHLORIDE URINE (BEAKER) (test code = < meq/L 682) Reference Range: No NormalsLACTIC ACID, VENOUS, WHOLE [id number] 21:05:00 Test Item Value Reference Range Interpretation Comments LACTATE BLOOD VENOUS (2) (BEAKER) 4.6 mmol/L 0.5-2.2 H (test code = 2872) Effective 08/31/2015: Units/Reference Range ChangeNew: 0.5-2.2 mmol/L Previous: 5-20 mg/dLURINALYSIS W/ REFLEX URINE [id number] 21:00:00 Test Item Value Reference Range Interpretation [...] code = 516) SOURCE(BEAKER) (test code = 7445) OSMOLALITY, [id number] 20:59:00 Test Item Value Reference Range Interpretation Comments OSMOLALITY URINE (BEAKER) (test 222 mOsm/kg 40-1400 code = 614) CBC W/PLT COUNT & AUTO [id number] 20:58:00 Test Item Value Reference Range Interpretation [...] K/ L 0.00-0.20 (test code = 417) [id number] 09:10:00 Test Item Value Reference Range Interpretation Comments MPV (test code = MPV) 7.2 7.4-10.4 [facility] [id number] 09:10:00 Test Item Value Reference Range Interpretation Comments Phosphorus (test code = Phosphorus) 2.3 2.5-4.5 [facility] [id number] 09:10:00 Test Item Value Reference Range Interpretation Comments Magnesium Lvl (test code = Magnesium 1.5 1.8-2.4 Lvl) [facility]QichadbBKTBBZWGYDMM9026-15-79 09:10:00 Test Item Value Reference Range Interpretation Comments AGAP (test code = AGAP) 11.0 10.0-20.0 [facility] Hospital[id number] 09:10:00 Test Item Value Reference Range Interpretation Comments Glucose Lvl (test code = Glucose Lvl) 81 70-99 [facility] HospitalZrfqqrjWOVOVVMCJFAA0851-61-38 09:10:00 Test Item Value Reference Range Interpretation Comments Sodium Lvl (test code = Sodium Lvl) 138 135-145 [facility] HospitalMorxzwgPEKOJZCZMYWV5287-71-92 09:10:00 Test Item Value Reference Range Interpretation Comments BUN (test code = BUN) 16 7-22 [facility] HospitalUpydeepZHOYLDEANLXE7829-03-71 09:10:00 Test Item Value Reference Range Interpretation Comments Potassium Lvl (test code = Potassium 4.0 3.5-5.1 Lvl) [facility] HospitalOweezdvSZOSOKASAGLY8680-05-55 09:10:00 Test Item Value Reference Range Interpretation Comments CO2 (test code = CO2) 25 24-32 [facility] Hospital[id number] 09:10:00 Test Item Value Reference Range Interpretation Comments Chloride Lvl (test code = Chloride Lvl) 106 95-109 [facility] HospitalBmwcviaRRRJXUGVTVGK6085-68-22 09:10:00 Test Item Value Reference Range Interpretation Comments Calcium Lvl (test code = Calcium Lvl) 8.8 8.5-10.5 [facility] HospitalYjsaonuKHVCFREUHSGW9387-06-27 09:10:00 Test Item Value Reference Range Interpretation Comments eGFR (test code = eGFR) 85 [facility]gdoohxBLGBJFARQEKE0809-57-42 09:10:00 Test Item Value Reference Range Interpretation Comments Creatinine Lvl (test code = Creatinine 0.98 0.50-1.40 Lvl) [facility]enRphdsymLUUTSBLYYO6036-52-85 09:10:00 Test Item Value Reference Range Interpretation Comments Eosinophils # (test code 0.1 See_Comment [A utomated message] The = Eosinophils #) system whic h generated this result tra nsmitted reference range : <=0.5. The reference r mic was not used to int erpret this result as normal/abnormal . [facility]enXcmwobbUTLCLDRRMY1802-41-81 09:10:00 Test Item Value Reference Range Interpretation Comments Monocytes # (test code 0.8 See_Comment [Aut omated message] The = Monocytes #) system which generated this result tra nsmitted reference range : <=0.8. The reference r mic was not used to int erpret this result as normal/abnormal . [facility]enYjvjqszSIIOVBLMBK5409-03-41 09:10:00 Test Item Value Reference Range Interpretation Comments Basophils # (test code 0.0 See_Comment [Aut omated message] The = Basophils #) system which generated this result tra nsmitted reference range : <=0.2. The reference r mic was not used to int erpret this result as normal/abnormal . [facility]enGdeoaoxDVCKMMSCBH6175-95-22 09:10:00 Test Item Value Reference Range Interpretation Comments Macrocyte (test code = 1+ *ABN*(03/05/15 Macrocyte) 3:10 AM) [id number] 09:10:00 Test Item Value Reference Range Interpretation Comments Eosinophils (test code = 1.6 See_Comment [A utomated message] The Eosinophils) system which ge nerated this result tra nsmitted reference range : <=4.0. The reference r mic was not used to int erpret this result as normal/abnormal . [facility]enHhdchooNLJCDUAAKD8356-50-18 09:10:00 Test Item Value Reference Range Interpretation Comments Basophils (test code = 0.5 See_Comment [Aut omated message] The Basophils) system which ge nerated this result tra nsmitted reference range : <=1.0. The reference r mic was not used to int erpret this result as normal/abnormal . [facility]enRmltcteOUPTQJAJQG6698-37-60 09:10:00 Test Item Value Reference Range Interpretation Comments Monocytes (test code = Monocytes) 10.9 2.0-12.0 [facility]enVezzuzgUQVLKKDGWR0274-91-88 09:10:00 Test Item Value Reference Range Interpretation Comments Lymphocytes # (test code = Lymphocytes 2.2 1.0-5.5 #) [facility]enPmmzxauCFFPHSTGRT7440-98-98 09:10:00 Test Item Value Reference Range Interpretation Comments Segs-Bands # (test code = Segs-Bands #) 4.5 1.5-8.1 [facility]enOlheqzkPUMLFDTAQJ4878-44-44 09:10:00 Test Item Value Reference Range Interpretation Comments Segs (test code = Segs) 58.5 45.0-75.0 [facility]enGkwvpngFMJJQSIGVR0879-79-79 09:10:00 Test Item Value Reference Range Interpretation Comments Lymphocytes (test code = Lymphocytes) 28.5 20.0-40.0 [facility]lingenQlaggixWHSIJACDTB7620-60-38 09:10:00 Test Item Value Reference Range Interpretation Comments Hgb (test code = Hgb) 15.9 14.0-18.0 [facility]enKrdemqaKTXOPCWPFD8065-71-57 09:10:00 Test Item Value Reference Range Interpretation Comments RBC (test code = RBC) 5.05 4.70-6.10 [facility]enTrxuxutZEZOKLGMIJ7727-17-87 09:10:00 Test Item Value Reference Range Interpretation Comments WBC (test code = WBC) 7.6 3.7-10.4 [facility]lingenFlxjxhmMNBISKCTAB0069-88-88 09:10:00 Test Item Value Reference Range Interpretation Comments Hct (test code = Hct) 48.6 42.0-54.0 [facility]enXwwtjpzQJNYCEEXLZ1473-93-80 09:10:00 Test Item Value Reference Range Interpretation Comments MCHC (test code = MCHC) 32.7 32.0-36.0 [facility]enMyerzrdYTQQVFXEIR7741-05-09 09:10:00 Test Item Value Reference Range Interpretation Comments MCH (test code = MCH) 31.5 pg 27.0-31.0 [facility]lingenXmcylsiNIZCIFHPBD9211-98-46 09:10:00 Test Item Value Reference Range Interpretation Comments MCV (test code = MCV) 96.3 80.0-94.0 [facility] RbdpdpzAKRTZXEHSA8815-47-80 09:10:00 Test Item Value Reference Range Interpretation Comments RDW (test code = RDW) 15.9 11.5-14.5 [facility] HvxhtgmLXYOGNJFJY1807-77-90 09:10:00 Test Item Value Reference Range Interpretation Comments Platelet (test code = Platelet) 293 133-450 [facility] ZBFFUW6054-06-35 04:25:00 Test Item Value Reference Range Interpretation Comments U Phencyc Scr (test Negative *NA*(03/04/15 code = U Phencyc Scr) 10:25 PM) [facility] [id number] 04:25:00 Test Item Value Reference Range Interpretation Comments U Opiate Scr (test Positive *ABN*(03/04/15 code = U Opiate Scr) 10:25 PM) [facility] [id number] 04:25:00 Test Item Value Reference Range Interpretation Comments UDS Note (test code = See Note (03/04/15 10:25 UDS Note) PM) [facility] [id number] 04:25:00 Test Item Value Reference Range Interpretation Comments U Cannab Scr (test Negative *NA*(03/04/15 code = U Cannab Scr) 10:25 PM) [facility] [id number] 04:25:00 Test Item Value Reference Range Interpretation Comments U Cocaine Scr (test Negative *NA*(03/04/15 code = U Cocaine Scr) 10:25 PM) [facility] [id number] 04:25:00 Test Item Value Reference Range Interpretation Comments U Amph Scr (test code Negative *NA*(03/04/15 = U Amph Scr) 10:25 PM) [facility] [id number] 04:25:00 Test Item Value Reference Range Interpretation Comments U Denisse Scr (test code Negative *NA*(03/04/15 = U Denisse Scr) 10:25 PM) [facility] [id number] 04:25:00 Test Item Value Reference Range Interpretation Comments U Benzodia Scr (test Negative *NA*(03/04/15 code = U Benzodia Scr) 10:25 PM) [facility] [id number] 04:25:00 Test Item Value Reference Range Interpretation Comments UA Spec Grav (test code = UA Spec 1.015 1 Grav) [facility] AND [id number] 04:25:00 Test Item Value Reference Range Interpretation Comments UA pH (test code = UA pH) 5.0 1 5.0-8.0 [facility] AND [id number] 04:25:00 Test Item Value Reference Range Interpretation Comments UA Turbidity (test code = Clear (03/04/15 10:25 UA Turbidity) PM) [facility] AND [id number] 04:25:00 Test Item Value Reference Range Interpretation Comments UA Glucose (test code Negative (03/04/15 10:25 = UA Glucose) PM) [facility] AND [id number] 04:25:00 Test Item Value Reference Range Interpretation Comments UA Ketones (test code Negative *NA*(03/04/15 = UA Ketones) 10:25 PM) [facility] AND [id number] 04:25:00 Test Item Value Reference Range Interpretation Comments UA Protein (test code = Trace *ABN*(03/04/15 UA Protein) 10:25 PM) [facility] AND [id number] 04:25:00 Test Item Value Reference Range Interpretation Comments UA Color (test code = Yellow *NA*(03/04/15 UA Color) 10:25 PM) [facility] AND [id number] 04:25:00 Test Item Value Reference Range Interpretation Comments UA RBC (test code = 2 See_Comment [Automa candy message] The UA RBC) system which ge nerated this result transmit candy reference range : <=2. The reference range was not used to interpr et this result as ines l/abnormal. [facility] AND [id number] 04:25:00 Test Item Value Reference Range Interpretation Comments UA Mucus (test code = UA Mucus) Few /LPF [facility] AND [id number] 04:25:00 Test Item Value Reference Range Interpretation Comments UA WBC (test code = 1 See_Comment [Automa candy message] The UA WBC) system which ge nerated this result transmit candy reference range : <=5. The reference range was not used to interpr et this result as ines l/abnormal. [facility] [id number] 04:25:00 Test Item Value Reference Range Interpretation Comments UA Sq Epi (test code = UA Sq Epi) Few /LPF [facility] [id number] 04:25:00 Test Item Value Reference Range Interpretation Comments UA Bili (test code = Small *ABN*(03/04/15 UA Bili) 10:25 PM) [facility] [id number] 04:25:00 Test Item Value Reference Range Interpretation Comments UA Urobilinogen (test code = UA 0.2 0.1-1.0 Urobilinogen) [facility] [id number] 04:25:00 Test Item Value Reference Range Interpretation Comments UA Blood (test code = Negative (03/04/15 10:25 UA Blood) PM) [facility] [id number] 04:25:00 Test Item Value Reference Range Interpretation Comments UA Nitrite (test code Negative (03/04/15 10:25 = UA Nitrite) PM) [facility] [id number] 04:25:00 Test Item Value Reference Range Interpretation Comments UA Leuk Est (test Negative (03/04/15 10:25 code = UA Leuk Est) PM) [facility] [id number] 04:11:00 Test Item Value Reference Range Interpretation Comments Troponin-I (test code no gt See_Comment [Auto mated message] The = Troponin-I) system which g enerated this result transmit candy reference range : <=0.40. The reference r mic was not used to interpr et this result as ines l/abnormal. [facility] [id number] 04:11:00 Test Item Value Reference Range Interpretation Comments Total CK (test code = Total CK) 34 -191 [facility] [id number] 23:11:00 Test Item Value Reference Range Interpretation Comments Total CK (test code = Total CK) 31 191 [facility] [id number] 23:11:00 Test Item Value Reference Range Interpretation Comments Troponin-I (test code no gt See_Comment [Auto mated message] The = Troponin-I) system which g enerated this result transmit candy reference range : <=0.40. The reference r mic was not used to interpr et this result as ines l/abnormal. [facility] [employer] [id number] 16:03:00 Test Item Value Reference Range Interpretation Comments Troponin-I (test code no gt See_Comment [Auto mated message] The = Troponin-I) system which g enerated this result transmit candy reference range : <=0.40. The reference r mic was not used to interpr et this result as ines l/abnormal. [facility]manAGI BiopharmaceuticalsAC [id number] 16:03:00 Test Item Value Reference Range Interpretation Comments CK MB (test code = CK MB) no gt 0.5-3.6 [facility] [id number] 16:03:00 Test Item Value Reference Range Interpretation Comments Total CK (test code = Total CK) 49 12-191 [facility] [id number] 16:03:00 Test Item Value Reference Range Interpretation Comments CK MB Index (test no gt See_Comment [Automate d message] The code = CK MB Index) system w [facility] generated this result transmit candy reference range : <=2.5. The reference range was not used to interpr et this result as ines l/abnormal. [facility] [employer]2015-11-06 16:03:00 Test Item Value Reference Range Interpretation Comments eGFR (test code = eGFR) 81 [facility] [id number] 16:03:00 Test Item Value Reference Range Interpretation Comments Glucose Lvl (test code = Glucose Lvl) 94 70-99 [facility] [employer]2015-11-06 16:03:00 Test Item Value Reference Range Interpretation Comments AGAP (test code = AGAP) 12.8 10.0-20.0 [facility] [employer] [id number] 16:03:00 Test Item Value Reference Range Interpretation Comments BUN (test code = BUN) 12 7-22 [facility] [employer] [id number] 16:03:00 Test Item Value Reference Range Interpretation Comments Creatinine Lvl (test code = Creatinine 1.02 0.50-1.40 Lvl) [facility] [employer]2015-11-06 16:03:00 Test Item Value Reference Range Interpretation Comments CO2 (test code = CO2) 25 24-32 [facility]2015-11-06 16:03:00 Test Item Value Reference Range Interpretation Comments Chloride Lvl (test code = Chloride Lvl) 105 95-109 [facility]2015-11-06 16:03:00 Test Item Value Reference Range Interpretation Comments Calcium Lvl (test code = Calcium Lvl) 9.5 8.5-10.5 [facility]2015-11-06 16:03:00 Test Item Value Reference Range Interpretation Comments Sodium Lvl (test code = Sodium Lvl) 138 135-145 [facility]2015-11-06 16:03:00 Test Item Value Reference Range Interpretation Comments Potassium Lvl (test code = Potassium 4.8 3.5-5.1 Lvl) [id number] 16:03:00 Test Item Value Reference Range Interpretation Comments INR (test code = INR) 0.92 0.85-1.17 [id number] 16:03:00 Test Item Value Reference Range Interpretation Comments PT (test code = PT) 12.7 s 12.0-14.7 [id number] 16:03:00 Test Item Value Reference Range Interpretation Comments PTT (test code = PTT) 29.9 s 22.9-35.8 [facility]enSezesgpWFPQDBKKTY8514-37-02 16:03:00 Test Item Value Reference Range Interpretation Comments MCV (test code = MCV) 95.1 80.0-94.0 [id number] 16:03:00 Test Item Value Reference Range Interpretation Comments RDW (test code = RDW) 15.9 11.5-14.5 [id number] 16:03:00 Test Item Value Reference Range Interpretation Comments MCH (test code = MCH) 31.8 pg 27.0-31.0 [id number] 16:03:00 Test Item Value Reference Range Interpretation Comments Platelet (test code = Platelet) 326 496-450 [id number] 16:03:00 Test Item Value Reference Range Interpretation Comments MPV (test code = MPV) 6.9 7.4-10.4 [id number] 16:03:00 Test Item Value Reference Range Interpretation Comments MCHC (test code = MCHC) 33.5 32.0-36.0 [id number] 16:03:00 Test Item Value Reference Range Interpretation Comments Hct (test code = Hct) 50.8 42.0-54.0 [id number] 16:03:00 Test Item Value Reference Range Interpretation Comments Hgb (test code = Hgb) 17.0 14.0-18.0 [id number] 16:03:00 Test Item Value Reference Range Interpretation Comments RBC (test code = RBC) 5.34 4.70-6.10 [id number] 16:03:00 Test Item Value Reference Range Interpretation Comments WBC (test code = WBC) 12.0 3.7-10.4 [id number] 16:03:00 Test Item Value Reference Range Interpretation Comments Lymphocytes (test code = Lymphocytes) 18.4 20.0-40.0 [id number] 16:03:00 Test Item Value Reference Range Interpretation Comments Macrocyte (test code = 1+ *ABN*(03/04/15 Macrocyte) 10:03 AM) [facility]ling[id number] 16:03:00 Test Item Value Reference Range Interpretation Comments Monocytes # (test code 0.9 See_Comment [Aut omated message] The = Monocytes #) system which generated this result tra nsmitted reference range : <=0.8. The reference r mic was not used to int erpret this result as normal/abnormal . [id number] 16:03:00 Test Item Value Reference Range Interpretation Comments Lymphocytes # (test code = Lymphocytes 2.2 1.0-5.5 #) [facility] Ha[id number] 16:03:00 Test Item Value Reference Range Interpretation Comments Eosinophils # (test code 0.1 See_Comment [A utomated message] The = Eosinophils #) system whic h generated this result tra nsmitted reference range : <=0.5. The reference r mic was not used to int erpret this result as normal/abnormal . [facility] Ha[id number] 16:03:00 Test Item Value Reference Range Interpretation Comments Eosinophils (test code = 0.5 See_Comment [A utomated message] The Eosinophils) system which ge nerated this result tra nsmitted reference range : <=4.0. The reference r mic was not used to int erpret this result as normal/abnormal . [id number] 16:03:00 Test Item Value Reference Range Interpretation Comments Monocytes (test code = Monocytes) 7.8 2.0-12.0 [facility] HarlingenLpbpivnGNEKGNZQEZ3228-28-31 16:03:00 Test Item Value Reference Range Interpretation Comments Segs-Bands # (test code = Segs-Bands #) 8.8 1.5-8.1 [id number] 16:03:00 Test Item Value Reference Range Interpretation Comments Basophils (test code = 0.4 See_Comment [Aut omated message] The Basophils) system which ge nerated this result tra nsmitted reference range : <=1.0. The reference r mic was not used to int erpret this result as normal/abnormal . [id number] 16:03:00 Test Item Value Reference Range Interpretation Comments RBC Morph (test code = Normal (03/04/15 10:03 RBC Morph) AM) [id number] 16:03:00 Test Item Value Reference Range Interpretation Comments Segs (test code = Segs) 72.9 45.0-75.0 [facility]ling[id number] 16:03:00 Test Item Value Reference Range Interpretation Comments Plt Morph (test code = Normal (03/04/15 10:03 Plt Morph) AM) [id number] 16:00:00 Test Item Value Reference Range Interpretation Comments VLDL (test code = VLDL) 31 [facility] CenterDjmppbvSVKVDR6672-84-00 16:00:00 Test Item Value Reference Range Interpretation Comments CHD Risk (test code = CHD Risk) 3.86 4.00-7.30 [facility] CenterNedsvkuXNUUVP6090-97-49 16:00:00 Test Item Value Reference Range Interpretation Comments LDL (Calculated) (test code = LDL 149 (Calculated)) [facility] CenterSptqzsdLUXQIH6374-92-55 16:00:00 Test Item Value Reference Range Interpretation Comments Trig (test code = Trig) 155 [facility] CenterSdvpqucVKMFMA8568-59-66 16:00:00 Test Item Value Reference Range Interpretation Comments Chol (test code = Chol) 243 [facility] CenterKfkhbutTBFPRK7643-03-07 16:00:00 Test Item Value Reference Range Interpretation Comments HDL (test code = HDL) 63 [facility] PNGINUDHZ0154-10-18 16:00:00 Test Item Value Reference Range Interpretation Comments Hgb A1C (test code = Hgb A1C) 5.6 [facility] CenterTHYROID [id number] 16:00:00 Test Item Value Reference Range Interpretation Comments TSH (test code = TSH) 1.840 0.360-3.740 [facility]
[2021-09-18 01:37] LABS: Protime INR 1.12
[2021-09-18 01:38] LABS: Urine Blood 2+ (Negative); Urine Glucose Negative (Negative); Urine Protein 1+ (Negative); Urine Specific Gravity 1.025 (1.005-1.030); Urine pH 6.5 (5.0-7.0)
[2021-09-18 01:46] LABS: Absolute Lymphocytes (CBC) 4.6 K/uL (0.7-4.9); Hematocrit 44.8 % (39.6-49.0); Lymphocytes % 30.5 % (15.3-44.8); MPV 7.5 fL (7.6-11.3); RBC Red Blood Cell Count 5.53 M/uL (4.33-5.43)
[2021-09-18 01:53] LABS: Albumin 3.2 g/dL (3.4-5.0); Bilirubin Direct 0.2 mg/dL (0-0.2); Bilirubin Total 0.5 mg/dL (0.2-1.0); Magnesium 1.9 mg/dL (1.8-2.4); Potassium 4.1 mmol/L (3.5-5.1); Protein, Total 7.7 g/dL (6.4-8.2); Troponin High Sensitivity 20.1 pg/mL (<58.9)
[2021-09-18 02:36] LABS: Blood Morphology Comment NOT SEEN (NOT SEEN); Platelet Estimate ADEQ; White Blood Cell Scan OK (OK)
[2021-09-18] MEDS ORDERED: MORPHINE 4 MG/ML SYR ONE (02:51)
[2021-09-18] MEDS ORDERED: NA CHLORIDE 0.9% 100 ML IV ONE ×3 (02:51→16:22)
[2021-09-18] MEDS ORDERED: Meropenem 1000 MG/VIAL IV ONE ×3 (02:51→16:22)
[2021-09-18] MEDS ORDERED: NA CHLORIDE 0.9% 1,000 ML ONE ×2 (02:51→11:47)
[2021-09-18] MEDS ORDERED: ONDANSETRON 4 MG/2 ML VIAL ONE ×2 (02:51→04:00)
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
[2021-09-18] MEDS ORDERED: MORPHINE 2 MG/ML SYR ONE ×2 (04:00→06:23)
[2021-09-18] MEDS ORDERED: DIAZEPAM 5 MG TABLET ONE (04:00)
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
[2021-09-18] MEDS ORDERED: HYDRALAZINE HCL 20 MG/ML VIAL ONE ×2 (04:21→09:34)
[2021-09-18 05:23] VITALS: BMI 32.1
[2021-09-18] MEDS ORDERED: HYDROMORPHONE HCL 2 MG/ML inj IV PRN (05:24)
[2021-09-18] MEDS: NA CHLORIDE 0.9% 1,000 ML IV SCH ×4 (05:24→23:45)
[2021-09-18] MEDS ORDERED: ONDANSETRON 4 MG/2 ML VIAL IV PRN (05:24)
[2021-09-18] MEDS ORDERED: HYDRALAZINE HCL 10 MG TABLET ONE (08:53)
[2021-09-18] MEDS ORDERED: ENOXAPARIN 40 MG/0.4 ML SQ ONE (08:54)
[2021-09-18] MEDS ORDERED: Meropenem 1,000 MG in NA CHLORIDE 0.9% 100 ML IV SCH (09:00)
[2021-09-18] MEDS: HYDRALAZINE HCL 20 MG/ML VIAL IV PRN (09:29)
[2021-09-18] MEDS: ENOXAPARIN 40 MG/0.4 ML SQ SCH (09:30)
[2021-09-18] MEDS ORDERED: NA CHLORIDE 0.9% 500 ML IV ONE (10:25)
[2021-09-18] MEDS: Meropenem 1,000 MG in NA CHLORIDE 0.9% 100 ML IV SCH ×2 (11:00→16:20)
--- NOTE | 2021-09-18 11:23 | EKG ---
Test Date: 2021-09-18 Test Time: 03:15:26 Chief Of Surgery: SASCHA MEASUREMENT RESULTS: Intervals: Rate: 55 TN: 216 QRSD: 98 QT: 466 QTc: 445 [place]: P: 19 TN: 216 QRS: 4 T: 27 INTERPRETIVE STATEMENTS: Sinus bradycardia with 1st degree AV block Cannot rule out Inferior infarct, age undetermined Abnormal ECG Compared to ECG 12/15/2019 14:05:43 First degree AV block now present Myocardial infarct finding now present Sinus rhythm no longer present Electronically Signed On 09-18-21 11:23:13 CDT by Marek Borjas
--- NOTE | 2021-09-18 13:55 | RAD REPORT ---
EXAM DESCRIPTION: Chest Single View RadLex: XR CHEST 1 VIEW CLINICAL HISTORY: COUGH. COMPARISON: None. TECHNIQUE: Single view AP chest radiograph(s). FINDINGS: Trace diffuse pulmonary interstitial thickening/edema. No focal infiltrate identified. No definite pleural effusion. No pneumothorax. Borderline cardiac size. No significant osseous abnormali ty. IMPRESSION: Trace diffuse pulmonary interstitial thickening/edema. Electronically signed by: Tiffani Stack MD 09/18/2021 12:19 AM CDT Due to temporary technical issues with the PACS/Fluency reporting system, reports are being signed by the in house radiologist without review as a courtesy to ensure prompt reporting. The interpreting r adiologist is fully responsible for the content of the report.
--- NOTE | 2021-09-18 13:59 | RAD REPORT ---
EXAM DESCRIPTION: CT Abdomen and Pelvis With Intravenous Contrast CLINICAL HISTORY: The patient is 66 years old and is Male; Abdominal pain, acute, nonlocalized TECHNIQUE: Axial computed tomography images of the abdomen and pelvis with intravenous contrast. S agittal and coronal reformatted images were created and reviewed. This CT exam was performed using one or more of the following dose reduction techniques: automated exposure control, adjustment of t he mA and/or kV according to patient size, and/or use of iterative reconstruction technique. COMPARISON: No relevant prior studies available. FINDINGS: Lung bases: See below. Pleural space: Small right pleural effusion with a small amount of atelectasis or consolidation in the right lower lobe. ABDOMEN: Liver: Nodular contour to the liver which can be seen in cirrhosis. Gallbladder and bile ducts: Hyperdensity in the gallbladder suggestive of gallstones. No ductal dilation. Pancreas: Unremarkable. No mass. No ductal dilation. Spleen: Unremarkable. No splenomegaly. Adrenals: Unremarkable. No mass. Kidneys and ureters: Unremarkable. No solid mass. No hydronephrosis. Stomach and bowel: Unremarkable. No obstruction. No mucosal thickening. PELVIS: Appendix: No findings to suggest acute appendicitis. Bladder: Bladder is collapsed. Bell catheter in place. Reproductive: Prostate appears enlarged. ABDOMEN and PELVIS: Intraperitoneal space: Unremarkable. No free air. No significant fluid collection. Bones/joints: Disc space narrowing with degenerative endplate changes in the spine. No acute fracture. No dislocation. Soft tissues: Fat-containing bilateral inguinal hernias. Vasculature: Scattered atherosclerotic vascular calcifications. No abdominal aortic aneurysm. Lymph nodes: Unremarkable. No enlarged lymph nodes. IMPRESSION: 1. Small right pleural effusion with a small amount of atelectasis or consolidation in the right lower lobe. 2. Nodular contour to the liver which can be seen in cirrhosis. 3. Hyperdensity in the gallbladder suggestive of gallstones. 4. Additional non-emergent findings as above. Electronically signed by: Eddie Winchester MD 09/18/2021 3:15 AM CDT Due to temporary technical issues with the PACS/Fluency reporting system, reports are being signed by the in house radiologist without review as a courtesy to ensure prompt reporting. The interpreting r adiologist is fully responsible for the content of the report.
--- NOTE | 2021-09-18 15:35 | P.PN ---
Subjective Date of Service: 09/18/21 Primary Care Provider: Cameron Chief Complaint: UTI, Intractable Back Pain, Hypertensive Urgency Subjective: No new changes (Stay back pain pain improving Status post developed hypotension with pain medication today but improved with IV fluid) Physical Examination - Vital Signs Temperature: 97.6 F Blood Pressure: 138/73 Pulse: 98 Respirations: 20 Pulse Ox (%): 96 - Studies Laboratory Data (last 24 hrs) 09/18/21 03:35: Lipase Cancelled 09/18/21 01:12: PT 12.4, INR 1.12 09/18/21 01:12: WBC 15.0 H, Hgb 14.9, Hct 44.8, Plt Count 255 09/18/21 01:12: Sodium 138, Potassium 4.1, BUN 17, Creatinine 1.05, Glucose 83, Magnesium 1.9, Total Bilirubin 0.5, AST 14 L, ALT 11 L, Alkaline Phosphatase 105, Lipase 49 L Assessment And Plan Physician Review: Patient Assessed, Agree with Above Assessment and Plan Physician Review Additional Text: - Physical Exam General: Alert, Mild distress, Obese, Other HEENT: Atraumatic, PERRLA, EOMI, Sclerae nonicteric Neck: Supple, 2+ carotid pulse no bruit, No LAD, Without JVD or thyroid abnormality Respiratory: Diminished Cardiovascular: Regular rate/rhythm, Normal S1 S2 Gastrointestinal: Normal bowel sounds, No tenderness Musculoskeletal: No tenderness Integumentary: No rashes Neurological: Normal speech, Normal strength at 5/5 x4 extr, Normal tone, Normal affect Urinary: Suprapubic catheter - Studies Laboratory Data (last 24 hrs) 09/18/21 03:35: Lipase Cancelled 09/18/21 01:12: PT 12.4, INR 1.12 09/18/21 01:12: WBC 15.0 H, Hgb 14.9, Hct 44.8, Plt Count 255 09/18/21 01:12: Sodium 138, Potassium 4.1, BUN 17, Creatinine 1.05, Glucose 83, Magnesium 1.9, Total Bilirubin 0.5, AST 14 L, ALT 11 L, Alkaline Phosphatase 105, Lipase 49 L Assessment and Plan - Problems (Diagnosis) (1) UTI (urinary tract infection) Current Visit: Yes Status: Acute Qualifiers: Urinary tract infection type: catheter-associated UTI Indwelling urinary catheter type: cystostomy catheter Encounter type: initial encounter Qualified Code(s): T83.510A - Infection and inflammatory reaction due to cystostomy catheter, initial encounter; N39.0 - Urinary tract infection, site not specified (2) Hypertensive urgency Current Visit: Yes Status: Acute (3) Neurogenic bladder, NOS Current Visit: Yes Status: Chronic (4) Obesity (BMI 30-39.9) Current Visit: Yes Status: Chronic (5) Pleural effusion Current Visit: Yes Status: Acute (6) Cirrhosis Current Visit: Yes Status: Acute Qualifiers: Hepatic cirrhosis type: alcoholic cirrhosis Ascites presence: without ascites Qualified Code(s): K70.30 - Alcoholic cirrhosis of liver without ascites (7) Intractable back pain Current Visit: Yes Status: Acute - Plan -Doubt patient has UTI since indwelling suprapubic Bell No evidence of fever or sepsis Still elevated blood pressure but transient hypotension post pain medication Adjust pain regimen Decrease Dilaudid doses Follow full blood culture Pain due to chronic back pain, follow PT and OT CT negative for acute spinal findings -monitor and replete electrolytes -Lovenox for VTE ppx Discharge Plan: Home Plan to discharge in: 48 Hours - Advance Directives Does patient have a Living Will: No Does patient have a Durable POA for Healthcare: Yes
[2021-09-18] MEDS ORDERED: HYDROCODONE/APAP 5/325 MG TAB ONE (15:38)
[2021-09-18] MEDS: HYDROCODONE/APAP 5/325 MG TAB PO PRN (16:19)
[2021-09-18] MEDS: ATORVASTATIN 20 MG TAB PO SCH (21:31)
[2021-09-18] MEDS: levETIRAcetam 500 MG TAB PO SCH (21:31)
[2021-09-19] MEDS: Meropenem 1,000 MG in NA CHLORIDE 0.9% 100 ML IV SCH ×3 (00:45→17:17)
[2021-09-19] MEDS: HYDROCODONE/APAP 5/325 MG TAB PO PRN ×2 (04:34→08:39)
[2021-09-19 05:46] LABS: Albumin 2.7 g/dL (3.4-5.0); Bilirubin Total 0.3 mg/dL (0.2-1.0); Magnesium 1.9 mg/dL (1.8-2.4); Phosphorus 2.2 mg/dL (2.5-4.9); Potassium 3.8 mmol/L (3.5-5.1); Protein, Total 6.5 g/dL (6.4-8.2)
[2021-09-19 05:51] LABS: Absolute Lymphocytes (CBC) 2.2 K/uL (0.7-4.9); Hematocrit 42.5 % (39.6-49.0); MPV 7.1 fL (7.6-11.3); RBC Red Blood Cell Count 5.19 M/uL (4.33-5.43)
[2021-09-19] MEDS: levETIRAcetam 500 MG TAB PO SCH ×2 (07:54→21:45)
[2021-09-19] MEDS: ASPIRIN EC 81 MG TAB PO SCH (07:54)
[2021-09-19] MEDS: THIAMINE HCL 100 MG TABLET PO SCH (07:54)
[2021-09-19] MEDS: ENOXAPARIN 40 MG/0.4 ML SQ SCH (07:54)
[2021-09-19] MEDS: CLOPIDOGREL 75 MG TABLET PO SCH (07:56)
--- NOTE | 2021-09-19 11:01 | P.PN ---
Subjective Date of Service: 09/19/21 Primary Care Provider: Cameron Chief Complaint: UTI, Intractable Back Pain, Hypertensive Urgency Subjective: No new changes, No C/O voiced Still back pain, rates it at 6 out of 10 at rest Physical Examination - Vital Signs Temperature: 97.2 F Blood Pressure: 189/85 Pulse: 80 Respirations: 18 Pulse Ox (%): 95 Assessment And Plan Physician Review: Patient Assessed, Agree with Above Assessment and Plan Physician Review Additional Text: - Physical Exam General: Alert, Mild distress, Obese, Other HEENT: Atraumatic, PERRLA, EOMI, Sclerae nonicteric Neck: Supple, 2+ carotid pulse no bruit, No LAD, Without JVD or thyroid abnormality Respiratory: Diminished Cardiovascular: Regular rate/rhythm, Normal S1 S2 Gastrointestinal: Normal bowel sounds, No tenderness Musculoskeletal: No tenderness Integumentary: No rashes Neurological: Normal speech, Normal strength at 5/5 x4 extr, Normal tone, Normal affect Urinary: Suprapubic catheter - Studies Laboratory Data (last 24 hrs) 09/18/21 03:35: Lipase Cancelled 09/18/21 01:12: PT 12.4, INR 1.12 09/18/21 01:12: WBC 15.0 H, Hgb 14.9, Hct 44.8, Plt Count 255 09/18/21 01:12: Sodium 138, Potassium 4.1, BUN 17, Creatinine 1.05, Glucose 83, Magnesium 1.9, Total Bilirubin 0.5, AST 14 L, ALT 11 L, Alkaline Phosphatase 105, Lipase 49 L Assessment and Plan - Problems (Diagnosis) (1) UTI (urinary tract infection) Current Visit: Yes Status: Acute Qualifiers: Urinary tract infection type: catheter-associated UTI Indwelling urinary catheter type: cystostomy catheter Encounter type: initial encounter Qualified Code(s): T83.510A - Infection and inflammatory reaction due to cystostomy catheter, initial encounter; N39.0 - Urinary tract infection, site not specified (2) Hypertensive urgency Current Visit: Yes Status: Acute (3) Neurogenic bladder, NOS Current Visit: Yes Status: Chronic (4) Obesity (BMI 30-39.9) Current Visit: Yes Status: Chronic (5) Pleural effusion Current Visit: Yes Status: Acute (6) Cirrhosis Current Visit: Yes Status: Acute Qualifiers: Hepatic cirrhosis type: alcoholic cirrhosis Ascites presence: without ascites Qualified Code(s): K70.30 - Alcoholic cirrhosis of liver without ascites (7) Intractable back pain Current Visit: Yes Status: Acute - Plan -Urine culture with 3+ gram-negative rods Continue meropenem Since persistent back pain, continue pain regimen Rehab consult/PT/OT Improving elevated blood pressure Recurrent hypotension postmedication Blood culture with no growth to date Pain due to chronic back pain, follow PT and OT CT negative for acute spinal findings -monitor and replete electrolytes -Lovenox for VTE ppx Discharge Plan: Home Plan to discharge in: 48 Hours - Advance Directives Does patient have a Living Will: No Does patient have a Durable POA for Healthcare: Yes 09/19/21 11:00
[2021-09-19] MEDS: HYDRALAZINE HCL 20 MG/ML VIAL IV PRN ×2 (11:19→22:12)
[2021-09-19] MEDS: NA CHLORIDE 0.9% 1,000 ML IV SCH ×2 (11:28→21:50)
[2021-09-19] MEDS: ATORVASTATIN 20 MG TAB PO SCH (21:45)
[2021-09-20] MEDS: AMLODIPINE 5 MG TAB PO SCH ×2 (01:10→08:56)
[2021-09-20] MEDS: Meropenem 1,000 MG in NA CHLORIDE 0.9% 100 ML IV SCH ×2 (01:11→08:54)
[2021-09-20] MEDS: NA CHLORIDE 0.9% 1,000 ML IV SCH ×2 (07:24→08:58)
[2021-09-20] MEDS: ENOXAPARIN 40 MG/0.4 ML SQ SCH (08:55)
[2021-09-20] MEDS: ASPIRIN EC 81 MG TAB PO SCH (08:55)
[2021-09-20] MEDS: THIAMINE HCL 100 MG TABLET PO SCH (08:55)
[2021-09-20] MEDS: CLOPIDOGREL 75 MG TABLET PO SCH (08:56)
[2021-09-20] MEDS: levETIRAcetam 500 MG TAB PO SCH ×2 (08:56→20:21)
--- NOTE | 2021-09-20 10:12 | P.PN ---
Subjective Date of Service: 09/20/21 Primary Care Provider: Cameron Chief Complaint: UTI, Intractable Back Pain, Hypertensive Urgency Subjective: No new changes Still back pain, but feels some relief Physical Examination - Vital Signs Temperature: 97.3 F Blood Pressure: 156/70 Pulse: 84 Respirations: 18 Pulse Ox (%): 95 - Studies Microbiology Data (last 24 hrs): 09/18/21 01:36 Clean Catch Urine [place] Count - Final >100,000 CFU/ML. 09/18/21 01:36 Clean Catch Urine - Final Pseudomonas Aeruginosa Assessment And Plan Physician Review: Patient Assessed, Agree with Above Assessment and Plan Physician Review Additional Text: - Physical Exam General: Alert, Mild distress, Obese, Other HEENT: Atraumatic, PERRLA, EOMI, Sclerae nonicteric Neck: Supple, 2+ carotid pulse no bruit, No LAD, Without JVD or thyroid abnormality Respiratory: Diminished Cardiovascular: Regular rate/rhythm, Normal S1 S2 Gastrointestinal: Normal bowel sounds, No tenderness Musculoskeletal: No tenderness Integumentary: No rashes Neurological: Normal speech, Normal strength at 5/5 x4 extr, Normal tone, Normal affect Urinary: Suprapubic catheter - Studies Laboratory Data (last 24 hrs) 09/18/21 03:35: Lipase Cancelled 09/18/21 01:12: PT 12.4, INR 1.12 09/18/21 01:12: WBC 15.0 H, Hgb 14.9, Hct 44.8, Plt Count 255 09/18/21 01:12: Sodium 138, Potassium 4.1, BUN 17, Creatinine 1.05, Glucose 83, Magnesium 1.9, Total Bilirubin 0.5, AST 14 L, ALT 11 L, Alkaline Phosphatase 105, Lipase 49 L Assessment and Plan - Problems (Diagnosis) (1) UTI (urinary tract infection) Current Visit: Yes Status: Acute Qualifiers: Urinary tract infection type: catheter-associated UTI Indwelling urinary catheter type: cystostomy catheter Encounter type: initial encounter Qualified Code(s): T83.510A - Infection and inflammatory reaction due to cystostomy catheter, initial encounter; N39.0 - Urinary tract infection, site not specified (2) Hypertensive urgency Current Visit: Yes Status: Acute (3) Neurogenic bladder, NOS Current Visit: Yes Status: Chronic (4) Obesity (BMI 30-39.9) Current Visit: Yes Status: Chronic (5) Pleural effusion Current Visit: Yes Status: Acute (6) Cirrhosis Current Visit: Yes Status: Acute Qualifiers: Hepatic cirrhosis type: alcoholic cirrhosis Ascites presence: without ascites Qualified Code(s): K70.30 - Alcoholic cirrhosis of liver without ascites (7) Intractable back pain Current Visit: Yes Status: Acute - Plan -Urine culture with Pseudomonas infection Switch antibiotics from Merrem to Levaquin See intractable back pain, add baclofen Follow PT and OT, Still elevated but improving blood pressure, of follow with added baclofen might need to adjust blood pressure medication Resolved prior transient hypotension CT negative for acute spinal findings -Follow rehab consult Continue indwelling Bell -Lovenox for VTE ppx Discharge Plan: Home Plan to discharge in: 48 Hours - Advance Directives Does patient have a Living Will: No Does patient have a Durable POA for Healthcare: Yes Time Spent Managing PTS Care (In Minutes): 31
[2021-09-20] MEDS: BACLOFEN 10 MG TAB PO SCH ×2 (11:04→20:21)
[2021-09-20] MEDS: HYDRALAZINE HCL 20 MG/ML VIAL IV PRN (18:08)
[2021-09-20] MEDS: HYDROCODONE/APAP 5/325 MG TAB PO PRN (20:21)
[2021-09-20] MEDS: ATORVASTATIN 20 MG TAB PO SCH (20:22)
[2021-09-20] MEDS ORDERED: levoFLOXacin 500 MG TAB PO SCH (21:00)
[2021-09-21] MEDS: HYDROCODONE/APAP 5/325 MG TAB PO PRN (01:56)
[2021-09-21] MEDS: ENOXAPARIN 40 MG/0.4 ML SQ SCH (08:21)
[2021-09-21] MEDS: BACLOFEN 10 MG TAB PO SCH ×3 (08:22→14:23)
[2021-09-21] MEDS: AMLODIPINE 5 MG TAB PO SCH (08:22)
[2021-09-21] MEDS: levETIRAcetam 500 MG TAB PO SCH (08:22)
[2021-09-21] MEDS: ASPIRIN EC 81 MG TAB PO SCH (08:22)
[2021-09-21] MEDS: THIAMINE HCL 100 MG TABLET PO SCH (08:22)
[2021-09-21] MEDS: CLOPIDOGREL 75 MG TABLET PO SCH (08:23)
--- NOTE | 2021-09-21 08:39 | P.PN ---
Subjective Date of Service: 09/21/21 Primary Care Provider: Cameron Chief Complaint: UTI, Intractable Back Pain, Hypertensive Urgency Subjective: No new changes (States some relief with baclofen but not sustained) Able to walk with physical therapy yesterday with some assist Physical Examination - Vital Signs Temperature: 97.6 F Blood Pressure: 194/88 Pulse: 65 Respirations: 18 Pulse Ox (%): 98 - Studies Microbiology Data (last 24 hrs): 09/18/21 01:36 Clean Catch Urine [place] Count - Final >100,000 CFU/ML. 09/18/21 01:36 Clean Catch Urine - Final Pseudomonas Aeruginosa Assessment And Plan Physician Review: Patient Assessed, Agree with Above Assessment and Plan Physician Review Additional Text: - Physical Exam General: Alert, Mild distress, Obese, Other HEENT: Atraumatic, PERRLA, EOMI, Sclerae nonicteric Neck: Supple, 2+ carotid pulse no bruit, No LAD, Without JVD or thyroid abnormality Respiratory: Diminished Cardiovascular: Regular rate/rhythm, Normal S1 S2 Gastrointestinal: Normal bowel sounds, No tenderness Musculoskeletal: No tenderness Integumentary: No rashes Neurological: Normal speech, Normal strength at 5/5 x4 extr, Normal tone, Normal affect Urinary: Suprapubic catheter - Studies Laboratory Data (last 24 hrs) 09/18/21 03:35: Lipase Cancelled 09/18/21 01:12: PT 12.4, INR 1.12 09/18/21 01:12: WBC 15.0 H, Hgb 14.9, Hct 44.8, Plt Count 255 09/18/21 01:12: Sodium 138, Potassium 4.1, BUN 17, Creatinine 1.05, Glucose 83, Magnesium 1.9, Total Bilirubin 0.5, AST 14 L, ALT 11 L, Alkaline Phosphatase 105, Lipase 49 L Assessment and Plan - Problems (Diagnosis) (1) UTI (urinary tract infection) Current Visit: Yes Status: Acute Qualifiers: Urinary tract infection type: catheter-associated UTI Indwelling urinary catheter type: cystostomy catheter Encounter type: initial encounter Qualified Code(s): T83.510A - Infection and inflammatory reaction due to cystostomy catheter, initial encounter; N39.0 - Urinary tract infection, site not specified (2) Hypertensive urgency Current Visit: Yes Status: Acute (3) Neurogenic bladder, NOS Current Visit: Yes Status: Chronic (4) Obesity (BMI 30-39.9) Current Visit: Yes Status: Chronic (5) Pleural effusion Current Visit: Yes Status: Acute (6) Cirrhosis Current Visit: Yes Status: Acute Qualifiers: Hepatic cirrhosis type: alcoholic cirrhosis Ascites presence: without ascites Qualified Code(s): K70.30 - Alcoholic cirrhosis of liver without ascites (7) Intractable back pain Current Visit: Yes Status: Acute - Plan -Continue Levaquin for Pseudomonas UTI Increase baclofen frequency to 3 times daily Continue as needed Rew Follow PT recommendation, follow-up plan for inpatient rehab versus SNF Still elevated blood pressure, increase amlodipine to 10 mg although pain may be contributing to intermittent high blood pressure Resolved prior transient hypotension CT negative for acute spinal findings -Follow rehab consult Continue indwelling Bell -Lovenox for VTE ppx Discharge Plan: Home Plan to discharge in: As needed - Advance Directives Does patient have a Living Will: No Does patient have a Durable POA for Healthcare: Yes
[2021-09-21] MEDS ORDERED: AMLODIPINE 10 MG TAB PO SCH (09:00)
[2021-09-21] MEDS ORDERED: AMLODIPINE 5 MG TAB PO SCH (10:19)
[2021-09-21 11:19] VITALS: O2SAT 97
[2021-09-21 12:35] VITALS: TEMP 96.9
[2021-09-21 14:06] VITALS: BP 162/98
--- NOTE | 2021-09-21 14:12 | P.DS ---
Admission Date: 09/18/21 Discharge Date: 09/21/21 Primary Care Provider: Cameron Disposition: TRANSFER TO INPATIENT REHAB Discharge Condition: FAIR Reason for Admission: UTI, Intractable Back Pain, Hypertensive Urgency Hospital Course: Hospital course Patient with history of neurogenic bladder, chronic back pain with previous CT imaging showing degenerative spine disease presented because of worsening intra ctable low back pain, as well as suprapubic cramps. Noted with Pseudomonas aeruginosa UTI. He was started on Merrem which was later switched to Levaquin based on sensitivity. Patient abdominal cramps significantly improved. Patient have difficulty with transfers. Evaluated by physical therapy. His pain was controlled with [place] as well as baclofen. Patient will be discharged to inpatient rehab for further therapy. He will complete a 14-day course of Levaquin on 10/02/21 - Physical Exam General: Alert, Mild distress, Obese, Other HEENT: Atraumatic, PERRLA, EOMI, Sclerae nonicteric Neck: Supple, 2+ carotid pulse no bruit, No LAD, Without JVD or thyroid abnormality Respiratory: Diminished Cardiovascular: Regular rate/rhythm, Normal S1 S2 Gastrointestinal: Normal bowel sounds, No tenderness Musculoskeletal: No tenderness Integumentary: No rashes Neurological: Normal speech, Normal strength at 5/5 x4 extr, Normal tone, Normal affect Urinary: Suprapubic catheter Assessment and Plan - Problems (Diagnosis) (1) UTI (urinary tract infection) Current Visit: Yes Status: Acute Qualifiers: Urinary tract infection type: catheter-associated UTI Indwelling urinary catheter type: cystostomy catheter Encounter type: initial encounter Qualified Code(s): T83.510A - Infection and inflammatory reaction due to cystostomy catheter, initial encounter; N39.0 - Urinary tract infection, site not specified (2) Hypertensive urgency Current Visit: Yes Status: Acute (3) Neurogenic bladder, NOS Current Visit: Yes Status: Chronic (4) Obesity (BMI 30-39.9) Current Visit: Yes Status: Chronic (5) Pleural effusion Current Visit: Yes Status: Acute (6) Cirrhosis Current Visit: Yes Status: Acute Qualifiers: Hepatic cirrhosis type: alcoholic cirrhosis Ascites presence: without ascites Qualified Code(s): K70.30 - Alcoholic cirrhosis of liver without ascites (7) Intractable back pain Current Visit: Yes Status: Acute Vital Signs/Physical Exam: Temp Pulse Resp BP Pulse Ox 96.9 F 67 16 162/98 H 98 09/21/21 12:00 09/21/21 14:05 09/21/21 12:00 09/21/21 14:05 09/21/21 12:00 Laboratory Data at Discharge: WBC 8.6 K/uL (4.3-10.9) D 09/19/21 05:19 Hgb 13.8 g/dL (13.6-17.9) 09/19/21 05:19 Hct 42.5 % (39.6-49.0) 09/19/21 05:19 Plt Count 226 K/uL (152-406) 09/19/21 05:19 PT 12.4 SECONDS (9.5-12.5) 09/18/21 01:12 INR 1.12 09/18/21 01:12 Sodium 142 mmol/L (136-145) 09/19/21 05:19 Potassium 3.8 mmol/L (3.5-5.1) 09/19/21 05:19 BUN 22 mg/dL (7-18) H 09/19/21 05:19 Creatinine 1.25 mg/dL (0.55-1.3) 09/19/21 05:19 Glucose 127 mg/dL (74-106) H 09/19/21 05:19 Phosphorus 2.2 mg/dL (2.5-4.9) L 09/19/21 05:19 Magnesium 1.9 mg/dL (1.8-2.4) 09/19/21 05:19 Total Bilirubin 0.3 mg/dL (0.2-1.0) 09/19/21 05:19 AST 14 U/L (15-37) L 09/19/21 05:19 ALT 11 U/L (12-78) L 09/19/21 05:19 Alkaline Phosphatase 87 U/L (45-117) 09/19/21 05:19 Lipase Cancelled 09/18/21 03:35 Home Medications: Metoprolol Tartrate 1 tab PO BID 09/18/21 Amlodipine [Norvasc*] 10 mg PO DAILY #30 tab 09/21/21 Atorvastatin Calcium [Lipitor*] 20 mg PO BEDTIME tab 09/21/21 Baclofen [Lioresal*] 10 mg PO TID #30 tab 09/21/21 Clopidogrel Bisulfate [Plavix*] 75 mg PO DAILY tablet 09/21/21 levETIRAcetam [Keppra*] 500 mg PO BID tab 09/21/21 levoFLOXacin [Levaquin*] 500 mg PO 2100 #10 tab 09/21/21 Diet: Low sodium Activity: Ad danae Followup: Unknown,U [Primary Care Provider] - Physician Review: Patient Assessed, Agree with Above Assessment and Plan Time spent managing pt's care (in minutes): 35
== END 2021-09-21 16:00 | DRG 699 ==
LOC: ER 22:27 → ERHOLD 09-18 04:06 → 2ND 09-18 18:37
PROVIDERS: ADMIT Hospitalist; ATTEND Internal Medicine
DX: T83.511A Infection and inflammatory reaction due to indwelling urethral catheter, initial encounter (principal); J90 Pleural effusion, not elsewhere classified; I25.10 Atherosclerotic heart disease of native coronary artery without angina pectoris; N39.0 Urinary tract infection, site not specified; B96.5 Pseudomonas (aeruginosa) (mallei) (pseudomallei) as the cause of diseases classified elsewhere; E66.9 Obesity, unspecified; Z68.32 Body mass index [BMI] 32.0-32.9, adult; I16.0 Hypertensive urgency; K70.30 Alcoholic cirrhosis of liver without ascites; G31.89 Other specified degenerative diseases of nervous system; N31.9 Neuromuscular dysfunction of bladder, unspecified; Z95.5 Presence of coronary angioplasty implant and graft; Z20.822 Contact with and (suspected) exposure to COVID-19
CPT/HCPCS: 36415; 71045; 74177; 80048; 80053; 80076; 81003; 82140; 83605; 83690; 83735; 83880; 84100; 84484; 85025; 85610; 87040; 87077; 87086; 87088; 87186; 93005; 97116; 97161; 97165; 97530; 99284; J0360; J1170; J1650; J2185; J2270; J2405; J7030; J7040; Q9967; U0003

== ENCOUNTER 2021-09-21 10:03 | Inpatient (IN) | payer OTHER ==
--- NOTE | 2021-09-21 13:32 | R.PREADM ---
PRE-ADMISSION SCREENING FORM SCREENING DATE AND TIME 09/21/2021 10:58 (CDT) ANTICIPATED REHAB ADMISSION DATE 09/23/2021 REFERRING FACILITY [facility] REFERRAL DATE AND TIME 09/21/2021 10:59 (CDT) REFERRAL ROOM# 216 ACUTE ADMIT DATE 09/18/2021 Previous Rehabilitation(s): No. 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 Rj King M.D. MR# [id number] NAME MARTINEZ RITCHIE ADDRESS [address] [place] [address] PHONE [facility] [id number] DATE OF 1955 AGE 66 SSN# [id number] GENDER male MARITAL STATUS RACE ADMIT FROM 02 - [facility] PRE-HOSPITAL LIVING SETTING 01 - Home (private home/apt. board/care, assisted living, retirement, transitional living) HOME TYPE AND DETAILS Type of home: single family house # of levels in the residence: 1 # of steps within the residence: 0 # of steps to enter the residence: 1 PRE-HOSPITAL LIVING WITH Family/Relatives FAMILY SUPPORT Yes PRIMARY FAMILY CONTACT NAME Magalis Guthrie PRIMARY FAMILY CONTACT PHONE PRIMARY FAMILY CONTACT RELATIONSHIP Sister PHONE PRIMARY FAMILY CONTACT ON ADM.? no IS PRIMARY FAMILY CONTACT AUTH. REP.? no 1ST EMERGENCY CONTACT Magalis Guthrie 1ST CONTACT PHONE 1ST CONTACT RELATIONSHIP Sister PHONE 1ST CONTACT ON ADM. no IS 1ST CONTACT AUTH. REP.? no PHONE 2ND CONTACT ON ADM.? no PATIENT EMPLOYMENT STATUS Retired (for age) PATIENT EMPLOYER No Employer PAYOR INFORMATION: 1ST PAYOR NAME MEDICARE 1ST PAYOR PHONE 1ST PAYOR INJURY/ILLNESS DUE TO ACCIDENT? No ANOTHER GREEN PARTY RESPONSIBLE? No PRIMARY REHAB/ACUTE DIAGNOSIS: Low back pain (M54.5) ONSET DATE 09/18/2021 REHAB IMPAIRMENT CATEGORY (KIRK): 16 Pain does NOT meet 60% rule PRIMARY DIAGNOSIS-RELATED SURGERIES: None INTERVENTIONS: - UTI Monitor pt labs Administer prescribed antibiotics, monitor effectiveness - Suprapubic Catheter Monitor pt v/s Monitor characteristics of urine Encourage increased fluid intake as indicated Monitor for s/s of infection - Hypertensive urgency monitor pt BP regularly Monitor and control pt pain Administer prescribed medications and monitor effectiveness - Pleural Effusion Monitor color and characteristics of pt respiratory secretions Monitor for pt nail beds and skin cyanosis Monitor pt breathing rate, characteristics, involvement of accessory muscles when breathing and irreg ular breathing patterns Monitor pt o2 saturation - Cirrhosis Administer medications as prescribed per MD Monitor and replete electrolytes - Pain Monitor for headaches Monitor and treat with prescribed pain medications Non pharmacological pain management RISK FOR COMPLICATIONS: - DVT Active and Passive ROM exercises Assist patient with frequent position changes Elevate BLE - Skin Breakdown Encourage ambulation as tolerated Repositioning q 2 hours Use of pillows or foam wedges while in bed - Aspiration Monitor for overt s/s of aspiration - Seizure Identify risk factors - Respiratory Failure Monitor pt O2 sats Administer supplemental O2 as needed - Pain Assist patient with frequent position changes at least every 2 hours Education on relaxation and deep breathing techniques Anticipate the need for pain medication for optimal pain managment Administer prescribed pain medication as needed - Stroke Monitor and maintain patient pain level Monitor patient blood pressure - Falls Assess for medication side effects Maintain call light within patient reach for easy access to nursing assistance Provide assistance getting out of bed and with ambulation Provide assistive devices - Fluid Overload Monitor pt fluid intake SUMMARY OF ACUTE HOSPITALIZATION: Pt. is a 66 yo male. On 09/18/2021 he was admitted to [facility] with diagnosis Low back pain (M54.5). His impairment category is Pain Syndromes 07 - Back Pain (07.2). Pre-morbidly, Pt. was independent/mod-I in Locomotion and Self-Care; and he had good Balance, Enduran ce, and Safety Awareness. Currently, he has deficits of Locomotion, Social Cognition, Balance, Transfers Control, Self-Care, an d Endurance. Pt. is now referred to [facility] for acute in-patient rehabilitation in order to maximize patient's functional independence in activities of daily living, strength, ROM, and mobi lity. Patient has realistic goal of being discharged at assistance level 6-Kym to reside at Home with Fam henny/Relatives. 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 Suprapubic catheter on Abdomen; extent - small; stage - NS(Not Stageable). Treatment - Per Physician' s Orders. REVIEW OF SYSTEMS: - Gen Alert and awake Lying in bed No apparent distress Oriented to: person, time, and place - Vital Signs Temperature: 97.6 F SBP/DBP: 194/88 Pulse: 65 Resp: 18 Vital signs stable, afebrile - CVS RRR VITAL SIGNS Temperature: 97.6 F SBP/DBP: 194/88 Pulse: 65 Resp: 18 Vital signs stable, afebrile 09/21/2021 MEDICATIONS/TREATMENT: Other- See attached MAR (Medication Administration Record). CURRENT SPHINCTER CONTROL: Pre-hospital bladder status: unspecified # of bladder accidents in the last 7 days prior to screenin Pre-hospital bowel status: unspecified # of bowel accidents in the last 7 days prior to screenin Last Bowel Movement Date: 09/21/2021 CURRENT LOCOMOTION STATUS: distance traveled in wheelchair 0 feet distance walked 100 feet DETAILED CURRENT FUNCTIONAL STATUS: - Bladder accident frequency: 7-Ind - No accidents in the past 7 days - Bowel accident frequency: 7-Ind - No accidents in the past 7 days - Walking score based on distance walked: 2(50-149ft) QI SCORES: - Self-Care A. Eating 04-Supervision or touching assistance B. Oral hygiene 04-Supervision or touching assistance C. Toileting hygiene 02-Substantial/maximal assistance E. Shower/bathe self 02-Substantial/maximal assistance F. Upper body dressing 02-Substantial/maximal assistance G. Lower body dressing 02-Substantial/maximal assistance H. Putting on/taking off footwear 02-Substantial/maximal assistance - Mobility A. Roll left and right 03-Partial/moderate assistance B. Sit to lying 03-Partial/moderate assistance C. Lying to sitting on side of bed 03-Partial/moderate assistance D. Sit to stand 04-Supervision or touching assistance E. Chair/[id number] transfer 04-Supervision or touching assistance F. Toilet transfer 04-Supervision or touching assistance G. Car transfer 04-Supervision or touching assistance I. Walk 10 feet 04-Supervision or touching assistance J. Walk 50 feet with two turns 04-Supervision or touching assistance K. Walk 150 feet 88-Not attempted due to medical condition or safety concerns L. Walking 10 feet on uneven surfaces 88-Not attempted due to medical condition or safety concerns M. 1 step (curb) 88-Not attempted due to medical condition or safety concerns N. 4 steps 88-Not attempted due to medical condition or safety concerns O. 12 steps 88-Not attempted due to medical condition or safety concerns P. Picking up object 88-Not attempted due to medical condition or safety concerns R. Wheel 50 feet with two turns 09-Not applicable S. Wheel 150 feet 09-Not applicable - Bladder and Bowel Bladder continence 9-Not applicable Bowel continence 1-Occasionally incontinent - Endurance Fair - Balance Fair - Safety Awareness Fair CURRENT FUNC. DEFICITS: Self-Care, Mobility, Endurance, Balance, and Safety Awareness CURRENT / PREVIOUS ASSISTIVE DEVICES: Hospital Bed Rolling Walker Shower Chair HISTORY OF FALLS. HAS THE PATIENT HAD TWO OR MORE FALLS IN THE PAST YEAR OR ANY FALL WITH INJURY IN T HE PAST YEAR?: Yes PRIOR SURGERY. DID THE PATIENT HAVE MAJOR SURGERY DURING THE 100 DAYS PRIOR TO ADMISSION?: No THERAPY NOTES FROM ACUTE CARE: Attached. SPECIAL NEEDS: - Safety Concerns Skin breakdown and Fall precautions needed due to skin breakdown risk, Risk of injury, Fall history, Poor balance, and High fall risk PRECAUTIONS: - Fall Precaution Bed alarm TABS alarm Wheel chair alarm - DVT Risk due to restricted mobility, age, and obesity - Skin Breakdown Risk Routine Wound care due to restricted mobility and age - Seizure Precaution Padding of bed rails, bed alarm, monitor seizure medication levels as necessary - Cardiac Precaution Positive for CAD, PVD prior Stent. Monitor patient for excessive elevation of heart rate and blood pressure during therapy Nursing and Therapy to monitor pt before and after therapy sessions for signs of Chest pain Monitor blood pressure, heart rate, lower extremity edema, notify MD for shortness of breath or chest pain PATIENT NEEDS ACTIVE AND ONGOING THERAPEUTIC INTERVENTION OF MULTIPLE THERAPY DISCIPLINES, INCLUDING: - Dietary and Nutrition Adequate Nutrition. Nutritional Education. Nutritional Supplements. - Occupational Therapy Patient needs Occupational Therapy for a daily minimum of 1.5 hours at least 5 out of 7 days, to impr ove Activities of Daily Living, including: Eating, Grooming, Bathing, Dressing, Toileting, Toilet Tra nsfers, Community Reintegration, Higher functional activities, Adaptive Equipment, Splinting, Househo ld Tasks, and Other activities as determined. - Physical Therapy Patient needs Physical Therapy for a daily minimum of 1.5 hours at least 5 out of 7 days, to improve: Mobility, Strengthening, Transfers, Stretching, ROM, Endurance, Ability to manage stairs, Gait, and Balance. PATIENT NEEDS CLOSE MEDICAL SUPERVISION BY A REHABILITATION PHYSICIAN FOR: Coordination of Treatment Team Post-Op Complications Wound Care Bowel and Bladder Management Medical and Co-Morbidity Management Pain Management PATIENT REQUIRES 24X7 REHAB NURSING FOR MEDICAL AND FUNCTIONAL MGT. OF THE FOLLOWING DEFICITS: Patient requires 24x7 Rehabilitation Nursing for: Pain Issues, Identifying and preventing risk factor s, Monitoring and reporting current medical conditions, Assisting with ambulation and transfer, Arias ting with all ADL-s, Teaching patients about disease process and medications, Family teaching, Provid ing safe environment, Bowel and Bladder Issues, Skin Integrity, and Medication Management PATIENT REQUIRES INTENSIVE, COORDINATED INTERDISCIPLINARY APPROACH TO REHAB: Patient needs Dietary and Nutrition Services for: Adequate Nutrition, Nutritional Supplements, and Nu tritional Education Patient needs Credit Support Counselor and/or Case Management for: Discharge Planning, Arranging Home Equipmen t or Services, and Family Interventions PATIENT REHAB POTENTIAL: Jaci RITCHIE is able and expected to receive 3 hours of individualized therapy daily on at least 5 of every 7 days Jaci RITCHIE's prognosis for significant practical improvement within a reasonable period of time nathen ears Good Expected level of measurable improvement will be of a practical value to Jaci RITCHIE's functional ca pacity or adaptations to impairments Has a viable Discharge Plan Medically appropriate; condition is sufficiently stable to participate in intensive rehab program DISCHARGE PLAN: - Estimated Length of Stay (days) 12. - Consensus on plan Discharge plan has been discussed with primary caregiver. Patient/Family is in agreement with the will n. Primary caregiver is in agreement with the plan. - Patient/Family Goals Return home independently. - Planned Living Setting Upon Discharge Home, to live with Family/Relatives. Transitional Living. RECOMMENDED CARE LEVEL: IRF RECOMMENDATION DETAILS: Recommended Admission to Comprehensive Rehabilitation Program to Increase Functional [place] SCREENER'S COMPLETENESS CONFIRMATION: - Screening Confirmation The patient data collection on this preadmission screening form is finished PHYSICIANS REVIEW AND ADMISSION DETERMINATION Admit - Based on my review of the Pre-Admission Screening results, in my medical judgment and experie nce, I concur with the findings and recommend admission to [facility], as this patient requires an IRF level of care. SIGNATURE PANEL: Clinical Liaison - [electronically] signed by Denita Curry on 09/21/2021 at 11:56 (CDT) Physician Reviewer - [electronically] signed by Dr. Rj King M.D. on 09/21/2021 at 13:32 (CDT )
--- OUTSIDE RECORDS SUMMARY | 2021-09-21 16:12 | XMS REPORT | Continuity of Care Document ---
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 417) 0.00BASIC METABOLIC [id number] 07:06:00 Test Item Value Reference Range Interpretation [...] NOT APPLICABLE FOR DIALYSIS PATIEN TS. POCT-GLUCOSE [id number] 05:50:00 Test Item Value Reference Range Interpretation Comments POC-GLUCOSE METER 124 mg/dL 70-[address] [facility] 6720 ([facility]) (test code = [place] 1538) [address] SPUTUM CULTURE + GRAM [id number] 00:49:00 Test Item Value Reference Interpretation Comments [...] 10-15 epithelial (BEAKER) (test code = cells 501909) GRAM STAIN RESULT <1+ gram positive (BEAKER) (test code = rods 796698) GRAM STAIN RESULT 2+ yeast (BEAKER) (test code = 772558) GRAM STAIN RESULT 1+ gram positive (BEAKER) (test code = cocci in pairs 586887) 4+ Normal respiratory [place] presentBASIC METABOLIC [id number] 00:36:00 Test Item Value Reference Range Interpretation [...] NOT APPLICABLE FOR DIALYSIS PATIEN TS. POCT-GLUCOSE [id number] 23:29:00 Test Item Value Reference Range Interpretation Comments POC-GLUCOSE METER 93 mg/dL 70-[address] [facility] 6720 (BEAKER) (test code = [place] [address] 1538) BASIC METABOLIC [id number] 18:08:00 Test Item Value Reference Range Interpretation [...] NOT APPLICABLE FOR DIALYSIS PATIEN TS. POCT-GLUCOSE [id number] 17:45:00 Test Item Value Reference Range Interpretation Comments POC-GLUCOSE METER 101 mg/dL 70-[address] [facility] 6720 (BEAKER) (test code = [place] [facility] 1538) [address] BASIC METABOLIC [id number] 14:10:00 Test Item Value Reference Range Interpretation [...] NOT APPLICABLE FOR DIALYSIS PATIEN TS. POCT-GLUCOSE [id number] 12:16:00 Test Item Value Reference Range Interpretation Comments POC-GLUCOSE METER 105 mg/dL 70-[address] [facility] 6720 (BEAKER) (test code = [place] 1538) [address] URINE [id number] 10:22:00 Test Item Value Reference Range Interpretation Comments CULTURE (BEAKER) (test code = 1095) No growth URINE [id number] 09:54:00 Test Item Value Reference Range Interpretation Comments CULTURE (BEAKER) (test code = 1095) No growth BASIC METABOLIC [id number] 05:53:00 Test Item Value Reference Range Interpretation [...] PATIEN TS. CBC W/PLT COUNT & AUTO [id number] 05:36:00 Test Item Value Reference Range Interpretation [...] 0.00-0.20 (test code = 417) 0.00VANCOMYCIN LEVEL, [id number] 21:59:00 Test Item Value Reference Range Interpretation Comments VANCOMYCIN TROUGH (BEAKER) (test 21.6 ug/mL 10.0-20.0 H code = 522) Draw 30 min prior to scheduled dose, HOLD if level > 20 mcg/mL, inform . POCT-GLUCOSE [id number] 21:39:00 Test Item Value Reference Range Interpretation Comments POC-GLUCOSE METER 113 mg/dL 70-[address] [facility] 6720 (BEAKER) (test code = [place] 1538) [address] BASIC METABOLIC [id number] 19:04:00 Test Item Value Reference Range Interpretation [...] APPLICABLE FOR DIALYSIS PATIEN TS. BASIC METABOLIC [id number] 14:34:00 Test Item Value Reference Range Interpretation [...] APPLICABLE FOR DIALYSIS PATIEN TS. SODIUM, RANDOM [id number] 14:27:00 Test Item Value Reference Range Interpretation Comments SODIUM URINE (BEAKER) (test code = 75 meq/L 243) Reference Range: No NormalsHEPATIC FUNCTION [id number] 07:18:00 Test Item Value Reference Range Interpretation [...] (test code = 25 U/L 6-55 347) [id number] 07:18:00 Test Item Value Reference Range Interpretation Comments MAGNESIUM (BEAKER) (test code = 1.8 mg/dL 1.6-2.6 627) [id number] 07:18:00 Test Item Value Reference Range Interpretation Comments PHOSPHORUS (BEAKER) (test code = 3.0 mg/dL 2.3-4.7 604) OSMOLALITY, [id number] 05:41:00 Test Item Value Reference Range Interpretation Comments OSMOLALITY URINE (BEAKER) (test 541 mOsm/kg 40-1400 code = 614) OSMOLALITY, [id number] 05:40:00 Test Item Value Reference Range Interpretation Comments OSMOLALITY, SERUM (BEAKER) (test 280 mOsm/kg 275-295 code = 615) BASIC METABOLIC [id number] 05:02:00 Test Item Value Reference Range Interpretation [...] PATIEN TS. CBC W/PLT COUNT & AUTO [id number] 04:48:00 Test Item Value Reference Range Interpretation [...] 0.00-0.20 (test code = 417) 0.00SODIUM, RANDOM [id number] 02:48:00 Test Item Value Reference Range Interpretation Comments SODIUM URINE (BEAKER) (test code = 24 meq/L 243) Reference Range: No NormalsBASIC METABOLIC [id number] 01:37:00 Test Item Value Reference Range Interpretation [...] APPLICABLE FOR DIALYSIS PATIEN TS. BASIC METABOLIC [id number] 21:54:00 Test Item Value Reference Range Interpretation [...] APPLICABLE FOR DIALYSIS PATIEN TS. SODIUM, RANDOM [id number] 17:45:00 Test Item Value Reference Range Interpretation Comments SODIUM URINE (BEAKER) (test code = < meq/L 243) Reference Range: No NormalsOSMOLALITY, [id number] 17:41:00 Test Item Value Reference Range Interpretation Comments OSMOLALITY URINE (BEAKER) (test 466 mOsm/kg 40-1400 code = 614) OSMOLALITY, [id number] 17:34:00 Test Item Value Reference Range Interpretation Comments OSMOLALITY, SERUM (BEAKER) (test 273 mOsm/kg 275-295 L code = 615) BASIC METABOLIC [id number] 17:34:00 Test Item Value Reference Range Interpretation [...] DIALYSIS PATIEN TS. LACTIC ACID, VENOUS, WHOLE [id number] 17:30:00 Test Item Value Reference Range Interpretation Comments LACTATE BLOOD VENOUS (2) (BEAKER) 1.9 mmol/L 0.5-2.2 (test code = 2872) Effective 08/31/2015: Units/Reference Range ChangeNew: 0.5-2.2 mmol/L Previous: 5-20 mg/dLCan draw with next BMPBLOOD GAS, [id number] 17:18:00 Test Item Value Reference Range Interpretation [...] = 1819) 21.0 % INFLUENZA A H1N1 [id number] 14:16:00 Test Item Value Reference Range Interpretation Comments INFLUENZA A RNA Not Detected Not Detected, (BEAKER) (test code = Inconclusive 1545) NOVEL H1N1 RNA (BEAKER) Not Detected Not Detected, (test code = 1546) Inconclusive These assays were performed by real-time RT-PCR (benefits specialist recruiter-PCR) utilizing fluorogenic hydrolysis probe technology for the detection of human Influenza A viruses and the differential detection of novel H1N1 Influenza virus in respiratory specimens. The test is composed of (1) an RNA extraction from patient specimen, and (2) benefits specialist recruiter-PCR amplification and detection with human Influenza A and novel [id number] primers and probes. A well-conserved region of [...] its performance characte ristics determined by the [facility] Pathology Department, Section of Molecular Pathology. It has not been cleared or approved by the U.S. Food and Drug Administration (FDA). SinceFDA approval is not required for clinical use of the test, validation was done as required by The Clinical Laboratory Amendments of 1988.BASIC METABOLIC [id number] 13:14:00 Test Item Value Reference Range Interpretation [...] APPLICABLE FOR DIALYSIS PATIEN TS. HEPATITIS B [id number] 10:49:00 Test Item Value Reference Range Interpretation Comments HEPATITIS B CORE TOTAL ANTIBODY Nonreactive Nonreactive (BEAKER) (test code = 497) HEPATITIS B SURFACE ANTIBODY < mIU/mL <8.0 (BEAKER) (test code = 647) HEPATITIS B SURFACE ANTIGEN (2) Nonreactive Nonreactive (BEAKER) (test code = 2585) HEPATITIS A [id number] 10:49:00 Test Item Value Reference Range Interpretation Comments HEPATITIS A IGM ANTIBODY (BEAKER) Nonreactive Nonreactive (test code = 498) HEPATITIS A IGG ANTIBODY (BEAKER) Reactive Nonreactive A (test code = 2797) HEPATITIS C [id number] 10:41:00 Test Item Value Reference Range Interpretation Comments HEPATITIS C ANTIBODY (BEAKER) Nonreactive Nonreactive (test code = 367) B-TYPE NATRIURETIC FACTOR (BNP)2016-08-10 10:20:00 Test Item Value Reference Range Interpretation Comments B-TYPE NATRIURETIC PEPTIDE (BEAKER) 642 pg/mL 0-100 H (test code = 700) BASIC METABOLIC [id number] 10:19:00 Test Item Value Reference Range Interpretation [...] APPLICABLE FOR DIALYSIS PATIEN TS. BASIC METABOLIC [id number] 10:18:00 Test Item Value Reference Range Interpretation [...] APPLICABLE FOR DIALYSIS PATIEN TS. STREP PNEUMONIAE [id number] 08:23:00 Test Item Value Reference Range Interpretation [...] detection limit of the test. LEGIONELLA ANTIGEN, [id number] 08:23:00 Test Item Value Reference Range Interpretation Comments L. PNEUMOPHILA Negative - see Negative fo r L. SEROGP 1 UR AG comment pneumophila (BEAKER) (test code serogrou p 1 antigen, = 1156) suggesting no r ecent or current infe ction with this serog roup. Legionellosis c annot be ruled out si nce other serogroup s and species may cau se disease. OSMOLALITY, [id number] 08:10:00 Test Item Value Reference Range Interpretation Comments OSMOLALITY URINE (BEAKER) (test 150 mOsm/kg 40-1400 code = 614) [id number] 07:23:00 Test Item Value Reference Range Interpretation Comments THYROID STIMULATING HORMONE 1.71 uIU/mL 0.35-4.94 (BEAKER) (test code = 772) VITAMIN [id number] 07:23:00 Test Item Value Reference Range Interpretation Comments VITAMIN B12 (BEAKER) (test code = 1162 pg/mL 213-816 H 774) OSMOLALITY, [id number] 06:33:00 Test Item Value Reference Range Interpretation Comments OSMOLALITY, SERUM (BEAKER) (test 286 mOsm/kg 275-295 code = 615) CBC W/PLT COUNT & AUTO [id number] 06:17:00 Test Item Value Reference Range Interpretation [...] code = 417) 0.00HIV-1 ANTIGEN WITH HIV-1/2 [id number] 05:50:00 Test Item Value Reference Range Interpretation Comments HIV-1 ANTIGEN WITH HIV 1\\T\\2 Nonreactive Nonreactive ANTIBODY (2) (BEAKER) (test code = 2586) [id number] 05:50:00 Test Item Value Reference Range Interpretation Comments CORTISOL, TOTAL (BEAKER) (test code 3.4 ug/dL 3.7-19.4 L = 2755) SODIUM, RANDOM [id number] 05:42:00 Test Item Value Reference Range Interpretation Comments SODIUM URINE (BEAKER) (test code = < meq/L 243) Reference Range: No NormalsBASIC METABOLIC [id number] 05:34:00 Test Item Value Reference Range Interpretation [...] APPLICABLE FOR DIALYSIS PATIEN TS. BASIC METABOLIC [id number] 05:29:00 Test Item Value Reference Range Interpretation [...] DIALYSIS PATIEN TS. LACTIC ACID, VENOUS, WHOLE [id number] 05:25:00 Test Item Value Reference Range Interpretation Comments LACTATE BLOOD VENOUS (2) (BEAKER) 2.6 mmol/L 0.5-2.2 H (test code = 2872) Effective 08/31/2015: Units/Reference Range ChangeNew: 0.5-2.2 mmol/L Previous: 5-20 mg/dLPROTHROMBIN TIME/[id number] 05:25:00 Test Item Value Reference Range Interpretation Comments PROTIME (BEAKER) (test code = 17.0 seconds 11.7-14.7 H 759) INR (BEAKER) (test code = 370) 1.4 <=5.9 RECOMMENDED COUMADIN/WARFARIN INR THERAPY RANGESSTANDARD DOSE: 2.0 - 3.0 Includes: PROPHYLAXIS forvenous thrombosis, systemic embolization; TREATMENT for venous thrombosis and/or pulmonary embolus.HIGH RISK: Target INR is 2.5-3.5 for patients with mechanical heart valves.[id number] 05:23:00 Test Item Value Reference Range Interpretation Comments AMMONIA (BEAKER) (test code = 348) 27 mol/L 18-72 BASIC METABOLIC [id number] 02:34:00 Test Item Value Reference Range Interpretation [...] APPLICABLE FOR DIALYSIS PATIEN TS. BASIC METABOLIC [id number] 00:17:00 Test Item Value Reference Range Interpretation [...] FOR DIALYSIS PATIEN TS. RAPID INFLUENZA A&B [id number] 23:44:00 Test Item Value Reference Range Interpretation Comments RAPID INFLUENZA A AG (BEAKER) Negative Negative, Inconclusive (test code = 1622) RAPID INFLUENZA B AG (BEAKER) Negative Negative, Inconclusive (test code = 1623) URIC [id number] 21:52:00 Test Item Value Reference Range Interpretation Comments URIC ACID (BEAKER) (test code = 4.1 mg/dL 2.6-7.2 773) Add onCOMPREHENSIVE METABOLIC [id number] 21:12:00 Test Item Value Reference Range Interpretation [...] NOT APPLICABLE FOR DIALYSIS PATIEN TS. OSMOLALITY, [id number] 21:10:00 Test Item Value Reference Range Interpretation Comments OSMOLALITY, SERUM (BEAKER) (test 263 mOsm/kg 275-295 L code = 615) SODIUM, RANDOM [id number] 21:06:00 Test Item Value Reference Range Interpretation Comments SODIUM URINE (BEAKER) (test code = < meq/L 243) Reference Range: No NormalsCHLORIDE, RANDOM [id number] 21:06:00 Test Item Value Reference Range Interpretation Comments CHLORIDE URINE (BEAKER) (test code = < meq/L 682) Reference Range: No NormalsLACTIC ACID, VENOUS, WHOLE [id number] 21:05:00 Test Item Value Reference Range Interpretation Comments LACTATE BLOOD VENOUS (2) (BEAKER) 4.6 mmol/L 0.5-2.2 H (test code = 2872) Effective 08/31/2015: Units/Reference Range ChangeNew: 0.5-2.2 mmol/L Previous: 5-20 mg/dLURINALYSIS W/ REFLEX URINE [id number] 21:00:00 Test Item Value Reference Range Interpretation [...] code = 516) SOURCE(BEAKER) (test code = 5385) OSMOLALITY, [id number] 20:59:00 Test Item Value Reference Range Interpretation Comments OSMOLALITY URINE (BEAKER) (test 222 mOsm/kg 40-1400 code = 614) CBC W/PLT COUNT & AUTO [id number] 20:58:00 Test Item Value Reference Range Interpretation [...] K/ L 0.00-0.20 (test code = 417) [id number] 09:10:00 Test Item Value Reference Range Interpretation Comments MPV (test code = MPV) 7.2 7.4-10.4 [facility] [id number] 09:10:00 Test Item Value Reference Range Interpretation Comments Phosphorus (test code = Phosphorus) 2.3 2.5-4.5 [facility] [id number] 09:10:00 Test Item Value Reference Range Interpretation Comments Magnesium Lvl (test code = Magnesium 1.5 1.8-2.4 Lvl) [id number] 09:10:00 Test Item Value Reference Range Interpretation Comments AGAP (test code = AGAP) 11.0 10.0-20.0 [facility] C[id number] 09:10:00 Test Item Value Reference Range Interpretation Comments Glucose Lvl (test code = Glucose Lvl) 81 70-99 [facility] CenterYtrqnavATQYZSHYFPMJ9989-07-27 09:10:00 Test Item Value Reference Range Interpretation Comments Sodium Lvl (test code = Sodium Lvl) 138 135-145 [facility] Center[id number] 09:10:00 Test Item Value Reference Range Interpretation Comments BUN (test code = BUN) 16 7-22 [facility] CenterDfpodkgLDJSORWRKJUR1920-54-41 09:10:00 Test Item Value Reference Range Interpretation Comments Potassium Lvl (test code = Potassium 4.0 3.5-5.1 Lvl) [facility] CenterFysmgqdTADPCVWELCAR2074-30-21 09:10:00 Test Item Value Reference Range Interpretation Comments CO2 (test code = CO2) 25 24-32 [facility] CenterDocvkmlXSINLPDPPSDZ6028-59-49 09:10:00 Test Item Value Reference Range Interpretation Comments Chloride Lvl (test code = Chloride Lvl) 106 95-109 [facility] Cen[id number] 09:10:00 Test Item Value Reference Range Interpretation Comments Calcium Lvl (test code = Calcium Lvl) 8.8 8.5-10.5 [facility] Center[id number] 09:10:00 Test Item Value Reference Range Interpretation Comments eGFR (test code = eGFR) 85 [facility] CenterGdhasidHLHYHAAUOAPF4363-12-80 09:10:00 Test Item Value Reference Range Interpretation Comments Creatinine Lvl (test code = Creatinine 0.98 0.50-1.40 Lvl) [facility]HkqsfrxQWBCQPZIPD0868-03-07 09:10:00 Test Item Value Reference Range Interpretation Comments Eosinophils # (test code 0.1 See_Comment [A utomated message] The = Eosinophils #) system whic h generated this result tra nsmitted reference range : <=0.5. The reference r mic was not used to int erpret this result as normal/abnormal . [facility] H[id number] 09:10:00 Test Item Value Reference Range Interpretation Comments Monocytes # (test code 0.8 See_Comment [Aut omated message] The = Monocytes #) system which generated this result tra nsmitted reference range : <=0.8. The reference r mic was not used to int erpret this result as normal/abnormal . [facility] HospitalSunajxdQRQYEZJXPJ1112-77-71 09:10:00 Test Item Value Reference Range Interpretation Comments Basophils # (test code 0.0 See_Comment [Aut omated message] The = Basophils #) system which generated this result tra nsmitted reference range : <=0.2. The reference r mic was not used to int erpret this result as normal/abnormal . [facility] HospitalWowtegfSRULMXNGPK1360-10-56 09:10:00 Test Item Value Reference Range Interpretation Comments Macrocyte (test code = 1+ *ABN*(03/05/15 Macrocyte) 3:10 AM) [facility] H[id number] 09:10:00 Test Item Value Reference Range Interpretation Comments Eosinophils (test code = 1.6 See_Comment [A utomated message] The Eosinophils) system which ge nerated this result tra nsmitted reference range : <=4.0. The reference r mic was not used to int erpret this result as normal/abnormal . [facility] H[id number] 09:10:00 Test Item Value Reference Range Interpretation Comments Basophils (test code = 0.5 See_Comment [Aut omated message] The Basophils) system which ge nerated this result tra nsmitted reference range : <=1.0. The reference r mic was not used to int erpret this result as normal/abnormal . [facility] HospitalMrohvomMYNRAZSNFA3803-15-23 09:10:00 Test Item Value Reference Range Interpretation Comments Monocytes (test code = Monocytes) 10.9 2.0-12.0 [facility] HospitalDfriwmbMVPBKHFYMY4609-78-77 09:10:00 Test Item Value Reference Range Interpretation Comments Lymphocytes # (test code = Lymphocytes 2.2 1.0-5.5 #) [facility] HospitalZobhmwnJMRQWRZLWF0287-76-54 09:10:00 Test Item Value Reference Range Interpretation Comments Segs-Bands # (test code = Segs-Bands #) 4.5 1.5-8.1 [facility] HospitalLpsjybsGJBJSEJCEB2012-18-56 09:10:00 Test Item Value Reference Range Interpretation Comments Segs (test code = Segs) 58.5 45.0-75.0 [facility] HospitalBqnarkgGIFZXRCLWO6172-05-88 09:10:00 Test Item Value Reference Range Interpretation Comments Lymphocytes (test code = Lymphocytes) 28.5 20.0-40.0 [facility] HospitalVrldmjzPRMBCATWUN3958-56-21 09:10:00 Test Item Value Reference Range Interpretation Comments Hgb (test code = Hgb) 15.9 14.0-18.0 [facility] HospitalIkmnryvPRPYLUXVDM1223-40-17 09:10:00 Test Item Value Reference Range Interpretation Comments RBC (test code = RBC) 5.05 4.70-6.10 [facility] HospitalVtrlcmbVUCQODVBAF6074-88-76 09:10:00 Test Item Value Reference Range Interpretation Comments WBC (test code = WBC) 7.6 3.7-10.4 [facility] HospitalHqycckmNLCPHRFVLR9210-39-09 09:10:00 Test Item Value Reference Range Interpretation Comments Hct (test code = Hct) 48.6 42.0-54.0 [facility] HospitalFfldvysSSCDFEQDIC4174-28-15 09:10:00 Test Item Value Reference Range Interpretation Comments MCHC (test code = MCHC) 32.7 32.0-36.0 [facility] HospitalMrkuzawVLSHHDWZQZ5937-97-39 09:10:00 Test Item Value Reference Range Interpretation Comments MCH (test code = MCH) 31.5 pg 27.0-31.0 [facility] HospitalIhpasdpONVLUCCBUV5853-47-68 09:10:00 Test Item Value Reference Range Interpretation Comments MCV (test code = MCV) 96.3 80.0-94.0 [facility] IzisaaxDGJJWAMYGV9168-44-61 09:10:00 Test Item Value Reference Range Interpretation Comments RDW (test code = RDW) 15.9 11.5-14.5 [facility] FbaevezUTQMOKOKYY0659-10-39 09:10:00 Test Item Value Reference Range Interpretation Comments Platelet (test code = Platelet) 293 133-450 [facility] [id number] 04:25:00 Test Item Value Reference Range Interpretation Comments U Phencyc Scr (test Negative *NA*(03/04/15 code = U Phencyc Scr) 10:25 PM) [facility] [id number] 04:25:00 Test Item Value Reference Range Interpretation Comments U Opiate Scr (test Positive *ABN*(03/04/15 code = U Opiate Scr) 10:25 PM) [facility] [id number] 04:25:00 Test Item Value Reference Range Interpretation Comments UDS Note (test code = See Note (03/04/15 10:25 UDS Note) PM) [facility] [id number] 04:25:00 Test Item Value Reference Range Interpretation Comments U Cannab Scr (test Negative *NA*(03/04/15 code = U Cannab Scr) 10:25 PM) [facility] [id number] 04:25:00 Test Item Value Reference Range Interpretation Comments U Cocaine Scr (test Negative *NA*(03/04/15 code = U Cocaine Scr) 10:25 PM) [facility] [id number] 04:25:00 Test Item Value Reference Range Interpretation Comments U Amph Scr (test code Negative *NA*(03/04/15 = U Amph Scr) 10:25 PM) [facility] [id number] 04:25:00 Test Item Value Reference Range Interpretation Comments U Denisse Scr (test code Negative *NA*(03/04/15 = U Denisse Scr) 10:25 PM) [facility] [id number] 04:25:00 Test Item Value Reference Range Interpretation Comments U Benzodia Scr (test Negative *NA*(03/04/15 code = U Benzodia Scr) 10:25 PM) [facility]annUR[facility] AND [id number] 04:25:00 Test Item Value Reference Range Interpretation Comments UA Spec Grav (test code = UA Spec 1.015 1 Grav) [facility] AND [id number] 04:25:00 Test Item Value Reference Range Interpretation Comments UA pH (test code = UA pH) 5.0 1 5.0-8.0 [facility] AND [id number] 04:25:00 Test Item Value Reference Range Interpretation Comments UA Turbidity (test code = Clear (03/04/15 10:25 UA Turbidity) PM) [facility] AND [id number] 04:25:00 Test Item Value Reference Range Interpretation Comments UA Glucose (test code Negative (03/04/15 10:25 = UA Glucose) PM) [facility] AND [id number] 04:25:00 Test Item Value Reference Range Interpretation Comments UA Ketones (test code Negative *NA*(03/04/15 = UA Ketones) 10:25 PM) [facility] AND [id number] 04:25:00 Test Item Value Reference Range Interpretation Comments UA Protein (test code = Trace *ABN*(03/04/15 UA Protein) 10:25 PM) [facility] AND [id number] 04:25:00 Test Item Value Reference Range Interpretation Comments UA Color (test code = Yellow *NA*(03/04/15 UA Color) 10:25 PM) [facility] AND [id number] 04:25:00 Test Item Value Reference Range Interpretation Comments UA RBC (test code = 2 See_Comment [Automa candy message] The UA RBC) system which ge nerated this result transmit candy reference range : <=2. The reference range was not used to interpr et this result as ines l/abnormal. [facility] AND [id number] 04:25:00 Test Item Value Reference Range Interpretation Comments UA Mucus (test code = UA Mucus) Few /LPF [facility] AND [id number] 04:25:00 Test Item Value Reference Range Interpretation Comments UA WBC (test code = 1 See_Comment [Automa candy message] The UA WBC) system which ge nerated this result transmit candy reference range : <=5. The reference range was not used to interpr et this result as ines l/abnormal. [facility] [id number] 04:25:00 Test Item Value Reference Range Interpretation Comments UA Sq Epi (test code = UA Sq Epi) Few /LPF [facility] [id number] 04:25:00 Test Item Value Reference Range Interpretation Comments UA Bili (test code = Small *ABN*(03/04/15 UA Bili) 10:25 PM) [facility] [id number] 04:25:00 Test Item Value Reference Range Interpretation Comments UA Urobilinogen (test code = UA 0.2 0.1-1.0 Urobilinogen) [facility] [id number] 04:25:00 Test Item Value Reference Range Interpretation Comments UA Blood (test code = Negative (03/04/15 10:25 UA Blood) PM) [facility] [id number] 04:25:00 Test Item Value Reference Range Interpretation Comments UA Nitrite (test code Negative (03/04/15 10:25 = UA Nitrite) PM) [facility] [id number] 04:25:00 Test Item Value Reference Range Interpretation Comments UA Leuk Est (test Negative (03/04/15 10:25 code = UA Leuk Est) PM) [facility] [id number] 04:11:00 Test Item Value Reference Range Interpretation Comments Troponin-I (test code no gt See_Comment [Auto mated message] The = Troponin-I) system which g enerated this result transmit candy reference range : <=0.40. The reference r mic was not used to interpr et this result as ines l/abnormal. [facility] [id number] 04:11:00 Test Item Value Reference Range Interpretation Comments Total CK (test code = Total CK) 34 -191 [facility] HermannCARDIAC [id number] 23:11:00 Test Item Value Reference Range Interpretation Comments Total CK (test code = Total CK) 31 191 [facility] HermannCARDIAC [id number] 23:11:00 Test Item Value Reference Range Interpretation Comments Troponin-I (test code no gt See_Comment [Auto mated message] The = Troponin-I) system which g enerated this result transmit candy reference range : <=0.40. The reference r mic was not used to interpr et this result as ines l/abnormal. [facility] [employer] [id number] 16:03:00 Test Item Value Reference Range Interpretation Comments Troponin-I (test code no gt See_Comment [Auto mated message] The = Troponin-I) system which g enerated this result transmit candy reference range : <=0.40. The reference r mic was not used to interpr et this result as ines l/abnormal. [facility]The [facility] GroupAC [id number] 16:03:00 Test Item Value Reference Range Interpretation Comments CK MB (test code = CK MB) no gt 0.5-3.6 [facility] [id number] 16:03:00 Test Item Value Reference Range Interpretation Comments Total CK (test code = Total CK) 49 12-191 [facility] [id number] 16:03:00 Test Item Value Reference Range Interpretation Comments CK MB Index (test no gt See_Comment [Automate d message] The code = CK MB Index) system w [facility] generated this result transmit candy reference range : <=2.5. The reference range was not used to interpr et this result as ines l/abnormal. [facility] exsulin2015-11-06 16:03:00 Test Item Value Reference Range Interpretation Comments eGFR (test code = eGFR) 81 [facility] [id number] 16:03:00 Test Item Value Reference Range Interpretation Comments Glucose Lvl (test code = Glucose Lvl) 94 70-99 [facility] exsulin2015-11-06 16:03:00 Test Item Value Reference Range Interpretation Comments AGAP (test code = AGAP) 12.8 10.0-20.0 [facility] [employer] [id number] 16:03:00 Test Item Value Reference Range Interpretation Comments BUN (test code = BUN) 12 7-22 [facility] [employer] [id number] 16:03:00 Test Item Value Reference Range Interpretation Comments Creatinine Lvl (test code = Creatinine 1.02 0.50-1.40 Lvl) [facility] exsulin2015-11-06 16:03:00 Test Item Value Reference Range Interpretation Comments CO2 (test code = CO2) 25 24-32 [facility]2015-11-06 16:03:00 Test Item Value Reference Range Interpretation Comments Chloride Lvl (test code = Chloride Lvl) 105 95-109 [facility]2015-11-06 16:03:00 Test Item Value Reference Range Interpretation Comments Calcium Lvl (test code = Calcium Lvl) 9.5 8.5-10.5 [facility]2015-11-06 16:03:00 Test Item Value Reference Range Interpretation Comments Sodium Lvl (test code = Sodium Lvl) 138 135-145 [facility]2015-11-06 16:03:00 Test Item Value Reference Range Interpretation Comments Potassium Lvl (test code = Potassium 4.8 3.5-5.1 Lvl) [id number] 16:03:00 Test Item Value Reference Range Interpretation Comments INR (test code = INR) 0.92 0.85-1.17 [facility] HospitalUhnyvtuOZXYFTZKFL4909-11-01 16:03:00 Test Item Value Reference Range Interpretation Comments PT (test code = PT) 12.7 s 12.0-14.7 [facility] Hospit[id number] 16:03:00 Test Item Value Reference Range Interpretation Comments PTT (test code = PTT) 29.9 s 22.9-35.8 [facility] HospitalDjxalhxRXRLETOIHP7223-11-83 16:03:00 Test Item Value Reference Range Interpretation Comments MCV (test code = MCV) 95.1 80.0-94.0 [facility] H[id number] 16:03:00 Test Item Value Reference Range Interpretation Comments RDW (test code = RDW) 15.9 11.5-14.5 [facility] Hospit[id number] 16:03:00 Test Item Value Reference Range Interpretation Comments MCH (test code = MCH) 31.8 pg 27.0-31.0 [facility] Hospit[id number] 16:03:00 Test Item Value Reference Range Interpretation Comments Platelet (test code = Platelet) 326 952-450 [facility] HospitalTqcogqcJWHQUGWGYE7496-10-44 16:03:00 Test Item Value Reference Range Interpretation Comments MPV (test code = MPV) 6.9 7.4-10.4 [facility] Hospit[id number] 16:03:00 Test Item Value Reference Range Interpretation Comments MCHC (test code = MCHC) 33.5 32.0-36.0 [facility] Hospit[id number] 16:03:00 Test Item Value Reference Range Interpretation Comments Hct (test code = Hct) 50.8 42.0-54.0 [facility] H[id number] 16:03:00 Test Item Value Reference Range Interpretation Comments Hgb (test code = Hgb) 17.0 14.0-18.0 [facility] Hospit[id number] 16:03:00 Test Item Value Reference Range Interpretation Comments RBC (test code = RBC) 5.34 4.70-6.10 [facility] HospitalInaukeiRRATFJAFCW6099-85-13 16:03:00 Test Item Value Reference Range Interpretation Comments WBC (test code = WBC) 12.0 3.7-10.4 [facility] HospitalAwiwnwnBKRANRDYBA4247-13-75 16:03:00 Test Item Value Reference Range Interpretation Comments Lymphocytes (test code = Lymphocytes) 18.4 20.0-40.0 [facility] H[id number] 16:03:00 Test Item Value Reference Range Interpretation Comments Macrocyte (test code = 1+ *ABN*(03/04/15 Macrocyte) 10:03 AM) [facility] H[id number] 16:03:00 Test Item Value Reference Range Interpretation Comments Monocytes # (test code 0.9 See_Comment [Aut omated message] The = Monocytes #) system which generated this result tra nsmitted reference range : <=0.8. The reference r mic was not used to int erpret this result as normal/abnormal . [facility] H[id number] 16:03:00 Test Item Value Reference Range Interpretation Comments Lymphocytes # (test code = Lymphocytes 2.2 1.0-5.5 #) [facility] HospitalZazouarAJOMNRKYWN6656-62-25 16:03:00 Test Item Value Reference Range Interpretation Comments Eosinophils # (test code 0.1 See_Comment [A utomated message] The = Eosinophils #) system whic h generated this result tra nsmitted reference range : <=0.5. The reference r mic was not used to int erpret this result as normal/abnormal . [facility] HospitalTzdxsthYNHPSQNDKA0835-62-00 16:03:00 Test Item Value Reference Range Interpretation Comments Eosinophils (test code = 0.5 See_Comment [A utomated message] The Eosinophils) system which ge nerated this result tra nsmitted reference range : <=4.0. The reference r mic was not used to int erpret this result as normal/abnormal . [facility] HospitalKkcbavaLHDDPQOQES3433-58-42 16:03:00 Test Item Value Reference Range Interpretation Comments Monocytes (test code = Monocytes) 7.8 2.0-12.0 [facility] Hospit[id number] 16:03:00 Test Item Value Reference Range Interpretation Comments Segs-Bands # (test code = Segs-Bands #) 8.8 1.5-8.1 [facility] H[id number] 16:03:00 Test Item Value Reference Range Interpretation Comments Basophils (test code = 0.4 See_Comment [Aut omated message] The Basophils) system which ge nerated this result tra nsmitted reference range : <=1.0. The reference r mic was not used to int erpret this result as normal/abnormal . [facility] HospitalJlpcszkKIXCVRFPRF6160-22-25 16:03:00 Test Item Value Reference Range Interpretation Comments RBC Morph (test code = Normal (03/04/15 10:03 RBC Morph) AM) [facility] HospitalCqctfvrKDTLNVLXRI0677-93-62 16:03:00 Test Item Value Reference Range Interpretation Comments Segs (test code = Segs) 72.9 45.0-75.0 [facility] HospitalUrmvdoaURABOOLFGZ2143-17-17 16:03:00 Test Item Value Reference Range Interpretation Comments Plt Morph (test code = Normal (03/04/15 10:03 Plt Morph) AM) [facility]TypnvnhGYKCTA1115-71-19 16:00:00 Test Item Value Reference Range Interpretation Comments VLDL (test code = VLDL) 31 [facility] ParkwayWggpvuaSNWTHK3441-75-59 16:00:00 Test Item Value Reference Range Interpretation Comments CHD Risk (test code = CHD Risk) 3.86 4.00-7.30 [facility] ParkwayShacoujWKFCIF8592-14-97 16:00:00 Test Item Value Reference Range Interpretation Comments LDL (Calculated) (test code = LDL 149 (Calculated)) [facility] ParkwayLnskhrhZFSGVC4382-94-38 16:00:00 Test Item Value Reference Range Interpretation Comments Trig (test code = Trig) 155 [facility] CenterZusmevyDGJXDE5396-47-39 16:00:00 Test Item Value Reference Range Interpretation Comments Chol (test code = Chol) 243 [facility] CenterFfbaxewJLSSVB3923-40-47 16:00:00 Test Item Value Reference Range Interpretation Comments HDL (test code = HDL) 63 [facility] GVYMXVJKM7742-39-22 16:00:00 Test Item Value Reference Range Interpretation Comments Hgb A1C (test code = Hgb A1C) 5.6 [facility] CenterTHYROID [id number] 16:00:00 Test Item Value Reference Range Interpretation Comments TSH (test code = TSH) 1.840 0.360-3.740 [facility]
[2021-09-21 17:49] VITALS: BMI 31.9
[2021-09-21] MEDS: ATORVASTATIN 20 MG TAB PO SCH (20:39)
[2021-09-21] MEDS: METOPROLOL TAR 50 MG TAB PO SCH (20:39)
[2021-09-21] MEDS: levETIRAcetam 500 MG TAB PO SCH (20:39)
[2021-09-21] MEDS: levoFLOXacin 500 MG TAB PO SCH (20:39)
[2021-09-21] MEDS: BACLOFEN 10 MG TAB PO SCH (20:39)
[2021-09-21] MEDS: NYSTATIN PWDR 100000 UNIT/GM TOP SCH (20:39)
[2021-09-22 05:20] LABS: Absolute Lymphocytes (CBC) 2.7 K/uL (0.7-4.9); Hematocrit 42.6 % (39.6-49.0); Lymphocytes % 29.6 % (15.3-44.8); MPV 7.3 fL (7.6-11.3); RBC Red Blood Cell Count 5.24 M/uL (4.33-5.43)
[2021-09-22 06:06] LABS: Albumin 2.8 g/dL (3.4-5.0); Magnesium 1.8 mg/dL (1.8-2.4); Potassium 4.1 mmol/L (3.5-5.1); Prealbumin 12.7 mg/dL (20-40)
[2021-09-22] MEDS: BACLOFEN 10 MG TAB PO SCH ×3 (08:56→20:48)
[2021-09-22] MEDS: METOPROLOL TAR 50 MG TAB PO SCH ×2 (08:56→20:47)
[2021-09-22] MEDS: ENOXAPARIN 40 MG/0.4 ML SQ SCH (08:56)
[2021-09-22] MEDS: CLOPIDOGREL 75 MG TABLET PO SCH (08:56)
[2021-09-22] MEDS: levETIRAcetam 500 MG TAB PO SCH ×2 (08:56→20:47)
[2021-09-22] MEDS: NYSTATIN PWDR 100000 UNIT/GM TOP SCH ×2 (08:56→20:47)
--- NOTE | 2021-09-22 10:11 | P.RH.PN ---
Estimated Length of Stay: 11 Expected Discharge Date: 09/04/21 Discharge Disposition Plan: Home Family Support: Yes Skilled Nursing Goal: Mobility, Transfers, Self Care Vital Signs: Last Vital Signs Temp 97.2 F 09/22/21 08:00 Pulse 62 09/22/21 08:56 Resp 16 09/22/21 08:00 BP 159/74 H 09/22/21 08:56 Pulse Ox 97 09/22/21 08:00 Laboratory: Laboratory Last Values WBC 9.0 K/uL (4.3-10.9) 09/22/21 04:33 RBC 5.24 M/uL (4.33-5.43) 09/22/21 04:33 Hgb 13.9 g/dL (13.6-17.9) 09/22/21 04:33 Hct 42.6 % (39.6-49.0) 09/22/21 04:33 MCV 81.3 fL (80-100) 09/22/21 04:33 MCH 26.6 pg (27.0-35.0) L 09/22/21 04:33 MCHC 32.7 g/dL (32.0-36.0) 09/22/21 04:33 RDW 15.2 % (12.1-15.2) 09/22/21 04:33 Plt Count 235 K/uL (152-406) 09/22/21 04:33 MPV 7.3 fL (7.6-11.3) L 09/22/21 04:33 Neutrophils % 60.1 % (41.7-73.7) 09/22/21 04:33 Lymphocytes % 29.6 % (15.3-44.8) 09/22/21 04:33 Monocytes % 7.1 % (3.3-12.3) 09/22/21 04:33 Eosinophils % 2.5 % (0-4.4) 09/22/21 04:33 Basophils % 0.7 % (0-1.3) 09/22/21 04:33 Absolute Neutrophils 5.4 K/uL (1.8-8.0) 09/22/21 04:33 Absolute Lymphocytes 2.7 K/uL (0.7-4.9) 09/22/21 04:33 Absolute Monocytes 0.6 K/uL (0.1-1.3) 09/22/21 04:33 Absolute Eosinophils 0.2 K/uL (0-0.5) 09/22/21 04:33 Absolute Basophils 0.1 K/uL (0-0.5) 09/22/21 04:33 Sodium 138 mmol/L (136-145) 09/22/21 04:33 Potassium 4.1 mmol/L (3.5-5.1) 09/22/21 04:33 Chloride 109 mmol/L (98-107) H 09/22/21 04:33 Carbon Dioxide 25 mmol/L (21-32) 09/22/21 04:33 Anion Gap 8.1 mEq/L (5.0-15.0) 09/22/21 04:33 BUN 20 mg/dL (7-18) H 09/22/21 04:33 Creatinine 0.98 mg/dL (0.55-1.3) 09/22/21 04:33 Est GFR (CKD-EPI) 86 ml/min (=/>90) L 09/22/21 04:33 Glucose 78 mg/dL (74-106) 09/22/21 04:33 Calcium 8.3 mg/dL (8.5-10.1) L 09/22/21 04:33 Magnesium 1.8 mg/dL (1.8-2.4) 09/22/21 04:33 Albumin 2.8 g/dL (3.4-5.0) L 09/22/21 04:33 Prealbumin 12.7 mg/dL (20-40) L 09/22/21 04:33 Weight: 229 lb Physician Update: Labs reviewed and are stable. He will be evaluated by therapy today for his acute on chronic lower back pain. CGA with sit to stand and 250'. Will put 2 lidocaine patches to the back. Gabapentin 100 mg bid. Summary: Patient's care plan and skilled nursing goals have been reviewed and revised as necessary. Please see the Rehabilitation Signature page for all necessary signatures.
--- NOTE | 2021-09-22 18:27 | PAPE ---
POST ADMISSION PHYSICIAN EVALUATION PATIENT: [facility] MR# [id number] REFERRING DOCTOR airam Cunningham EVALUATION DATE AND TIME 09/22/2021 18:26 (CDT) NAME MARTINEZ RITCHIE DATE OF 1955 AGE 66 PHONE SSN# [id number] GENDER male EVALUATING PHYSICIAN Dr. Rj King M.D. ADMISSION DIAGNOSIS: Low back pain (M54.5) ONSET DATE 09/18/2021 POST-ADMISSION FUNCTIONAL/MEDICAL STATUS: - Bladder Same accident frequency: 7-Ind - No accidents in the past 7 days - Bowel Same accident frequency: 7-Ind - No accidents in the past 7 days - Walking Same score based on distance walked: 2(50-149ft) STATUS CHANGE EVALUATION: No change in Functional or Medical Status is identified compared with Pre-Admission screening. PATIENT NEEDS CLOSE MEDICAL SUPERVISION BY A REHABILITATION PHYSICIAN FOR: Coordination of Treatment Team Post-Op Complications Wound Care Bowel and Bladder Management Medical and Co-Morbidity Management Pain Management PATIENT REQUIRES 24X7 REHAB NURSING FOR MEDICAL AND FUNCTIONAL MGT. OF THE FOLLOWING DEFICITS: Patient requires 24x7 Rehabilitation Nursing for: Pain Issues, Identifying and preventing risk factor s, Monitoring and reporting current medical conditions, Assisting with ambulation and transfer, Arias ting with all ADL-s, Teaching patients about disease process and medications, Family teaching, Provid ing safe environment, Bowel and Bladder Issues, Skin Integrity, and Medication Management PATIENT REQUIRES INTENSIVE, COORDINATED INTERDISCIPLINARY APPROACH TO REHAB: Patient needs Dietary and Nutrition Services for: Adequate Nutrition, Nutritional Supplements, and Nu tritional Education Patient needs Crozer Operator and/or Case Management for: Discharge Planning, Arranging Home Equipmen t or Services, and Family Interventions LIST OF IDENTIFIED AND POTENTIAL PROBLEMS: Alteration in leisure activities Bladder, Incontinence Bowel, Incontinence Falls, Actual or Potential Infection, Actual or Potential Mobility Impaired Pain, Alteration in Comfort Self Care Deficit Skin Integrity, Actual or Potential Urinary Tract Infection (UTI), Actual or Potential RISK FOR COMPLICATIONS - DVT Active and Passive ROM exercises. Assist patient with frequent position changes. Elevate BLE. - Skin Breakdown Encourage ambulation as tolerated. Repositioning q 2 hours. Use of pillows or foam wedges while in be d. - Aspiration Monitor for overt s/s of aspiration. - Seizure Identify risk factors. - Respiratory Failure Monitor pt O2 sats. Administer supplemental O2 as needed. - Pain Assist patient with frequent position changes at least every 2 hours. Education on relaxation and anup p breathing techniques. Anticipate the need for pain medication for optimal pain managment. Administe r prescribed pain medication as needed. - Stroke Monitor and maintain patient pain level. Monitor patient blood pressure. - Falls Assess for medication side effects. Maintain call light within patient reach for easy access to nursi ng assistance. Provide assistance getting out of bed and with ambulation. Provide assistive devices. - Fluid Overload Monitor pt fluid intake. INTERVENTIONS - UTI Monitor pt labs. Administer prescribed antibiotics, monitor effectiveness. - Suprapubic Catheter Monitor pt v/s. Monitor characteristics of urine. Encourage increased fluid intake as indicated. Ashanti tor for s/s of infection. - Hypertensive urgency monitor pt BP regularly. Monitor and control pt pain. Administer prescribed medications and monitor effectiveness. - Pleural Effusion Monitor color and characteristics of pt respiratory secretions. Monitor for pt nail beds and skin cy anosis. Monitor pt breathing rate, characteristics, involvement of accessory muscles when breathing a nd irregular breathing patterns. Monitor pt o2 saturation. - Cirrhosis Administer medications as prescribed per MD. Monitor and replete electrolytes. - Pain Monitor for headaches. Monitor and treat with prescribed pain medications. Non pharmacological pain m anagement. PATIENT COULD BE AT RISK FOR COMPLICATIONS FROM ADVERSE MEDICAL CONDITIONS DUE TO HIS/HER COMORBIDITI ES AND THE RIGORS OF THE INTENSIVE REHABILLITATION PROGRAM. METHODS OR INTERVENTIONS TO AVOID COMPLIC ATIONS INCLUDE: - Bleeding Assess lab values and manage abnormalities. Nursing to teach precautions for anti-coagulation therapy . Wound to be assessed every shift. - Infection Clinical staff to assess and manage the signs and symptoms of infection including fever, redness, war mth, etc. - Urinary Tract Infection - Falls Patient will be evaluated for Fall Precautions and will be placed on Fall Precautions as indicated pe r protocol. - Skin Breakdown Nursing will assess skin daily using assessment tool and will place on Skin Breakdown Precautions as indicated per protocol. - Pain Clinical staff may employ non-medication methods such as massage, distraction, decrease stimulus, etc . as needed. Clinical staff will assess patient's pain level every shift per protocol to assess and e nsure pain management effectiveness. Medications will be given and the pain level re-assessed. PRELIMINARY PLAN OF CARE: - Physical Therapy Patient needs Physical Therapy for a daily minimum of 1.5 hours at least 5 out of 7 days, to improve: Mobility, Strengthening, Transfers, Stretching, ROM, Endurance, Ability to manage stairs, Gait, and Balance. - Speech Therapy Patient needs Speech Therapy for a daily minimum of 0.5 hours at least 5 out of 7 days, to improve: S wallowing, Cognition, Language Skills, and Compensatory Strategies. - Rehabilitation Nursing Patient requires 24x7 Rehabilitation Nursing for: Pain Issues, Identifying and preventing risk factor s, Monitoring and reporting current medical conditions, Assisting with ambulation and transfer, Arias ting with all ADL-s, Teaching patients about disease process and medications, Family teaching, Provid ing safe environment, Bowel and Bladder Issues, Skin Integrity, and Medication Management. Patient needs Crozer Operator and/or Case Management for: Discharge Planning, Arranging Home Equipmen t or Services, and Family Interventions. - Dietary and Nutrition Services Patient needs Dietary and Nutrition Services for: Adequate Nutrition, Nutritional Supplements, and Nu tritional Education. - Occupational Therapy Patient needs Occupational Therapy for a daily minimum of 1.5 hours at least 5 out of 7 days, to impr ove Activities of Daily Living, including: Eating, Grooming, Bathing, Dressing, Toileting, Toilet Tra nsfers, Community Reintegration, Higher functional activities, Adaptive Equipment, Splinting, Househo ld Tasks, and Other activities as determined. QI SCORES: - Self-Care A. Eating 04-Supervision or touching assistance B. Oral hygiene 04-Supervision or touching assistance C. Toileting hygiene 02-Substantial/maximal assistance E. Shower/bathe self 02-Substantial/maximal assistance F. Upper body dressing 02-Substantial/maximal assistance G. Lower body dressing 02-Substantial/maximal assistance H. Putting on/taking off footwear 02-Substantial/maximal assistance - Mobility A. Roll left and right 03-Partial/moderate assistance B. Sit to lying 03-Partial/moderate assistance C. Lying to sitting on side of bed 03-Partial/moderate assistance D. Sit to stand 04-Supervision or touching assistance E. Chair/jao-[id number] transfer 04-Supervision or touching assistance F. Toilet transfer 04-Supervision or touching assistance G. Car transfer 04-Supervision or touching assistance I. Walk 10 feet 04-Supervision or touching assistance J. Walk 50 feet with two turns 04-Supervision or touching assistance K. Walk 150 feet 88-Not attempted due to medical condition or safety concerns L. Walking 10 feet on uneven surfaces 88-Not attempted due to medical condition or safety concerns M. 1 step (curb) 88-Not attempted due to medical condition or safety concerns N. 4 steps 88-Not attempted due to medical condition or safety concerns O. 12 steps 88-Not attempted due to medical condition or safety concerns P. Picking up object 88-Not attempted due to medical condition or safety concerns R. Wheel 50 feet with two turns 09-Not applicable S. Wheel 150 feet 09-Not applicable - Bladder and Bowel Bladder continence 9-Not applicable Bowel continence 1-Occasionally incontinent - Endurance Fair - Balance Fair - Safety Awareness Fair POTENTIAL FUNCTIONAL GOALS FOR PATIENT TO ACHIEVE BY DISCHARGE: - Safety Precaution Patient will remain free from falls or injury at time of discharge. - Bed Mobility Patient will perform bed mobility at 4-Ninfa level of assistance. - Transfers Patient will complete transfers from bed to chair at 4-Ninfa level of assistance. - Mobility Patient will ambulate 150 ft with 4-Ninfa level of assistance with RW. PATIENT REHAB POTENTIAL Jaci RITCHIE is able and expected to receive 3 hours of individualized therapy daily on at least 5 of every 7 days Jaci RITCHIE's prognosis for significant practical improvement within a reasonable period of time nathen ears Good Expected level of measurable improvement will be of a practical value to Jaci RITCHIE's functional ca pacity or adaptations to impairments Has a viable Discharge Plan Medically appropriate; condition is sufficiently stable to participate in intensive rehab program DISCHARGE PLAN: - Estimated Length of Stay (days) 12. - Consensus on plan Discharge plan has been discussed with primary caregiver. Patient/Family is in agreement with the will n. Primary caregiver is in agreement with the plan. - Patient/Family Goals Return home independently. - Planned Living Setting Upon Discharge Home, to live with Family/Relatives. Transitional Living. CONCLUSION ON REHABILITATION NECESSITY: I have evaluated patient's pre-admission functional status and, comparing it to the patient's post-ad mission functional status now, I conclude that the pre-admission assessment was accurate. Patient's c ondition on admission supports the medical necessity of admission to IR[facility]. It is safe to proceed with patient's therapy program. SIGNATURE PANEL: (CDT)
--- NOTE | 2021-09-22 18:27 | R.HP ---
HISTORY AND PHYSICAL FACILITY: [facility] ENCOUNTER DATE AND TIME: 09/22/2021 18:20 (CDT) MR#: [id number] NAME MARTINEZ RITCHIE ADDRESS: [address] [place] [address] CITY: [place] [address]IP [id number] PHONE: DATE OF : 1955 AGE: 66 SSN# [id number] GENDER: Male DEXTERITY Unknown dexterity MARITAL STATUS [facility] PRE-HOSPITAL LIVING SETTING 01 - Home (private home/apt. board/care, assisted living, care home, transitional living) PRE-HOSPITAL LIVING WITH Family/Relatives ENCOUNTER PHYSICIAN: Dr. Rj King M.D. REFERRING DOCTOR: airam Cunningham DATE OF ADMISSION: 09/21/2021 16:07 (CDT) [facility] TYPE AND DETAILS: Type of home: single family house # of levels in the residence: 1 # of steps within the residence: 0 # of steps to enter the residence: 1 ONSET DATE: 09/18/2021 PRIMARY DIAGNOSIS-RELATED SURGERIES: None HISTORY OF PRESENT ILLNESS (HPI): Pt. is a 66 yo male. On 09/18/2021 [facility] with diagnosis Low back pain (M54.5). His impairment category is Pain Syndromes 07 - Back Pain (07.2). Pre-morbidly, Pt. was independent/mod-I in Locomotion and Self-Care; and he had good Balance, Enduran ce, and Safety Awareness. Currently, he has deficits of Locomotion, Social Cognition, Balance, Transfers Control, Self-Care, an d Endurance. Pt. is now referred to [facility] for acute in-patient rehabilitation in order to maximize patient's functional independence in activities of daily living, strength, ROM, and mobi lity. Patient has realistic goal of being discharged at assistance level 6-Kym to reside at Home with Fam henny/Relatives. 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 Cardiac stent HTN PAST SURGICAL HISTORY: left shoulder surgery with plate SOCIAL HISTORY: - Home Living Family/Relatives REVIEW OF SYSTEMS: - Gen No Chills Fatigue No Fever - Eyes No Double Vision No itchiness - ENMT No Difficulty Swallowing - CVS No Chest Discomfort No Chest Pain Fatigue No Weight Gain - Resp No Cough Shortness of Breath - GI Continent No Abdominal Pain No Constipation No Diarrhea - Continent No Kidney Pain No Painful Urination No Urinary Urgency - MSK Joint Pain Muscle Cramps No Stiffness - Skin No Itching No Rash No Suspicious Lesions - Neuro Coordination Difficulty No Difficulty with Concentration No Memory Loss No Seizures Weakness - Psych No Anxiety No Depression No HIV Exposure No Persistent Infections No Seasonal Allergies - Endo No Cold/Heat Intolerance No Excessive Hunger No Excessive Thirst No Excessive Urination PHYSICAL EXAM - Gen Alert and awake Lying in bed No apparent distress Oriented to: person, time, and place - Skin No breakdown No abnormalities - Eyes No abnormalities - ENMT No abnormalities - Neck No abnormalities - CVS RRR - Chest No abnormalities - Abd + bowel sounds - GI Soft Deferred - Suprapubic Cath since 2017 - Ext Mild bilateral lower extremity edema. - MSK 4/5 weakness in both lower extremities. - Neuro 4/5 strength bilaterally lower extremities. - Psych No abnormalities VITAL SIGNS Temperature: 97.2 F SBP/DBP: 159/74 Pulse: 62 Resp: 16 NURSING: - Shower allowing shower PRECAUTIONS: - Fall Precaution Bed alarm TABS alarm Wheel chair alarm - DVT Risk due to restricted mobility, age, and obesity - Skin Breakdown Risk Routine Wound care due to restricted mobility and age - Seizure Precaution Padding of bed rails, bed alarm, monitor seizure medication levels as necessary - Cardiac Precaution Positive for CAD, PVD prior Stent. Monitor patient for excessive elevation of heart rate and blood pressure during therapy Nursing and Therapy to monitor pt before and after therapy sessions for signs of Chest pain Monitor blood pressure, heart rate, lower extremity edema, notify MD for shortness of breath or chest pain ACTIVITIES OOB only with supervision QI SCORES: - Self-Care A. Eating 04-Supervision or touching assistance B. Oral hygiene 04-Supervision or touching assistance C. Toileting hygiene 02-Substantial/maximal assistance E. Shower/bathe self 02-Substantial/maximal assistance F. Upper body dressing 02-Substantial/maximal assistance G. Lower body dressing 02-Substantial/maximal assistance H. Putting on/taking off footwear 02-Substantial/maximal assistance - Mobility A. Roll left and right 03-Partial/moderate assistance B. Sit to lying 03-Partial/moderate assistance C. Lying to sitting on side of bed 03-Partial/moderate assistance D. Sit to stand 04-Supervision or touching assistance E. Chair/[id number] transfer 04-Supervision or touching assistance F. Toilet transfer 04-Supervision or touching assistance G. Car transfer 04-Supervision or touching assistance I. Walk 10 feet 04-Supervision or touching assistance J. Walk 50 feet with two turns 04-Supervision or touching assistance K. Walk 150 feet 88-Not attempted due to medical condition or safety concerns L. Walking 10 feet on uneven surfaces 88-Not attempted due to medical condition or safety concerns M. 1 step (curb) 88-Not attempted due to medical condition or safety concerns N. 4 steps 88-Not attempted due to medical condition or safety concerns O. 12 steps 88-Not attempted due to medical condition or safety concerns P. Picking up object 88-Not attempted due to medical condition or safety concerns R. Wheel 50 feet with two turns 09-Not applicable S. Wheel 150 feet 09-Not applicable - Bladder and Bowel Bladder continence 9-Not applicable Bowel continence 1-Occasionally incontinent - Endurance Fair - Balance Fair - Safety Awareness Fair CURRENT FUNC. DEFICITS: Self-Care, Mobility, Endurance, Balance, and Safety Awareness MEDICATIONS: - Other See attached MAR (Medication Administration Record) ASSESSMENT: Pt. is a 66 yo male.On 09/18/2021 [facility] with diagnosis Lo w back pain (M54.5).His impairment category is Pain Syndromes 07 - Back Pain (07.2).Pre-morbidly, Pt . was independent/mod-I in Locomotion and Self-Care; and he had good Balance, Endurance, and Safety A wareness.Currently, he has deficits of Locomotion, Social Cognition, Balance, Transfers Control, Self -Care, and Endurance.Pt. is now referred to [facility] for acute in-patient re habilitation in order to maximize patient's functional independence in activities of daily living, [facility], ROM, and mobility.- Rehab Goal Patient has realistic goal of being discharged at assistance level 6-Kym to reside at Home with Fam henny/Relatives. - Physical Therapy Gait dysfunction - to improve, our physical therapists will perform initial evaluation of pt's status upon admission and devise an individualized program for Gait Training, and Wheel Chair mobility Inability to transfer - to improve, our physical therapists will perform initial evaluation of pt's s tatus upon admission and devise an individualized program for Bed mobility Need for home safety evaluation - to improve, our physical therapists will perform initial evaluation of pt's status upon admission and devise an individualized program for Home Evaluation Need in caregiver upon discharge - to improve, our physical therapists will perform initial evaluatio n of pt's status upon admission and devise an individualized program for Caregiver Training New precaution - to improve, our physical therapists will perform initial evaluation of pt's status u ozzy admission and devise an individualized program for Patient precaution education Edema - to improve, our physical therapists will perform initial evaluation of pt's status upon admi ssion and devise an individualized program for Elevation Training, and Lymphedema Therapy Poor balance - to improve, our physical therapists will perform initial evaluation of pt's status upo n admission and devise an individualized program for Balance Training Poor endurance - to improve, our physical therapists will perform initial evaluation of pt's status u ozzy admission and devise an individualized program for Endurance Training Weakness - to improve, our physical therapists will perform initial evaluation of pt's status upon ad mission and devise an individualized program for Aquatic Therapy, Neuromuscular Reeducation, and Stre ngthening Achieving independence - to improve, our physical therapists will perform initial evaluation of pt's status upon admission and devise an individualized program for Community Reintegration Activities - Occupational Therapy ADL deficits - to improve, our occupation therapists will perform initial evaluation of pt's status u ozzy admission and devise an individualized program for Bathing, Bed mobility, Community Reintegration , Cooking, Dressing, Eating, Fine Motor Skills, Grooming, Homemaking, Kitchen Mobility, Laundry, Arianna ent Education, Safety Awareness, Splinting - Positioning, Transfers(Toilet, Tub, Shower), and Wheel C hair Management Cognitive deficits - to improve, our occupation therapists will perform initial evaluation of pt's st atus upon admission and devise an individualized program for Cognition - orientation Need for healthcare applications analyst - to improve, our occupation therapists will perform initial evaluation of pt's s tatus upon admission and devise an individualized program for Caregiver Training Weakness - to improve, our occupation therapists will perform initial evaluation of pt's status upon admission and devise an individualized program for Aquatic Therapy, Balance, Endurance, UE ROM, and U E strengthening MEDICAL PLAN: - Diet Type Start Low Sodium - Diet - Liquid Texture Start Regular - Tube Feed Start N/A - DVT Risk due to restricted mobility, age, and obesity - Skin Breakdown Risk Routine Wound care due to restricted mobility and age - Seizure Precaution Padding of bed rails, bed alarm, monitor seizure medication levels as necessary - Cardiac Precaution Positive for CAD, PVD prior Stent. Monitor patient for excessive elevation of heart rate and blood pressure during therapy Nursing and Therapy to monitor pt before and after therapy sessions for signs of Chest pain Monitor blood pressure, heart rate, lower extremity edema, notify MD for shortness of breath or ches t pain - Fall Precaution Bed alarm TABS alarm Wheel chair alarm - Other See attached MAR (Medication Administration Record) - Diet - Solid Texture Regular - Shower shower DISCHARGE PLAN: - Estimated Length of Stay (days) 12. - Consensus on plan Discharge plan has been discussed with primary caregiver. Patient/Family is in agreement with the will n. Primary caregiver is in agreement with the plan. - Patient/Family Goals Return home independently. - Planned Living Setting Upon Discharge Home, to live with Family/Relatives. Transitional Living. SIGNATURE PANEL: (CDT)
[2021-09-22] MEDS: GABAPENTIN 100 MG CAP PO SCH (20:47)
[2021-09-22] MEDS: levoFLOXacin 500 MG TAB PO SCH (20:48)
[2021-09-22] MEDS: ATORVASTATIN 20 MG TAB PO SCH (20:48)
[2021-09-22] MEDS: DOCUSATE NA/SENNA CONC 1 TAB PO SCH (20:49)
[2021-09-23] MEDS: ENOXAPARIN 40 MG/0.4 ML SQ SCH (07:31)
[2021-09-23] MEDS: CLOPIDOGREL 75 MG TABLET PO SCH (09:20)
[2021-09-23] MEDS: NYSTATIN PWDR 100000 UNIT/GM TOP SCH ×2 (09:20→19:53)
[2021-09-23] MEDS: BACLOFEN 10 MG TAB PO SCH ×3 (09:20→19:55)
[2021-09-23] MEDS: GABAPENTIN 100 MG CAP PO SCH ×2 (09:20→19:55)
[2021-09-23] MEDS: levETIRAcetam 500 MG TAB PO SCH ×2 (09:21→19:56)
[2021-09-23] MEDS: METOPROLOL TAR 50 MG TAB PO SCH ×2 (09:21→19:55)
[2021-09-23] MEDS: ATORVASTATIN 20 MG TAB PO SCH (19:55)
[2021-09-23] MEDS: levoFLOXacin 500 MG TAB PO SCH (19:55)
[2021-09-23] MEDS: DOCUSATE NA/SENNA CONC 1 TAB PO SCH (19:56)
[2021-09-24] MEDS: ACETAMINOPHEN 500 MG TAB PO PRN ×3 (02:06→20:38)
[2021-09-24] MEDS: GABAPENTIN 100 MG CAP PO SCH ×2 (07:44→20:35)
[2021-09-24] MEDS: CLOPIDOGREL 75 MG TABLET PO SCH (07:44)
[2021-09-24] MEDS: BACLOFEN 10 MG TAB PO SCH ×3 (07:44→20:35)
[2021-09-24] MEDS: levETIRAcetam 500 MG TAB PO SCH ×2 (07:44→20:35)
[2021-09-24] MEDS: METOPROLOL TAR 50 MG TAB PO SCH ×2 (07:44→20:36)
[2021-09-24] MEDS: ENOXAPARIN 40 MG/0.4 ML SQ SCH (08:00)
[2021-09-24] MEDS: NYSTATIN PWDR 100000 UNIT/GM TOP SCH ×2 (09:21→20:35)
[2021-09-24] MEDS: APIXABAN 2.5 MG TABLET PO SCH ×2 (10:39→20:36)
[2021-09-24] MEDS: DOCUSATE NA/SENNA CONC 1 TAB PO SCH (20:35)
[2021-09-24] MEDS: levoFLOXacin 500 MG TAB PO SCH (20:35)
[2021-09-24] MEDS: DIVALPROEX ER 250 MG TAB PO SCH (20:36)
[2021-09-24] MEDS: ATORVASTATIN 20 MG TAB PO SCH (20:36)
[2021-09-24] MEDS: MELATONIN 3 MG TABLET PO PRN (20:39)
[2021-09-25] MEDS: ACETAMINOPHEN 500 MG TAB PO PRN (02:56)
[2021-09-25] MEDS: APIXABAN 2.5 MG TABLET PO SCH ×2 (08:39→21:03)
[2021-09-25] MEDS: METOPROLOL TAR 50 MG TAB PO SCH ×2 (09:21→21:04)
[2021-09-25] MEDS: GABAPENTIN 100 MG CAP PO SCH ×2 (09:22→21:04)
[2021-09-25] MEDS: BACLOFEN 10 MG TAB PO SCH ×3 (09:22→21:04)
[2021-09-25] MEDS: CLOPIDOGREL 75 MG TABLET PO SCH (09:22)
[2021-09-25] MEDS: levETIRAcetam 500 MG TAB PO SCH ×2 (09:22→21:04)
[2021-09-25] MEDS: NYSTATIN PWDR 100000 UNIT/GM TOP SCH ×2 (09:23→21:05)
[2021-09-25] MEDS: AMLODIPINE 10 MG TAB PO SCH (10:55)
[2021-09-25] MEDS: DIVALPROEX ER 250 MG TAB PO SCH (21:04)
[2021-09-25] MEDS: levoFLOXacin 500 MG TAB PO SCH (21:04)
[2021-09-25] MEDS: ATORVASTATIN 20 MG TAB PO SCH (21:04)
[2021-09-25] MEDS: DOCUSATE NA/SENNA CONC 1 TAB PO SCH (21:09)
[2021-09-26] MEDS: APIXABAN 2.5 MG TABLET PO SCH ×2 (08:12→20:08)
[2021-09-26] MEDS: METOPROLOL TAR 50 MG TAB PO SCH ×2 (09:09→20:08)
[2021-09-26] MEDS: BACLOFEN 10 MG TAB PO SCH ×3 (09:09→20:07)
[2021-09-26] MEDS: CLOPIDOGREL 75 MG TABLET PO SCH (09:10)
[2021-09-26] MEDS: GABAPENTIN 100 MG CAP PO SCH ×2 (09:10→20:07)
[2021-09-26] MEDS: levETIRAcetam 500 MG TAB PO SCH ×2 (09:10→20:08)
[2021-09-26] MEDS: AMLODIPINE 10 MG TAB PO SCH (11:41)
[2021-09-26] MEDS: NYSTATIN PWDR 100000 UNIT/GM TOP SCH ×2 (11:42→20:08)
--- NOTE | 2021-09-26 18:15 | R.PN ---
PROGRESS NOTES ENCOUNTER DATE AND TIME: 09/26/2021 18:04 (CDT) NAME MARTINEZ RITCHIE DATE OF : 1955 DATE OF ADMISSION: 09/21/2021 16:07 (CDT) Low back pain (M54.5)CHIEF COMPLAINT: Moderate to severe lower back pain SUBJECTIVE: Pt denied any depression. Pt denied any Shortness of Breath. CBC with differential is essentially normal. Calcium 8.3, prealbumin 12.7. Ambulated 500' with standby assistance using a rolling walker. VITAL SIGNS Temperature: 97.2 F SBP/DBP: 139/65 Pulse: 65 Resp: 16 MEDICATION ALLERGIES: No Known Drug Allergies (NKDA) ENVIRONMENTAL ALLERGIES: None Known - Substance Allergies None Known - Other Allergies None Known NURSING: - Shower allowing shower PRECAUTIONS: - Fall Precaution Bed alarm TABS alarm Wheel chair alarm - DVT Risk due to restricted mobility, age, and obesity - Skin Breakdown Risk Routine Wound care due to restricted mobility and age - Seizure Precaution Padding of bed rails, bed alarm, monitor seizure medication levels as necessary - Cardiac Precaution Positive for CAD, PVD prior Stent. Monitor patient for excessive elevation of heart rate and blood pressure during therapy Nursing and Therapy to monitor pt before and after therapy sessions for signs of Chest pain Monitor blood pressure, heart rate, lower extremity edema, notify MD for shortness of breath or chest pain ACTIVITIES OOB only with supervision THERAPIES: - Dietary and Nutrition Adequate Nutrition. Nutritional Education. Nutritional Supplements. - Occupational Therapy Patient needs Occupational Therapy for a daily minimum of 1.5 hours at least 5 out of 7 days, to impr ove Activities of Daily Living, including: Eating, Grooming, Bathing, Dressing, Toileting, Toilet Tra nsfers, Community Reintegration, Higher functional activities, Adaptive Equipment, Splinting, Househo ld Tasks, and Other activities as determined. - Physical Therapy Patient needs Physical Therapy for a daily minimum of 1.5 hours at least 5 out of 7 days, to improve: Mobility, Strengthening, Transfers, Stretching, ROM, Endurance, Ability to manage stairs, Gait, and Balance. PHYSICAL EXAM - Gen Alert and awake Lying in bed No apparent distress Oriented to: person, time, and place - Skin No breakdown No abnormalities - Eyes No abnormalities - ENMT No abnormalities - Neck No abnormalities - CVS RRR - Chest No abnormalities - Abd + bowel sounds - GI Soft Deferred - Suprapubic Cath since 2017 - Ext Mild bilateral lower extremity edema. - MSK 4/5 weakness in both lower extremities. - Neuro 4/5 strength bilaterally lower extremities. - Psych No abnormalities ASSESSMENT: Pt. is a 66 yo male.On 09/18/2021 he was admitted to [facility] with diagnosis Lo w back pain (M54.5).His impairment category is Pain Syndromes 07 - Back Pain (07.2).Pre-morbidly, Pt . was independent/mod-I in Locomotion and Self-Care; and he had good Balance, Endurance, and Safety A wareness.Currently, he has deficits of Locomotion, Social Cognition, Balance, Transfers Control, Self -Care, and Endurance.Pt. is now referred to [facility] for acute in-patient re habilitation in order to maximize patient's functional independence in activities of daily living, st rength, ROM, and mobility.- Rehab Goal Patient has realistic goal of being discharged at assistance level 6-Kym to reside at Home with Fam henny/Relatives. MDM/PLAN: - Physical Therapy Gait dysfunction - to improve, our physical therapists will perform initial evaluation of pt's statu s upon admission and devise an individualized program for Gait Training, and Wheel Chair mobility Inability to transfer - to improve, our physical therapists will perform initial evaluation of pt's status upon admission and devise an individualized program for Bed mobility Need for home safety evaluation - to improve, our physical therapists will perform initial evaluatio n of pt's status upon admission and devise an individualized program for Home Evaluation Need in caregiver upon discharge - to improve, our physical therapists will perform initial evaluati on of pt's status upon admission and devise an individualized program for Caregiver Training New precaution - to improve, our physical therapists will perform initial evaluation of pt's status upon admission and devise an individualized program for Patient precaution education Edema - to improve, our physical therapists will perform initial evaluation of pt's status upon admis joshua and devise an individualized program for Elevation Training, and Lymphedema Therapy Poor balance - to improve, our physical therapists will perform initial evaluation of pt's status up on admission and devise an individualized program for Balance Training Poor endurance - to improve, our physical therapists will perform initial evaluation of pt's status upon admission and devise an individualized program for Endurance Training Weakness - to improve, our physical therapists will perform initial evaluation of pt's status upon a dmission and devise an individualized program for Aquatic Therapy, Neuromuscular Reeducation, and Str engthening Achieving independence - to improve, our physical therapists will perform initial evaluation of pt's status upon admission and devise an individualized program for Community Reintegration Activities - Occupational Therapy ADL deficits - to improve, our occupation therapists will perform initial evaluation of pt's status upon admission and devise an individualized program for Bathing, Bed mobility, Community Reintegratio n, Cooking, Dressing, Eating, Fine Motor Skills, Grooming, Homemaking, Kitchen Mobility, Laundry, Pat ient Education, Safety Awareness, Splinting - Positioning, Transfers(Toilet, Tub, Shower), and Wheel Chair Management Cognitive deficits - to improve, our occupation therapists will perform initial evaluation of pt's s tatus upon admission and devise an individualized program for Cognition - orientation Need for primary health care nurse - to improve, our occupation therapists will perform initial evaluation of pt's status upon admission and devise an individualized program for Caregiver Training Weakness - to improve, our occupation therapists will perform initial evaluation of pt's status upon admission and devise an individualized program for Aquatic Therapy, Balance, Endurance, UE ROM, and UE strengthening - Other See attached MAR (Medication Administration Record) - Diet Type Continue Low Sodium - Diet - Liquid Texture Continue Regular - Tube Feed Continue N/A - DVT Risk due to restricted mobility, age, and obesity - Skin Breakdown Risk Routine Wound care due to restricted mobility and age - Seizure Precaution Padding of bed rails, bed alarm, monitor seizure medication levels as necessary - Cardiac Precaution Positive for CAD, PVD prior Stent. Monitor patient for excessive elevation of heart rate and blood pressure during therapy Nursing and Therapy to monitor pt before and after therapy sessions for signs of Chest pain Monitor blood pressure, heart rate, lower extremity edema, notify MD for shortness of breath or chest pain - Fall Precaution Bed alarm TABS alarm Wheel chair alarm - Diet - Solid Texture Continue Regular - Shower allowing shower FUNCTIONAL STATUS: UPDATED AT WEEKLY TEAM CONFERENCE - Bladder Same accident frequency: 7-Ind - No accidents in the past 7 days - Bowel Same accident frequency: 7-Ind - No accidents in the past 7 days - Walking Same score based on distance walked: 2(50-149ft) FUNCTIONAL STATUS: - Self-Care A. Eating Ind B. Grooming Kym C. Bathing Ninfa D. Dressing - Upper sup E. Dressing - Lower Ninfa F. Toileting Ninfa - Sphincter Control G. Bladder control Kym H. Bowel control Kym - Transfers Control I. Bed/Chair/Wheelchair sup J. Toilet sup K. Tub/Shower Ninfa - Locomotion L. Walk/Wheelchair (B) Ninfa M. Stairs modA - Communication N. Comprehension (B) Kym O. Expression (B) Kym - Social Cognition P. Social Interaction Kym Q. Problem Solving Ind R. Memory Ind - Endurance Good - Balance Good - Safety Awareness Good QI SCORES: - Self-Care A. Eating 04-Supervision or touching assistance B. Oral hygiene 04-Supervision or touching assistance C. Toileting hygiene 02-Substantial/maximal assistance E. Shower/bathe self 02-Substantial/maximal assistance F. Upper body dressing 02-Substantial/maximal assistance G. Lower body dressing 02-Substantial/maximal assistance H. Putting on/taking off footwear 02-Substantial/maximal assistance - Mobility A. Roll left and right 03-Partial/moderate assistance B. Sit to lying 03-Partial/moderate assistance C. Lying to sitting on side of bed 03-Partial/moderate assistance D. Sit to stand 04-Supervision or touching assistance E. Chair/[id number] transfer 04-Supervision or touching assistance F. Toilet transfer 04-Supervision or touching assistance G. Car transfer 04-Supervision or touching assistance I. Walk 10 feet 04-Supervision or touching assistance J. Walk 50 feet with two turns 04-Supervision or touching assistance K. Walk 150 feet 88-Not attempted due to medical condition or safety concerns L. Walking 10 feet on uneven surfaces 88-Not attempted due to medical condition or safety concerns M. 1 step (curb) 88-Not attempted due to medical condition or safety concerns N. 4 steps 88-Not attempted due to medical condition or safety concerns O. 12 steps 88-Not attempted due to medical condition or safety concerns P. Picking up object 88-Not attempted due to medical condition or safety concerns R. Wheel 50 feet with two turns 09-Not applicable S. Wheel 150 feet 09-Not applicable - Bladder and Bowel Bladder continence 9-Not applicable Bowel continence 1-Occasionally incontinent - Endurance Fair - Balance Fair - Safety Awareness Fair CURRENT [facility]. DEFICITS: Self-Care, Mobility, Endurance, Balance, and Safety Awareness SIGNATURE PANEL: (CDT)
[2021-09-26] MEDS: ATORVASTATIN 20 MG TAB PO SCH (20:07)
[2021-09-26] MEDS: levoFLOXacin 500 MG TAB PO SCH (20:09)
[2021-09-26] MEDS: DIVALPROEX ER 250 MG TAB PO SCH (20:11)
[2021-09-26] MEDS: DOCUSATE NA/SENNA CONC 1 TAB PO SCH (20:12)
[2021-09-27] MEDS: levETIRAcetam 500 MG TAB PO SCH ×2 (07:41→20:54)
[2021-09-27] MEDS: APIXABAN 2.5 MG TABLET PO SCH ×2 (07:41→20:54)
[2021-09-27] MEDS: GABAPENTIN 100 MG CAP PO SCH ×2 (07:41→20:55)
[2021-09-27] MEDS: CLOPIDOGREL 75 MG TABLET PO SCH (07:41)
[2021-09-27] MEDS: BACLOFEN 10 MG TAB PO SCH ×3 (07:42→20:55)
[2021-09-27] MEDS: METOPROLOL TAR 50 MG TAB PO SCH ×2 (07:42→20:54)
[2021-09-27] MEDS: AMLODIPINE 10 MG TAB PO SCH (07:42)
[2021-09-27] MEDS: NYSTATIN PWDR 100000 UNIT/GM TOP SCH ×2 (10:08→20:55)
--- NOTE | 2021-09-27 17:01 | R.PN ---
PROGRESS NOTES ENCOUNTER DATE AND TIME: 09/27/2021 16:45 (CDT) NAME MARTINEZ RITCHIE DATE OF : 1955 DATE OF ADMISSION: 09/21/2021 16:07 (CDT) Low back pain (M54.5)CHIEF COMPLAINT: Moderate to severe lower back pain SUBJECTIVE: Pt denied any depression. Pt denied any Shortness of Breath. CBC with differential is essentially normal. Calcium 8.3, prealbumin 12.7. Ambulated 650' with standby assistance using a rolling walker. Self-propelled wheelchair 500' with st andby assistance. VITAL SIGNS Temperature: 97.2 F SBP/DBP: 159/65 Pulse: 56 Resp: 16 MEDICATION ALLERGIES: No Known Drug Allergies (NKDA) ENVIRONMENTAL ALLERGIES: None Known - Substance Allergies None Known - Other Allergies None Known NURSING: - Shower allowing shower PRECAUTIONS: - Fall Precaution Bed alarm TABS alarm Wheel chair alarm - DVT Risk due to restricted mobility, age, and obesity - Skin Breakdown Risk Routine Wound care due to restricted mobility and age - Seizure Precaution Padding of bed rails, bed alarm, monitor seizure medication levels as necessary - Cardiac Precaution Positive for CAD, PVD prior Stent. Monitor patient for excessive elevation of heart rate and blood pressure during therapy Nursing and Therapy to monitor pt before and after therapy sessions for signs of Chest pain Monitor blood pressure, heart rate, lower extremity edema, notify MD for shortness of breath or chest pain ACTIVITIES OOB only with supervision THERAPIES: - Dietary and Nutrition Adequate Nutrition. Nutritional Education. Nutritional Supplements. - Occupational Therapy Patient needs Occupational Therapy for a daily minimum of 1.5 hours at least 5 out of 7 days, to impr ove Activities of Daily Living, including: Eating, Grooming, Bathing, Dressing, Toileting, Toilet Tra nsfers, Community Reintegration, Higher functional activities, Adaptive Equipment, Splinting, Househo ld Tasks, and Other activities as determined. - Physical Therapy Patient needs Physical Therapy for a daily minimum of 1.5 hours at least 5 out of 7 days, to improve: Mobility, Strengthening, Transfers, Stretching, ROM, Endurance, Ability to manage stairs, Gait, and Balance. PHYSICAL EXAM - Gen Alert and awake Lying in bed No apparent distress Oriented to: person, time, and place - Skin No breakdown No abnormalities - Eyes No abnormalities - ENMT No abnormalities - Neck No abnormalities - CVS RRR - Chest No abnormalities - Abd + bowel sounds - GI Soft Deferred - Suprapubic Cath since 2017 - Ext Mild bilateral lower extremity edema. - MSK 4/5 weakness in both lower extremities. - Neuro 4/5 strength bilaterally lower extremities. - Psych No abnormalities ASSESSMENT: Pt. is a 66 yo male.On 09/18/2021 he was admitted to [facility] with diagnosis Lo w back pain (M54.5).His impairment category is Pain Syndromes 07 - Back Pain (07.2).Pre-morbidly, Pt . was independent/mod-I in Locomotion and Self-Care; and he had good Balance, Endurance, and Safety A wareness.Currently, he has deficits of Locomotion, Social Cognition, Balance, Transfers Control, Self -Care, and Endurance.Pt. is now referred to [facility] for acute in-patient re habilitation in order to maximize patient's functional independence in activities of daily living, st rength, ROM, and mobility.- Rehab Goal Patient has realistic goal of being discharged at assistance level 6-Kym to reside at Home with Fam henny/Relatives. MDM/PLAN: - Physical Therapy Gait dysfunction - to improve, our physical therapists will perform initial evaluation of pt's statu s upon admission and devise an individualized program for Gait Training, and Wheel Chair mobility Inability to transfer - to improve, our physical therapists will perform initial evaluation of pt's status upon admission and devise an individualized program for Bed mobility Need for home safety evaluation - to improve, our physical therapists will perform initial evaluatio n of pt's status upon admission and devise an individualized program for Home Evaluation Need in caregiver upon discharge - to improve, our physical therapists will perform initial evaluati on of pt's status upon admission and devise an individualized program for Caregiver Training New precaution - to improve, our physical therapists will perform initial evaluation of pt's status upon admission and devise an individualized program for Patient precaution education Edema - to improve, our physical therapists will perform initial evaluation of pt's status upon admi ssion and devise an individualized program for Elevation Training, and Lymphedema Therapy Poor balance - to improve, our physical therapists will perform initial evaluation of pt's status up on admission and devise an individualized program for Balance Training Poor endurance - to improve, our physical therapists will perform initial evaluation of pt's status upon admission and devise an individualized program for Endurance Training Weakness - to improve, our physical therapists will perform initial evaluation of pt's status upon a dmission and devise an individualized program for Aquatic Therapy, Neuromuscular Reeducation, and Str engthening Achieving independence - to improve, our physical therapists will perform initial evaluation of pt's status upon admission and devise an individualized program for Community Reintegration Activities - Occupational Therapy ADL deficits - to improve, our occupation therapists will perform initial evaluation of pt's status upon admission and devise an individualized program for Bathing, Bed mobility, Community Reintegratio n, Cooking, Dressing, Eating, Fine Motor Skills, Grooming, Homemaking, Kitchen Mobility, Laundry, Pat ient Education, Safety Awareness, Splinting - Positioning, Transfers(Toilet, Tub, Shower), and Wheel Chair Management Cognitive deficits - to improve, our occupation therapists will perform initial evaluation of pt's s tatus upon admission and devise an individualized program for Cognition - orientation Need for care team coordinator scheduler - to improve, our occupation therapists will perform initial evaluation of pt's status upon admission and devise an individualized program for Caregiver Training Weakness - to improve, our occupation therapists will perform initial evaluation of pt's status upon admission and devise an individualized program for Aquatic Therapy, Balance, Endurance, UE ROM, and UE strengthening - Other See attached MAR (Medication Administration Record) - Diet Type Continue Low Sodium - Diet - Liquid Texture Continue Regular - Tube Feed Continue N/A - DVT Risk due to restricted mobility, age, and obesity - Skin Breakdown Risk Routine Wound care due to restricted mobility and age - Seizure Precaution Padding of bed rails, bed alarm, monitor seizure medication levels as necessary - Cardiac Precaution Positive for CAD, PVD prior Stent. Monitor patient for excessive elevation of heart rate and blood pressure during therapy Nursing and Therapy to monitor pt before and after therapy sessions for signs of Chest pain Monitor blood pressure, heart rate, lower extremity edema, notify MD for shortness of breath or ches t pain - Fall Precaution Bed alarm TABS alarm Wheel chair alarm - Diet - Solid Texture Continue Regular - Shower allowing shower FUNCTIONAL STATUS: UPDATED AT WEEKLY TEAM CONFERENCE - Bladder Same accident frequency: 7-Ind - No accidents in the past 7 days - Bowel Same accident frequency: 7-Ind - No accidents in the past 7 days - Walking Same score based on distance walked: 2(50-149ft) FUNCTIONAL STATUS: - Self-Care A. Eating Ind B. Grooming Kym C. Bathing Ninfa D. Dressing - Upper sup E. Dressing - Lower Ninfa F. Toileting Ninfa - Sphincter Control G. Bladder control Kym H. Bowel control Kym - Transfers Control I. Bed/Chair/Wheelchair sup J. Toilet sup K. Tub/Shower Ninfa - Locomotion L. Walk/Wheelchair (B) Ninfa M. Stairs modA - Communication N. Comprehension (B) Kym O. Expression (B) Kym - Social Cognition P. Social Interaction Kym Q. Problem Solving Ind R. Memory Ind - Endurance Good - Balance Good - Safety Awareness Good QI SCORES: - Self-Care A. Eating 04-Supervision or touching assistance B. Oral hygiene 04-Supervision or touching assistance C. Toileting hygiene 02-Substantial/maximal assistance E. Shower/bathe self 02-Substantial/maximal assistance F. Upper body dressing 02-Substantial/maximal assistance G. Lower body dressing 02-Substantial/maximal assistance H. Putting on/taking off footwear 02-Substantial/maximal assistance - Mobility A. Roll left and right 03-Partial/moderate assistance B. Sit to lying 03-Partial/moderate assistance C. Lying to sitting on side of bed 03-Partial/moderate assistance D. Sit to stand 04-Supervision or touching assistance E. Chair/[id number] transfer 04-Supervision or touching assistance F. Toilet transfer 04-Supervision or touching assistance G. Car transfer 04-Supervision or touching assistance I. Walk 10 feet 04-Supervision or touching assistance J. Walk 50 feet with two turns 04-Supervision or touching assistance K. Walk 150 feet 88-Not attempted due to medical condition or safety concerns L. Walking 10 feet on uneven surfaces 88-Not attempted due to medical condition or safety concerns M. 1 step (curb) 88-Not attempted due to medical condition or safety concerns N. 4 steps 88-Not attempted due to medical condition or safety concerns O. 12 steps 88-Not attempted due to medical condition or safety concerns P. Picking up object 88-Not attempted due to medical condition or safety concerns R. Wheel 50 feet with two turns 09-Not applicable S. Wheel 150 feet 09-Not applicable - Bladder and Bowel Bladder continence 9-Not applicable Bowel continence 1-Occasionally incontinent - Endurance Fair - Balance Fair - Safety Awareness Fair CURRENT [facility]. DEFICITS: Self-Care, Mobility, Endurance, Balance, and Safety Awareness SIGNATURE PANEL: (CDT)
[2021-09-27] MEDS: DOCUSATE NA/SENNA CONC 1 TAB PO SCH (20:54)
[2021-09-27] MEDS: DIVALPROEX ER 250 MG TAB PO SCH (20:54)
[2021-09-27] MEDS: ATORVASTATIN 20 MG TAB PO SCH (20:54)
[2021-09-27] MEDS: levoFLOXacin 500 MG TAB PO SCH (20:55)
[2021-09-28 04:56] LABS: Absolute Lymphocytes (CBC) 3.6 K/uL (0.7-4.9); Hematocrit 40.3 % (39.6-49.0); Lymphocytes % 35.1 % (15.3-44.8); MPV 7.4 fL (7.6-11.3); RBC Red Blood Cell Count 4.93 M/uL (4.33-5.43)
[2021-09-28 05:10] LABS: Albumin 2.8 g/dL (3.4-5.0); Potassium 4.7 mmol/L (3.5-5.1); Prealbumin 14.1 mg/dL (20-40)
[2021-09-28] MEDS: APIXABAN 2.5 MG TABLET PO SCH ×2 (07:20→20:08)
[2021-09-28] MEDS: GABAPENTIN 100 MG CAP PO SCH ×2 (07:40→20:08)
[2021-09-28] MEDS: CLOPIDOGREL 75 MG TABLET PO SCH (07:40)
[2021-09-28] MEDS: METOPROLOL TAR 50 MG TAB PO SCH ×2 (07:41→20:08)
[2021-09-28] MEDS: levETIRAcetam 500 MG TAB PO SCH ×2 (07:41→20:08)
[2021-09-28] MEDS: BACLOFEN 10 MG TAB PO SCH ×3 (07:41→20:08)
[2021-09-28] MEDS: AMLODIPINE 10 MG TAB PO SCH (08:54)
[2021-09-28] MEDS: NYSTATIN PWDR 100000 UNIT/GM TOP SCH ×2 (08:55→20:08)
--- NOTE | 2021-09-28 18:37 | R.PN ---
PROGRESS NOTES ENCOUNTER DATE AND TIME: 09/28/2021 18:33 (CDT) NAME MARTINEZ RITCHIE DATE OF : 1955 DATE OF ADMISSION: 09/21/2021 16:07 (CDT) Low back pain (M54.5)CHIEF COMPLAINT: Moderate to severe lower back pain SUBJECTIVE: Pt denied any depression. Pt denied any Shortness of Breath. CBC with differential is essentially normal. Calcium 8.3, prealbumin 14.1. Ambulated 1000' with standby assistance using a rolling walker. VITAL SIGNS Temperature: 97.8 F SBP/DBP: 132/59 Pulse: 60 Resp: 16 MEDICATION ALLERGIES: No Known Drug Allergies (NKDA) ENVIRONMENTAL ALLERGIES: None Known - Substance Allergies None Known - Other Allergies None Known NURSING: - Shower allowing shower PRECAUTIONS: - Fall Precaution Bed alarm TABS alarm Wheel chair alarm - DVT Risk due to restricted mobility, age, and obesity - Skin Breakdown Risk Routine Wound care due to restricted mobility and age - Seizure Precaution Padding of bed rails, bed alarm, monitor seizure medication levels as necessary - Cardiac Precaution Positive for CAD, PVD prior Stent. Monitor patient for excessive elevation of heart rate and blood pressure during therapy Nursing and Therapy to monitor pt before and after therapy sessions for signs of Chest pain Monitor blood pressure, heart rate, lower extremity edema, notify MD for shortness of breath or chest pain ACTIVITIES OOB only with supervision THERAPIES: - Dietary and Nutrition Adequate Nutrition. Nutritional Education. Nutritional Supplements. - Occupational Therapy Patient needs Occupational Therapy for a daily minimum of 1.5 hours at least 5 out of 7 days, to impr ove Activities of Daily Living, including: Eating, Grooming, Bathing, Dressing, Toileting, Toilet Tra nsfers, Community Reintegration, Higher functional activities, Adaptive Equipment, Splinting, Househo ld Tasks, and Other activities as determined. - Physical Therapy Patient needs Physical Therapy for a daily minimum of 1.5 hours at least 5 out of 7 days, to improve: Mobility, Strengthening, Transfers, Stretching, ROM, Endurance, Ability to manage stairs, Gait, and Balance. PHYSICAL EXAM - Gen Alert and awake Lying in bed No apparent distress Oriented to: person, time, and place - Skin No breakdown No abnormalities - Eyes No abnormalities - ENMT No abnormalities - Neck No abnormalities - CVS RRR - Chest No abnormalities - Abd + bowel sounds - GI Soft Deferred - Suprapubic Cath since 2017 - Ext Mild bilateral lower extremity edema. - MSK 4/5 weakness in both lower extremities. - Neuro 4/5 strength bilaterally lower extremities. - Psych No abnormalities ASSESSMENT: Pt. is a 66 yo male.On 09/18/2021 he was admitted to [facility] with diagnosis Lo w back pain (M54.5).His impairment category is Pain Syndromes 07 - Back Pain (07.2).Pre-morbidly, Pt . was independent/mod-I in Locomotion and Self-Care; and he had good Balance, Endurance, and Safety A wareness.Currently, he has deficits of Locomotion, Social Cognition, Balance, Transfers Control, Self -Care, and Endurance.Pt. is now referred to [facility] for acute in-patient re habilitation in order to maximize patient's functional independence in activities of daily living, st rength, ROM, and mobility.- Rehab Goal Patient has realistic goal of being discharged at assistance level 6-Kym to reside at Home with Fam henny/Relatives. MDM/PLAN: - Physical Therapy Gait dysfunction - to improve, our physical therapists will perform initial evaluation of pt's statu s upon admission and devise an individualized program for Gait Training, and Wheel Chair mobility Inability to transfer - to improve, our physical therapists will perform initial evaluation of pt's status upon admission and devise an individualized program for Bed mobility Need for home safety evaluation - to improve, our physical therapists will perform initial evaluatio n of pt's status upon admission and devise an individualized program for Home Evaluation Need in caregiver upon discharge - to improve, our physical therapists will perform initial evaluati on of pt's status upon admission and devise an individualized program for Caregiver Training New precaution - to improve, our physical therapists will perform initial evaluation of pt's status upon admission and devise an individualized program for Patient precaution education Edema - to improve, our physical therapists will perform initial evaluation of pt's status upon admi ssion and devise an individualized program for Elevation Training, and Lymphedema Therapy Poor balance - to improve, our physical therapists will perform initial evaluation of pt's status up on admission and devise an individualized program for Balance Training Poor endurance - to improve, our physical therapists will perform initial evaluation of pt's status upon admission and devise an individualized program for Endurance Training Weakness - to improve, our physical therapists will perform initial evaluation of pt's status upon a dmission and devise an individualized program for Aquatic Therapy, Neuromuscular Reeducation, and Str engthening Achieving independence - to improve, our physical therapists will perform initial evaluation of pt's status upon admission and devise an individualized program for Community Reintegration Activities - Occupational Therapy ADL deficits - to improve, our occupation therapists will perform initial evaluation of pt's status upon admission and devise an individualized program for Bathing, Bed mobility, Community Reintegratio n, Cooking, Dressing, Eating, Fine Motor Skills, Grooming, Homemaking, Kitchen Mobility, Laundry, Pat ient Education, Safety Awareness, Splinting - Positioning, Transfers(Toilet, Tub, Shower), and Wheel Chair Management Cognitive deficits - to improve, our occupation therapists will perform initial evaluation of pt's s tatus upon admission and devise an individualized program for Cognition - orientation Need for career center director - to improve, our occupation therapists will perform initial evaluation of pt's status upon admission and devise an individualized program for Caregiver Training Weakness - to improve, our occupation therapists will perform initial evaluation of pt's status upon admission and devise an individualized program for Aquatic Therapy, Balance, Endurance, UE ROM, and UE strengthening - Other See attached MAR (Medication Administration Record) - Diet Type Continue Low Sodium - Diet - Liquid Texture Continue Regular - Tube Feed Continue N/A - DVT Risk due to restricted mobility, age, and obesity - Skin Breakdown Risk Routine Wound care due to restricted mobility and age - Seizure Precaution Padding of bed rails, bed alarm, monitor seizure medication levels as necessary - Cardiac Precaution Positive for CAD, PVD prior Stent. Monitor patient for excessive elevation of heart rate and blood pressure during therapy Nursing and Therapy to monitor pt before and after therapy sessions for signs of Chest pain Monitor blood pressure, heart rate, lower extremity edema, notify MD for shortness of breath or ches t pain - Fall Precaution Bed alarm TABS alarm Wheel chair alarm - Diet - Solid Texture Continue Regular - Shower allowing shower FUNCTIONAL STATUS: UPDATED AT WEEKLY TEAM CONFERENCE - Bladder Same accident frequency: 7-Ind - No accidents in the past 7 days - Bowel Same accident frequency: 7-Ind - No accidents in the past 7 days - Walking Same score based on distance walked: 2(50-149ft) FUNCTIONAL STATUS: - Self-Care A. Eating Ind B. Grooming Kym C. Bathing Ninfa D. Dressing - Upper sup E. Dressing - Lower Ninfa F. Toileting Ninfa - Sphincter Control G. Bladder control Kym H. Bowel control Kym - Transfers Control I. Bed/Chair/Wheelchair sup J. Toilet sup K. Tub/Shower Ninfa - Locomotion L. Walk/Wheelchair (B) Ninfa M. Stairs modA - Communication N. Comprehension (B) Kym O. Expression (B) Kym - Social Cognition P. Social Interaction Kym Q. Problem Solving Ind R. Memory Ind - Endurance Good - Balance Good - Safety Awareness Good QI SCORES: - Self-Care A. Eating 04-Supervision or touching assistance B. Oral hygiene 04-Supervision or touching assistance C. Toileting hygiene 02-Substantial/maximal assistance E. Shower/bathe self 02-Substantial/maximal assistance F. Upper body dressing 02-Substantial/maximal assistance G. Lower body dressing 02-Substantial/maximal assistance H. Putting on/taking off footwear 02-Substantial/maximal assistance - Mobility A. Roll left and right 03-Partial/moderate assistance B. Sit to lying 03-Partial/moderate assistance C. Lying to sitting on side of bed 03-Partial/moderate assistance D. Sit to stand 04-Supervision or touching assistance E. Chair/[id number] transfer 04-Supervision or touching assistance F. Toilet transfer 04-Supervision or touching assistance G. Car transfer 04-Supervision or touching assistance I. Walk 10 feet 04-Supervision or touching assistance J. Walk 50 feet with two turns 04-Supervision or touching assistance K. Walk 150 feet 88-Not attempted due to medical condition or safety concerns L. Walking 10 feet on uneven surfaces 88-Not attempted due to medical condition or safety concerns M. 1 step (curb) 88-Not attempted due to medical condition or safety concerns N. 4 steps 88-Not attempted due to medical condition or safety concerns O. 12 steps 88-Not attempted due to medical condition or safety concerns P. Picking up object 88-Not attempted due to medical condition or safety concerns R. Wheel 50 feet with two turns 09-Not applicable S. Wheel 150 feet 09-Not applicable - Bladder and Bowel Bladder continence 9-Not applicable Bowel continence 1-Occasionally incontinent - Endurance Fair - Balance Fair - Safety Awareness Fair CURRENT [facility]. DEFICITS: Self-Care, Mobility, Endurance, Balance, and Safety Awareness SIGNATURE PANEL: (CDT)
[2021-09-28] MEDS: levoFLOXacin 500 MG TAB PO SCH (20:08)
[2021-09-28] MEDS: DIVALPROEX ER 250 MG TAB PO SCH (20:08)
[2021-09-28] MEDS: ATORVASTATIN 20 MG TAB PO SCH (20:39)
[2021-09-28] MEDS: DOCUSATE NA/SENNA CONC 1 TAB PO SCH (20:39)
[2021-09-29] MEDS: ACETAMINOPHEN 500 MG TAB PO PRN ×3 (00:46→20:08)
[2021-09-29] MEDS: MELATONIN 3 MG TABLET PO PRN (00:46)
[2021-09-29] MEDS: APIXABAN 2.5 MG TABLET PO SCH ×2 (07:06→19:54)
[2021-09-29] MEDS: levETIRAcetam 500 MG TAB PO SCH ×2 (08:25→19:55)
[2021-09-29] MEDS: CLOPIDOGREL 75 MG TABLET PO SCH (08:25)
[2021-09-29] MEDS: LIDOCAINE 4% PATCH TOP SCH (08:25)
[2021-09-29] MEDS: BACLOFEN 10 MG TAB PO SCH ×3 (08:25→19:56)
[2021-09-29] MEDS: GABAPENTIN 100 MG CAP PO SCH ×2 (08:25→19:56)
[2021-09-29] MEDS: METOPROLOL TAR 50 MG TAB PO SCH ×2 (08:26→19:55)
[2021-09-29] MEDS: AMLODIPINE 10 MG TAB PO SCH (08:26)
[2021-09-29] MEDS: NYSTATIN PWDR 100000 UNIT/GM TOP SCH ×2 (08:30→19:55)
--- NOTE | 2021-09-29 10:02 | P.RH.PN ---
Estimated Length of Stay: 9 Expected Discharge Date: 09/30/21 Discharge Disposition Plan: Home Family Support: Yes Counter Sales Person Goal: Mobility, Transfers, Self Care Vital Signs: Last Vital Signs Temp 96.4 F L 09/29/21 07:58 Pulse 60 09/29/21 08:26 Resp 17 09/29/21 07:58 BP 162/70 H 09/29/21 08:26 Pulse Ox 97 09/29/21 07:58 Laboratory: Laboratory Last Values WBC 10.3 K/uL (4.3-10.9) D 09/28/21 04:27 RBC 4.93 M/uL (4.33-5.43) 09/28/21 04:27 Hgb 13.3 g/dL (13.6-17.9) L 09/28/21 04:27 Hct 40.3 % (39.6-49.0) 09/28/21 04:27 MCV 81.9 fL (80-100) 09/28/21 04:27 MCH 26.9 pg (27.0-35.0) L 09/28/21 04:27 MCHC 32.9 g/dL (32.0-36.0) 09/28/21 04:27 RDW 14.9 % (12.1-15.2) 09/28/21 04:27 Plt Count 244 K/uL (152-406) 09/28/21 04:27 MPV 7.4 fL (7.6-11.3) L 09/28/21 04:27 Neutrophils % 54.4 % (41.7-73.7) 09/28/21 04:27 Lymphocytes % 35.1 % (15.3-44.8) 09/28/21 04:27 Monocytes % 7.3 % (3.3-12.3) 09/28/21 04:27 Eosinophils % 2.5 % (0-4.4) 09/28/21 04:27 Basophils % 0.7 % (0-1.3) 09/28/21 04:27 Absolute Neutrophils 5.6 K/uL (1.8-8.0) 09/28/21 04:27 Absolute Lymphocytes 3.6 K/uL (0.7-4.9) 09/28/21 04:27 Absolute Monocytes 0.8 K/uL (0.1-1.3) 09/28/21 04:27 Absolute Eosinophils 0.3 K/uL (0-0.5) 09/28/21 04:27 Absolute Basophils 0.1 K/uL (0-0.5) 09/28/21 04:27 Sodium 141 mmol/L (136-145) 09/28/21 04:27 Potassium 4.7 mmol/L (3.5-5.1) 09/28/21 04:27 Chloride 112 mmol/L (98-107) H 09/28/21 04:27 Carbon Dioxide 27 mmol/L (21-32) 09/28/21 04:27 Anion Gap 6.7 mEq/L (5.0-15.0) 09/28/21 04:27 BUN 18 mg/dL (7-18) 09/28/21 04:27 Creatinine 1.01 mg/dL (0.55-1.3) 09/28/21 04:27 Est GFR (CKD-EPI) 83 ml/min (=/>90) L 09/28/21 04:27 Glucose 96 mg/dL (74-106) 09/28/21 04:27 Calcium 8.4 mg/dL (8.5-10.1) L 09/28/21 04:27 Magnesium 2.0 mg/dL (1.8-2.4) 09/28/21 04:27 Albumin 2.8 g/dL (3.4-5.0) L 09/28/21 04:27 Prealbumin 14.1 mg/dL (20-40) L 09/28/21 04:27 SARS-CoV-2 Rap RNA(RT-PCR) Negative (NEGATIVE) 09/25/21 04:50 Weight: 229 lb Wound Present: No Closed Surgical Incision Present: No Negative Pressure Wound Therapy Present: No Physician Update: Labs reviewed. Bed mobility, sit to stand, transfers, 500' gait, wheelchair 250' with SBA. Standby assistance with grooming, max for toileting, bathing max assistance. His superpubic cath is in place and requires moderate assistance. Summary: Patient's care plan and [facility] goals have been reviewed and revised as necessary. Please see the Rehabilitation Signature page for all necessary signatures.
[2021-09-29] MEDS: levoFLOXacin 500 MG TAB PO SCH (19:56)
[2021-09-29] MEDS: DIVALPROEX ER 250 MG TAB PO SCH (19:56)
[2021-09-29] MEDS: ATORVASTATIN 20 MG TAB PO SCH (19:57)
[2021-09-29] MEDS: DOCUSATE NA/SENNA CONC 1 TAB PO SCH (19:58)
[2021-09-30] MEDS: ACETAMINOPHEN 500 MG TAB PO PRN (05:45)
[2021-09-30] MEDS: BACLOFEN 10 MG TAB PO SCH (05:45)
[2021-09-30 07:56] VITALS: BP 134/64; TEMP 97.2
[2021-09-30] MEDS: AMLODIPINE 10 MG TAB PO SCH (09:10)
[2021-09-30] MEDS: METOPROLOL TAR 50 MG TAB PO SCH (09:10)
[2021-09-30] MEDS: GABAPENTIN 100 MG CAP PO SCH (09:10)
[2021-09-30] MEDS: CLOPIDOGREL 75 MG TABLET PO SCH (09:10)
[2021-09-30] MEDS: levETIRAcetam 500 MG TAB PO SCH (09:10)
[2021-09-30] MEDS: APIXABAN 2.5 MG TABLET PO SCH (09:10)
[2021-09-30] MEDS: LIDOCAINE 4% PATCH TOP SCH (09:11)
[2021-09-30] MEDS: NYSTATIN PWDR 100000 UNIT/GM TOP SCH (09:11)
== END 2021-09-30 13:50 | disposition home or self-care (01) | DRG 552 ==
LOC: 5TH 16:07
PROVIDERS: ADMIT Psychiatry & Neurology Neurology with Special Qualifications in Child Neurology; ATTEND Psychiatry & Neurology Neurology with Special Qualifications in Child Neurology
DX: M54.50 Low back pain, unspecified (principal); N39.0 Urinary tract infection, site not specified; I10 Essential (primary) hypertension; I25.10 Atherosclerotic heart disease of native coronary artery without angina pectoris; G40.909 Epilepsy, unspecified, not intractable, without status epilepticus; Z95.5 Presence of coronary angioplasty implant and graft; B96.5 Pseudomonas (aeruginosa) (mallei) (pseudomallei) as the cause of diseases classified elsewhere; H35.30 Unspecified macular degeneration; N31.9 Neuromuscular dysfunction of bladder, unspecified; Z20.822 Contact with and (suspected) exposure to COVID-19
CPT/HCPCS: 36415; 80048; 82040; 83735; 84134; 85025; 92523; 97110; 97116; 97161; 97165; 97530; J1650; J2001; U0003

== ENCOUNTER 2022-02-17 09:53 | Emergency (ER) | payer OTHER ==
--- OUTSIDE RECORDS SUMMARY | 2022-02-17 10:01 | XMS REPORT | Continuity of Care Document ---
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 Interpretation Comments UA pH (test code = UA pH) 8.0 1 5.0-8.0 [facility] AND [id number] 22:18:00 Test Item Value Reference Range Interpretation Comments UA Color (test code = Yellow *NA*(10/30/17 5:18 UA Color) PM) [facility] AND [id number] 22:18:00 Test Item Value Reference Range Interpretation Comments UA Spec Grav (test code = UA Spec 1.005 1 Grav) [facility] AND [id number] 22:18:00 Test Item Value Reference Range Interpretation Comments UA Blood (test code = Large *ABN*(10/30/17 UA Blood) 5:18 PM) [facility] AND [id number] 22:18:00 Test Item Value Reference Range Interpretation Comments UA Bili (test code = Negative *NA*(10/30/17 UA Bili) 5:18 PM) [facility] AND [id number] 22:18:00 Test Item Value Reference Range Interpretation Comments UA Ketones (test code = UA Negative mg/dL Ketones) [facility] AND [id number] 22:18:00 Test Item Value Reference Range Interpretation Comments UA Glucose (test code = UA Negative mg/dL Glucose) [facility] AND [id number] 22:18:00 Test Item Value Reference Range Interpretation Comments UA Protein (test code = UA Protein) 30 mg/dL [facility] AND [id number] 22:18:00 Test Item Value Reference Range Interpretation Comments UA RBC (test code = no gt See_Comment [Automa candy message] The UA RBC) system which ge nerated this result transmit candy reference range : <=2. The reference range was not used to interpr et this result as ines l/abnormal. [facility] AND [id number] 22:18:00 Test Item Value Reference Range Interpretation Comments UA WBC (test code = 29 See_Comment [Automa candy message] The UA WBC) system which ge nerated this result transmit candy reference range : <=5. The reference range was not used to interpr et this result as ines l/abnormal. [facility] AND [id number] 22:18:00 Test Item Value Reference Range Interpretation Comments UA Nitrite (test code Negative (10/30/17 5:18 = UA Nitrite) PM) [facility]: [id number] 22:18:00 Test Item Value Reference Range Interpretation Comments Culture: Urine (test Holding For Better code = Culture: Urine) Growth [facility] CenterCARDIAC [id number] 22:18:00 Test Item Value Reference Range Interpretation Comments Troponin-I (test code no gt See_Comment [Auto mated message] The = Troponin-I) system which g enerated this result transmit candy reference range : <=0.40. The reference r mic was not used to interpr et this result as ines l/abnormal. [facility]bergKxvoovcFYSTAICLQK6012-75-16 22:18:00 Test Item Value Reference Range Interpretation Comments Ethanol Lvl (test code = Ethanol <3.0 mg/dL Lvl) [facility] CenterEyxldchYCTQEQGXXN7141-15-78 22:18:00 Test Item Value Reference Range Interpretation Comments Etoh (%) (test code = Etoh (%)) <0.003 % [facility] AND [id number] 22:18:00 Test Item Value Reference Range Interpretation Comments UA Sq Epi (test code = UA Sq Epi) None Seen [facility] AND [id number] 22:18:00 Test Item Value Reference Range Interpretation Comments UA Urobilinogen (test code = UA <=1.0 mg/dL 0.1-1.0 Urobilinogen) [facility] AND [id number] 22:18:00 Test Item Value Reference Range Interpretation Comments UA Leuk Est (test Moderate *ABN*(10/30/17 code = UA Leuk Est) 5:18 PM) [facility] [id number] 22:18:00 Test Item Value Reference Range Interpretation Comments UA Turbidity (test code Slight *ABN*(10/30/17 = UA Turbidity) 5:18 PM) [facility] AND [id number] 22:18:00 Test Item Value Reference Range Interpretation Comments UA pH (test code = UA pH) 8.0 1 5.0-8.0 [facility] [id number] 22:18:00 Test Item Value Reference Range Interpretation Comments UA Color (test code = Yellow *NA*(10/30/17 5:18 UA Color) PM) [facility] AND [id number] 22:18:00 Test Item Value Reference Range Interpretation Comments UA Spec Grav (test code = UA Spec 1.005 1 Grav) [facility] AND [id number] 22:18:00 Test Item Value Reference Range Interpretation Comments UA Blood (test code = Large *ABN*(10/30/17 UA Blood) 5:18 PM) [facility] AND [id number] 22:18:00 Test Item Value Reference Range Interpretation Comments UA Bili (test code = Negative *NA*(10/30/17 UA Bili) 5:18 PM) [facility] AND [id number] 22:18:00 Test Item Value Reference Range Interpretation Comments UA Ketones (test code = UA Negative mg/dL Ketones) [facility] AND [id number] 22:18:00 Test Item Value Reference Range Interpretation Comments UA Glucose (test code = UA Negative mg/dL Glucose) [facility] AND [id number] 22:18:00 Test Item Value Reference Range Interpretation Comments UA Protein (test code = UA Protein) 30 mg/dL [facility] AND [id number] 22:18:00 Test Item Value Reference Range Interpretation Comments UA RBC (test code = no gt See_Comment [Automa candy message] The UA RBC) system which ge nerated this result transmit candy reference range : <=2. The reference range was not used to interpr et this result as ines l/abnormal. [facility] AND [id number] 22:18:00 Test Item Value Reference Range Interpretation Comments UA WBC (test code = 29 See_Comment [Automa candy message] The UA WBC) system which ge nerated this result transmit candy reference range : <=5. The reference range was not used to interpr et this result as ines l/abnormal. [facility] AND [id number] 22:18:00 Test Item Value Reference Range Interpretation Comments UA Nitrite (test code Negative (10/30/17 5:18 = UA Nitrite) PM) [facility] [id number] 22:18:00 Test Item Value Reference Range Interpretation Comments Culture: Urine (test Holding For Better code = Culture: Urine) Growth [facility] HospitalUnzsgteHFAHDKDWVVAO2863-16-47 21:47:00 Test Item Value Reference Range Interpretation Comments AGAP (test code = AGAP) 16.0 10.0-20.0 [facility] Hospi[id number] 21:47:00 Test Item Value Reference Range Interpretation Comments B/C Ratio (test code = B/C Ratio) 8 1 6-25 [facility] HospitalXgmyymlDGGWMHHXBQIS0282-74-11 21:47:00 Test Item Value Reference Range Interpretation Comments Globulin (test code = Globulin) 4.8 2.7-4.2 [facility] HospitalOplwznsUSSAQYNGMQJG4897-88-40 21:47:00 Test Item Value Reference Range Interpretation Comments A/G Ratio (test code = A/G Ratio) 0.8 1 0.7-1.6 [facility] HospitalLwtwznkCASXWCIVHTTR4948-37-35 21:47:00 Test Item Value Reference Range Interpretation Comments eGFR (test code = eGFR) 70 [facility] HospitalPynzfdeAVCYYIKAKZEJ1488-32-04 21:47:00 Test Item Value Reference Range Interpretation Comments AST (test code = AST) 22 See_Comment [Auto mated message] The system which ge nerated this result transmit candy reference range : <=37. The reference range was not used to interpr et this result as ines l/abnormal. [facility] HospitalBjgpltuVPERMHMMXLHB5804-76-25 21:47:00 Test Item Value Reference Range Interpretation Comments Alk Phos (test code = Alk Phos) 123 39-136 [facility] HospitalSrbowunIEEQNCBAJTFD5143-85-70 21:47:00 Test Item Value Reference Range Interpretation Comments Bili Total (test code = Bili Total) 1.0 0.2-1.3 [facility] HospitalPehlbaeTYXLINULIUTY1435-58-43 21:47:00 Test Item Value Reference Range Interpretation Comments Calcium Lvl (test code = Calcium Lvl) 10.3 8.5-10.5 [facility] HospitalBaoelhhCXKKGJOBXCHN4359-94-91 21:47:00 Test Item Value Reference Range Interpretation Comments Total Protein (test code = Total 8.4 6.4-8.4 Protein) [facility] HospitalNdxqepbQIZCFNWOVDYG5657-68-33 21:47:00 Test Item Value Reference Range Interpretation Comments Albumin Lvl (test code = Albumin Lvl) 3.6 3.5-5.0 [facility] HospitalJbvmpkjOOTTTRAWLCTP7754-90-42 21:47:00 Test Item Value Reference Range Interpretation Comments ALT (test code = ALT) 18 See_Comment [Auto mated message] The system which ge nerated this result transmit candy reference range : <=65. The reference range was not used to interpr et this result as ines l/abnormal. [facility] HospitalZjdsthwCBFOBMZSSDVZ1153-54-24 21:47:00 Test Item Value Reference Range Interpretation Comments Sodium Lvl (test code = Sodium Lvl) 133 135-145 [facility] HospitalCdqghewHSEYBDMLWKTN8602-81-86 21:47:00 Test Item Value Reference Range Interpretation Comments Potassium Lvl (test code = Potassium 4.0 3.5-5.1 Lvl) [facility] HospitalAtjxulnOULCLSJFHTBE3500-10-29 21:47:00 Test Item Value Reference Range Interpretation Comments Chloride Lvl (test code = Chloride Lvl) 100 95-109 [facility] HospitalKvonhkvPZJIMSAFUCHP8565-36-42 21:47:00 Test Item Value Reference Range Interpretation Comments CO2 (test code = CO2) 21 24-32 [facility] HospitalDnwxqsrEBFUKZRALOLG4855-44-30 21:47:00 Test Item Value Reference Range Interpretation Comments Glucose Lvl (test code = Glucose Lvl) 124 70-99 [facility] HospitalVfgbtgwWJKYVGKENZJF1044-79-91 21:47:00 Test Item Value Reference Range Interpretation Comments BUN (test code = BUN) 9 7-22 [facility] HospitalKekyikcWDAWNMWOMQIT5011-69-72 21:47:00 Test Item Value Reference Range Interpretation Comments Creatinine Lvl (test code = Creatinine 1.13 0.50-1.40 Lvl) [facility] HospitalKuyzzenITFYXXTMYP8851-87-40 21:47:00 Test Item Value Reference Range Interpretation Comments MPV (test code = MPV) 6.9 7.4-10.4 [facility] HospitalQlhhoehOTHOLKWJBL7101-90-10 21:47:00 Test Item Value Reference Range Interpretation Comments MCV (test code = MCV) 80.2 80.0-94.0 [facility] HospitalMqmuirtBNITIFXMFQ4662-24-75 21:47:00 Test Item Value Reference Range Interpretation Comments Hct (test code = Hct) 44.3 42.0-54.0 [facility] HospitalTjcqqdrWNKPDOZASC7960-01-66 21:47:00 Test Item Value Reference Range Interpretation Comments Platelet (test code = Platelet) 327 133-450 [facility] HospitalPrjamdoGMKCUQCOQZ5420-88-16 21:47:00 Test Item Value Reference Range Interpretation Comments MCH (test code = MCH) 27.8 pg 27.0-31.0 [facility] HospitalBshzpiiGZDJUYUKGZ5282-77-02 21:47:00 Test Item Value Reference Range Interpretation Comments RDW (test code = RDW) 14.6 11.5-14.5 [facility] HospitalWaogbxoXCQPPGYBHF0307-39-99 21:47:00 Test Item Value Reference Range Interpretation Comments MCHC (test code = MCHC) 34.6 32.0-36.0 [facility] HospitalTafdmsyGCCCPRTLBI6009-17-70 21:47:00 Test Item Value Reference Range Interpretation Comments WBC (test code = WBC) 18.0 3.7-10.4 [facility] HospitalYvkztofFGMCHNGDHI6520-85-73 21:47:00 Test Item Value Reference Range Interpretation Comments RBC (test code = RBC) 5.52 4.70-6.10 [facility] HospitalUfnihneQSLFARYKLP6691-60-26 21:47:00 Test Item Value Reference Range Interpretation Comments Hgb (test code = Hgb) 15.3 14.0-18.0 [facility] HospitalPbgiremKSOMRXIOEI1339-55-65 21:47:00 Test Item Value Reference Range Interpretation Comments Lymphocytes # (test code = Lymphocytes 2.1 1.0-5.5 #) [facility] HospitalTlsutwjBDJFMKXTQX5888-25-79 21:47:00 Test Item Value Reference Range Interpretation Comments Monocytes # (test code 1.3 See_Comment [Aut omated message] The = Monocytes #) system which generated this result tra nsmitted reference range : <=0.8. The reference r mic was not used to int erpret this result as normal/abnormal . [facility] HospitalDjuzyrzTIEWZCKNQT2134-36-45 21:47:00 Test Item Value Reference Range Interpretation Comments Basophils # (test code 0.1 See_Comment [Aut omated message] The = Basophils #) system which generated this result tra nsmitted reference range : <=0.2. The reference r mic was not used to int erpret this result as normal/abnormal . [facility] HospitalNxrgazkGJVODEEEQN3784-82-59 21:47:00 Test Item Value Reference Range Interpretation Comments Eosinophils # (test code 0.1 See_Comment [A utomated message] The = Eosinophils #) system whic h generated this result tra nsmitted reference range : <=0.5. The reference r mic was not used to int erpret this result as normal/abnormal . [facility] HospitalZhzkjskQAVYWBXNHT0299-75-25 21:47:00 Test Item Value Reference Range Interpretation Comments Lymphocytes (test code = Lymphocytes) 11.7 20.0-40.0 [facility] HospitalZuoocjuYYGBUOVXRU5857-42-59 21:47:00 Test Item Value Reference Range Interpretation Comments Monocytes (test code = Monocytes) 7.5 2.0-12.0 [facility] HospitalYwblzwyYLPGVFUQQF9626-86-68 21:47:00 Test Item Value Reference Range Interpretation Comments Eosinophils (test code = 0.4 See_Comment [A utomated message] The Eosinophils) system which ge nerated this result tra nsmitted reference range : <=4.0. The reference r mic was not used to int erpret this result as normal/abnormal . [facility] HospitalZqczvwfKNJEKMVNPC8723-87-19 21:47:00 Test Item Value Reference Range Interpretation Comments Basophils (test code = 0.3 See_Comment [Aut omated message] The Basophils) system which ge nerated this result tra nsmitted reference range : <=1.0. The reference r mic was not used to int erpret this result as normal/abnormal . [facility] HospitalMapvoysGMHIDNDNGM5073-14-35 21:47:00 Test Item Value Reference Range Interpretation Comments Segs-Bands # (test code = Segs-Bands #) 14.4 1.5-8.1 [facility] HospitalXnjvbjqQZDPCHJGEA5377-80-64 21:47:00 Test Item Value Reference Range Interpretation Comments Segs (test code = Segs) 80.1 45.0-75.0 [facility] HospitalDfrcdbvDETNUWNHAS8709-23-31 21:47:00 Test Item Value Reference Range Interpretation Comments WBC (test code = WBC) 18.0 3.7-10.4 [facility] HospitalCkcltmuDNRPZKLXKU9753-14-08 21:47:00 Test Item Value Reference Range Interpretation Comments RBC (test code = RBC) 5.52 4.70-6.10 [facility] HospitalJwyitefGWICWEHTJH3093-42-97 21:47:00 Test Item Value Reference Range Interpretation Comments Hgb (test code = Hgb) 15.3 14.0-18.0 [facility] HospitalGkofbpnZXSDUGMJQI2410-17-28 21:47:00 Test Item Value Reference Range Interpretation Comments Lymphocytes # (test code = Lymphocytes 2.1 1.0-5.5 #) [facility] HospitalJnfmfyfDGYYNZGRQG4635-63-17 21:47:00 Test Item Value Reference Range Interpretation Comments Monocytes # (test code 1.3 See_Comment [Aut omated message] The = Monocytes #) system which generated this result tra nsmitted reference range : <=0.8. The reference r mic was not used to int erpret this result as normal/abnormal . [facility] HospitalFhbqzvxONODZNUQPA2848-00-38 21:47:00 Test Item Value Reference Range Interpretation Comments Basophils # (test code 0.1 See_Comment [Aut omated message] The = Basophils #) system which generated this result tra nsmitted reference range : <=0.2. The reference r mic was not used to int erpret this result as normal/abnormal . [facility] HospitalLgtzojzFJSVIEUZXZ6538-72-07 21:47:00 Test Item Value Reference Range Interpretation Comments Eosinophils # (test code 0.1 See_Comment [A utomated message] The = Eosinophils #) system whic h generated this result tra nsmitted reference range : <=0.5. The reference r mic was not used to int erpret this result as normal/abnormal . [facility] HospitalLuerxfwFCWCGCWBAL8894-12-71 21:47:00 Test Item Value Reference Range Interpretation Comments Lymphocytes (test code = Lymphocytes) 11.7 20.0-40.0 [facility] HospitalTmewcdwTIOOLANUBS3469-09-50 21:47:00 Test Item Value Reference Range Interpretation Comments Monocytes (test code = Monocytes) 7.5 2.0-12.0 [facility] HospitalVtjllhwNBZSKSIBCP3018-92-80 21:47:00 Test Item Value Reference Range Interpretation Comments Eosinophils (test code = 0.4 See_Comment [A utomated message] The Eosinophils) system which ge nerated this result tra nsmitted reference range : <=4.0. The reference r mic was not used to int erpret this result as normal/abnormal . [facility] HospitalUbqvebgNHCHTWMWOC6240-94-77 21:47:00 Test Item Value Reference Range Interpretation Comments Basophils (test code = 0.3 See_Comment [Aut omated message] The Basophils) system which ge nerated this result tra nsmitted reference range : <=1.0. The reference r mic was not used to int erpret this result as normal/abnormal . [facility] HospitalUgzaaegPPBNSLPKOV4899-28-61 21:47:00 Test Item Value Reference Range Interpretation Comments Segs-Bands # (test code = Segs-Bands #) 14.4 1.5-8.1 [facility] HospitalAjuithjFRIQQXMQZC0980-20-73 21:47:00 Test Item Value Reference Range Interpretation Comments Segs (test code = Segs) 80.1 45.0-75.0 [facility] HospitalVdjhiwfFXMENRCFVADQ0629-76-11 21:47:00 Test Item Value Reference Range Interpretation Comments AGAP (test code = AGAP) 16.0 10.0-20.0 [facility] HospitalBlkkkofKYJEWREAQSFT0493-95-88 21:47:00 Test Item Value Reference Range Interpretation Comments B/C Ratio (test code = B/C Ratio) 8 1 6-25 [facility] HospitalDerabrnEKBSPRRZDBYV6353-33-10 21:47:00 Test Item Value Reference Range Interpretation Comments Globulin (test code = Globulin) 4.8 2.7-4.2 [facility] HospitalCbgktsgMNNDVBRPGVJG8561-94-94 21:47:00 Test Item Value Reference Range Interpretation Comments A/G Ratio (test code = A/G Ratio) 0.8 1 0.7-1.6 [facility] HospitalQttzcxlXHKQYMQKGQGS9479-91-56 21:47:00 Test Item Value Reference Range Interpretation Comments eGFR (test code = eGFR) 70 [facility] HospitalSaoygqcOSAMINBYEOPU5105-12-28 21:47:00 Test Item Value Reference Range Interpretation Comments AST (test code = AST) 22 See_Comment [Auto mated message] The system which ge nerated this result transmit candy reference range : <=37. The reference range was not used to interpr et this result as ines l/abnormal. [facility] HospitalYnyhgxuNDFGEMTBHKWI0222-31-96 21:47:00 Test Item Value Reference Range Interpretation Comments Alk Phos (test code = Alk Phos) 123 39-136 [facility] HospitalYpftwvnGXCOBRJRMHZO3211-98-18 21:47:00 Test Item Value Reference Range Interpretation Comments Bili Total (test code = Bili Total) 1.0 0.2-1.3 [facility] HospitalVtemlfhKMJIDYTSATKU2886-65-37 21:47:00 Test Item Value Reference Range Interpretation Comments Calcium Lvl (test code = Calcium Lvl) 10.3 8.5-10.5 [facility] HospitalEqqljmfQBAWIJERSFLZ1299-64-49 21:47:00 Test Item Value Reference Range Interpretation Comments Total Protein (test code = Total 8.4 6.4-8.4 Protein) [facility] HospitalGxnzmurXCDIZGGXISSG2879-06-44 21:47:00 Test Item Value Reference Range Interpretation Comments Albumin Lvl (test code = Albumin Lvl) 3.6 3.5-5.0 [facility] HospitalXopyaplXTBZVHGUNXOM9817-95-17 21:47:00 Test Item Value Reference Range Interpretation Comments ALT (test code = ALT) 18 See_Comment [Auto mated message] The system which ge nerated this result transmit candy reference range : <=65. The reference range was not used to interpr et this result as ines l/abnormal. [facility] HospitalQtygoqvSJENNSJLKPVR1251-40-27 21:47:00 Test Item Value Reference Range Interpretation Comments Sodium Lvl (test code = Sodium Lvl) 133 135-145 [facility] HospitalGguxnjrVDZXFFHNWLCU3893-51-29 21:47:00 Test Item Value Reference Range Interpretation Comments Potassium Lvl (test code = Potassium 4.0 3.5-5.1 Lvl) [facility] HospitalLztyvebBTWPNCNBECBQ8044-76-68 21:47:00 Test Item Value Reference Range Interpretation Comments Chloride Lvl (test code = Chloride Lvl) 100 95-109 [facility] HospitalYxqfzjmFPPBBQYKOVAA5591-79-78 21:47:00 Test Item Value Reference Range Interpretation Comments CO2 (test code = CO2) 21 24-32 [facility] HospitalPeoqukqNNGCGFZLIEHZ3302-11-31 21:47:00 Test Item Value Reference Range Interpretation Comments Glucose Lvl (test code = Glucose Lvl) 124 70-99 [facility] HospitalFdcktslLCTJCPHXUAWU3854-44-07 21:47:00 Test Item Value Reference Range Interpretation Comments BUN (test code = BUN) 9 7-22 [facility] HospitalBupqiwaSXQVGDYBSESI7413-60-93 21:47:00 Test Item Value Reference Range Interpretation Comments Creatinine Lvl (test code = Creatinine 1.13 0.50-1.40 Lvl) [facility] HospitalBhusnvyBVUJIRFLNJ8231-24-29 21:47:00 Test Item Value Reference Range Interpretation Comments MPV (test code = MPV) 6.9 7.4-10.4 [facility] HospitalSdrtmymOLYOMQDXRL6069-72-49 21:47:00 Test Item Value Reference Range Interpretation Comments MCV (test code = MCV) 80.2 80.0-94.0 [facility] HospitalHrilcixREUSOGVWST2052-93-51 21:47:00 Test Item Value Reference Range Interpretation Comments Hct (test code = Hct) 44.3 42.0-54.0 [facility]BrfwjmlHZUBQDGZUE8412-32-32 21:47:00 Test Item Value Reference Range Interpretation Comments Platelet (test code = Platelet) 327 133-450 [facility] [id number] 21:47:00 Test Item Value Reference Range Interpretation Comments MCH (test code = MCH) 27.8 pg 27.0-31.0 [id number] 21:47:00 Test Item Value Reference Range Interpretation Comments RDW (test code = RDW) 14.6 11.5-14.5 [id number] 21:47:00 Test Item Value Reference Range Interpretation Comments MCHC (test code = MCHC) 34.6 32.0-36.0 [facility] [id number] 18:00:00 Test Item Value Reference Range Interpretation Comments CULTURE (BEAKER) (test No growth in 5 days code = 1095) BLOOD [id number] 12:04:00 Test Item Value Reference Range Interpretation Comments CULTURE (BEAKER) (test No growth in 5 days code = 1095) POCT-GLUCOSE [id number] 11:45:00 Test Item Value Reference Range Interpretation Comments POC-GLUCOSE METER 97 mg/dL 70-110 TESTED AT [facility] 6720 (BEAKER) (test code = [place] [id number]) CBC W/PLT COUNT & AUTO [id number] 06:46:00 Test Item Value Reference Range Interpretation [...] 0.00-0.20 (test code = 417) 0.00BASI METABOLIC [id number] 06:27:00 Test Item Value Reference Range Interpretation [...] NOT APPLICABLE FOR DIALYSIS PATIEN TS. POCT-GLUCOSE [id number] 05:53:00 Test Item Value Reference Range Interpretation Comments POC-GLUCOSE METER 124 mg/dL 70-110 H TESTED AT [place] [address] ([facility]) (test code = [facility] 1538) [address] POCT-GLUCOSE [id number] 23:56:00 Test Item Value Reference Range Interpretation Comments POC-GLUCOSE METER 118 mg/dL 70-110 H TESTED AT [place] [address] ([facility]) (test code = [facility] 1538) [address] POCT-GLUCOSE [id number] 16:36:00 Test Item Value Reference Range Interpretation Comments POC-GLUCOSE METER 159 mg/dL 70-110 H TESTED AT [place] [address] ([facility]) (test code = [facility] 1538) [address] POCT-GLUCOSE [id number] 11:49:00 Test Item Value Reference Range Interpretation Comments POC-GLUCOSE METER 141 mg/dL 70-110 H TESTED AT [place] [address] ([facility]) (test code = [facility] 1538) [address] BASIC METABOLIC [id number] 06:11:00 Test Item Value Reference Range Interpretation [...] PATIEN TS. CBC W/PLT COUNT & AUTO [id number] 06:00:00 Test Item Value Reference Range Interpretation [...] L 0.00-0.20 (test code = 417) 0.00POCT-GLUCOSE [id number] 05:49:00 Test Item Value Reference Range Interpretation Comments POC-GLUCOSE METER 101 mg/dL 70-110 TESTED AT [facility] 6720 (BEAKER) (test code = BUTCH [place] [facility] 1538) [address] BASIC METABOLIC [id number] 01:36:00 Test Item Value Reference Range Interpretation [...] NOT APPLICABLE FOR DIALYSIS PATIEN TS. POCT-GLUCOSE [id number] 23:39:00 Test Item Value Reference Range Interpretation Comments POC-GLUCOSE METER 151 mg/dL 70-110 H TESTED AT [place] [address] ([facility]) (test code = TAJ[place] 1538) [address] VANCOMYCIN LEVEL, [id number] 22:30:00 Test Item Value Reference Range Interpretation Comments VANCOMYCIN TROUGH ([facility]) (test 17.5 ug/mL 10.0-20.0 code = 522) Draw 30 min prior to scheduled dose, HOLD if level > 20 mcg/mL, inform MD. POCT-GLUCOSE [id number] 21:06:00 Test Item Value Reference Range Interpretation Comments POC-GLUCOSE METER 140 mg/dL 70-110 H TESTED AT [place] [address] ([facility]) (test code = [facility] 1538) [address] BASIC METABOLIC [id number] 19:21:00 Test Item Value Reference Range Interpretation [...] NOT APPLICABLE FOR DIALYSIS PATIEN TS. POCT-GLUCOSE [id number] 17:13:00 Test Item Value Reference Range Interpretation Comments POC-GLUCOSE METER 122 mg/dL 70-110 H TESTED AT [place] [address] ([facility]) (test code = [facility] [place] 1538) [address] POCT-GLUCOSE [id number] 13:05:00 Test Item Value Reference Range Interpretation Comments POC-GLUCOSE METER 108 mg/dL 70-110 TESTED AT [facility] 6720 (BEAKER) (test code = [place] 1538) [address] [id number] 11:24:00 Test Item Value Reference Range Interpretation Comments RPR SCREEN (BEAKER) (test code = Nonreactive Nonreactive 420) CBC W/PLT COUNT & AUTO [id number] 07:21:00 Test Item Value Reference Range Interpretation [...] 0.00-0.20 (test code = 417) 0.00BASIC METABOLIC [id number] 07:06:00 Test Item Value Reference Range Interpretation [...] NOT APPLICABLE FOR DIALYSIS PATIEN TS. POCT-GLUCOSE [id number] 05:50:00 Test Item Value Reference Range Interpretation Comments POC-GLUCOSE METER 124 mg/dL 70-110 H TESTED AT [facility] 6720 ([facility]) (test code = BUTCH [place] [facility] 1533) [address] SPUTUM CULTURE + GRAM [id number] 00:49:00 Test Item Value Reference Interpretation Comments [...] 10-15 epithelial (BEAKER) (test code = cells 890276) GRAM STAIN RESULT <1+ gram positive (BEAKER) (test code = rods 723991) GRAM STAIN RESULT 2+ yeast (BEAKER) (test code = 266661) GRAM STAIN RESULT 1+ gram positive (BEAKER) (test code = cocci in pairs 403848) 4+ Normal respiratory ken[place] presentBASIC METABOLIC [id number] 00:36:00 Test Item Value Reference Range Interpretation [...] NOT APPLICABLE FOR DIALYSIS PATIEN TS. POCT-GLUCOSE [id number] 23:29:00 Test Item Value Reference Range Interpretation Comments POC-GLUCOSE METER 93 mg/dL 70-110 TESTED AT [facility] 6720 (BEAKER) (test code = [place] [address] 1538) BASIC METABOLIC [id number] 18:08:00 Test Item Value Reference Range Interpretation [...] NOT APPLICABLE FOR DIALYSIS PATIEN TS. POCT-GLUCOSE [id number] 17:45:00 Test Item Value Reference Range Interpretation Comments POC-GLUCOSE METER 101 mg/dL 70-110 TESTED AT [facility] 6720 (BEAKER) (test code = [place] 1538) [address] BASIC METABOLIC [id number] 14:10:00 Test Item Value Reference Range Interpretation [...] NOT APPLICABLE FOR DIALYSIS PATIEN TS. POCT-GLUCOSE [id number] 12:16:00 Test Item Value Reference Range Interpretation Comments POC-GLUCOSE METER 105 mg/dL 70-110 TESTED AT [facility] 6720 (BEAKER) (test code = [place] 1538) [address] URINE [id number] 10:22:00 Test Item Value Reference Range Interpretation Comments CULTURE (BEAKER) (test code = 1095) No growth URINE [id number] 09:54:00 Test Item Value Reference Range Interpretation Comments CULTURE (BEAKER) (test code = 1095) No growth BASIC METABOLIC [id number] 05:53:00 Test Item Value Reference Range Interpretation [...] PATIEN TS. CBC W/PLT COUNT & AUTO [id number] 05:36:00 Test Item Value Reference Range Interpretation [...] 0.00-0.20 (test code = 417) 0.00VANCOMYCIN LEVEL, [id number] 21:59:00 Test Item Value Reference Range Interpretation Comments VANCOMYCIN TROUGH (BEAKER) (test 21.6 ug/mL 10.0-20.0 H code = 522) Draw 30 min prior to scheduled dose, HOLD if level > 20 mcg/mL, aashish PETERSON POCT-GLUCOSE [id number] 21:39:00 Test Item Value Reference Range Interpretation Comments POC-GLUCOSE METER 113 mg/dL 70-110 H TESTED AT [facility] 6720 ([facility]) (test code = [place] 1538) [address] BASIC METABOLIC [id number] 19:04:00 Test Item Value Reference Range Interpretation [...] APPLICABLE FOR DIALYSIS PATIEN TS. BASIC METABOLIC [id number] 14:34:00 Test Item Value Reference Range Interpretation [...] APPLICABLE FOR DIALYSIS PATIEN TS. SODIUM, RANDOM [id number] 14:27:00 Test Item Value Reference Range Interpretation Comments SODIUM URINE (BEAKER) (test code = 75 meq/L 243) Reference Range: No NormalsHEPATIC FUNCTION [id number] 07:18:00 Test Item Value Reference Range Interpretation [...] (test code = 25 U/L 6-55 347) [id number] 07:18:00 Test Item Value Reference Range Interpretation Comments MAGNESIUM (BEAKER) (test code = 1.8 mg/dL 1.6-2.6 627) [id number] 07:18:00 Test Item Value Reference Range Interpretation Comments PHOSPHORUS (BEAKER) (test code = 3.0 mg/dL 2.3-4.7 604) OSMOLALITY, [id number] 05:41:00 Test Item Value Reference Range Interpretation Comments OSMOLALITY URINE (BEAKER) (test 541 mOsm/kg 40-1400 code = 614) OSMOLALITY, [id number] 05:40:00 Test Item Value Reference Range Interpretation Comments OSMOLALITY, SERUM (BEAKER) (test 280 mOsm/kg 275-295 code = 615) BASIC METABOLIC [id number] 05:02:00 Test Item Value Reference Range Interpretation [...] PATIEN TS. CBC W/PLT COUNT & AUTO [id number] 04:48:00 Test Item Value Reference Range Interpretation [...] 0.00-0.20 (test code = 417) 0.00SODIUM, RANDOM [id number] 02:48:00 Test Item Value Reference Range Interpretation Comments SODIUM URINE (BEAKER) (test code = 24 meq/L 243) Reference Range: No NormalsBASIC METABOLIC [id number] 01:37:00 Test Item Value Reference Range Interpretation [...] APPLICABLE FOR DIALYSIS PATIEN TS. BASIC METABOLIC [id number] 21:54:00 Test Item Value Reference Range Interpretation [...] APPLICABLE FOR DIALYSIS PATIEN TS. SODIUM, RANDOM [id number] 17:45:00 Test Item Value Reference Range Interpretation Comments SODIUM URINE (BEAKER) (test code = < meq/L 243) Reference Range: No NormalsOSMOLALITY, [id number] 17:41:00 Test Item Value Reference Range Interpretation Comments OSMOLALITY URINE (BEAKER) (test 466 mOsm/kg 40-1400 code = 614) OSMOLALITY, [id number] 17:34:00 Test Item Value Reference Range Interpretation Comments OSMOLALITY, SERUM (BEAKER) (test 273 mOsm/kg 275-295 L code = 615) BASIC METABOLIC [id number] 17:34:00 Test Item Value Reference Range Interpretation [...] DIALYSIS PATIEN TS. LACTIC ACID, VENOUS, WHOLE [id number] 17:30:00 Test Item Value Reference Range Interpretation Comments LACTATE BLOOD VENOUS (2) (BEAKER) 1.9 mmol/L 0.5-2.2 (test code = 2872) Effective 08/31/2015: Units/Reference Range ChangeNew: 0.5-2.2 mmol/L Previous: 5- 20 mg/dLCan draw with next BMPBLOOD GAS, [id number] 17:18:00 Test Item Value Reference Range Interpretation [...] = 1819) 21.0 % INFLUENZA A H1N1 [id number] 14:16:00 Test Item Value Reference Range Interpretation Comments INFLUENZA A RNA Not Detected Not Detected, (BEAKER) (test code = Inconclusive 1545) NOVEL H1N1 RNA (BEAKER) Not Detected Not Detected, (test code = 1546) Inconclusive These assays were performed by real-time RT-PCR (linter drier operator-PCR) utilizing fluorogenic hydrolysis probe technology for the detection of human Influenza A viruses and the differential detection of novel H1N1 Influenza virus in respiratory specimens. The test is composed of (1) an RNA extraction from patient specimen, and (2) linter drier operator-PCR amplification and detection with human Influenza A and novel V3A6-apikhnak primers and probes. A well-conserved region of the Influenza A matrix gene is targeted in one set of reactions to identify both seasonal Influenza A and novel H1N1 Influenza virus in the specimen. In addition, a specific region of the hemagglutinin gene is targeted to differentiate the novel H1N1 virus from the seasonal human influenza. An internal control is used to confirm PCR amplification. Genetic variation and other factors can affect the accuracy of nucleic acid testing; therefore, the results should be interpreted in light of clinical data. This test was developed and its performance characteristics determined by the [facility] Pathology Department, Section of Molecular Pathology. It has not been cleared or approved by the U.S. Food and Drug Administration (FDA). Since FDAapproval is not required for clinical use of the test, validation was done as required by The Clinical Laboratory Amendments of 1988.BASIC METABOLIC [id number] 13:14:00 Test Item Value Reference Range Interpretation [...] APPLICABLE FOR DIALYSIS PATIEN TS. HEPATITIS B [id number] 10:49:00 Test Item Value Reference Range Interpretation Comments HEPATITIS B CORE TOTAL ANTIBODY Nonreactive Nonreactive (BEAKER) (test code = 497) HEPATITIS B SURFACE ANTIBODY < mIU/mL <8.0 (BEAKER) (test code = 647) HEPATITIS B SURFACE ANTIGEN (2) Nonreactive Nonreactive (BEAKER) (test code = 2585) HEPATITIS A [id number] 10:49:00 Test Item Value Reference Range Interpretation Comments HEPATITIS A IGM ANTIBODY (BEAKER) Nonreactive Nonreactive (test code = 498) HEPATITIS A IGG ANTIBODY (BEAKER) Reactive Nonreactive A (test code = 2797) HEPATITIS C [id number] 10:41:00 Test Item Value Reference Range Interpretation Comments HEPATITIS C ANTIBODY (BEAKER) Nonreactive Nonreactive (test code = 367) B-TYPE NATRIURETIC FACTOR (BNP)2016-08-10 10:20:00 Test Item Value Reference Range Interpretation Comments B-TYPE NATRIURETIC PEPTIDE (BEAKER) 642 pg/mL 0-100 H (test code = 700) BASIC METABOLIC [id number] 10:19:00 Test Item Value Reference Range Interpretation [...] APPLICABLE FOR DIALYSIS PATIEN TS. BASIC METABOLIC [id number] 10:18:00 Test Item Value Reference Range Interpretation [...] APPLICABLE FOR DIALYSIS PATIEN TS. STREP PNEUMONIAE [id number] 08:23:00 Test Item Value Reference Range Interpretation [...] detection limit of the test. LEGIONELLA ANTIGEN, [id number] 08:23:00 Test Item Value Reference Range Interpretation Comments L. PNEUMOPHILA Negative - see Negative fo r L. SEROGP 1 UR AG comment pneumophila (BEAKER) (test code serogrou p 1 antigen, = 1156) suggesting no r ecent or current infe ction with this serog roup. Legionellosis c annot be ruled out si nce other serogroup s and species may cau se disease. OSMOLALITY, [id number] 08:10:00 Test Item Value Reference Range Interpretation Comments OSMOLALITY URINE (BEAKER) (test 150 mOsm/kg 40-1400 code = 614) [id number] 07:23:00 Test Item Value Reference Range Interpretation Comments THYROID STIMULATING HORMONE 1.71 uIU/mL 0.35-4.94 (BEAKER) (test code = 772) VITAMIN [id number] 07:23:00 Test Item Value Reference Range Interpretation Comments VITAMIN B12 (BEAKER) (test code = 1162 pg/mL 213-816 H 774) OSMOLALITY, [id number] 06:33:00 Test Item Value Reference Range Interpretation Comments OSMOLALITY, SERUM (BEAKER) (test 286 mOsm/kg 275-295 code = 615) CBC W/PLT COUNT & AUTO [id number] 06:17:00 Test Item Value Reference Range Interpretation [...] code = 417) 0.00HIV-1 ANTIGEN WITH HIV-1/2 [id number] 05:50:00 Test Item Value Reference Range Interpretation Comments HIV-1 ANTIGEN WITH HIV 1\\T\\2 Nonreactive Nonreactive ANTIBODY (2) (BEAKER) (test code = 2586) [id number] 05:50:00 Test Item Value Reference Range Interpretation Comments CORTISOL, TOTAL (BEAKER) (test code 3.4 ug/dL 3.7-19.4 L = 2755) SODIUM, RANDOM [id number] 05:42:00 Test Item Value Reference Range Interpretation Comments SODIUM URINE (BEAKER) (test code = < meq/L 243) Reference Range: No NormalsBASIC METABOLIC [id number] 05:34:00 Test Item Value Reference Range Interpretation [...] APPLICABLE FOR DIALYSIS PATIEN TS. BASIC METABOLIC [id number] 05:29:00 Test Item Value Reference Range Interpretation [...] DIALYSIS PATIEN TS. LACTIC ACID, VENOUS, WHOLE [id number] 05:25:00 Test Item Value Reference Range Interpretation Comments LACTATE BLOOD VENOUS (2) (BEAKER) 2.6 mmol/L 0.5-2.2 H (test code = 2872) Effective 08/31/2015: Units/Reference Range ChangeNew: 0.5-2.2 mmol/L Previous: 5- 20 mg/dLPROTHROMBIN TIME/[id number] 05:25:00 Test Item Value Reference Range Interpretation Comments PROTIME (BEAKER) (test code = 17.0 seconds 11.7-14.7 H 759) INR (BEAKER) (test code = 370) 1.4 <=5.9 RECOMMENDED COUMADIN/WARFARIN INR THERAPY RANGESSTANDARD DOSE: 2.0 - 3.0 Includes: PROPHYLAXIS for venous thrombosis, systemic embolization; TREATMENT for venous thrombosis and/or pulmonary embolus.HIGH RISK: Target INR is 2.5-3.5 for patients with mechanical heart valves.[id number] 05:23:00 Test Item Value Reference Range Interpretation Comments AMMONIA (BEAKER) (test code = 348) 27 mol/L 18-72 BASIC METABOLIC [id number] 02:34:00 Test Item Value Reference Range Interpretation [...] APPLICABLE FOR DIALYSIS PATIEN TS. BASIC METABOLIC [id number] 00:17:00 Test Item Value Reference Range Interpretation [...] FOR DIALYSIS PATIEN TS. RAPID INFLUENZA A&B [id number] 23:44:00 Test Item Value Reference Range Interpretation Comments RAPID INFLUENZA A AG (BEAKER) Negative Negative, Inconclusive (test code = 1622) RAPID INFLUENZA B AG (BEAKER) Negative Negative, Inconclusive (test code = 1623) URIC [id number] 21:52:00 Test Item Value Reference Range Interpretation Comments URIC ACID (BEAKER) (test code = 4.1 mg/dL 2.6-7.2 773) Add onCOMPREHENSIVE METABOLIC [id number] 21:12:00 Test Item Value Reference Range Interpretation [...] NOT APPLICABLE FOR DIALYSIS PATIEN TS. OSMOLALITY, [id number] 21:10:00 Test Item Value Reference Range Interpretation Comments OSMOLALITY, SERUM (BEAKER) (test 263 mOsm/kg 275-295 L code = 615) SODIUM, RANDOM [id number] 21:06:00 Test Item Value Reference Range Interpretation Comments SODIUM URINE (BEAKER) (test code = < meq/L 243) Reference Range: No NormalsCHLORIDE, RANDOM [id number] 21:06:00 Test Item Value Reference Range Interpretation Comments CHLORIDE URINE (BEAKER) (test code = < meq/L 682) Reference Range: No NormalsLACTIC ACID, VENOUS, WHOLE [id number] 21:05:00 Test Item Value Reference Range Interpretation Comments LACTATE BLOOD VENOUS (2) (BEAKER) 4.6 mmol/L 0.5-2.2 H (test code = 2872) Effective 08/31/2015: Units/Reference Range ChangeNew: 0.5-2.2 mmol/L Previous: 5- 20 mg/dLURINALYSIS W/ REFLEX URINE [id number] 21:00:00 Test Item Value Reference Range Interpretation [...] code = 516) SOURCE(BEAKER) (test code = 3556) OSMOLALITY, [id number] 20:59:00 Test Item Value Reference Range Interpretation Comments OSMOLALITY URINE (BEAKER) (test 222 mOsm/kg 40-1400 code = 614) CBC W/PLT COUNT & AUTO [id number] 20:58:00 Test Item Value Reference Range Interpretation [...] K/ L 0.00-0.20 (test code = 417) 0.00[id number] 09:10:00 Test Item Value Reference Range Interpretation Comments Phosphorus (test code = Phosphorus) 2.3 2.5-4.5 [facility]2015-11-07 09:10:00 Test Item Value Reference Range Interpretation Comments Magnesium Lvl (test code = Magnesium 1.5 1.8-2.4 Lvl) [id number] 09:10:00 Test Item Value Reference Range Interpretation Comments AGAP (test code = AGAP) 11.0 10.0-20.0 [facility] HospitalOjznaumFTICLSMQGOOM5847-04-28 09:10:00 Test Item Value Reference Range Interpretation Comments Glucose Lvl (test code = Glucose Lvl) 81 70-99 [facility] HospitalFzvatzhXLWOXABWHGAB5079-47-97 09:10:00 Test Item Value Reference Range Interpretation Comments Sodium Lvl (test code = Sodium Lvl) 138 135-145 [facility] HospitalHvfutscFJWKLEOUEKNY3451-07-19 09:10:00 Test Item Value Reference Range Interpretation Comments BUN (test code = BUN) 16 7-22 [facility] HospitalYhdvsuzEXCSXXHOZLDL9600-23-53 09:10:00 Test Item Value Reference Range Interpretation Comments Potassium Lvl (test code = Potassium 4.0 3.5-5.1 Lvl) [facility] Hospi[id number] 09:10:00 Test Item Value Reference Range Interpretation Comments CO2 (test code = CO2) 25 24-32 [facility] Hos[id number] 09:10:00 Test Item Value Reference Range Interpretation Comments Chloride Lvl (test code = Chloride Lvl) 106 95-109 [facility] HospitalKggzuuiRMEHLKGUZUAA0507-48-25 09:10:00 Test Item Value Reference Range Interpretation Comments Calcium Lvl (test code = Calcium Lvl) 8.8 8.5-10.5 [facility] HospitalAmjmwvhDLUJBWMJETXC6054-06-99 09:10:00 Test Item Value Reference Range Interpretation Comments eGFR (test code = eGFR) 85 [facility] HospitalPuzaisxVTCKNDSVKPEI8933-77-07 09:10:00 Test Item Value Reference Range Interpretation Comments Creatinine Lvl (test code = Creatinine 0.98 0.50-1.40 Lvl) [facility]QmfzlzkMBFRAXGGNV9772-63-74 09:10:00 Test Item Value Reference Range Interpretation Comments Eosinophils # (test code 0.1 See_Comment [A utomated message] The = Eosinophils #) system whic h generated this result tra nsmitted reference range : <=0.5. The reference r mic was not used to int erpret this result as normal/abnormal . [facility] HospitalWfqwasvHWQLWQBRCA8399-29-33 09:10:00 Test Item Value Reference Range Interpretation Comments Monocytes # (test code 0.8 See_Comment [Aut omated message] The = Monocytes #) system which generated this result tra nsmitted reference range : <=0.8. The reference r mic was not used to int erpret this result as normal/abnormal . [facility] HospitalLmeyqcrHHZAFOESBV4069-33-85 09:10:00 Test Item Value Reference Range Interpretation Comments Basophils # (test code 0.0 See_Comment [Aut omated message] The = Basophils #) system which generated this result tra nsmitted reference range : <=0.2. The reference r mic was not used to int erpret this result as normal/abnormal . [facility] HospitalUnvfbyrJHKPLOZJLL0841-20-53 09:10:00 Test Item Value Reference Range Interpretation Comments Macrocyte (test code = 1+ *ABN*(03/05/15 Macrocyte) 3:10 AM) [facility] HospitalRebwuymHDQNIQAFEF9918-38-90 09:10:00 Test Item Value Reference Range Interpretation Comments Eosinophils (test code = 1.6 See_Comment [A utomated message] The Eosinophils) system which ge nerated this result tra nsmitted reference range : <=4.0. The reference r mic was not used to int erpret this result as normal/abnormal . [facility] HospitalCuqjkxvEQSBQUNRZB0274-52-36 09:10:00 Test Item Value Reference Range Interpretation Comments Basophils (test code = 0.5 See_Comment [Aut omated message] The Basophils) system which ge nerated this result tra nsmitted reference range : <=1.0. The reference r mic was not used to int erpret this result as normal/abnormal . [facility] HospitalQgotlgfBENYXCCTVK3043-54-69 09:10:00 Test Item Value Reference Range Interpretation Comments Monocytes (test code = Monocytes) 10.9 2.0-12.0 [facility] HospitalRdazkplVLJDGSGVZO1084-04-91 09:10:00 Test Item Value Reference Range Interpretation Comments Lymphocytes # (test code = Lymphocytes 2.2 1.0-5.5 #) [facility] HospitalMoehulgTBUQTRJTSE7233-88-70 09:10:00 Test Item Value Reference Range Interpretation Comments Segs-Bands # (test code = Segs-Bands #) 4.5 1.5-8.1 [facility] HospitalYsoatkmCFWBTJIVTE7717-80-27 09:10:00 Test Item Value Reference Range Interpretation Comments Segs (test code = Segs) 58.5 45.0-75.0 [facility] HospitalOoolhjbYGLQETHRHB9837-64-95 09:10:00 Test Item Value Reference Range Interpretation Comments Lymphocytes (test code = Lymphocytes) 28.5 20.0-40.0 [facility] HospitalYiljnfkOUWGULUZMM4495-54-69 09:10:00 Test Item Value Reference Range Interpretation Comments Hgb (test code = Hgb) 15.9 14.0-18.0 [facility] HospitalTgbvrfsOBDDNUIPVT0661-31-88 09:10:00 Test Item Value Reference Range Interpretation Comments RBC (test code = RBC) 5.05 4.70-6.10 [facility] HospitalByqldtrYOYIOWTTET9026-39-28 09:10:00 Test Item Value Reference Range Interpretation Comments WBC (test code = WBC) 7.6 3.7-10.4 [facility] HospitalUszpotyEXEWCZVGFW3166-01-88 09:10:00 Test Item Value Reference Range Interpretation Comments Hct (test code = Hct) 48.6 42.0-54.0 [facility] HospitalYtlkyjiOELVBLPCBB2893-29-96 09:10:00 Test Item Value Reference Range Interpretation Comments MCHC (test code = MCHC) 32.7 32.0-36.0 [facility] HospitalXqjobsqWMMVMFDEYN0550-58-70 09:10:00 Test Item Value Reference Range Interpretation Comments MCH (test code = MCH) 31.5 pg 27.0-31.0 [facility] HospitalSmaxbmcBWHQPKWGIC8362-15-37 09:10:00 Test Item Value Reference Range Interpretation Comments MCV (test code = MCV) 96.3 80.0-94.0 [facility]ZnkwevoVUNHSCBMLM0149-43-02 09:10:00 Test Item Value Reference Range Interpretation Comments RDW (test code = RDW) 15.9 11.5-14.5 [facility] HospitalQqabdglJCFONCNJOQ9925-62-99 09:10:00 Test Item Value Reference Range Interpretation Comments Platelet (test code = Platelet) 293 133-450 [facility] HospitalGqkcbiyXKQJPFMWLJ1260-32-18 09:10:00 Test Item Value Reference Range Interpretation Comments MPV (test code = MPV) 7.2 7.4-10.4 [facility]2015-11-07 09:10:00 Test Item Value Reference Range Interpretation Comments Phosphorus (test code = Phosphorus) 2.3 2.5-4.5 [facility]2015-11-07 09:10:00 Test Item Value Reference Range Interpretation Comments Magnesium Lvl (test code = Magnesium 1.5 1.8-2.4 Lvl) [facility]UlfodhdXTFUXZSQJGSP5605-40-39 09:10:00 Test Item Value Reference Range Interpretation Comments AGAP (test code = AGAP) 11.0 10.0-20.0 [facility] HospitalIfkrbloKKCBWALWKTEZ6620-84-05 09:10:00 Test Item Value Reference Range Interpretation Comments Glucose Lvl (test code = Glucose Lvl) 81 70-99 [facility] HospitalKcpenbwYFMKRIDZMFUX2629-16-43 09:10:00 Test Item Value Reference Range Interpretation Comments Sodium Lvl (test code = Sodium Lvl) 138 135-145 [facility] HospitalQjqcukcPTSQJEGIRPUN1258-94-06 09:10:00 Test Item Value Reference Range Interpretation Comments BUN (test code = BUN) 16 7-22 [facility] HospitalIhhpsdgKHHLWUHXRHNB8117-71-61 09:10:00 Test Item Value Reference Range Interpretation Comments Potassium Lvl (test code = Potassium 4.0 3.5-5.1 Lvl) [facility] HospitalMfauhvnZNLNIYRYJRYM0549-92-03 09:10:00 Test Item Value Reference Range Interpretation Comments CO2 (test code = CO2) 25 24-32 [facility] HospitalOguqkhlOQFOXHBVTWWW6901-31-88 09:10:00 Test Item Value Reference Range Interpretation Comments Chloride Lvl (test code = Chloride Lvl) 106 95-109 [facility] HospitalQklkfryTSOMIYAIFKHF6712-49-67 09:10:00 Test Item Value Reference Range Interpretation Comments Calcium Lvl (test code = Calcium Lvl) 8.8 8.5-10.5 [facility] HospitalLdgexqtKINPMWVHCUBZ2472-43-22 09:10:00 Test Item Value Reference Range Interpretation Comments eGFR (test code = eGFR) 85 [facility] HospitalCjuymwhIEGPFVMMYHBH3181-91-51 09:10:00 Test Item Value Reference Range Interpretation Comments Creatinine Lvl (test code = Creatinine 0.98 0.50-1.40 Lvl) [facility] HospitalWuucxakXIAUVIUSYD4389-19-16 09:10:00 Test Item Value Reference Range Interpretation Comments Eosinophils # (test code 0.1 See_Comment [A utomated message] The = Eosinophils #) system whic h generated this result tra nsmitted reference range : <=0.5. The reference r mic was not used to int erpret this result as normal/abnormal . [facility] HospitalWxqizwiYTHGLRAXNT5553-31-10 09:10:00 Test Item Value Reference Range Interpretation Comments Monocytes # (test code 0.8 See_Comment [Aut omated message] The = Monocytes #) system which generated this result tra nsmitted reference range : <=0.8. The reference r mic was not used to int erpret this result as normal/abnormal . [facility] HospitalTsibvukVXYKRXPMBA4247-39-18 09:10:00 Test Item Value Reference Range Interpretation Comments Basophils # (test code 0.0 See_Comment [Aut omated message] The = Basophils #) system which generated this result tra nsmitted reference range : <=0.2. The reference r mic was not used to int erpret this result as normal/abnormal . [facility] HospitalTowzlxuWKHEWTKOHG2707-33-52 09:10:00 Test Item Value Reference Range Interpretation Comments Macrocyte (test code = 1+ *ABN*(03/05/15 Macrocyte) 3:10 AM) [facility] HospitalDeckabiWASORWTBYS8188-20-95 09:10:00 Test Item Value Reference Range Interpretation Comments Eosinophils (test code = 1.6 See_Comment [A utomated message] The Eosinophils) system which ge nerated this result tra nsmitted reference range : <=4.0. The reference r mic was not used to int erpret this result as normal/abnormal . [facility] HospitalRtpwyjaZQJCPHBBOY2877-69-46 09:10:00 Test Item Value Reference Range Interpretation Comments Basophils (test code = 0.5 See_Comment [Aut omated message] The Basophils) system which ge nerated this result tra nsmitted reference range : <=1.0. The reference r mic was not used to int erpret this result as normal/abnormal . [facility] HospitalKgghjwdVIVALCWNJM9014-55-47 09:10:00 Test Item Value Reference Range Interpretation Comments Monocytes (test code = Monocytes) 10.9 2.0-12.0 [facility] HospitalBknthixAUUEFXPFMZ7967-50-30 09:10:00 Test Item Value Reference Range Interpretation Comments Lymphocytes # (test code = Lymphocytes 2.2 1.0-5.5 #) [facility] HospitalEzxifuvVJRLGBVILS8249-86-27 09:10:00 Test Item Value Reference Range Interpretation Comments Segs-Bands # (test code = Segs-Bands #) 4.5 1.5-8.1 [facility] HospitalJxskriiULTEGFXHFM9448-56-12 09:10:00 Test Item Value Reference Range Interpretation Comments Segs (test code = Segs) 58.5 45.0-75.0 [facility] HospitalXqjriptGEJSWIMYQJ1728-71-18 09:10:00 Test Item Value Reference Range Interpretation Comments Lymphocytes (test code = Lymphocytes) 28.5 20.0-40.0 [facility] HospitalChigefuGOAPWBTWZC2044-41-92 09:10:00 Test Item Value Reference Range Interpretation Comments Hgb (test code = Hgb) 15.9 14.0-18.0 [facility] HospitalUpaieuxJJPURJDJDN0037-28-16 09:10:00 Test Item Value Reference Range Interpretation Comments RBC (test code = RBC) 5.05 4.70-6.10 [facility] HospitalVexmripQOHZOOLCNT1321-65-70 09:10:00 Test Item Value Reference Range Interpretation Comments WBC (test code = WBC) 7.6 3.7-10.4 [facility] HospitalIyzqzexHOKDORUYPD2251-77-42 09:10:00 Test Item Value Reference Range Interpretation Comments Hct (test code = Hct) 48.6 42.0-54.0 [facility] HospitalZrcmkynATSQFVOORQ2569-79-02 09:10:00 Test Item Value Reference Range Interpretation Comments MCHC (test code = MCHC) 32.7 32.0-36.0 [facility] HospitalPcywqvfTSBYYEATEB6706-89-37 09:10:00 Test Item Value Reference Range Interpretation Comments MCH (test code = MCH) 31.5 pg 27.0-31.0 [facility] HospitalRnkuiujTDIDTUGPMF9741-52-85 09:10:00 Test Item Value Reference Range Interpretation Comments MCV (test code = MCV) 96.3 80.0-94.0 [facility] HospitalXogahsrCTRCTAKDXU4442-77-20 09:10:00 Test Item Value Reference Range Interpretation Comments RDW (test code = RDW) 15.9 11.5-14.5 [facility]YofzhkpVZZZCQMVFS5525-34-73 09:10:00 Test Item Value Reference Range Interpretation Comments Platelet (test code = Platelet) 293 133-450 [facility] HospitalZcuydgjDEMPKBULII9255-71-74 09:10:00 Test Item Value Reference Range Interpretation Comments MPV (test code = MPV) 7.2 7.4-10.4 [facility] [id number] 04:25:00 Test Item Value Reference Range Interpretation Comments U Phencyc Scr (test Negative *NA*(03/04/15 code = U Phencyc Scr) 10:25 PM) [facility] [id number] 04:25:00 Test Item Value Reference Range Interpretation Comments U Opiate Scr (test Positive *ABN*(03/04/15 code = U Opiate Scr) 10:25 PM) [facility] [id number] 04:25:00 Test Item Value Reference Range Interpretation Comments UDS Note (test code = See Note (03/04/15 10:25 UDS Note) PM) [facility] [id number] 04:25:00 Test Item Value Reference Range Interpretation Comments U Cannab Scr (test Negative *NA*(03/04/15 code = U Cannab Scr) 10:25 PM) [facility] [id number] 04:25:00 Test Item Value Reference Range Interpretation Comments U Cocaine Scr (test Negative *NA*(03/04/15 code = U Cocaine Scr) 10:25 PM) [facility] [id number] 04:25:00 Test Item Value Reference Range Interpretation Comments U Amph Scr (test code Negative *NA*(03/04/15 = U Amph Scr) 10:25 PM) [facility] [id number] 04:25:00 Test Item Value Reference Range Interpretation Comments U Denisse Scr (test code Negative *NA*(03/04/15 = U Denisse Scr) 10:25 PM) [facility] [id number] 04:25:00 Test Item Value Reference Range Interpretation Comments U Benzodia Scr (test Negative *NA*(03/04/15 code = U Benzodia Scr) 10:25 PM) [facility] AND [id number] 04:25:00 Test Item Value Reference Range Interpretation Comments UA Spec Grav (test code = UA Spec 1.015 1 Grav) [facility] AND [id number] 04:25:00 Test Item Value Reference Range Interpretation Comments UA pH (test code = UA pH) 5.0 1 5.0-8.0 [facility] AND [id number] 04:25:00 Test Item Value Reference Range Interpretation Comments UA Turbidity (test code = Clear (03/04/15 10:25 UA Turbidity) PM) [facility] AND [id number] 04:25:00 Test Item Value Reference Range Interpretation Comments UA Glucose (test code Negative (03/04/15 10:25 = UA Glucose) PM) [facility] AND [id number] 04:25:00 Test Item Value Reference Range Interpretation Comments UA Ketones (test code Negative *NA*(03/04/15 = UA Ketones) 10:25 PM) [facility] AND [id number] 04:25:00 Test Item Value Reference Range Interpretation Comments UA Protein (test code = Trace *ABN*(03/04/15 UA Protein) 10:25 PM) [facility] AND [id number] 04:25:00 Test Item Value Reference Range Interpretation Comments UA Color (test code = Yellow *NA*(03/04/15 UA Color) 10:25 PM) [facility] AND [id number] 04:25:00 Test Item Value Reference Range Interpretation Comments UA RBC (test code = 2 See_Comment [Automa candy message] The UA RBC) system which ge nerated this result transmit candy reference range : <=2. The reference range was not used to interpr et this result as ines l/abnormal. [facility] AND [id number] 04:25:00 Test Item Value Reference Range Interpretation Comments UA Mucus (test code = UA Mucus) Few /LPF [facility] AND [id number] 04:25:00 Test Item Value Reference Range Interpretation Comments UA WBC (test code = 1 See_Comment [Automa candy message] The UA WBC) system which ge nerated this result transmit candy reference range : <=5. The reference range was not used to interpr et this result as ines l/abnormal. [facility] [id number] 04:25:00 Test Item Value Reference Range Interpretation Comments UA Sq Epi (test code = UA Sq Epi) Few /LPF [facility] [id number] 04:25:00 Test Item Value Reference Range Interpretation Comments UA Bili (test code = Small *ABN*(03/04/15 UA Bili) 10:25 PM) [facility] [id number] 04:25:00 Test Item Value Reference Range Interpretation Comments UA Urobilinogen (test code = UA 0.2 0.1-1.0 Urobilinogen) [facility] [id number] 04:25:00 Test Item Value Reference Range Interpretation Comments UA Blood (test code = Negative (03/04/15 10:25 UA Blood) PM) [facility] [id number] 04:25:00 Test Item Value Reference Range Interpretation Comments UA Nitrite (test code Negative (03/04/15 10:25 = UA Nitrite) PM) [facility] [id number] 04:25:00 Test Item Value Reference Range Interpretation Comments UA Leuk Est (test Negative (03/04/15 10:25 code = UA Leuk Est) PM) [facility] [id number] 04:25:00 Test Item Value Reference Range Interpretation Comments U Phencyc Scr (test Negative *NA*(03/04/15 code = U Phencyc Scr) 10:25 PM) [facility] [id number] 04:25:00 Test Item Value Reference Range Interpretation Comments U Opiate Scr (test Positive *ABN*(03/04/15 code = U Opiate Scr) 10:25 PM) [facility] [id number] 04:25:00 Test Item Value Reference Range Interpretation Comments UDS Note (test code = See Note (03/04/15 10:25 UDS Note) PM) [facility] [id number] 04:25:00 Test Item Value Reference Range Interpretation Comments U Cannab Scr (test Negative *NA*(03/04/15 code = U Cannab Scr) 10:25 PM) [facility] [id number] 04:25:00 Test Item Value Reference Range Interpretation Comments U Cocaine Scr (test Negative *NA*(03/04/15 code = U Cocaine Scr) 10:25 PM) [facility] [id number] 04:25:00 Test Item Value Reference Range Interpretation Comments U Amph Scr (test code Negative *NA*(03/04/15 = U Amph Scr) 10:25 PM) [facility] [id number] 04:25:00 Test Item Value Reference Range Interpretation Comments U Denisse Scr (test code Negative *NA*(03/04/15 = U Denisse Scr) 10:25 PM) [facility] [id number] 04:25:00 Test Item Value Reference Range Interpretation Comments U Benzodia Scr (test Negative *NA*(03/04/15 code = U Benzodia Scr) 10:25 PM) [facility] [id number] 04:25:00 Test Item Value Reference Range Interpretation Comments UA Spec Grav (test code = UA Spec 1.015 1 Grav) [facility] [id number] 04:25:00 Test Item Value Reference Range Interpretation Comments UA pH (test code = UA pH) 5.0 1 5.0-8.0 [facility] [id number] 04:25:00 Test Item Value Reference Range Interpretation Comments UA Turbidity (test code = Clear (03/04/15 10:25 UA Turbidity) PM) [facility] [id number] 04:25:00 Test Item Value Reference Range Interpretation Comments UA Glucose (test code Negative (03/04/15 10:25 = UA Glucose) PM) [facility] [id number] 04:25:00 Test Item Value Reference Range Interpretation Comments UA Ketones (test code Negative *NA*(03/04/15 = UA Ketones) 10:25 PM) [facility] [id number] 04:25:00 Test Item Value Reference Range Interpretation Comments UA Protein (test code = Trace *ABN*(03/04/15 UA Protein) 10:25 PM) [facility] [id number] 04:25:00 Test Item Value Reference Range Interpretation Comments UA Color (test code = Yellow *NA*(03/04/15 UA Color) 10:25 PM) [facility] [id number] 04:25:00 Test Item Value Reference Range Interpretation Comments UA RBC (test code = 2 See_Comment [Automa candy message] The UA RBC) system which ge nerated this result transmit candy reference range : <=2. The reference range was not used to interpr et this result as ines l/abnormal. [facility] [id number] 04:25:00 Test Item Value Reference Range Interpretation Comments UA Mucus (test code = UA Mucus) Few /LPF [facility] [id number] 04:25:00 Test Item Value Reference Range Interpretation Comments UA WBC (test code = 1 See_Comment [Automa candy message] The UA WBC) system which ge nerated this result transmit candy reference range : <=5. The reference range was not used to interpr et this result as ines l/abnormal. [facility] [id number] 04:25:00 Test Item Value Reference Range Interpretation Comments UA Sq Epi (test code = UA Sq Epi) Few /LPF [facility] [id number] 04:25:00 Test Item Value Reference Range Interpretation Comments UA Bili (test code = Small *ABN*(03/04/15 UA Bili) 10:25 PM) [facility] [id number] 04:25:00 Test Item Value Reference Range Interpretation Comments UA Urobilinogen (test code = UA 0.2 0.1-1.0 Urobilinogen) [facility] [id number] 04:25:00 Test Item Value Reference Range Interpretation Comments UA Blood (test code = Negative (03/04/15 10:25 UA Blood) PM) [facility] [id number] 04:25:00 Test Item Value Reference Range Interpretation Comments UA Nitrite (test code Negative (03/04/15 10:25 = UA Nitrite) PM) [facility] [id number] 04:25:00 Test Item Value Reference Range Interpretation Comments UA Leuk Est (test Negative (03/04/15 10:25 code = UA Leuk Est) PM) [facility] [id number] 04:11:00 Test Item Value Reference Range Interpretation Comments Troponin-I (test code no gt See_Comment [Auto mated message] The = Troponin-I) system which g enerated this result transmit candy reference range : <=0.40. The reference r mic was not used to interpr et this result as ines l/abnormal. [facility] [employer] [id number] 04:11:00 Test Item Value Reference Range Interpretation Comments Total CK (test code = Total CK) 34 -191 [facility]seinGl[facility] [id number] 04:11:00 Test Item Value Reference Range Interpretation Comments Troponin-I (test code no gt See_Comment [Auto mated message] The = Troponin-I) system which g enerated this result transmit candy reference range : <=0.40. The reference r mic was not used to interpr et this result as ines l/abnormal. [facility] [employer] [id number] 04:11:00 Test Item Value Reference Range Interpretation Comments Total CK (test code = Total CK) 34 -191 [facility] KleberghosseinFlixel [id number] 23:11:00 Test Item Value Reference Range Interpretation Comments Total CK (test code = Total CK) 31 191 [facility]berghosseinFl[facility] [id number] 23:11:00 Test Item Value Reference Range Interpretation Comments Troponin-I (test code no gt See_Comment [Auto mated message] The = Troponin-I) system which g enerated this result transmit candy reference range : <=0.40. The reference r mic was not used to interpr et this result as ines l/abnormal. [facility] [employer]2015-11-06 23:11:00 Test Item Value Reference Range Interpretation Comments Total CK (test code = Total CK) 31 191 [facility] [employer]2015-11-06 23:11:00 Test Item Value Reference Range Interpretation Comments Troponin-I (test code no gt See_Comment [Auto mated message] The = Troponin-I) system which g enerated this result transmit candy reference range : <=0.40. The reference r mic was not used to interpr et this result as ines l/abnormal. [facility] [employer]2015-11-06 16:03:00 Test Item Value Reference Range Interpretation Comments Troponin-I (test code no gt See_Comment [Auto mated message] The = Troponin-I) system which g enerated this result transmit candy reference range : <=0.40. The reference r mic was not used to interpr et this result as ines l/abnormal. [facility] KlebergLux[facility] [id number] 16:03:00 Test Item Value Reference Range Interpretation Comments CK MB (test code = CK MB) no gt 0.5-3.6 [facility]bergL[facility] [id number] 16:03:00 Test Item Value Reference Range Interpretation Comments Total CK (test code = Total CK) 49 12-191 [facility]bergBP[facility] [employer]2015-11-06 16:03:00 Test Item Value Reference Range Interpretation Comments CK MB Index (test no gt See_Comment [Automate d message] The code = CK MB Index) system w [facility] generated this result transmit candy reference range : <=2.5. The reference range was not used to interpr et this result as ines l/abnormal. [facility] [employer]2015-11-06 16:03:00 Test Item Value Reference Range Interpretation Comments eGFR (test code = eGFR) 81 [facility] [employer] [facility] [id number] 16:03:00 Test Item Value Reference Range Interpretation Comments Glucose Lvl (test code = Glucose Lvl) 94 70-99 [facility]bergSp[facility] [id number] 16:03:00 Test Item Value Reference Range Interpretation Comments AGAP (test code = AGAP) 12.8 10.0-20.0 [facility] [employer] [facility] [id number] 16:03:00 Test Item Value Reference Range Interpretation Comments BUN (test code = BUN) 12 7-22 [facility] [employer]2015-11-06 16:03:00 Test Item Value Reference Range Interpretation Comments Creatinine Lvl (test code = Creatinine 1.02 0.50-1.40 Lvl) [facility]bergSp[facility] [id number] 16:03:00 Test Item Value Reference Range Interpretation Comments CO2 (test code = CO2) 25 24-32 [facility] [employer]2015-11-06 16:03:00 Test Item Value Reference Range Interpretation Comments Chloride Lvl (test code = Chloride Lvl) 105 95-109 [facility]2015-11-06 16:03:00 Test Item Value Reference Range Interpretation Comments Calcium Lvl (test code = Calcium Lvl) 9.5 8.5-10.5 [facility]2015-11-06 16:03:00 Test Item Value Reference Range Interpretation Comments Sodium Lvl (test code = Sodium Lvl) 138 135-145 [facility]2015-11-06 16:03:00 Test Item Value Reference Range Interpretation Comments Potassium Lvl (test code = Potassium 4.8 3.5-5.1 Lvl) [facility] H[id number] 16:03:00 Test Item Value Reference Range Interpretation Comments INR (test code = INR) 0.92 0.85-1.17 [facility] HospitalFawopvmEHYDBRDQXY3495-60-89 16:03:00 Test Item Value Reference Range Interpretation Comments PT (test code = PT) 12.7 s 12.0-14.7 [facility] HospitalYqogmrhLMYIVUSQIT7888-30-07 16:03:00 Test Item Value Reference Range Interpretation Comments PTT (test code = PTT) 29.9 s 22.9-35.8 [facility] HospitalPqulprgSKCJZJANWE8797-80-02 16:03:00 Test Item Value Reference Range Interpretation Comments MCV (test code = MCV) 95.1 80.0-94.0 [facility] Hos[id number] 16:03:00 Test Item Value Reference Range Interpretation Comments RDW (test code = RDW) 15.9 11.5-14.5 [facility] HospitalAwyawsdDBIQPLUASF6787-23-06 16:03:00 Test Item Value Reference Range Interpretation Comments MCH (test code = MCH) 31.8 pg 27.0-31.0 [facility] HospitalNlslgzcMMQFARJFPO6185-25-22 16:03:00 Test Item Value Reference Range Interpretation Comments Platelet (test code = Platelet) 326 133-450 [facility] HospitalPixggwfDNUSFAMGXR9448-20-86 16:03:00 Test Item Value Reference Range Interpretation Comments MPV (test code = MPV) 6.9 7.4-10.4 [facility] HospitalEchaxksUOJIURPUOH9299-71-35 16:03:00 Test Item Value Reference Range Interpretation Comments MCHC (test code = MCHC) 33.5 32.0-36.0 [facility] HospitalWpozszeJYNZPSMZCR8026-94-75 16:03:00 Test Item Value Reference Range Interpretation Comments Hct (test code = Hct) 50.8 42.0-54.0 [facility] HospitalAqhiyepTLYOVJLIYT2281-55-97 16:03:00 Test Item Value Reference Range Interpretation Comments Hgb (test code = Hgb) 17.0 14.0-18.0 [facility] HospitalYvpxeweRUWBFEVSAA7249-52-35 16:03:00 Test Item Value Reference Range Interpretation Comments RBC (test code = RBC) 5.34 4.70-6.10 [facility] HospitalCozjyqxUXOJEEGFQT9048-68-70 16:03:00 Test Item Value Reference Range Interpretation Comments WBC (test code = WBC) 12.0 3.7-10.4 [facility] HospitalOtfmgscJKGAWDNXXH1427-82-06 16:03:00 Test Item Value Reference Range Interpretation Comments Lymphocytes (test code = Lymphocytes) 18.4 20.0-40.0 [facility] HospitalKbfnwriVUURJDKNIL6415-07-33 16:03:00 Test Item Value Reference Range Interpretation Comments Macrocyte (test code = 1+ *ABN*(03/04/15 Macrocyte) 10:03 AM) [facility] H[id number] 16:03:00 Test Item Value Reference Range Interpretation Comments Monocytes # (test code 0.9 See_Comment [Aut omated message] The = Monocytes #) system which generated this result tra nsmitted reference range : <=0.8. The reference r mic was not used to int erpret this result as normal/abnormal . [facility] HospitalYrrhwxcGWWGRBMFRR0248-48-55 16:03:00 Test Item Value Reference Range Interpretation Comments Lymphocytes # (test code = Lymphocytes 2.2 1.0-5.5 #) [facility] HospitalNralvtrEVTKNAXLRX2111-76-28 16:03:00 Test Item Value Reference Range Interpretation Comments Eosinophils # (test code 0.1 See_Comment [A utomated message] The = Eosinophils #) system whic h generated this result tra nsmitted reference range : <=0.5. The reference r mic was not used to int erpret this result as normal/abnormal . [facility] Hospit[id number] 16:03:00 Test Item Value Reference Range Interpretation Comments Eosinophils (test code = 0.5 See_Comment [A utomated message] The Eosinophils) system which ge nerated this result tra nsmitted reference range : <=4.0. The reference r mic was not used to int erpret this result as normal/abnormal . [facility] [id number] 16:03:00 Test Item Value Reference Range Interpretation Comments Monocytes (test code = Monocytes) 7.8 2.0-12.0 [facility]bergAomreseKMMCVHNVAU9426-34-49 16:03:00 Test Item Value Reference Range Interpretation Comments Segs-Bands # (test code = Segs-Bands #) 8.8 1.5-8.1 [facility]be[id number] 16:03:00 Test Item Value Reference Range Interpretation Comments Basophils (test code = 0.4 See_Comment [Aut omated message] The Basophils) system which ge nerated this result tra nsmitted reference range : <=1.0. The reference r mic was not used to int erpret this result as normal/abnormal . [facility] KlebergPzyfcogRAXKNZIGQJ7094-05-71 16:03:00 Test Item Value Reference Range Interpretation Comments RBC Morph (test code = Normal (03/04/15 10:03 RBC Morph) AM) [facility]bergPqzacgpAWJTQTFXQL4508-10-21 16:03:00 Test Item Value Reference Range Interpretation Comments Segs (test code = Segs) 72.9 45.0-75.0 [facility] Klebe[id number] 16:03:00 Test Item Value Reference Range Interpretation Comments Plt Morph (test code = Normal (03/04/15 10:03 Plt Morph) AM) [facility]bergAirWare LabAC [id number] 16:03:00 Test Item Value Reference Range Interpretation Comments Troponin-I (test code no gt See_Comment [Auto mated message] The = Troponin-I) system which g enerated this result transmit candy reference range : <=0.40. The reference r mic was not used to interpr et this result as ines l/abnormal. [facility] LabAC [id number] 16:03:00 Test Item Value Reference Range Interpretation Comments CK MB (test code = CK MB) no gt 0.5-3.6 [facility] LabAC [id number] 16:03:00 Test Item Value Reference Range Interpretation Comments Total CK (test code = Total CK) 49 12-191 [facility] [id number] 16:03:00 Test Item Value Reference Range Interpretation Comments CK MB Index (test no gt See_Comment [Automate d message] The code = CK MB Index) system w [facility] generated this result transmit candy reference range : <=2.5. The reference range was not used to interpr et this result as ines l/abnormal. [facility] [id number] 16:03:00 Test Item Value Reference Range Interpretation Comments eGFR (test code = eGFR) 81 [facility] [id number] 16:03:00 Test Item Value Reference Range Interpretation Comments Glucose Lvl (test code = Glucose Lvl) 94 70-99 [facility] [id number] 16:03:00 Test Item Value Reference Range Interpretation Comments AGAP (test code = AGAP) 12.8 10.0-20.0 [facility] KlebergNewCondosOnlineECU [id number] 16:03:00 Test Item Value Reference Range Interpretation Comments BUN (test code = BUN) 12 7-22 [facility] [id number] 16:03:00 Test Item Value Reference Range Interpretation Comments Creatinine Lvl (test code = Creatinine 1.02 0.50-1.40 Lvl) [facility] [id number] 16:03:00 Test Item Value Reference Range Interpretation Comments CO2 (test code = CO2) 25 24-32 [facility] [id number] 16:03:00 Test Item Value Reference Range Interpretation Comments Chloride Lvl (test code = Chloride Lvl) 105 95-109 [facility] [id number] 16:03:00 Test Item Value Reference Range Interpretation Comments Calcium Lvl (test code = Calcium Lvl) 9.5 8.5-10.5 [facility] [id number] 16:03:00 Test Item Value Reference Range Interpretation Comments Sodium Lvl (test code = Sodium Lvl) 138 135-145 [facility] [id number] 16:03:00 Test Item Value Reference Range Interpretation Comments Potassium Lvl (test code = Potassium 4.8 3.5-5.1 Lvl) [facility]HruqcxyTNXVRLBNLZ3297-11-72 16:03:00 Test Item Value Reference Range Interpretation Comments INR (test code = INR) 0.92 0.85-1.17 [id number] 16:03:00 Test Item Value Reference Range Interpretation Comments PT (test code = PT) 12.7 s 12.0-14.7 [facility] HospitalXcocdjxXOOTAVGJMU9949-01-30 16:03:00 Test Item Value Reference Range Interpretation Comments PTT (test code = PTT) 29.9 s 22.9-35.8 [facility] HospitalCrytewtKRNZQHZGRW8862-60-55 16:03:00 Test Item Value Reference Range Interpretation Comments MCV (test code = MCV) 95.1 80.0-94.0 [facility] HospitalTejzughOWBGZWVXST0175-01-88 16:03:00 Test Item Value Reference Range Interpretation Comments RDW (test code = RDW) 15.9 11.5-14.5 [facility] HospitalCqcwefqMCADHKBISR0377-53-70 16:03:00 Test Item Value Reference Range Interpretation Comments MCH (test code = MCH) 31.8 pg 27.0-31.0 [facility] HospitalAkchgreDSINCHODOE0499-44-44 16:03:00 Test Item Value Reference Range Interpretation Comments Platelet (test code = Platelet) 326 133-450 [facility] HospitalDplsetyBNABLRMYWB9746-38-64 16:03:00 Test Item Value Reference Range Interpretation Comments MPV (test code = MPV) 6.9 7.4-10.4 [facility] HospitalGtbneftKTXCDFPBCR8677-80-58 16:03:00 Test Item Value Reference Range Interpretation Comments MCHC (test code = MCHC) 33.5 32.0-36.0 [facility] HospitalLydaiaoEGJCDSWCZK7088-03-27 16:03:00 Test Item Value Reference Range Interpretation Comments Hct (test code = Hct) 50.8 42.0-54.0 [facility] HospitalQemfqsxXFULJQZXZM2343-99-12 16:03:00 Test Item Value Reference Range Interpretation Comments Hgb (test code = Hgb) 17.0 14.0-18.0 [facility] HospitalFnrtmigERVZLZACWU1749-85-51 16:03:00 Test Item Value Reference Range Interpretation Comments RBC (test code = RBC) 5.34 4.70-6.10 [facility] HospitalVcfbwhlLLCNENKLDB8005-89-37 16:03:00 Test Item Value Reference Range Interpretation Comments WBC (test code = WBC) 12.0 3.7-10.4 [facility] HospitalQnnkulxMRMVIXDMSM0390-86-07 16:03:00 Test Item Value Reference Range Interpretation Comments Lymphocytes (test code = Lymphocytes) 18.4 20.0-40.0 [facility] HospitalKljwhakFYEJGZZCLI4505-69-48 16:03:00 Test Item Value Reference Range Interpretation Comments Macrocyte (test code = 1+ *ABN*(03/04/15 Macrocyte) 10:03 AM) [facility] HospitalBgzpopsLVWFIXHJUD3211-80-74 16:03:00 Test Item Value Reference Range Interpretation Comments Monocytes # (test code 0.9 See_Comment [Aut omated message] The = Monocytes #) system which generated this result tra nsmitted reference range : <=0.8. The reference r mic was not used to int erpret this result as normal/abnormal . [facility] HospitalLbgbwztNRMDIVQOGA3137-10-89 16:03:00 Test Item Value Reference Range Interpretation Comments Lymphocytes # (test code = Lymphocytes 2.2 1.0-5.5 #) [facility] HospitalDkdswlaZKEQYAXHIR3689-40-82 16:03:00 Test Item Value Reference Range Interpretation Comments Eosinophils # (test code 0.1 See_Comment [A utomated message] The = Eosinophils #) system whic h generated this result tra nsmitted reference range : <=0.5. The reference r mic was not used to int erpret this result as normal/abnormal . [facility] HospitalZcvhrlbHRJHQTFQAD5959-02-05 16:03:00 Test Item Value Reference Range Interpretation Comments Eosinophils (test code = 0.5 See_Comment [A utomated message] The Eosinophils) system which ge nerated this result tra nsmitted reference range : <=4.0. The reference r mic was not used to int erpret this result as normal/abnormal . [facility] HospitalErisjzoIAWPRTZFUA2301-37-35 16:03:00 Test Item Value Reference Range Interpretation Comments Monocytes (test code = Monocytes) 7.8 2.0-12.0 [facility] H[id number] 16:03:00 Test Item Value Reference Range Interpretation Comments Segs-Bands # (test code = Segs-Bands #) 8.8 1.5-8.1 [facility] H[id number] 16:03:00 Test Item Value Reference Range Interpretation Comments Basophils (test code = 0.4 See_Comment [Aut omated message] The Basophils) system which ge nerated this result tra nsmitted reference range : <=1.0. The reference r imc was not used to int erpret this result as normal/abnormal . [facility] HospitalHexyoixLCXLORNRVJ9912-04-22 16:03:00 Test Item Value Reference Range Interpretation Comments RBC Morph (test code = Normal (03/04/15 10:03 RBC Morph) AM) [facility] HospitalXdahrjeCBZNIYHKSG2571-28-97 16:03:00 Test Item Value Reference Range Interpretation Comments Segs (test code = Segs) 72.9 45.0-75.0 [facility] HospitalJcfvkyqZHEMKMZMKY7935-95-75 16:03:00 Test Item Value Reference Range Interpretation Comments Plt Morph (test code = Normal (03/04/15 10:03 Plt Morph) AM) [facility] CenterJfzcjyuKTNZFX8840-16-91 16:00:00 Test Item Value Reference Range Interpretation Comments VLDL (test code = VLDL) 31 [facility] CenterIunvmezPNJCEZ9549-53-82 16:00:00 Test Item Value Reference Range Interpretation Comments CHD Risk (test code = CHD Risk) 3.86 4.00-7.30 [facility] CenterJyndwhxIGYOZZ7189-81-93 16:00:00 Test Item Value Reference Range Interpretation Comments LDL (Calculated) (test code = LDL 149 (Calculated)) [facility] CenterUkdkmymXEABHS7907-32-84 16:00:00 Test Item Value Reference Range Interpretation Comments Trig (test code = Trig) 155 [facility] CenterEahgnlwHJYEOQ7931-81-24 16:00:00 Test Item Value Reference Range Interpretation Comments Chol (test code = Chol) 243 [facility] CenterDwaiurxQGQANK3651-60-52 16:00:00 Test Item Value Reference Range Interpretation Comments HDL (test code = HDL) 63 [facility]IAL [id number] 16:00:00 Test Item Value Reference Range Interpretation Comments Hgb A1C (test code = Hgb A1C) 5.6 [facility] CenterTHYROID [id number] 16:00:00 Test Item Value Reference Range Interpretation Comments TSH (test code = TSH) 1.840 0.360-3.740 [facility] CenterFfruitnMSCHQL9960-25-75 16:00:00 Test Item Value Reference Range Interpretation Comments VLDL (test code = VLDL) 31 [facility] CenterBeabkoyUAXFJC3888-28-09 16:00:00 Test Item Value Reference Range Interpretation Comments CHD Risk (test code = CHD Risk) 3.86 4.00-7.30 [facility] CenterDfusgqxZDZTBT3479-91-14 16:00:00 Test Item Value Reference Range Interpretation Comments LDL (Calculated) (test code = LDL 149 (Calculated)) [facility] CenterNlceexrBSVOPJ2704-22-41 16:00:00 Test Item Value Reference Range Interpretation Comments Trig (test code = Trig) 155 [facility] CenterWirjnxhMCYGJH3635-61-41 16:00:00 Test Item Value Reference Range Interpretation Comments Chol (test code = Chol) 243 [facility] CenterCnywhewBOUSEW6366-86-91 16:00:00 Test Item Value Reference Range Interpretation Comments HDL (test code = HDL) 63 [facility] CenterIAL [id number] 16:00:00 Test Item Value Reference Range Interpretation Comments Hgb A1C (test code = Hgb A1C) 5.6 [facility] CenterTHYROID [id number] 16:00:00 Test Item Value Reference Range Interpretation Comments TSH (test code = TSH) 1.840 0.360-3.740 [facility]
[2022-02-17 10:37] LABS: Urine Blood 3+ (Negative); Urine Glucose Negative (Negative); Urine Protein 2+ (Negative)
[2022-02-17] MEDS ORDERED: MORPHINE 4 MG/ML SYR ONE (10:53)
[2022-02-17] MEDS ORDERED: ONDANSETRON 4 MG/2 ML VIAL ONE (10:53)
[2022-02-17 10:57] LABS: Urine Bacteria 20-50 /HPF (<20); Urine Mucus Slight /HPF (None Seen); Urine RBC >50 /HPF (None Seen)
[2022-02-17 11:22] LABS: Absolute Lymphocytes (CBC) 3.1 K/uL (0.7-4.9); Hematocrit 44.4 % (39.6-49.0); Lymphocytes % 23.8 % (15.3-44.8); MCV 83.1 fL (80-100); MPV 6.7 fL (7.6-11.3); RBC Red Blood Cell Count 5.34 M/uL (4.33-5.43)
[2022-02-17 11:39] LABS: Potassium 4.2 mmol/L (3.5-5.1)
--- NOTE | 2022-02-17 13:20 | RAD REPORT ---
EXAM DESCRIPTION: CT - Abdomen Pelvis W Contrast - 02/17/2022 12:56 pm CLINICAL HISTORY: Abdominal pain COMPARISON: August 2021 TECHNIQUE: Computed axial tomography of the abdomen pelvis was obtained. 100 cc Isovue-300 was admin istered intravenously. Oral contrast was not requested which limits evaluation of bowel and appendix All CT scans are performed using dose optimization technique as appropriate and may include automated exposure control or mA/KV adjustment according to patient size. FINDINGS: Mild right lower lobe atelectasis. Cholelithiasis. Gallbladder wall is not thickened. Cirrhotic liver Spleen, pancreas, adrenal and kidneys appear unremarkable. There is no evidence of diverticulitis. Normal appendix Small inguinal hernias Suprapubic catheter within the bladder. Mild bladder wall thickening with mild stranding in the adjac ent fat. The prostate gland is moderately enlarged. IMPRESSION: Stranding adjacent to the bladder may indicate inflammation. Cholelithiasis without evidence cholecystitis
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
[2022-02-17] MEDS ORDERED: CEFTRIAXONE 1000 MG/VIAL ONE (14:37)
[2022-02-17] MEDS ORDERED: NA CHLORIDE 0.9% 50 ML IV ONE (14:38)
[2022-02-17 16:11] VITALS: O2SAT 96
[2022-02-17 16:14] VITALS: BP 185/82
== END 2022-02-17 15:52 | disposition home or self-care (01) ==
LOC: ER 09:53
DX: T83.098A Other mechanical complication of other urinary catheter, initial encounter (principal); N39.0 Urinary tract infection, site not specified; R33.9 Retention of urine, unspecified; F17.210 Nicotine dependence, cigarettes, uncomplicated; Z95.818 Presence of other cardiac implants and grafts
CPT/HCPCS: 96365; 87040 ×2; 87088; 85025; 87086; 80048; 36415; 83605; 84145; 74177; 51700; 51702; 96375; 99285; Q9967; J2405; 81003; 81015

== ENCOUNTER 2023-10-22 12:43 | Emergency (ER) | payer MEDICARE, OTHER ==
[2023-10-22 15:05] LABS: Absolute Basophils 0.1 K/uL (0-0.5); Absolute Eosinophils 0.1 K/uL (0-0.5); Absolute Lymphocytes (CBC) 2.2 K/uL (0.7-4.9); Absolute Monocytes 0.8 K/uL (0.1-1.3); Basophils % 0.5 % (0-1.3); Eosinophils % 0.5 % (0-4.4); Hematocrit 46.5 % (39.6-49.0); Hemoglobin 15.2 g/dL (13.6-17.9); Lymphocytes % 18.3 % (15.3-44.8); MCH 28.3 pg (27.0-35.0); MCHC 32.6 g/dL (32.0-36.0); MCV 86.9 fL (80-100); MPV 7.1 fL (7.6-11.3); Monocytes % 6.2 % (3.3-12.3); Neutrophils % 74.5 % (41.7-73.7); Platelets 287 thou/uL (152-406); RBC Red Blood Cell Count 5.35 M/uL (4.33-5.43); Red Cell Distribution Width 14.5 % (12.1-15.2)
[2023-10-22] MEDS ORDERED: FAMOTIDINE 20 MG/2 ML VIAL IV ONE (15:11)
[2023-10-22 15:20] LABS: Specific Gravity 1.021 (1.005-1.030); Sqamous Epithelial <5 /HPF (None Seen); Urine Bacteria <20 /HPF (<20); Urine Bilirubin NEGATIVE (Negative); Urine Blood 2+ (Negative); Urine Clarity Extremely Turbid (Clear); Urine Color Yellow (Yellow); Urine Culture Reflex Order NOT NEEDED; Urine Glucose NEGATIVE (Negative); Urine Ketones 1+ (Negative); Urine Microscopic Reflex YN ORDER UMIC; Urine Mucus 4+ /HPF (None Seen); Urine Nitrite NEGATIVE (Negative); Urine Protein 1+ (Negative); Urine RBC 21-50 /HPF (None Seen); Urine Urobilinogen Normal (Normal); Urine pH 5.5 (5.0-7.0)
[2023-10-22 15:26] LABS: Albumin 3.5 g/dL (3.4-5.0); Albumin/Globulin Ratio 0.7 (1.1-1.8); Alkaline Phosphatase 114 U/L (45-117); Anion Gap 8.4 mEq/L (5.0-15.0); BUN Blood Urea Nitrogen 10 mg/dL (7-18); Bicarbonate 26 mEq/L (21-32); Bilirubin Total 0.6 mg/dL (0.2-1.0); Globulin 4.8 g/dL (2.3-3.5); Glomerular Filtration Rate 80 ml/min (=/>90); Glucose Level 94 mg/dL (74-106); Lipase 18 U/L (13-75); Potassium 4.4 mEq/L (3.5-5.1); Protein, Total 8.3 g/dL (6.4-8.2); Sodium Level 137 mEq/L (136-145); Troponin High Sensitivity 13.6 pg/mL (<58.9)
[2023-10-22 15:29] LABS: ALT/SGPT < 14 U/L (16-61); AST/SGOT < 10 U/L (15-37)
--- NOTE | 2023-10-22 16:14 | RAD REPORT ---
EXAM DESCRIPTION: CT - Abdomen Pelvis W Contrast - 10/22/2023 3:57 pm CLINICAL HISTORY: Abdominal pain COMPARISON: 2021 TECHNIQUE: Computed axial tomography of the abdomen pelvis was obtained. 100 cc Isovue-300 was admin istered intravenously. Oral contrast was not requested which limits evaluation of bowel and appendix All CT scans are performed using dose optimization technique as appropriate and may include automated exposure control or mA/KV adjustment according to patient size. FINDINGS: Chronic mild right lower lobe atelectasis. Cirrhotic liver. Multiple gallstones. Gallbladder wall not thickened. The spleen, pancreas, adrenals and kidneys unremarkable Normal appendix. No evidence of diverticulitis. Small umbilical hernia Suprapubic catheter with mild bladder wall thickening. Prostate gland mildly to moderately enlarged. Moderate bilateral inguinal hernias contain fat . No evidence of diverticulitis Iliac stents present IMPRESSION: Cholelithiasis without evidence cholecystitis Cirrhosis
--- NOTE | 2023-10-22 16:15 | RAD REPORT ---
EXAM DESCRIPTION: Shadia Single View10/22/2023 1:44 pm CLINICAL HISTORY: Abdominal pain COMPARISON: 2021 FINDINGS: Mild chronic right lung opacities The lungs appear clear of acute infiltrate. The heart is mildly enlarged IMPRESSION: No acute abnormalities displayed
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
[2023-10-22 19:04] VITALS: BP 163/66; TEMP 97.8; O2SAT 96
--- NOTE | 2023-10-23 13:52 | EKG ---
Test Date: 2023-10-22 Test Time: 12:56:31 [employer]rowave Remote Sensing Scientist: JESUS MEASUREMENT RESULTS: Intervals: Rate: 66 DE: 202 QRSD: 96 QT: 432 QTc: 452 [place]: P: 34 DE: 202 QRS: 17 T: 25 INTERPRETIVE STATEMENTS: Normal sinus rhythm Normal ECG Compared to ECG 09/18/2021 03:15:26 Sinus bradycardia no longer present First degree AV block no longer present Myocardial infarct finding no longer present Electronically Signed On 10-23-23 13:49:09 CDT by Elvis Khoury
== END 2023-10-22 18:26 | disposition home or self-care (01) ==
LOC: ER 12:43
DX: K80.80 Other cholelithiasis without obstruction (principal); I10 Essential (primary) hypertension; F17.210 Nicotine dependence, cigarettes, uncomplicated
CPT/HCPCS: 85025; 81001; 36415; 84484 ×2; 83690; 80053; 74177; 71045; Q9967; 93005

== ENCOUNTER 2024-09-12 08:20 | Emergency (ER) | payer MEDICARE, OTHER ==
[2024-09-12] MEDS ORDERED: LEVALBUTEROL 1.25 MG/3 ML NEB ONE (08:44)
[2024-09-12 09:21] LABS: Absolute Basophils 0.1 K/uL (0-0.5); Absolute Lymphocytes (CBC) 1.4 K/uL (0.7-4.9); Absolute Monocytes 1.5 K/uL (0.1-1.3); Absolute Neutrophil 22.7 K/uL (1.8-8.0); Basophils % 0.5 % (0-1.3); Hematocrit 41.2 % (39.6-49.0); Hemoglobin 14.2 g/dL (13.6-17.9); Lymphocytes % 5.6 % (15.3-44.8); MCH 28.9 pg (27.0-35.0); MCHC 34.4 g/dL (32.0-36.0); MCV 84.1 fL (80-100); MPV 7.2 fL (7.6-11.3); Neutrophils % 87.9 % (41.7-73.7); Platelets 280 thou/uL (152-406); Red Cell Distribution Width 14.5 % (12.1-15.2)
[2024-09-12 09:27] LABS: Specific Gravity 1.011 (1.005-1.030); Sqamous Epithelial <5 /HPF (None Seen); Urine Bacteria <20 /HPF (<20); Urine Bilirubin NEGATIVE (Negative); Urine Blood 2+ (Negative); Urine Clarity Extremely Turbid (Clear); Urine Color Light-Orange (Yellow); Urine Culture Reflex Order REFLEXED; Urine Glucose NEGATIVE (Negative); Urine Ketones 1+ (Negative); Urine Microscopic Reflex YN ORDER UMIC; Urine Nitrite 2+ (Negative); Urine Protein 2+ (Negative); Urine Urobilinogen Normal (Normal); Urine WBC 20-50 /HPF (<5)
[2024-09-12 09:41] LABS: Albumin 3.1 g/dL (3.4-5.0); Albumin/Globulin Ratio 0.7 (1.1-1.8); Alkaline Phosphatase 98 U/L (45-117); Anion Gap 13.2 mEq/L (5.0-15.0); BUN Blood Urea Nitrogen 22 mg/dL (7-18); Bicarbonate 24 mEq/L (21-32); Bilirubin Total 0.9 mg/dL (0.2-1.0); Globulin 4.5 g/dL (2.3-3.5); Glomerular Filtration Rate 31 ml/min (=/>90); Glucose Level 101 mg/dL (74-106); NT PRO-BNP 3937 pg/mL (<125); Potassium 4.2 mEq/L (3.5-5.1); Protein, Total 7.6 g/dL (6.4-8.2); Sodium Level 137 mEq/L (136-145); Troponin High Sensitivity 18.5 pg/mL (<58.9)
[2024-09-12 09:46] LABS: ALT/SGPT < 14 U/L (16-61); AST/SGOT < 10 U/L (15-37)
[2024-09-12 09:49] LABS: Blood Morphology Comment NOT SEEN (NOT SEEN); Differential Total Cells Count 100; Lymphocytes 7 % (15-42); Metamyelocytes 1 % (0-0); Monocytes 5 % (0-10); Platelet Estimate ADEQ; Segmented Neutrophils 87 % (40-80)
--- NOTE | 2024-09-12 10:03 | RAD REPORT ---
EXAM: Chest Single View HISTORY: 69 years Male COUGH COMPARISON: 10/22/2023 FINDINGS: LUNGS/PLEURA: Hazy opacities bilaterally. Possible small right pleural effusion. CARDIAC/MEDIASTINUM: Stable enlargement. UPPER ABDOMEN: No significant abnormality. BONES: No acute abnormality. Partially imaged left proximal humerus ORIF. LINES/TUBES/OTHER: N/A IMPRESSION: Hazy opacities bilaterally with possible small right pleural effusion could reflect edema.
[2024-09-12] MEDS ORDERED: FUROSEMIDE 40 MG/4 ML VIAL ONE (10:12)
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
[2024-09-12] MEDS ORDERED: CEFTRIAXONE 1000 MG/VIAL ONE (10:18)
[2024-09-12 11:23] LABS: PT Prothrombin Time 13.7 SECONDS (10-13.0); Protime INR 1.21
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
--- NOTE | 2024-09-12 14:05 | RAD REPORT ---
EXAMINATION: Abdomen Pelvis Wo Contrast CLINICAL INDICATION: Male, 69 years old.elevated wbc;Abd pain TECHNIQUE: CT abdomen and pelvis was performed, without IV contrast, as per department protocol. Axia l, sagittal and coronal reconstructions were obtained. One or more of the following dose reduction techniques were used: Automated exposure control, adjustment of the mA and/or kV according to the pat ient size, and/or iterative reconstruction. Unless otherwise specified, incidental findings do not require dedicated imaging follow-up. [id number]. IV CONTRAST: Not administered. COMPARISON: 10/22/2023 FINDINGS: The lack of intravenous contrast limits the sensitivity of this exam for evaluation of solid visceral organs, vascular structures, and retroperitoneum. LOWER CHEST: Scarring at the right lung base.No significant pericardial effusion. UPPER GI: No significant abnormality. LIVER: Cirrhotic liver morphology. No focal masses. GALLBLADDER/BILE DUCTS: Cholelithiasis without CT evidence of acute cholecystitis.? PANCREAS: Atrophy but no acute findings. SPLEEN: Unremarkable. ADRENALS: No adrenal masses. KIDNEYS AND URETERS: Mild left-sided hydronephrosis.Limited evaluation for renal lesions in the absen ce of IV contrast.No renal calculi.No ureteral calculi. Mild perinephric stranding, left greater than right. ABDOMINAL AORTA AND OTHER VESSELS: Moderate atherosclerotic changes without aortic aneurysm. Iliac st ents. PERITONEUM: No abnormal free fluid. No free air. LYMPH NODES: No pathologic lymphadenopathy. ABDOMINAL WALL: Unremarkable SMALL BOWEL/COLON: Small bowel has normal course and caliber. No colonic wall thickening or pericolon ic inflammatory changes.Normal appendix. URINARY BLADDER: The bladder is decompressed by a suprapubic catheter. The tip of the catheter cannul ates the left UVJ and terminates in the left distal ureter which results in mild left-sided hydronephrosis. Bladder wall thickening is present which could be secondary to infection. REPRODUCTIVE ORGANS: Moderate prostatomegaly. MUSCULOSKELETAL: No acute or suspicious osseous abnormality. ADDITIONAL FINDINGS: None. IMPRESSION: Mild left-sided hydroureteronephrosis secondary to the suprapubic catheter cannulating the left UVJ a nd at least partially obstructing the left ureter. Bladder wall thickening and stranding. Correlate for cystitis.
[2024-09-12] MEDS ORDERED: NA CHLORIDE 0.9% 500 ML ONE (14:19)
[2024-09-12] MEDS ORDERED: HYDROCODONE/APAP 5/325 MG TAB ONE (15:07)
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
--- NOTE | 2024-09-12 16:45 | RAD REPORT ---
EXAMINATION: Pelvis Wo Cont CLINICAL INDICATION: Male, 69 years old. attempted catheter reposition TECHNIQUE: CT pelvis was performed, without IV contrast, as per department protocol. Axial, sagittal and coronal reconstructions were obtained. One or more of the following dose reduction techniques were used: Automated exposure control, adjustment of the mA and/or kV according to patient size, and/ or iterative reconstruction. Unless otherwise specified, incidental findings do not require dedicated imaging follow-up. [id number]. IV CONTRAST: Not administered. COMPARISON: Same-day exam FINDINGS: Reference CT from earlier in the day for complete findings. Per the clinical history, an attempt was made to reposition the suprapubic catheter as the tip of the catheter cannulates the left ureteral orifice, terminates in the left distal ureter, and results in mild left-sided hydronephrosis. On this exam, the tip of the suprapubic catheter is again noted in similar position in the left distal ureter, cannulating the left ureteral orifice. The visualized portions of the ureter are mildly dilat ed. The remaining findings are unchanged. IMPRESSION: No significant change from earlier in the day. Suprapubic catheter tip again noted to cannulate the left ureteral orifice with similar dilated visua lized portions of the left ureter..
[2024-09-12 17:53] VITALS: TEMP 98.9
[2024-09-12 18:00] VITALS: BP 133/60; O2SAT 95
--- NOTE | 2024-09-14 16:47 | EKG ---
Test Date: 2024-09-12 Test Time: 08:40:50 [employer] Chamber Technician: REESE MEASUREMENT RESULTS: Intervals: Rate: 76 CO: 226 QRSD: 88 QT: 414 QTc: 465 [place]: P: 77 CO: 226 QRS: 64 T: 67 INTERPRETIVE STATEMENTS: Sinus rhythm with 1st degree AV block Low voltage QRS Borderline ECG Compared to ECG 10/22/2023 12:56:31 First degree AV block now present Low QRS voltage now present Electronically Signed On 09-14-24 16:45:16 CDT by Mian Townsend
== END 2024-09-12 17:46 | disposition short-term general hospital (02) ==
LOC: ER 08:20
DX: N39.0 Urinary tract infection, site not specified (principal); J81.0 Acute pulmonary edema; I50.40 Unspecified combined systolic (congestive) and diastolic (congestive) heart failure; I10 Essential (primary) hypertension; F17.210 Nicotine dependence, cigarettes, uncomplicated; Z95.818 Presence of other cardiac implants and grafts
CPT/HCPCS: 96365; 96361; 93005; 87040 ×2; 87088; 85025; 81001; 87086; 36415; 87205 ×4; 85610; 83605; 85730; 87077 ×3; 87186 ×3; 84484; 80053; 83880; 72192; 74176; 71045; 96375; 99285; J7614; J1938; J7040; J0696